=== PATIENT | female | born 1940 | race Caucasian/White ===

== ENCOUNTER 2016-03-08 12:27 | Inpatient (IN) | payer OTHER, MEDICARE ==
[~2016-03-08] VITALS: Ht 162.6 cm; Wt 66.2 kg
[~2016-03-08 12:27] MED LIST: ASPIRIN CHILDRE81 MG PO; ATORVASTATIN CA40 MG PO; BUPROPION HCL150 M2; CIPRO 250MG250 MG PO; CIPRO 500MG TA500 MG PO; CIPROFLOXACIN500 MG PO; CLOPIDOGREL75 M1 PO; CRANBERRY450 MG PO; ESCITALOPRAM OX20 MG PO; GLUCOTROL10 MG PO; LANTUS SOL100 UNIT/1 SC; LANTUS SOLOS100 U/ML SC; LANTUS100 U/ML SC; LEVEMIR 10100 UNITS/ SC; LOPRESSOR 25MG25 MG PO; METOPROLOL SUCC50 M1 PO; MIRALAX17 GM PO; NOVOLOG100 U/ML SC; OXYBUTYNIN CHLO10 M1 PO; PLAVIX 75MG TAB75 MG PO; PROTONIX40 M3 PO; SULFAMETHOXAZO1 EAC1 PO; Senokot S PO; VITAMIN D1000 IU PO
--- NOTE | 2016-03-08 12:53 | NUR ---
RECEIVED 75 YO FEMALE BIBA S/P FALL AT HOME. PT DOES NOT REMEMBER WHY SHE FELL. PT C/O LEFT HIP PAIN AND PAIN TO BACK OF HEAD. PT HAS A LARGE AREA OF SWELLING TO BACK OF HEAD WITH BLEEDING NOTED, NOT ACTIVE. PT REPORTS HER NEIGHBOR HEARD HER FALL AND SENT HIS AIDE TO INVESTIGATE WHO THEN CALLED 911. PT REPORTS HER B/P DROPS WHEN SHE STANDS.
--- NOTE | 2016-03-08 12:57 | NUR ---
PT EVALUATED BY OAPL FALCON
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
--- NOTE | 2016-03-08 13:19 | NUR ---
BLOOD DRAWN DIRECTED. PT SENT TO CT SCAN
[2016-03-08 13:21] LABS: ABSOLUTE BASOPHIL COUNT 0 /CUMM (0.0-0.2); ABSOLUTE EOSINOPHIL COUNT 0.3 /CUMM (0.0-0.7); ABSOLUTE GRANULOCYTE CT 6.1 /CUMM (1.4-6.5); ABSOLUTE LYMPH COUNT 1.3 /CUMM (1.2-3.4); ABSOLUTE MONOCYTE COUNT 0.8 /CUMM (0.10-0.60); BASOPHIL % 0.1 % (0.0-2.0); GRANULOCYTE % 71.5 % (42.2-75.2); HEMATOCRIT 31.1 % (37-47); MEAN CORPUSCULAR HGB 29.7 PG (27.0-31.0); MEAN CORPUSCULAR HGB CONC 32.7 G/DL (33.0-37.0); MEAN CORPUSCULAR VOLUME 90.8 FL (81.0-99.0); PLATELET COUNT 192 /CUMM (130-400); RBC DISTRIBUTION WIDTH 13.6 % (11.5-14.5); RED BLOOD CELL CT 3.43 /CUMM (4.20-5.40); WHITE BLOOD CELL COUNT 8.5 /CUMM (4.8-10.8)
--- NOTE | 2016-03-08 13:58 | NUR ---
PT BACK TO ROOM S/P CT SCAN AND XRAYS. PT COMES IN TO ED WITH INDWELLING PUGA CATHETER. BEDSIDE CATHETER BAG REPLACED WITH NEW ONE. EKG IN PROGRESS. PT DENIES CP OR SOB
--- NOTE | 2016-03-08 14:15 | CT SCAN REPORT ---
EXAMINATION: CT HEAD WITHOUT CONTRAST CT FACIAL BONES WITHOUT CONTRAST CT CERVICAL SPINE WITHOUT CONTRAST CLINICAL INFORMATION: 75-year-old woman with fall and injury. COMPARISON: 01/20/[address] head [address] CT TECHNIQUE: Imaging was performed from the skull base to vertex without intravenous administration of contrast. In addition, helical noncontrast CT imaging was acquired through the cervical spine and facial bones and source images were reviewed along with axial reconstructions and sagittal and coronal MPRs. DLP: 1691 mGy-cm FINDINGS: HEAD: No intracranial mass, hemorrhage, or midline shift is visualized. Moderate chronic microvascular ischemic changes are seen throughout the supratentorial white matter. There is moderate ventriculomegaly and diffuse sulcal widening due to chronic volume loss. No extra-axial collections are identified. Prominent soft tissue swelling is noted in the left parietal region without evidence of a acute calvarial fracture. FACIAL BONES: There is no evidence of an acute facial bone fracture. The paranasal sinuses are well aerated. No significant dental disease is visualized. The orbits are unremarkable in appearance. CERVICAL SPINE: There is no evidence of acute cervical spine fracture. Vertebral bodies remain normal in height. There is straightening of the normal cervical lordosis. Degenerative subchondral sclerosis and endplate remodeling is noted at C4-C5 and C6-C7 along with mild loss of normal disc height. No pre- or paravertebral soft tissue abnormality is identified. Limited assessment of the lung apices is unremarkable. IMPRESSION: 1. No acute intracranial process or discrete facial bone fracture. 2. No acute cervical spine fracture or traumatic subluxation.
--- NOTE | 2016-03-08 14:26 | RADIOLOGY REPORT ---
EXAMINATION: XR HIP AND FEMUR, LEFT CLINICAL INFORMATION: Injury COMPARISON: Pelvis film from 11/08/2014 and 01/17/2016 TECHNIQUE: AP pelvis with hips in neutral position, frontal and frog lateral films of the left hip. Frontal and lateral films of the left femur FINDINGS: There is no acute fracture, dislocation, or other acute bony or joint space abnormality seen in the left hip and femur. There is mild hypertrophic spurring in the acetabulum and at the greater trochanter. There is mild degenerative change in the left knee. No focal bone lesion is identified. There is extensive vascular calcification with vascular stents in the left femoral artery. There is a right hip hemiarthroplasty which is grossly intact. The distal stem of the right prosthesis is not included on the film. A tubular electrode is present over the right sacrum unchanged. IMPRESSION: No acute fracture or dislocation is seen in the left hip and femur. Mild degenerative changes similar to prior
--- NOTE | 2016-03-08 14:38 | NUR ---
ORTHOSTATIC VITAL SIGNS DONE. LAY: B/P 214/86, HR 62 SIT: B/P 157/72, HR 63 STAND: B/P 107/65, HR 64 PA OPAL MICHEL AWARE OF SAME.
--- NOTE | 2016-03-08 14:45 | NUR ---
URINE TRIO SENT TO LAB
--- NOTE | 2016-03-08 15:13 | NUR ---
IV ESTABLISHED RIGHT A/C #22. 1 LITER NS RUNNING
--- NOTE | 2016-03-08 15:30 | NUR ---
PT MEDICATED WITH KAYEXALATE 60ML PO
--- NOTE | 2016-03-08 15:58 | NUR ---
FOOD TRAY CALLED FOR PT
--- NOTE | 2016-03-08 16:29 | NUR ---
2ND LITER NS INFUSION COMPLETE. FOOD TRAY PROVIDED TO PT. ORTHOSTATIC BP TO BE RECHECKED AFTER PT FINISHED EATING
--- NOTE | 2016-03-08 17:25 | NUR ---
ORTHOSTATICS DONE. PT NEEDED TO SIT DOWN BEFORE A STANDING PRESSURE WAS OBTAINED, DUE TO LIGHTHEADEDNESS.
--- NOTE | 2016-03-08 17:36 | NUR ---
TERRIE MICHEL NOTIFIED OF OTHROSTATIC BP ASSESMENT. TERRIE SPARGUE AT BEDSIDE TO DISCUSS POC. 2ND LITER NS STARTED AT 150ML/HR
--- NOTE | 2016-03-08 18:57 | NUR ---
PT'S SON, AMMON, CALLED AND WOULD LIKE TO BE NOTIFIED OF PT'S DISPOSITION
--- NOTE | 2016-03-08 20:28 | ED GENERAL ADULT ---
History of Present Illness General Chief Complaint: Fall Stated Complaint: BIBA, FALL Vital Signs & Intake/Output Vital Signs & Intake/Output Vital Signs Date Time Temp Pulse Resp B/P Pulse O2 O2 Flow FiO2 Ox Delivery Rate 03/08 2315 98.8 91 20 153/72 97 Room Air 03/08 2042 99.6 91 20 142/65 96 Room Air 03/08 1726 72 155/72 03/08 1644 98.6 86 20 174/79 98 Room Air 03/08 1441 64 107/65 03/08 1441 63 157/72 03/08 1441 97.3 62 20 214/86 100 Room Air 03/08 1403 99 Room Air 03/08 1241 97.0 64 20 178/72 99 Room Air ED Intake and Output 03/09 0000 03/08 1200 Intake Total 0 Output Total 1100 Balance -1100 Intake, IV 0 Output, Urine 1100 Patient 146 lb Weight Allergies Coded Allergies: adhesive tape (PLASTIC TAPE 01/17/16) oxybutynin (Severe, DELERIUM 01/24/16) codeine (NAUSEA 01/17/16) nitrofurantoin (LOOPY 01/17/16) Reconcile Medications Aspirin (Children's Aspirin) 81 MG CTB 1 TAB PO DAILY HEART HEALTH Atorvastatin Calcium (Lipitor) 40 MG TAB 1 TAB PO DAILY CHOLESTEROL Clopidogrel Bisulfate (Clopidogrel) 75 MG TABLET 1 TAB PO DAILY BLOOD THINNER (Reported) Escitalopram Oxalate 20 MG TABLET 1 TAB PO DAILY DEPRESSION (Reported) Insulin Glargine, Recombinan (Lantus Solostar) 100 U/ML JAZ 8 UNITS SC QPM DIABETES (Reported) Insulin Glargine,Hum.rec.anlog (Lantus Solostar) 100 UNIT/ML (3 ML) INSULN.PEN 20 U SC DAILY DIABETES (Reported) Metoprolol Succinate (Metoprolol Succinate XL) [address] 1 TAB PO DAILY BP ( Reported) Pantoprazole Sodium (Protonix) 40 MG TABLET.DR 1 TAB PO DAILY GERD (Reported) Triage Note: RECEIVED 75 YO FEMALE HERO S/P FALL AT HOME. PT DOES NOT REMEMBER WHY SHE FELL. PT C/O LEFT HIP PAIN AND PAIN TO BACK OF HEAD. PT HAS A LARGE AREA OF SWELLING TO BACK OF HEAD WITH BLEEDING NOTED, NOT ACTIVE. PT REPORTS HER NEIGHBOR HEARD HER FALL AND SENT HIS AIDE TO INVESTIGATE WHO THEN CALLED 911. PT REPORTS HER B/P DROPS WHEN SHE STANDS. HPI: THIS CHART IS AN ADDENDUM TO THE PREVIOUS CHART EMR WILL NOT GIVE ACCESS AT THIS TIME. DISCUSSED THIS PATIENT WITH DR. QUESADA FOR ADMISSION TO THE HOSPITAL. (ANAND LAW,OPAL) Past History Travel History Traveled to [place] past 21 day No Medical History Neurological: NONE EENT: NONE Cardiovascular: hypertension, hyperlipidemia Respiratory: NONE Gastrointestinal: NONE Hepatic: NONE Renal: urinary incontinence, SUPRAPUBIC CATHETER Musculoskeletal: NONE Psychiatric: NONE Endocrine: diabetes Blood Disorders: sickle cell disease, NONE Cancer(s): NONE STATION REPAIRER/Reproductive: NONE History of MRSA: No History of VRE: No History of CDIFF: No Pneumonia Vaccine: 11/08/13 Influenza Vaccine: 11/09/15 Surgical History Surgical History: CABG, hip replacement, L LEG ANGIOPLASTY Psychosocial History Who do you live with Patient/Self Services at Home None What is your primary language Nicaraguan Tobacco Use: Never used (ANAND LAW,OPAL) Progress Plan of Care: Orders Procedure Date/time Status Nothing by Mouth 03/09 B Active Lab Add-on Test 03/09 13 Active FingerStick- Glucose 03/09 0010 Active Heart Healthy Diet 03/08 D Complete Patient Data 03/08 2123 Active Saline Lock 03/08 2024 Active Misc Message 03/08 2024 Active ED Holding Orders 03/08 2024 Active Admit to inpatient 03/08 2024 Active Vital Signs 03/08 2024 Active Code Status 03/08 2024 Active Intake & Output 03/08 1400 Active MISTAKE 03/08 1336 Active CULTURE,URINE 03/08 1248 Active URINALYSIS 03/08 1248 Complete TROPONIN LEVEL 03/08 1248 Complete COMPREHENSIVE METABOLIC PANEL 03/08 1248 Complete CBC WITHOUT DIFFERENTIAL 03/08 1248 Complete EKG 03/08 1248 Active Laboratory Tests 03/08/16 1440: Urine Color STRAW, Urine Clarity HAZY H, Urine pH 6.5, Ur Specific [place] 1.010, Urine Protein NEG, Urine Ketones NEG, Urine Nitrite NEG, Urine Bilirubin NEG, Urine Urobilinogen 0.2, Ur Leukocyte Esterase SMALL H, Ur Microscopic SEDIMENT EXAMINED, Urine RBC 3-5, Urine WBC 3-5 H, Ur Epithelial Cells RARE, Urine Mucus RARE, Urine Hemoglobin TRACE-LYSED, Urine Glucose 500 H 03/08/16 1312: Anion Gap 12, Estimated GFR 29 L, BUN/Creatinine Ratio 24.7, Glucose 310 H, Calcium 9.5, Total Bilirubin 0.5, AST 29, ALT 43, Alkaline Phosphatase 100, Troponin I < 0.01, Total Protein 7.5, Albumin 4.1, Globulin 3.4, Albumin/ Globulin Ratio 1.2, CBC w Diff NO MAN DIFF REQ, RBC 3.43 L, MCV 90.8, MCH 29.7, RDW 13.6, MPV 9.0, Gran % 71.5, Lymphocytes % 15.9 L, Monocytes % 9.5 H, Eosinophils % 3.0, Basophils % 0.1, Absolute Granulocytes 6.1, Absolute Lymphocytes 1.3, Absolute Monocytes 0.8 H, Absolute Eosinophils 0.3, Absolute Basophils 0, PUBS MCHC 32.7 L Microbiology 03/08 1440 URINE ROUT: Urine Culture - RECD Comments: 03/08/2016 9:30:53 PM: This patient was officially signed out to Dr. Lamar for telemetry admission. (OPAL MICHEL PA-C) Departure Departure Disposition: STILL A PATIENT Condition: Stable Referrals: ADINA GILMORE,CHARY Crespo (PCP/Family) Departure Forms: Customer Survey General Discharge Information Admission Note Spoke With: ALVINO QUESADA MD (OAPL MICHEL PA-C)
--- NOTE | 2016-03-08 21:01 | NUR ---
PT RESTING ON STRETCHER WATCHING TELEVISION. NO APPARENT DISTRESS NOTED
--- NOTE | 2016-03-08 22:43 | NUR ---
BED ASSIGNED 172-2
--- NOTE | 2016-03-08 23:04 | NUR ---
REPORT CALLED TO RAMSES CHENEY
--- NOTE | 2016-03-08 23:24 | NUR ---
PT CONTINUES TO REFUSE TO CHANGE INTO HOSPITAL [facility]
--- NOTE | 2016-03-08 23:50 | NUR ---
PT ASSIGNED TO ROOM 171
--- NOTE | 2016-03-09 00:21 | History & Physical ---
JAVIER GILMORE,JEANE 03/09/16 0002: General Information and HPI MD Statement: I have seen and personally examined FELICIANO PATHAK I and documented this H&P. The patient is a 75 year old F who presented with a patient stated chief complaint of [fall]. Source of Information: patient, old records Exam Limitations: no limitations History of Present Illness: There is a 75-year-old female the past medical history significant for suprapubic catheter secondary to urinary incontinence, recurrent UTI, history of CABG, CKD, type 2 diabetes mellitus hypertension, hyperlipidemia that presented to the emergency room today after she fell secondary to mechanical fall on her kitchen floor. She was refilling her cup of coffee and she lost her footing and fell backwards onto her left hip and banged the back of her head. No syncope like prodrome chest pain, shortness of breath, lightheadedness, blacking out or passing out. States it was a mechanical fall, denies any loss of consciousness does admit to head strike. States this is never happened before she is normally careful ambulating well using a walker. She did receive IV fluids in the emergency room and had orthostatic hypotension in addition to an elevated potassium of 5.9. During my evaluation, patient denied any chest pain, shortness of breath, nausea, vomiting, diarrhea, recent illnesses sick contacts, fevers or chills. She only complained of minor left hip pain. X-ray and CAT scans in the emergency room have showed completely benign findings. No acute fractures. Allergies/Medications Allergies: Coded Allergies: adhesive tape (PLASTIC TAPE 01/17/16) oxybutynin (Severe, DELERIUM 01/24/16) codeine (NAUSEA 01/17/16) nitrofurantoin (LOOPY 01/17/16) Home Med list Aspirin (Children's Aspirin) 81 MG CTB 1 TAB PO DAILY HEART HEALTH Atorvastatin Calcium (Lipitor) 40 MG TAB 1 TAB PO DAILY CHOLESTEROL Clopidogrel Bisulfate (Clopidogrel) 75 MG TABLET 1 TAB PO DAILY BLOOD THINNER (Reported) Escitalopram Oxalate 20 MG TABLET 1 TAB PO DAILY DEPRESSION (Reported) Insulin Glargine, Recombinan (Lantus Solostar) 100 U/ML JAZ 8 UNITS SC QPM DIABETES (Reported) Insulin Glargine,Hum.rec.anlog (Lantus Solostar) 100 UNIT/ML (3 ML) INSULN.PEN 20 U SC DAILY DIABETES (Reported) Metoprolol Succinate (Metoprolol Succinate XL) [address] 1 TAB PO DAILY BP ( Reported) Pantoprazole Sodium (Protonix) 40 MG TABLET.DR 1 TAB PO DAILY GERD (Reported) Past History Travel History Traveled to [place] past 21 day No Medical History Neurological: NONE EENT: NONE Cardiovascular: CHF, hypertension, hyperlipidemia Respiratory: NONE Gastrointestinal: NONE Hepatic: NONE Renal: urinary incontinence, SUPRAPUBIC CATHETER Musculoskeletal: NONE Psychiatric: NONE Endocrine: diabetes Blood Disorders: sickle cell disease Cancer(s): NONE History of MRSA: No History of VRE: No History of CDIFF: No Pneumonia Vaccine: 11/08/13 Influenza Vaccine: 11/09/15 Surgical History Surgical History: CABG, hip replacement, L LEG ANGIOPLASTY Past Family/Social History Psychosocial History Where do you live? Home Who Do You Live With? By herself - Neighbor/Friend helps her out Services at Home: None Primary Language: Slovak Smoking Status: Never Smoked ETOH Use: occasional use Illicit Drug Use: denies illicit drug use Living Will? yes Functional Ability ADLs Independent: dressing, eating, toileting, bathing. IADLs Needs Assist: shopping, housework. Review of Systems Review of Systems Constitutional: Reports: see HPI. Exam & Diagnostic Data Last 24 Hrs of Vital Signs/I&O Vital Signs Date Time Temp Pulse Resp B/P Pulse O2 O2 Flow FiO2 Ox Delivery Rate 03/08 2315 98.8 91 20 153/72 97 Room Air 03/08 2042 99.6 91 20 142/65 96 Room Air 03/08 1726 72 155/72 03/08 1644 98.6 86 20 174/79 98 Room Air 03/08 1441 64 107/65 03/08 1441 63 157/72 03/08 1441 97.3 62 20 214/86 100 Room Air 03/08 1403 99 Room Air 03/08 1241 97.0 64 20 178/72 99 Room Air Intake & Output 03/09 0800 03/09 0000 03/08 1600 Intake Total 0 Output Total 1100 Balance -1100 0 Intake, IV 0 Output, Urine 1100 Patient 146 lb Weight Physical Exam General Appearance Alert, Oriented X3, Cooperative HEENT Atraumatic, PERRLA, EOMI, ABRASION TO OCCIPUT, TENDER Neck Supple, No JVD Cardiovascular Regular Rate, Normal S1, Normal S2 Lungs Clear to Auscultation, Normal Air Movement Abdomen Normal Bowel Sounds, Soft, No Tenderness, No Hepatospenomegaly, No Masses, Supra-pubic catheter w/o any surrounding errythema Neurological Normal Speech, Strength at 5/5 X4 Ext, Normal Tone, Sensation Intact, Cranial Nerves 3-12 NL Extremities Full ROM IN HIPS, KNEE AND ANKLES BILATERALLY, TENDERNESS TO PALPATION OVER LEFT HIP Last 24 Hrs of Labs/Heraclio: Laboratory Tests 03/08/16 1440: Urine Color STRAW, Urine Clarity HAZY H, Urine pH 6.5, Ur Specific [place] 1.010, Urine Protein NEG, Urine Ketones NEG, Urine Nitrite NEG, Urine Bilirubin NEG, Urine Urobilinogen 0.2, Ur Leukocyte Esterase SMALL H, Ur Microscopic SEDIMENT EXAMINED, Urine RBC 3-5, Urine WBC 3-5 H, Ur Epithelial Cells RARE, Urine Mucus RARE, Urine Hemoglobin TRACE-LYSED, Urine Glucose 500 H 03/08/16 1312: Anion Gap 12, Estimated GFR 29 L, BUN/Creatinine Ratio 24.7, Glucose 310 H, Calcium 9.5, Total Bilirubin 0.5, AST 29, ALT 43, Alkaline Phosphatase 100, Troponin I < 0.01, Total Protein 7.5, Albumin 4.1, Globulin 3.4, Albumin/ Globulin Ratio 1.2, CBC w Diff NO MAN DIFF REQ, RBC 3.43 L, MCV 90.8, MCH 29.7, RDW 13.6, MPV 9.0, Gran % 71.5, Lymphocytes % 15.9 L, Monocytes % 9.5 H, Eosinophils % 3.0, Basophils % 0.1, Absolute Granulocytes 6.1, Absolute Lymphocytes 1.3, Absolute Monocytes 0.8 H, Absolute Eosinophils 0.3, Absolute Basophils 0, PUBS MCHC 32.7 L Microbiology 03/08 144 URINE ROUT: Urine Culture - RECD Diagnostic Data EKG Results Rate 61, AK 144, QRS 78, QTC 456 Sinus rhythm Other Results CAT scan of the cervical spine, head, maxillofacial IMPRESSION: 1. No acute intracranial process or discrete facial bone fracture. 2. No acute cervical spine fracture or traumatic subluxation. X-ray of the hip and femur IMPRESSION: No acute fracture or dislocation is seen in the left hip and femur. Mild degenerative changes similar to prior Assessment/Plan Assessment: In summary this is a 75-year-old female with a history of depression, CABG, hyperlipidemia, hypertension, diabetes mellitus that presented to the emergency room after experiencing a mechanical fall with head strike without loss of consciousness. She was found to have labile blood pressures in the emergency room and was given 2 L of normal saline with modest resolved and her blood pressures. She states that she has never checked her blood pressure at home and is unsure if it's normally labile or not. She was consequently found to have a serum potassium of 5.9 without any EKG changes and hence merits in observation to the cardiac telemetry floor. Off note, patient used to be and Midodrine previously but it was eventually discontinued by her freelance translator. Assessment- 1. Fall, likely secondary to orthostatic hypotension, but could also be secondary to her neuropathy from chronic diabetes, her previous A1c was greater than 9 2. Hyperkalemia, potassium 5.9 3. Hypertension 4. Hyperlipidemia 5. Depression 6. Diabetes mellitus 7. Chronic incontinence, supra-pubic catheter Plan- Admit to telemetry Vitals per protocol IV fluid resuscitation She was given 60 her Kayexalate in the ER, will recheck potassium Echocardiogram Check of troponin and EKG Continue all home meds Accu-Checks Insulin sliding scale DVT prophylaxis with subcutaneous heparin Diabetic diet DNR/I As Ranked By This Provider Problem List: 1. Orthostatic hypotension 2. [id number] kidney injury 3. Renal failure Core Measures/Miscellaneous Acute Coronary Syndrome ACS Diagnosis: No Cerebrovascular Accident CVA/TIA Diagnosis: No Congestive Heart Failure CHF Diagnosis: No Venous Thromboembolism VTE Risk Factors: Age > 40 VTE Prophylaxis Ordered Inpt: Pharm- Heparin No [facility] VTE prophylaxis d/t: No contraindications No VTE Pharm Prophylaxis d/t: No contraindications VTE Diagnosis: No VTE Type: NONE VTE Confirmed by (Test): NONE Severe Sepsis Severe Sepsis Present: No Septic Shock Septic Shock Present: No Miscellaneous Documentation Attending Case Discussed With: ALVINO QUESADA MD Primary Care Physician: CHARY HOLDEN MD Patient sees these Specialists NONE Level of Patient Care: Telemetry Resident Review Statement Resident Statement: examined this patient, discussed with college intern EDD QUESADA MD 03/09/16 0354: Attending Review Statement Attending Statement Attending Statement: examined this patient, discuss w/resident/PA/OFFICE MOVER, agreed w/resident/PA/OFFICE MOVER Attending Assessment/Plan: 75 yo lady with h/o suprapubic catheter for UI and recurrent UTIs, T2DM, HTN, CAD s/p CABG, orthostatic hypotension, CKD stage 4, is brought in from home s/p fall. She was in the kitchen this morning making her coffee, when she felt lightheaded and fell hitting her head and left hip. She heard a loud noise and her neighbour's aide came in to check on her, and called 911. Similar fall about 1 month back. She has a h/o orthostatic hypotension and was on midodrine, but this was discontinued per patient. She states, none of her doctors were able to manage this problem for her. She used to follow Dr. Soria (Cardio) but he is . After which, she saw a freelance translator in [place], but she does not wish to follow up there anymore. She currently denies chest pain, palpitations, nausea, dyspnea or lightheadedness. C/o left hip pain. VSS. Orthostats positive. Exam: Swelling noted to posterior aspect of head, neuro intact. Heart S1S2 regular, systolic murmur LSB+, Chest clear. Labs: K 5.9 , BUN 42, creat 1.7 (baseline 1.5), trop neg, UA neg. Imaging reveals no fractures. EKG: SR. 1. Near syncope, fall due to orthostatic hypotension which is likely 2/2 diabetic neuropathy. Fall precautions, IV fluids, recheck orthostats Qshift, rule out ACS, obtain Echo, Cardio consult in AM. Monitor accucheks for hypoglycemia. Give bilateral compression stockings. Will consider midodrine if BP allows. PT eval. 2. T2DM. Last A1c 9.9 (Jan 2016). Accucheks, continue levemir, and add novolog SS. 3. Hyperkalemia. Received kayexalate in ER. Recheck K. 4. Chronic suprapubic catheter, no acute urinary infection. 5. Continue home meds including aspirin, plavix, metoprolol, statin, lexapro and omeprazole. DVT ppx Hep SC. DNR/I.
--- NOTE | 2016-03-09 00:27 | Admission Certification ---
Admission Certification Certification Statement - As attending physician, I certify that at the time of - admission, based on clinical presentation, severity of - symptoms, need for further diagnostic testing and - therapeutic interventions, and risk of adverse outcomes - without in-hospital treatment, in my clinical assessment, - this patient requires an acute hospital stay for a minimum - of two nights or longer. I have also considered psychsocial - factors such as support system, advanced age, financial - issues, cognitive issues, and failed out-patient treatments, - past re-admission history, safety of patient, and lack of - compliance as applicable. Specific rationale supporting this admission is: Near syncope, Orthostatic hypotension.
[2016-03-09 00:44] VITALS: BP 150/76
[2016-03-09 02:41] VITALS: BP 159/68
[2016-03-09 07:59] LABS: ABSOLUTE EOSINOPHIL COUNT 0.3 /CUMM (0.0-0.7); ABSOLUTE GRANULOCYTE CT 3.3 /CUMM (1.4-6.5); ABSOLUTE MONOCYTE COUNT 0.8 /CUMM (0.10-0.60); MEAN CORPUSCULAR HGB 30.1 PG (27.0-31.0); WHITE BLOOD CELL COUNT 6.7 /CUMM (4.8-10.8)
[2016-03-09 08:19] LABS: PT 12.8 SEC (9.4-12.5)
[2016-03-09 08:22] LABS: ABSOLUTE BASOPHIL COUNT 0 /CUMM (0.0-0.2); ABSOLUTE LYMPH COUNT 2.3 /CUMM (1.2-3.4); BASOPHIL % 0.7 % (0.0-2.0); EOSINOPHIL % 4.7 % (0-5); GRANULOCYTE % 49.2 % (42.2-75.2); MEAN CORPUSCULAR HGB CONC 33.5 G/DL (33.0-37.0); MEAN CORPUSCULAR VOLUME 89.7 FL (81.0-99.0); PLATELET COUNT 152 /CUMM (130-400); RBC DISTRIBUTION WIDTH 13.2 % (11.5-14.5); RED BLOOD CELL CT 2.79 /CUMM (4.20-5.40)
[2016-03-09 09:00] VITALS: BP 130/60
--- NOTE | 2016-03-09 10:54 | Cons- Cardiology ---
General Information and HPI Consulting Request Date of Consult: 03/09/16 Requested By: BARBARA BARDALES MD Reason for Consult: Coronary artery disease, orthostatic hypotension Source of Information: patient, old records Exam Limitations: no limitations History of Present Illness: The patient is a 75-year-old woman with a past medical history of coronary artery disease (status post bypass surgery, status post recent stenting 2), chronic kidney disease, diabetes mellitus, hypertension, hyperlipidemia and orthostatic hypotension. She presented to our hospital following a fall, sustaining injury to her left hip. The patient states having a history of orthostatic hypotension and had previously been placed on medications such as ProAmatine and Florinef. Regimen was recently discontinued for an unclear reason. The patient's current episode occurred after she had risen to get a cup of coffee. There was no clear prodrome, chest pain nor palpitations. There have been prior falls as well without clear prodrome. The patient however believes the current episode may have been due to a mechanical etiology rather than syncope. Following admission, the patient is noted to have significant orthostatic hypotension with supine blood pressures of 150s and standing of 90s. She is symptomatic for blood pressure differences. The patient states she is otherwise active, and describes performing a proximally 4 METs of physical activity. She ambulates with a walker for stability. Allergies/Medications Allergies: Coded Allergies: adhesive tape (PLASTIC TAPE 01/17/16) oxybutynin (Severe, DELERIUM 01/24/16) codeine (NAUSEA 01/17/16) nitrofurantoin (LOOPY 01/17/16) Home Med List: Aspirin (Children's Aspirin) 81 MG CTB 1 TAB PO DAILY HEART HEALTH Atorvastatin Calcium (Lipitor) 40 MG TAB 1 TAB PO DAILY CHOLESTEROL Clopidogrel Bisulfate (Clopidogrel) 75 MG TABLET 1 TAB PO DAILY BLOOD THINNER (Reported) Escitalopram Oxalate 20 MG TABLET 1 TAB PO DAILY DEPRESSION (Reported) Insulin Glargine, Recombinan (Lantus Solostar) 100 U/ML JAZ 8 UNITS SC QPM DIABETES (Reported) Insulin Glargine,Hum.rec.anlog (Lantus Solostar) 100 UNIT/ML (3 ML) INSULN.PEN 20 U SC DAILY DIABETES (Reported) Metoprolol Succinate (Metoprolol Succinate XL) [address] 1 TAB PO DAILY BP ( Reported) Pantoprazole Sodium (Protonix) 40 MG TABLET. 1 TAB PO DAILY GERD (Reported) Current Medications: Current Medications Sig/Dasha Start time Last Medication Dose Route Stop Time Status Admin Acetaminophen 650 MG Q6P PRN 03/09 0030 AC PO Aspirin 81 MG DAILY 03/09 1000 AC 03/09 PO 0908 Atorvastatin Calcium 40 MG DAILY 03/09 1000 AC 03/09 PO 0908 Clopidogrel Bisulfate 75 MG DAILY 03/09 1000 AC 03/09 PO 0908 Escitalopram Oxalate 20 MG DAILY 03/09 1000 AC 03/09 PO 0908 Heparin Sodium 5,000 UNIT Q8 03/09 0031 AC 03/09 (Porcine) SC 0739 Insulin Aspart 0 TIDAC 03/09 0800 AC 03/09 SC 0858 Insulin Detemir 8 UNITS AT BEDTIME 03/09 2200 AC SC Insulin Detemir 20 UNITS DAILY 03/09 1000 AC 03/09 SC 0908 Metoprolol Succinate 50 MG DAILY 03/09 1000 AC PO Omeprazole 40 MG DAILY AC 03/09 0700 AC 03/09 PO 0739 Pyridostigmine 30 MG .[8A, 12A, 4PM] 03/09 1015 [facility] [place] PO Sodium Chloride 1,000 ML ONCE ONE 03/09 0045 AC 03/09 IV 03/09 1404 0345 Sodium Chloride 1,000 ML BOLUS ONE 03/08 1745 DC 03/08 IV 03/08 1944 1736 Sodium Chloride 1,000 ML BOLUS ONE 03/08 1445 DC 03/08 IV 03/08 1544 1512 Sodium Polystyrene 0 .STK-MED ONE 03/08 1517 DC Sulfonate .ROUTE Sodium Polystyrene 60 ML ONCE ONE 03/08 1445 DC 03/08 Sulfonate PO 03/08 1446 1530 Review of Systems Review of Systems: The review of systems is negative for chest pains, palpitations. The remainder of the 14 point review of systems is noncontributory with the exception of above. 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 Home Who Do You Live With? By herself - Neighbor/Friend helps her out Services at Home: None Primary Language: Zimbabwean Smoking Status: Never Smoked ETOH Use: occasional use Illicit Drug Use: denies illicit drug use Living Will? yes Functional Ability ADLs Independent: dressing, eating, toileting, bathing. IADLs Needs Assist: shopping, housework. Exam & Diagnostic Data Vital Signs and I&O Vital Signs Date Time Temp Pulse Resp B/P Pulse O2 O2 Flow FiO2 Ox Delivery Rate 03/09 0935 Room Air 03/09 0900 98.6 74 20 130/60 94 Room Air 03/09 0241 98.2 82 18 159/68 97 03/09 0044 98.6 85 20 150/76 96 03/08 2315 98.8 91 20 153/72 97 Room Air 03/08 2042 99.6 91 20 142/65 96 Room Air 03/08 1726 72 155/72 03/08 1644 98.6 86 20 174/79 98 Room Air 03/08 1441 64 107/65 03/08 1441 63 157/72 03/08 1441 97.3 62 20 214/86 100 Room Air 03/08 1403 99 Room Air 03/08 1241 97.0 64 20 178/72 99 Room Air Intake & Output 03/09 1600 03/09 0800 03/09 0000 03/08 1600 03/08 0800 03/08 0000 Intake Total 565 0 Output Total 675 1100 Balance -110 -1100 0 Intake, IV 325 0 Intake, Oral 240 Output, Urine 675 1100 Patient 146 lb 146 lb Weight Physical Exam: General: Nontoxic, no apparent distress. HEENT: Sclera and conjunctiva within normal limits, without xanthelasmas. Neck: Carotids 2+ without bruits. Respiratory: Clear to auscultation, air movement is good, without accessory respiratory muscle use. Heart: Regular rate and rhythm, 2/6 systolic ejection murmur at left sternal border, without JVD. Abdomen: Soft, nontender, no masses, normoactive bowel sounds. Extremities: Without clubbing, cyanosis, without edema. Neuro: Nonfocal exam, strength, 5 out of 5 Skin: Within normal limits without lesions. Psych: Mood and affect: Normal Labs/Heraclio Results: Laboratory Tests 03/09 03/09 0615 0230 Chemistry Sodium (137 - 145 mmol/L) 142 140 Potassium (3.5 - 5.1 mmol/L) 4.3 4.6 Chloride (98 - 107 mmol/L) 110 H 109 H Carbon Dioxide (22 - 30 mmol/L) 23 23 Anion Gap (5 - 16) 9 7 BUN (7 - 17 mg/dL) 33 H 35 H Creatinine (0.5 - 1.0 mg/dL) 1.5 H 1.6 H Estimated GFR (>60 ml/min) 34 L 31 L BUN/Creatinine Ratio (7 - 25 %) 22.0 21.9 Troponin I (< 0.11 ng/ml) < 0.01 Coagulation PT (9.4 - 12.5 SEC) 12.8 H INR (0.90 - 1.19) 1.22 H Hematology CBC w Diff NO MAN DIFF REQ WBC (4.8 - 10.8 /CUMM) 6.7 RBC (4.20 - 5.40 /CUMM) 2.79 L Hgb (12.0 - 16.0 G/DL) 8.4 L Hct (37 - 47 %) 25.0 L MCV (81.0 - 99.0 FL) 89.7 MCH (27.0 - 31.0 PG) 30.1 RDW (11.5 - 14.5 %) 13.2 Plt Count (130 - 400 /CUMM) 152 MPV (7.4 - 10.4 FL) 9.0 Gran % (42.2 - 75.2 %) 49.2 Lymphocytes % (20.5 - 51.1 %) 33.7 Monocytes % (1.7 - 9.3 %) 11.7 H Eosinophils % (0 - 5 %) 4.7 Basophils % (0.0 - 2.0 %) 0.7 Absolute Granulocytes (1.4 - 6.5 /CUMM) 3.3 Absolute Lymphocytes (1.2 - 3.4 /CUMM) 2.3 Absolute Monocytes (0.10 - 0.60 /CUMM) 0.8 H Absolute Eosinophils (0.0 - 0.7 /CUMM) 0.3 Absolute Basophils (0.0 - 0.2 /CUMM) 0 PUBS MCHC (33.0 - 37.0 G/DL) 33.5 03/08 03/08 1440 1312 Chemistry Sodium (137 - 145 mmol/L) 139 Potassium (3.5 - 5.1 mmol/L) 5.9 H Chloride (98 - 107 mmol/L) 104 Carbon Dioxide (22 - 30 mmol/L) 22 Anion Gap (5 - 16) 12 BUN (7 - 17 mg/dL) 42 H Creatinine (0.5 - 1.0 mg/dL) 1.7 H Estimated GFR (>60 ml/min) 29 L BUN/Creatinine Ratio (7 - 25 %) 24.7 Glucose (65 - 99 mg/dL) 310 H Calcium (8.4 - 10.2 mg/dL) 9.5 Total Bilirubin (0.2 - 1.3 mg/dL) 0.5 AST (14 - 36 U/L) 29 ALT (9 - 52 U/L) 43 Alkaline Phosphatase (<127 U/L) 100 Creatine Kinase (30 - 135 U/L) 44 Troponin I (< 0.11 ng/ml) < 0.01 Total Protein (6.3 - 8.2 g/dL) 7.5 Albumin (3.5 - 5.0 g/dL) 4.1 Globulin (1.9 - 4.2 gm/dL) 3.4 Albumin/Globulin Ratio (1.1 - 2.2 %) 1.2 Hematology CBC w Diff NO MAN DIFF REQ WBC (4.8 - 10.8 /CUMM) 8.5 RBC (4.20 - 5.40 /CUMM) 3.43 L Hgb (12.0 - 16.0 G/DL) 10.2 L Hct (37 - 47 %) 31.1 L MCV (81.0 - 99.0 FL) 90.8 MCH (27.0 - 31.0 PG) 29.7 RDW (11.5 - 14.5 %) 13.6 Plt Count (130 - 400 /CUMM) 192 MPV (7.4 - 10.4 FL) 9.0 Gran % (42.2 - 75.2 %) 71.5 Lymphocytes % (20.5 - 51.1 %) 15.9 L Monocytes % (1.7 - 9.3 %) 9.5 H Eosinophils % (0 - 5 %) 3.0 Basophils % (0.0 - 2.0 %) 0.1 Absolute Granulocytes (1.4 - 6.5 /CUMM) 6.1 Absolute Lymphocytes (1.2 - 3.4 /CUMM) 1.3 Absolute Monocytes (0.10 - 0.60 /CUMM) 0.8 H Absolute Eosinophils (0.0 - 0.7 /CUMM) 0.3 Absolute Basophils (0.0 - 0.2 /CUMM) 0 PUBS MCHC (33.0 - 37.0 G/DL) 32.7 L Urines Urine Color (YEL,AMB,STR) STRAW Urine Clarity (CLEAR) HAZY H Urine pH (5.0 - 8.0) 6.5 Ur Specific [place] (1.001 - 1.035) 1.010 Urine Protein (NEG,<30 MG/DL) NEG Urine Ketones (NEG) NEG Urine Nitrite (NEG) NEG Urine Bilirubin (NEG) NEG Urine Urobilinogen (0.1 - 1.0 EU/dl) 0.2 Ur Leukocyte Esterase (NEG) SMALL H Ur Microscopic SEDIMENT EXAMINED Urine RBC (0 - 5 /HPF) 3-5 Urine WBC (0 - 2 /HPF) 3-5 H Ur Epithelial Cells (NONE,FEW) RARE Urine Mucus (FEW,NONE) RARE Urine Hemoglobin (NEG) TRACE-LYSED Urine Glucose (N MG/DL) 500 H Assessment/Plan Assessment/Plan 75-year-old woman with a past medical history of coronary artery disease (status post bypass surgery, status post recent stenting 2), chronic kidney disease, diabetes mellitus, hypertension, hyperlipidemia and orthostatic hypotension. She presented to our hospital following a fall, sustaining injury to her left hip. Orthostatic hypotension: The patient demonstrates significant supine hypertension (occasionally above 200s); however, significant drops when standing. She had been previously placed on the Virgil as well as Florinef; however, due to supine hypertension has been discontinued. I have discussed with her the trial of Mestinon which may prove to mitigate standing blood pressure drops and not accentuated 9 hypertension. There may need to be a balance of permissive supine hypertension to allow less symptomatic ambulation. Coronary artery disease: Currently stable, the patient is asymptomatic. We will obtain records from her recent hospitalization at [facility] wherein she underwent stent placement 2. Supine hypertension: A degree of permissive supine hypertension will need to be present given her significant orthostatic symptoms. Further control of her blood pressures will likely need to be titrated as an outpatient. Thank you for allowing us to participate in the care of your patient. Please do not hesitate to contact us further with any questions. Sincerely, Julian Howell MD [facility] Consult Acknowledgment - Thank you for your consult request.
--- NOTE | 2016-03-09 13:19 | ECHOCARDIOGRAM REPORT ---
FELICIANO PATHAK Age: 75 : 1940 Gender: F Exam Date: 03/09/2016 10:47 Exam Location: 1 [place] Ht (in): 64 Wt (lb): 146 BSA: 1.74 BP: 159 / 68 Ordering Physician: NICK PEMBERTON MD Referring Physician: NICK PEMBERTON MD Technologist: Marcus Herron RUST Room Number: [id number] Indications: HYPOTENSION Rhythm: Technical Quality: FINDINGS Left Ventricle Normal LV chamber size, wall thickness and systolic function. The estimated LVEF is 55-60% there are no focal wall motion of modalities. Right Ventricle Normal appearing right ventricular structure and function. Right Atrium Normal appearing right atrium Left Atrium Normal appearing left atrium Mitral Valve Mildly calcified mitral valvular leaflets and annulus. There is normal leaflet opening. There is trace mitral regurgitation. Aortic Valve Thickened and calcified trileaflet aortic valve. There is reduced leaflet opening. There is moderate to severe aortic stenosis, with a calculated aortic valve area of 1.1 cm. There is mild aortic insufficiency. Tricuspid Valve Grossly normal appearing tricuspid valvular leaflet structure and function. There is mild tricuspid regurgitation. The estimated PA systolic pressure is 37 mmHg Pulmonic Valve Grossly normal appearing pulmonic valvular structure and function Pericardium Normal-appearing pericardium with no significant pericardial effusion Great Vessels Grossly normal appearing great vessels CONCLUSIONS Normal LV chamber size, wall thickness and systolic function. The estimated LVEF is 55-60% there are no focal wall motion of modalities. There is trace mitral regurgitation. Thickened and calcified trileaflet aortic valve. There is reduced leaflet opening. There is moderate to severe aortic stenosis, with a calculated aortic valve area of 1.1 cm. There is mild aortic insufficiency. There is mild tricuspid regurgitation. The estimated PA systolic pressure is 37 mmHg. Julian Howell M.D. (Electronically Signed) Final Date: 09 March 2016 13:18 MEASUREMENTS (Male / Female) Normal Values 2D ECHO LV Diastolic Diameter PLAX 4.7 cm 4.2 - 5.9 / 3.9 - 5.3 cm LV Systolic Diameter PLAX 3.0 cm 2.1 - 4.0 cm LV Fractional Shortening PLAX 36.2 % 25 - 46 % LV Ejection Fraction 2D Teich 65.8 % IVS Diastolic Thickness 0.7 cm LVPW Diastolic Thickness 0.9 cm LV Relative Wall Thickness 0.3 RV Internal Dim ED PLAX 4.0 cm 1.9 - 3.8 cm LVOT Diameter 2.0 cm Aortic Root Diameter 2.8 cm LA Systolic Diameter LX 3.5 cm 3.0 - 4.0 / 2.7 - 3.8 cm LA Volume 53.0 cm 18 - 58 / 22 - 52 cm Ascending Aorta Diameter 3.1 cm DOPPLER AV Peak Velocity 244.0 cm/s AV Peak Gradient 23.8 mmHg AV Mean Velocity 185.0 cm/s AV Mean Gradient 15.0 mmHg AV Velocity Time Integral 72.2 cm AI Deceleration [place] 266.0 cm/s AI Peak Velocity 362.0 cm/s AI Pressure Half Time 398.0 ms AI Peak Gradient 52.4 mmHg LVOT Peak Velocity 89.8 cm/s LVOT Peak Gradient 3.2 mmHg LVOT Mean Velocity 58.6 cm/s LVOT Mean Gradient 2.0 mmHg LVOT Velocity Time Integral 24.1 cm LVOT Stroke Volume 75.7 cm AV Area Cont Eq vti 1.0 cm AV Area Cont Eq pk 1.2 cm MV Peak Velocity 88.2 cm/s MV Peak Gradient 3.1 mmHg MV Mean Velocity 50.5 cm/s MV Mean Gradient 1.2 mmHg Mitral E Point Velocity 102.0 cm/s Mitral A Point Velocity 85.4 cm/s Mitral E to A Ratio 1.2 MV PHT Velocity 80.1 cm/s MV Deceleration [place] 270.8 cm/s MV Pressure Half Time 88.7 ms MV Area PHT 2.5 cm MV Deceleration Time 229.0 ms TR Peak Velocity 282.0 cm/s TR Peak Gradient 31.8 mmHg Right Atrial Pressure 5.0 mmHg Pulmonary Artery Systolic Pressu 36.8 mmHg Right Ventricular Systolic Press 36.8 mmHg PV Peak Velocity 84.1 cm/s PV Peak Gradient 2.8 mmHg PV Mean Velocity 67.2 cm/s PV Mean Gradient 2.0 mmHg PV Velocity Time Integral 23.6 cm LV E' Lateral Velocity 11.3 cm/s Mitral E to LV E' Lateral Ratio 9.0 LV E' Septal Velocity 6.9 cm/s Mitral E to LV E' Septal Ratio 14.7
--- NOTE | 2016-03-09 14:30 | PN- Att Addend ---
Attending Addendum Attending Brief Note 55-year-old female with past medical history of DM, CAD, indwelling Gallo, chronic orthostatic hypotension and CKD. She is here status post a fall where she hit the back of her head. She has a small hematoma there, her x-rays negative for any hip fracture. She was significantly orthostatic in the ER. Was hydrated and we have now started her on midodrine per cardiology. Will need cardiology records from her previous cooker casing and follow-up closely.
[2016-03-09 15:57] VITALS: BP 140/64
--- NOTE | 2016-03-09 16:02 | Transfer of Care Summary ---
Hospital Course Course Hospital Course: There is a 75-year-old female the past medical history significant for suprapubic catheter secondary to urinary incontinence, recurrent UTI, history of CABG, CKD, type 2 diabetes mellitus hypertension, hyperlipidemia that presented to the emergency room today after she fell secondary to mechanical fall on her kitchen floor. States it was a mechanical fall, denies any loss of consciousness does admit to head strike. States this is never happened before she is normally careful ambulating well using a walker. She did receive IV fluids in the emergency room and had orthostatic hypotension in addition to an elevated potassium of 5.9. VSS. Orthostats positive. Exam: Swelling noted to posterior aspect of head, neuro intact. Heart S1S2 regular, systolic murmur LSB+, Chest clear. Labs: K 5.9 , BUN 42, creat 1.7 (baseline 1.5), trop neg, UA neg. Imaging reveals no fractures. EKG: SR. She was admitted to the telemetry floor for further management. Problem List: 1) Fall secondary to known Orthostatic Hyopotension: She was seen by cardiology. According to them, she was previously on Midodrine, which was discontinued, presumably secondary to supine hypertension. She was therefore, started on Pyridostigmine 30 mg Q4 x3. ECHO showed the presence of aortic sclerosis and mild insufficiency with EF of 55-60%. 2) Hyperkalemia: Initial K in the ED was 5.9. She was given one dose of Kayexalate post which her K came down to 4.6. She was monitored on telemetry with no further events. 3) Type 2 DM: She was continued on Levemir and Novolog SS 4) Hypertension: Continued on home Metoprolol 5) Hyperlipidemia: Continued on home Atorvastatin 6) Depression: Continued on home Lexapro. 7) Chronic Incontinence, with suprapubic catheter: Continued while the patient was in the hospital. 8) CAD s/p Recent Stenting x 2: Patient was continued on home Aspirin and Plavix. 9) DVT PPx: Heparin SubQ 10) Code Status: DNR/DNI 11) Asymptomatic Bacteruria: Urine cultures grew Gram Negative Rods, but the patient was asymptomatic, so she was not started on any antibiotics. Complications: As above. Significant Procedures: ECHOCARDIOGRAM SERVICE DATE: 03/09/16: CONCLUSIONS Normal LV chamber size, wall thickness and systolic function. The estimated LVEF is 55-60% there are no focal wall motion of modalities. There is trace mitral regurgitation. Thickened and calcified trileaflet aortic valve. There is reduced leaflet opening. There is moderate to severe aortic stenosis, with a calculated aortic valve area of 1.1 cm. There is mild aortic insufficiency. There is mild tricuspid regurgitation. The estimated PA systolic pressure is [address] CERV SPINE WO IV CONTRAST; CT HEAD WO IV CONTRAST; CT MAXILLOFACIAL W/O CONTRAST: IMPRESSION: 1. No acute intracranial process or discrete facial bone fracture. 2. No acute cervical spine fracture or traumatic subluxation. RAD - XRY-FEMUR, LEFT 2 VIEWS; XRY-HIP 2-3 VIEWS, LEFT: IMPRESSION: No acute fracture or dislocation is seen in the left hip and femur. Mild degenerative changes similar to prior Pertinent Lab Results: Vital Signs Date Time Temp Pulse Resp B/P Pulse O2 O2 Flow FiO2 Ox Delivery Rate 03/09 1557 98.0 71 20 140/64 96 Room Air 03/09 1038 150/66 03/09 0935 Room Air 03/09 0900 98.6 74 20 130/60 94 Room Air 03/09 0241 98.2 82 18 159/68 97 03/09 0044 98.6 85 20 150/76 96 03/08 2315 98.8 91 20 153/72 97 Room Air 03/08 2042 99.6 91 20 142/65 96 Room Air 03/08 1726 72 155/72 03/08 1644 98.6 86 20 174/79 98 Room Air 03/08 1441 64 107/65 03/08 1441 63 157/72 03/08 1441 97.3 62 20 214/86 100 Room Air 03/08 1403 99 Room Air 03/08 1241 97.0 64 20 178/72 99 Room Air Last 24 Hours I&Os 03/09 1600 03/09 0800 03/09 0000 Intake Total 1000 565 Output Total 650 513 6259 Balance 250 -110 -1100 Intake, IV 600 325 Intake, Oral 400 240 Output, Urine 100 505 3185 Patient 146 lb Weight Laboratory Tests 03/09/16 0615: Anion Gap 9, Estimated GFR 34 L, BUN/Creatinine Ratio 22.0, PT 12.8 H, INR 1.22 H, CBC w Diff NO MAN DIFF REQ, RBC 2.79 L, MCV 89.7, MCH 30.1, RDW 13.2, MPV 9.0, Gran % 49.2, Lymphocytes % 33.7, Monocytes % 11.7 H, Eosinophils % 4.7 , Basophils % 0.7, Absolute Granulocytes 3.3, Absolute Lymphocytes 2.3, Absolute Monocytes 0.8 H, Absolute Eosinophils 0.3, Absolute Basophils 0, PUBS MCHC 33.5 03/09/16 0230: Anion Gap 7, Estimated GFR 31 L, BUN/Creatinine Ratio 21.9, Troponin I < 0.01 Microbiology Date/Time Procedure - Status Source Growth 03/08 1440 Urine Culture - RES URINE ROUT GRAM NEGATIVE RODS Orders Procedure Date/time Status Consistent Carbohydrate 3 03/09 B Active RT: Evaluation 03/09 0934 Active Change service to 03/09 0731 Active PROTHROMBIN TIME 03/09 0600 Complete CBC WITHOUT DIFFERENTIAL 03/09 0600 Complete BASIC ELECTROLYTES PLUS BUN&CR 03/09 0600 Complete Drains/Tubes 03/09 0416 Active Vital Signs 03/09 0239 Complete Teach/Educate 03/09 0239 Active Nutritional Intake, Monitor 03/09 0239 Active Isolation 03/09 0239 Active Intake & Output 03/09 0239 Complete Patient Care Conference 03/09 0239 Active Activity/Ambulation 03/09 0239 Active TRC EVALUATION (GEN) 03/09 0034 Active Pathway - chart 03/09 0034 Active House Staff 03/09 0034 Active Patient Data 03/09 0034 Active TROPONIN LEVEL 03/09 0034 Complete BASIC ELECTROLYTES PLUS BUN&CR 03/09 0034 Complete EKG 03/09 0034 Active Code Status 03/09 0034 Active Lab Add-on Test 03/09 0014 Active FingerStick- Glucose 03/09 0010 Active PT Evaluate & Treat 03/09 UNK Active PT EVAL LOW COMPLEX 20 MIN 03/09 UNK Complete PT Eval 03/09 UNK Complete Gait Training 03/09 UNK Complete House Staff 03/09 UNK Active VTE Mechanical Prophylaxis 03/09 UNK Active Vital Signs 03/09 UNK Complete MISTAKE 03/09 UNK Active Telemetry/Cable Cutter And Swager 03/09 UNK Active Intake & Output 03/09 UNK Complete FingerStick- Glucose 03/09 UNK Complete MISSING MEDICATION FORM 03/09 UNK Active Heart Healthy Diet 03/08 D Complete Patient Data 01/29 2124 Active Saline Lock 03/08 2024 Active Misc Message 03/08 2024 Active ED Holding Orders 03/08 2024 Active Admit to inpatient 03/08 2024 Active Vital Signs 03/08 2024 Active Code Status 03/08 2024 Complete Intake & Output 03/08 1400 Active MISTAKE 03/08 1336 Active CREATINE PHOSPHOKINASE 03/08 1312 Complete CULTURE,URINE 03/08 1248 Active URINALYSIS 03/08 1248 Complete TROPONIN LEVEL 03/08 1248 Complete COMPREHENSIVE METABOLIC PANEL 03/08 1248 Complete CBC WITHOUT DIFFERENTIAL 03/08 1248 Complete EKG 03/08 1248 Active Assessment/Plan: As above.
[2016-03-09] MEDS ORDERED: PYRIDOSTIGMINE60 M1 PO (16:03)
--- NOTE | 2016-03-09 16:06 | Patient Discharge Instructions ---
Discharge Instructions General Discharge Information You were seen/treated for: Fall secondary to Orthostatic Hypotension Special Instructions: Please make an appoitment to see: 1) Your PCP within one week from discharge. 2) Your music therapist [employer] [facility] within one week from discharge. please continue taking your medications as prescribed. Diet Recommended Diet: Heart Healthy Activity Activity Self Limited: Yes Acute Coronary Syndrome Inclusion Criteria At DC or during hospital stay patient has or had the following: ACS DIAGNOSIS No Discharge Core Measures Meds if any: Prescribed or Continued at Discharge Meds if any: NOT Prescribed or Continued at Discharge Congestive Heart Failure Inclusion Criteria At DC or during hospital stay patient has or had the following: CHF DIAGNOSIS No Discharge Core Measures Meds if any: Prescribed or Continued at Discharge Meds if any: NOT Prescribed or Continued at Discharge Cerebrovascular accident Inclusion Criteria At DC or during hospital stay patient has or had the following: CVA/TIA Diagnosis No Discharge Core Measures Meds if any: Prescribed or Continued at Discharge Meds if any: NOT Prescribed or Continued at Discharge Venous thromboembolism Inclusion Criteria VTE Diagnosis No VTE Type NONE VTE Confirmed by (Test) NONE Discharge Core Measures - Per Current guidelines, there needs to be overlap - treatment for the first 5 days of Warfarin therapy. - If discharged on Warfarin prior to 5 days of - overlap therapy, the patient will need to be - assessed for post discharge needs including - *Post discharge parental anticoagulation - *Warfarin and/or parental anticoagulation education - *Follow up date to check INR post discharge At least 5 days overlap therapy as Inpatient No Meds if any: Prescribed or Continued at Discharge Note: Overlap Therapy is Warfarin and Anticoagulant Meds if any: NOT Prescribed or Continued at Discharge
[2016-03-10] VITALS: BP 138/68
[2016-03-10 08:00] VITALS: BP 146/70
--- NOTE | 2016-03-10 09:24 | PN- Cardiology ---
See Addendum Subjective Subjective: Patient states that she feels well. She is anxious to go home. She still has episodes of dizziness. Review of Systems: Eyes no blurred or double vision Ears no deafness or ringing Nose and throat no recurrent sinusitis Lungs per history of present illness Heart per history of present illness Abdomen no nausea vomiting Musculoskeletal occasional muscle and joint pains Psych no anxiety or depression Neuro without recurrent headache or seizures dizziness Endocrine no heat or cold intolerance Objective Vital Signs and I&Os Vital Signs Date Time Temp Pulse Resp B/P Pulse O2 O2 Flow FiO2 Ox Delivery Rate 03/10 0800 97.9 69 18 146/70 95 Room Air 03/10 0000 99.0 69 18 138/68 96 Room Air 03/09 1557 98.0 71 20 140/64 96 Room Air 03/09 0935 Room Air Intake & Output 03/10 1600 03/10 0800 03/10 0000 03/09 1600 03/09 0800 03/09 0000 Intake Total 054 333 7935 565 Output Total 650 1300 854 504 0310 Balance -400 -1050 250 -110 -1100 Intake, IV 0 0 600 325 Intake, Oral 250 250 400 240 Number 0 Bowel Movements Output, Urine 650 [phone] [id number] Patient 146 lb Weight Physical Exam: Patient is a well-developed well-nourished female appearing in no acute distress HEENT is unremarkable Neck is supple there is no JVD Lungs are clear Heart regular rhythm S1 and S2 are normal no gallops or rubs 2/6 systolic ejection murmur at the right upper sternal border Abdomen bowel sounds positive Extremities without edema Current Medications: Current Medications Sig/Dasha Start time Last Medication Dose Route Stop Time Status Admin Acetaminophen 650 MG Q6P PRN 03/09 0030 AC PO Aspirin 81 MG DAILY 03/09 1000 AC 03/10 PO 0900 Atorvastatin Calcium 40 MG DAILY 03/09 1000 AC 03/10 PO 0900 Clopidogrel Bisulfate 75 MG DAILY 03/09 1000 AC 03/10 PO 0900 Escitalopram Oxalate 20 MG DAILY 03/09 1000 AC 03/10 PO 0900 Heparin Sodium 5,000 UNIT Q8 03/09 0031 AC 03/10 (Porcine) CA 0627 Insulin Aspart 0 TIDAC 03/09 0800 AC 03/10 CA 0859 Insulin Detemir 8 UNITS AT BEDTIME 03/09 2200 AC 03/09 CA 2130 Insulin Detemir 20 UNITS DAILY 03/09 1000 AC 03/10 SC 0900 Metoprolol Succinate 50 MG DAILY 03/09 1000 AC PO Omeprazole 40 MG DAILY AC 03/09 0700 AC 03/10 PO 0628 Pyridostigmine 30 MG 0800,1200,1600 03/09 1200 AC 03/10 Immaculata PO 0900 Sodium Chloride 1,000 ML ONCE ONE 03/09 0045 DC 03/09 IV 03/09 1404 0345 Results Last 48 Hrs of Labs/Mics: Laboratory Tests 03/10/16 0720: Sodium Pending, Potassium Pending, Chloride Pending, Carbon Dioxide Pending, Anion Gap Pending, BUN Pending, Creatinine Pending, BUN/Creatinine Ratio Pending 03/09/16 0615: Anion Gap 9, Estimated GFR 34 L, BUN/Creatinine Ratio 22.0, PT 12.8 H, INR 1.22 H, CBC w Diff NO MAN DIFF REQ, RBC 2.79 L, MCV 89.7, MCH 30.1, RDW 13.2, MPV 9.0, Gran % 49.2, Lymphocytes % 33.7, Monocytes % 11.7 H, Eosinophils % 4.7 , Basophils % 0.7, Absolute Granulocytes 3.3, Absolute Lymphocytes 2.3, Absolute Monocytes 0.8 H, Absolute Eosinophils 0.3, Absolute Basophils 0, PUBS MCHC 33.5 03/09/16 0230: Anion Gap 7, Estimated GFR 31 L, BUN/Creatinine Ratio 21.9, Troponin I < 0.01 03/08/16 1440: Urine Color STRAW, Urine Clarity HAZY H, Urine pH 6.5, Ur Specific [place] 1.010, Urine Protein NEG, Urine Ketones NEG, Urine Nitrite NEG, Urine Bilirubin NEG, Urine Urobilinogen 0.2, Ur Leukocyte Esterase SMALL H, Ur Microscopic SEDIMENT EXAMINED, Urine RBC 3-5, Urine WBC 3-5 H, Ur Epithelial Cells RARE, Urine Mucus RARE, Urine Hemoglobin TRACE-LYSED, Urine Glucose 500 H 03/08/16 1312: Anion Gap 12, Estimated GFR 29 L, BUN/Creatinine Ratio 24.7, Glucose 310 H, Calcium 9.5, Total Bilirubin 0.5, AST 29, ALT 43, Alkaline Phosphatase 100, Creatine Kinase 44, Troponin I < 0.01, Total Protein 7.5, Albumin 4.1, Globulin 3.4, Albumin/Globulin Ratio 1.2, CBC w Diff NO MAN DIFF REQ, RBC 3.43 L, MCV 90.8, MCH 29.7, RDW 13.6, MPV 9.0, Gran % 71.5, Lymphocytes % 15.9 L, Monocytes % 9.5 H, Eosinophils % 3.0, Basophils % 0.1, Absolute Granulocytes 6.1, Absolute Lymphocytes 1.3, Absolute Monocytes 0.8 H, Absolute Eosinophils 0.3, Absolute Basophils 0, PUBS MCHC 32.7 L Telemetry personally reviewed sinus rhythm Recent Imaging Studies: Echocardiogram CONCLUSIONS Normal LV chamber size, wall thickness and systolic function. The estimated LVEF is 55-60% there are no focal wall motion of modalities. There is trace mitral regurgitation. Thickened and calcified trileaflet aortic valve. There is reduced leaflet opening. There is moderate to severe aortic stenosis, with a calculated aortic valve area of 1.1 cm. There is mild aortic insufficiency. There is mild tricuspid regurgitation. The estimated PA systolic pressure is 37 mmHg. Julian Howell M.D. Assessment/Plan Assessment/Plan 1. Coronary disease status post coronary bypass surgery and recent stenting 2 2. Chronic renal insufficiency 3. Hypertension 4. Recurrent orthostatic hypotension 5. Moderate severe aortic stenosis on recent echocardiogram Recommendations 1. I would continue her current medications including Mestinon 2. Given her moderate to severe aortic stenosis I would allow her to be at least mildly hypertensive. 3. Obtain orthostatic blood pressures and hold metoprolol accordingly 4. 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 Yes
--- NOTE | 2016-03-10 10:06 | PN- Att Addend ---
Attending Addendum Attending Brief Note Pt seen and examined. Agree with the logistics intern's note. She is a 75-year-old female with diabetes, hypertension, CKD and severe orthostatic hypotension. She also has moderate to severe aortic stenosis and a suprapubic catheter. She is here with orthostatic hypotension and a fall. Based on cardiology's recommendations we're trying Mestinon for the hypotension. We will recheck her blood pressure. I'm worried that she is very adamant about going home. She says she's had orthostatic hypotension for a very long time and even though she admits to feeling dizzy just on sitting up she will not go to rehabilitation. Will follow-up with PT and follow-up on her blood pressure.
--- NOTE | 2016-03-10 10:57 | PN- Housestaff ---
Subjective Follow-up For: Orthostatic hypotension leading to fall and scalp hematoma Complaints: pain at the site of hematoma on the scalp Dizziness while she is change a position Tele-Events Since Last Visit: No any overnight events, normal sinus rhythm, heart rate 72-74 Subjective: Patient seen and examined at the bedside. She is consistently requesting to go home. We discussed about her clinical status, including orthostatic hypotension, risk and benefit and management. We also discussed that she needs help when she' ll go from here. Probably she needs short-term rehabilitation. Patient continuously denies for it.We also make her aware that she may have fall and injure herself in future because of fall. Despite of all discussion, she wanted to go home. Review of Systems Constitutional: Denies: no symptoms. Cardiovascular: Reports: no symptoms (lightheadedness). Respiratory: Denies: no symptoms. Gastrointestinal: Denies: no symptoms. Genitourinary: Denies: no symptoms. Musculoskeletal: Denies: no symptoms. Objective Last 24 Hrs of Vital Signs/I&O Vital Signs Date Time Temp Pulse Resp B/P Pulse O2 O2 Flow FiO2 Ox Delivery Rate 03/10 1543 98.5 73 18 136/66 96 Room Air 03/10 0800 97.9 69 18 146/70 95 Room Air 03/10 0000 99.0 69 18 138/68 96 Room Air Intake & Output 03/10 1600 03/10 0800 03/10 0000 Intake Total 400 250 250 Output Total 792 518 1845 Balance -250 -400 -1050 Intake, IV 0 0 Intake, Oral 400 250 250 Number 1 0 Bowel Movements Output, Urine 459 495 9458 Physical Exam General Appearance: Alert, Oriented X3, Cooperative, No Acute Distress Skin: No Rashes HEENT: Atraumatic, PERRLA, EOMI Neck: Supple, No JVD Cardiovascular: Normal S1, Normal S2 Lungs: Clear to Auscultation Abdomen: Normal Bowel Sounds, Soft, No Tenderness Neurological: Normal Speech Extremities: No Clubbing, No Cyanosis, No Edema Vascular: Normal Pulses, Pulses Symmetrical Assessment/Plan Assessment: Patient is a 75-year-old female the past medical history significant for suprapubic catheter secondary to urinary incontinence, recurrent UTI, history of CABG, CKD, type 2 diabetes mellitus hypertension, hyperlipidemia presented to the ED after a mechanical fall on her kitchen floor. Problem list - Fall, likely secondary to orthostatic hypotension, and diabetic neuropathy Hyperkalemia, potassium 5.9 -recovered Diabetes mellitus with diabetic peripheral neuropathy leading to orthostatic hypotension Diabetic Nephropathy Anemia CAD s/p CABG and recent stenting 2 Moderate to severe , LVEF - 55 -60% Hypertension Hyperlipidemia Depression Chronic incontinence, supra-pubic catheter Plan - Her Orthostatic vitals are -Standing- 100/60; sitting-110/64;lying -154/68 She is still complaining of lightheadedness after change in position. If orthostatic vitals remain stable than we will send her to STR We will continue -Mestinon, we will watch for anticholinergic side effects Her Aftnoon sugar are high, 353, 353, we will adjust the dose of insulin and watch for it. We will continue rest of treatment as before Diet - Diabetic diet Code status - DNR/DNI Problem List: 1. Orthostatic hypotension 2. Diabetes Pain Ratin Pain Location: none Pain Goal: Remain pain free Pain Plan: mild Tomorrow's Labs & Rationales: none DVT/Prophylaxis: mechanical, pharmacological
[2016-03-10 15:43] VITALS: BP 136/66
[2016-03-10 23:20] VITALS: BP 148/80
--- NOTE | 2016-03-11 07:14 | PN- Housestaff ---
NANCY GILMORE,ANNETTA 03/11/16 0714: Subjective Follow-up For: Orthostatic hypotension leading to fall and scalp hematoma Complaints: no complaints Tele-Events Since Last Visit: there is no overnight cardiac event Subjective: Patient is seen and examined at the bedside. She was continuously requesting to go home. We discussed again about her medical condition including orthostatic hypertension due to diabetic nephropathy and her pronicity fall and injure herself. Despite knowing the risk of going home, she still wanted to go home. She is also complaining of pain in the left occipital area Denies fever, nausea, vomiting, headache, dizziness. Review of Systems Constitutional: Denies: no symptoms. EENTM: Denies: no symptoms. Cardiovascular: Denies: no symptoms. Respiratory: Denies: no symptoms. Gastrointestinal: Denies: no symptoms. Genitourinary: Denies: no symptoms. Musculoskeletal: Denies: no symptoms. Skin: Denies: no symptoms. Neurological/Psychological: Denies: no symptoms. Objective Last 24 Hrs of Vital Signs/I&O Vital Signs Date Time Temp Pulse Resp B/P Pulse O2 O2 Flow FiO2 Ox Delivery Rate 03/11 08 98.9 79 20 150/70 96 Room Air 03/10 2320 99.1 75 20 148/80 96 Room Air 03/10 1543 98.5 73 18 136/66 96 Room Air Intake & Output 03/11 1600 03/11 0800 03/11 0000 Intake Total 250 350 Output Total 650 550 Balance -400 -200 Intake, IV 0 0 Intake, Oral 250 350 Number 0 0 Bowel Movements Output, Urine 650 550 Physical Exam General Appearance: Alert, Oriented X3, Cooperative, No Acute Distress Skin: No Rashes, No Breakdown, No Significant Lesion HEENT: Atraumatic, PERRLA, EOMI Neck: Supple, No JVD Cardiovascular: Regular Rate, Normal S1, Normal S2 Lungs: Clear to Auscultation Abdomen: Normal Bowel Sounds, Soft, No Tenderness Neurological: Normal Speech Extremities: No Clubbing, No Cyanosis, No Edema, Normal Pulses Vascular: Normal Pulses, Pulses Symmetrical Assessment/Plan Assessment: Patient is a 75-year-old female the past medical history significant for suprapubic catheter secondary to urinary incontinence, recurrent UTI, history of CABG, CKD, type 2 diabetes mellitus hypertension, hyperlipidemia presented to the ED after a mechanical fall on her kitchen floor. Problem list - Fall, likely secondary to orthostatic hypotension, and diabetic neuropathy Hyperkalemia, potassium 5.9 -recovered Diabetes mellitus with diabetic peripheral neuropathy leading to orthostatic hypotension Diabetic Nephropathy Anemia CAD s/p CABG and recent stenting 2 Moderate to severe , LVEF - 55 -60% Hypertension Hyperlipidemia Depression Chronic incontinence, supra-pubic catheter Plan - * Her Orthostatic vitals are -Standing-88/52; sitting-128/64;lying -156/74 * Discussed with Dr. Meneses,advised to start her on midodrine 5 milligrams 3 times a day along with Mestinon 50 milligrams 3 times a day. * As her blood sugars are high in the range of 258. We will increase the dose of Levemir 10U at bedtime and 20U in the morning. * her hemoglobin is low, 8.4. We sent iron indices, which showed serum iron 34, TIBC 242, serum ferritin 168. * If orthostatic vitals remain stable than we will send her to STR * We will continue rest of treatment as before * despite all the discussion, patient still wanted to go home, we told her that she can go against medical advice if she wants, we will still consider her to go to STR. * Diet - Diabetic diet * Code status - DNR/DNI Problem List: 1. Orthostatic hypotension 2. [id number] kidney injury 3. Diabetes Pain Ratin Pain Location: Left posterior occipital Pain Goal: Remain pain free Pain Plan: Mild - Acetaminophen Tomorrow's Labs & Rationales: none DVT/Prophylaxis: mechanical, pharmacological BARBARA BARDALES MD 03/11/16 1238: Attending MD Review Statement Attending Statement Attending MD Statement: examined this patient, discuss w/resident/PA/FREELANCE DATA ENTRY, agreed w/resident/PA/FREELANCE DATA ENTRY, reviewed EMR data (avail), discussed with nursing, discussed with case mgmt, reviewed images Attending Assessment/Plan: Patient still remains orthostatic. Her pressure fell from 158 lying to 88 on standing. I spoke to Dr. Howell and we are going to add midodrine 5 mg, 3 times a day to the Mestinon that we are giving her. The nurse case manager Soha and I went in to talk to her at length. I explained all my concerns about the orthostasis, the fall risk and explained that I did not feel comfortable discharging her home. I explained at length that PT is recommending STR . Patient adamantly refuses STR. In my opinion she has total capacity for decision-making. She understands all the risks and consequences of falling. We spoke about the possibility of a hip fracture, intracranial bleed and possibly with a fall. She still remains adamant despite understanding all the risks and consequences. She is very clear that she doesn't want her sons involved in her decision-making and that she has the ability to make her own decisions right now. I explained to her that she would have to sign out AGAINST MEDICAL ADVICE as I am not comfortable discharging her.
--- NOTE | 2016-03-11 07:43 | Discharge Summary ---
Visit Information Visit Dates Admission Date: 03/08/16 Discharge Date: 03/12/16 Hospital Course Course Attending Physician: JEFFY GILMORE,BARBARA Ulloa Primary Care Physician: ADINA GILMORE,CHARY Crespo Hospital Course: This is a 75-year-old female with past medical history significant for suprapubic catheter secondary to urinary incontinence, recurrent urinary tract infection, history of CABG, chronic kidney disease, type 2 diabetes mellitus, hypertension, hyperlipidemia that presented to the emergency department on 03/09 experiencing an episode of near syncope, mechanical fall on her kitchen floor it was thought to be due to orthostatic hypotension, without loss of consciousness. Vitals on presentation : she was orthostatic positive. Physical exam : Ling was noted to the posterior aspect of the head, neurological system was intact, heart S1-S2 regular, systolic murmur LSB+, chest was clear. Relevant labs on admission potassium of 5.9, BUN of 42, creatinine of 1.7 ( baseline 1.5), troponin was negative, urinalysis was negative, imaging did not reveal any fractures. EKG showed normal sinus rhythm. She was admitted to telemetry floor for further management. #1 Mechanical fall secondary to known orthostatic hypotension. * Her mechanical fall was thought to be secondary to orthostatic hypotension. She was seen by cardiology. According to them, she was previously on Midodrin, which was discontinued, presumably secondary to supine hypertension. She was therefore started on Pyridostigmine 30 mg Q4 X 3,which was continued during the hospital course. Midodrine was restarted 5 mg at 8:00, 12:00 and 16:00 hours by mouth daily. Her echocardiogram showed no wall motion abnormalities or systolic dysfunction, estimated left ventricle ejection fraction was 50-60%, she was found to have moderate to severe aortic stenosis with calculated aortic valve area of 1.1 cm with mild aortic insufficiency, mild TR, estimated pulmonary artery systolic pressure of 37 mmHg. #2 Hyperkalemia * Her potassium at the emergency department was 5.9. She was given 1 dose of Kayexalate after which her potassium came down to 4.6. She was continued to be monitored on telemetry, did not have any significant events. Potassium was continuously monitored and kept within normal range, repleted if required. #3 Type 2 diabetes mellitus * She was continued on Levemir at home dosage and NovoLog sliding scale. #4 History of Hypertension. * Intially she was continued on home medication of metoprolol, however this d/c due to orthostatic hypotension. #5 Hyperlipidemia. * She was continued on home medication of atorvastatin. #6 Depression. * Patient was continued on her home medication of Lexapro. #7 Chronic incontinence with suprapubic catheter. * This was continued while the patient was in hospital. #8 Coronary artery disease status post recent stenting 2. * Patient was continued on home aspirin and Plavix. #9 DVT prophylaxis * Heparin SC #10 Asymptomatic Bacteruria: * Urine cultures grew Gram Negative Rods, but the patient was asymptomatic, so she was not started on any antibiotics. #11 Moderate to Severe * Echo showed moderate to severe aortic stenosis.Given her moderate to severe aortic stenosis she was allowed to be mildly hypertensive and metoprolol was discontinued.Her current valve diameter was 1.1cm2.This needs to followed as OP upon discharge on regular intervals as per cardiology recommendations. #12 Patient decided to leave AMA * We had a conversation with her at length, explained all concerns of orthostasis, fall risk, she is unstable and requires STR, however she continued to refuse it even on repeated discussions. We spoke to her about possibilties and danger of going home instead of STR, including possibiltiy of hip fracture, intracranial bleed including worse scenario of , however she remained adamant and she does have total capacity of decision making.She also did not want her sons involved in her decision making.Inspite of all above explanations, she decided to make her own decision to go home and this was AGAINST MEDICAL ADVICE and we explained her that if he decides to go home this will be AGAINST MEDICAL ADVICE. Code status : DNR/DNI Allergies: Coded Allergies: adhesive tape (PLASTIC TAPE 01/17/16) oxybutynin (Severe, DELERIUM 01/24/16) codeine (NAUSEA 01/17/16) nitrofurantoin (LOOPY 01/17/16) Significant Procedures: SERVICE DATE: 03/08/16 EXAM TYPE: CAT - CT CERV SPINE WO IV CONTRAST; CT HEAD WO IV CONTRAST; CT MAXILLOFACIAL W/O CON EXAMINATION: CT HEAD WITHOUT CONTRAST CT FACIAL BONES WITHOUT CONTRAST CT CERVICAL SPINE WITHOUT CONTRAST FINDINGS: HEAD: No intracranial mass, hemorrhage, or midline shift is visualized. Moderate chronic microvascular ischemic changes are seen throughout the supratentorial white matter. There is moderate ventriculomegaly and diffuse sulcal widening due to chronic volume loss. No extra-axial collections are identified. Prominent soft tissue swelling is noted in the left parietal region without evidence of a acute calvarial fracture. FACIAL BONES: There is no evidence of an acute facial bone fracture. The paranasal sinuses are well aerated. No significant dental disease is visualized. The orbits are unremarkable in appearance. CERVICAL SPINE: There is no evidence of acute cervical spine fracture. Vertebral bodies remain normal in height. There is straightening of the normal cervical lordosis. Degenerative subchondral sclerosis and endplate remodeling is noted at C4-C5 and C6-C7 along with mild loss of normal disc height. No pre- or paravertebral soft tissue abnormality is identified. Limited assessment of the lung apices is unremarkable. IMPRESSION: 1. No acute intracranial process or discrete facial bone fracture. 2. No acute cervical spine fracture or traumatic subluxation. SERVICE DATE: 03/08/16-1248 EXAM TYPE: RAD - XRY-FEMUR, LEFT 2 VIEWS; XRY-HIP 2-3 VIEWS, LEFT IMPRESSION: No acute fracture or dislocation is seen in the left hip and femur. Mild degenerative changes similar to prior SERVICE DATE: 03/09/16- EXAM TYPE: CARD - ECHOCARDIOGRAM FINDINGS Left Ventricle Normal LV chamber size, wall thickness and systolic function. The estimated LVEF is 55-60% there are no focal wall motion of modalities. Right Ventricle Normal appearing right ventricular structure and function. Right Atrium Normal appearing right atrium Left Atrium Normal appearing left atrium Mitral Valve Mildly calcified mitral valvular leaflets and annulus. There is normal leaflet opening. There is trace mitral regurgitation. Aortic Valve Thickened and calcified trileaflet aortic valve. There is reduced leaflet opening. There is moderate to severe aortic stenosis, with a calculated aortic valve area of 1.1 cm. There is mild aortic insufficiency. Tricuspid Valve Grossly normal appearing tricuspid valvular leaflet structure and function. There is mild tricuspid regurgitation. The estimated PA systolic pressure is 37 mmHg Pulmonic Valve Grossly normal appearing pulmonic valvular structure and function Pericardium Normal-appearing pericardium with no significant pericardial effusion Great Vessels Grossly normal appearing great vessels CONCLUSIONS Normal LV chamber size, wall thickness and systolic function. The estimated LVEF is 55-60% there are no focal wall motion of modalities. There is trace mitral regurgitation. Thickened and calcified trileaflet aortic valve. There is reduced leaflet opening. There is moderate to severe aortic stenosis, with a calculated aortic valve area of 1.1 cm. There is mild aortic insufficiency. There is mild tricuspid regurgitation. The estimated PA systolic pressure is 37 mmHg. Julian Howell M.D. (Electronically Signed) Final Date: 09 March 2016 13:18 MEASUREMENTS (Male / Female) Normal Values 2D ECHO LV Diastolic Diameter PLAX 4.7 cm 4.2 - 5.9 / 3.9 - 5.3 cm LV Systolic Diameter PLAX 3.0 cm 2.1 - 4.0 cm LV Fractional Shortening PLAX 36.2 % 25 - 46 % LV Ejection Fraction 2D Teich 65.8 % IVS Diastolic Thickness 0.7 cm LVPW Diastolic Thickness 0.9 cm LV Relative Wall Thickness 0.3 RV Internal Dim ED PLAX 4.0 cm 1.9 - 3.8 cm LVOT Diameter 2.0 cm Aortic Root Diameter 2.8 cm LA Systolic Diameter LX 3.5 cm 3.0 - 4.0 / 2.7 - 3.8 cm LA Volume 53.0 cm 18 - 58 / 22 - 52 cm Ascending Aorta Diameter 3.1 cm DOPPLER AV Peak Velocity 244.0 cm/s AV Peak Gradient 23.8 mmHg AV Mean Velocity 185.0 cm/s AV Mean Gradient 15.0 mmHg AV Velocity Time Integral 72.2 cm AI Deceleration Refugio 266.0 cm/s AI Peak Velocity 362.0 cm/s AI Pressure Half Time 398.0 ms AI Peak Gradient 52.4 mmHg LVOT Peak Velocity 89.8 cm/s LVOT Peak Gradient 3.2 mmHg LVOT Mean Velocity 58.6 cm/s LVOT Mean Gradient 2.0 mmHg LVOT Velocity Time Integral 24.1 cm LVOT Stroke Volume 75.7 cm AV Area Cont Eq vti 1.0 cm AV Area Cont Eq pk 1.2 cm MV Peak Velocity 88.2 cm/s MV Peak Gradient 3.1 mmHg MV Mean Velocity 50.5 cm/s MV Mean Gradient 1.2 mmHg Mitral E Point Velocity 102.0 cm/s Mitral A Point Velocity 85.4 cm/s Mitral E to A Ratio 1.2 MV PHT Velocity 80.1 cm/s MV Deceleration [place]ugio 270.8 cm/s MV Pressure Half Time 88.7 ms MV Area PHT 2.5 cm MV Deceleration Time 229.0 ms TR Peak Velocity 282.0 cm/s TR Peak Gradient 31.8 mmHg Right Atrial Pressure 5.0 mmHg Pulmonary Artery Systolic Pressu 36.8 mmHg Right Ventricular Systolic Press 36.8 mmHg PV Peak Velocity 84.1 cm/s PV Peak Gradient 2.8 mmHg PV Mean Velocity 67.2 cm/s PV Mean Gradient 2.0 mmHg PV Velocity Time Integral 23.6 cm LV E' Lateral Velocity 11.3 cm/s Mitral E to LV E' Lateral Ratio 9.0 LV E' Septal Velocity 6.9 cm/s Mitral E to LV E' Septal Ratio 14.7 DICTATED BY: JULIAN HOWELL MD DATE/TIME DICTATED:03/09/161317 ENVIRONMENTAL SERVICES WORKER:DUDLEY DATE/TIME TRANSCRIBED:03/09/161317 Pertinent Lab Results: Orders Procedure Date/time Status TOTAL IRON BINDING CAPACITY 03/11 0615 Active FERRITIN 03/11 0615 Active SERUM IRON 03/11 0615 Active BASIC ELECTROLYTES PLUS BUN&CR 03/11 0600 Active Lab Add-on Test 03/11 UNK Active MISTAKE 03/11 UNK Active BASIC ELECTROLYTES PLUS BUN&CR 03/10 0500 Complete Therapeutic Activities 03/10 UNK Complete Therapeutic Exercise 03/10 UNK Complete MISTAKE 03/10 UNK Active Consistent Carbohydrate 3 03/09 B Active RT: Evaluation 03/09 0934 Active Change service to 03/09 0731 Active PROTHROMBIN TIME 03/09 0600 Complete CBC WITHOUT DIFFERENTIAL 03/09 0600 Complete BASIC ELECTROLYTES PLUS BUN&CR 03/09 0600 Complete Drains/Tubes 03/09 0416 Active Vital Signs 03/09 0239 Complete Teach/Educate 03/09 0239 Active Nutritional Intake, Monitor 03/09 0239 Active Isolation 03/09 0239 Active Intake & Output 03/09 0239 Complete Patient Care Conference 03/09 0239 Active Activity/Ambulation 03/09 0239 Active TRC EVALUATION (GEN) 03/09 0034 Complete Pathway - chart 03/09 0034 Active House Staff 03/09 0034 Active Patient Data 03/09 0034 Active TROPONIN LEVEL 03/09 0034 Complete BASIC ELECTROLYTES PLUS BUN&CR 03/09 0034 Complete EKG 03/09 0034 Active Code Status 03/09 0034 Active Lab Add-on Test 03/09 0014 Active FingerStick- Glucose 03/09 0010 Active PT Evaluate & Treat 03/09 UNK Active PT EVAL LOW COMPLEX 20 MIN 03/09 UNK Complete Gait Training 03/09 UNK Complete House Staff 03/09 UNK Active VTE Mechanical Prophylaxis 03/09 UNK Active Vital Signs 03/09 UNK Complete MISTAKE 03/09 UNK Active Telemetry/Hazard Waste Handler 03/09 UNK Active Intake & Output 03/09 UNK Complete FingerStick- Glucose 03/09 UNK Complete MISSING MEDICATION FORM 03/09 UNK Active Heart Healthy Diet 03/08 D Complete Patient Data 03/08 212 Active Saline Lock 03/08 2024 Active Misc Message 03/08 2024 Active ED Holding Orders 03/08 2024 Active Admit to inpatient 03/08 2024 Active Vital Signs 03/08 2024 Active Code Status 03/08 2024 Complete Intake & Output 03/08 1400 Active MISTAKE 03/08 1336 Active CREATINE PHOSPHOKINASE 03/08 1312 Complete CULTURE,URINE 03/08 1248 Active URINALYSIS 03/08 1248 Complete TROPONIN LEVEL 03/08 1248 Complete COMPREHENSIVE METABOLIC PANEL 03/08 1248 Complete CBC WITHOUT DIFFERENTIAL 03/08 1248 Complete EKG 03/08 1248 Active Disposition Summary Disposition Principal Diagnosis: 1. Mechanical Fall 2/2 to Orthostatic hypotension 2/2 to Diabetic Peripheral Nueropathy 2.hyperkalemia 3. Moderate to Severe . Additional Diagnosis: 4) Type 2 DM 5) Hypertension: 6) Hyperlipidemia: 7) Depression: 8) Chronic Incontinence, with suprapubic catheter 9) CAD s/p Recent Stenting x 2 10) Asymptomatic Bacteruria: Discharge Disposition: left against medical adv Discharge Instructions General Discharge Information Code Status: Do Not Resucitate/Intubat Patient's Diet: Consistent carbohydrate - 3 Patient's Activity: As tolerated Follow-Up Instructions/Appts: Please make an appoitment to see: 1) Your PCP within one week from discharge. 2) Your casting supervisor within one week from discharge. Please note that new medication Midodrin has been added to your home medications , and metoprolol has been discontinued for now secondary to low blood pressure. Please continue to take this medications and follow up with cardiology for further recommendations. Medications at Discharge Discharge Medications: Stop taking the following medications: Metoprolol Succinate (Metoprolol Succinate XL) [address] ORAL DAILY Qty = 90 Continue taking these medications: Pantoprazole Sodium (Protonix) 40 MG TABLET. 1 Tablet ORAL DAILY Comments: PRILOSEC GIVEN 10/28/15 AT 0600 Atorvastatin Calcium (Lipitor) 40 MG TAB 1 Tablet ORAL DAILY Qty = 90 Comments: GIVEN 12/04/14 AT 1600 Aspirin (Children's Aspirin) 81 MG CTB 1 Tablet ORAL DAILY Qty = 90 Comments: GIVEN 12/05/14 AT 0800 Insulin Glargine, Recombinan (Lantus Solostar) 100 U/ML JAZ 8 Units Inject into fatty tissue Every night Qty = 30 Comments: LEVEMIR GIVEN 12/04/14 AT 2200 Insulin Glargine,Hum.rec.anlog (Lantus Solostar) 100 UNIT/ML (3 ML) INSULN.PEN 20 Units Inject into fatty tissue DAILY Clopidogrel Bisulfate (Clopidogrel) 75 MG TABLET 1 Tablet ORAL DAILY Qty = 90 Comments: Last Taken: 03/12/16 Time: 10AM Escitalopram Oxalate (Escitalopram Oxalate) 20 MG TABLET 1 Tablet ORAL DAILY Qty = 90 Comments: Last Taken: 03/12/16 Time: 10AM Start taking the following new medications: Midodrine HCl (Midodrine HCl) 2.5 MG TABLET 2 Tablet ORAL 0800,1200,1600 Days = 60 No Refills Comments: Last Taken: 03/12/16 Time: 8AM Pyridostigmine [place] (Pyridostigmine [place]) 60 MG TABLET 30 Milligram ORAL 0800,1200,1600 Days = 30 No Refills Comments: Last Taken: 03/12/16 Time: 8AM Copies To: KATIE GILMORE,MANUEL Jules; ADINA GILMORE,CHARY Crespo Attending MD Review Statement Documenting Attending: JEFFY GILMORE,BARBARA Ulloa
[2016-03-11 08:00] VITALS: BP 128/64; BP 150/70
[2016-03-11] MEDS ORDERED: MIDODRINE HCL2.5 M1 PO (10:19)
--- NOTE | 2016-03-11 11:40 | PN- Cardiology ---
Subjective Subjective: The patient is awake, alert The patient remains with significant orthostatic hypotension, and asymptomatic for the same. The events of the last 24 hours as well as telemetry were reviewed. Review of Systems: The review of systems is negative for chest pains, palpitations nor lightheadedness. The remainder of the 14 point review of systems is noncontributory with the exception of above. Objective Vital Signs and I&Os Vital Signs Date Time Temp Pulse Resp B/P Pulse O2 O2 Flow FiO2 Ox Delivery Rate 03/11 799 82 128/64 03/11 799 98.9 79 20 150/70 96 Room Air 03/10 2320 99.1 75 20 148/80 96 Room Air 03/10 1543 98.5 73 18 136/66 96 Room Air Intake & Output 03/11 1600 03/11 0803/11 0000 03/10 1600 03/10 0800 03/10 0000 Intake Total 250 350 400 250 250 Output Total 650 550 025 458 7042 Balance -400 -200 -250 -400 -1050 Intake, IV 0 0 0 0 Intake, Oral 250 350 400 250 250 Number 0 0 1 0 Bowel Movements Output, Urine [phone] Physical Exam: General: Nontoxic, no apparent distress. HEENT: Sclera and conjunctiva within normal limits, without xanthelasmas. Neck: Carotids 2+ without bruits. Respiratory: Clear to auscultation, air movement is good, without accessory respiratory muscle use. Heart: Regular rate and rhythm, without murmurs, without JVD. Abdomen: Soft, nontender, no masses, normoactive bowel sounds. Extremities: Without clubbing, cyanosis, without edema. Neuro: Nonfocal exam, strength, 5 out of 5 Skin: Within normal limits without lesions. Psych: Mood and affect: Normal Current Medications: Current Medications Sig/Dasha Start time Last Medication Dose Route Stop Time Status Admin Acetaminophen 650 MG Q6P PRN 03/09 0030 AC PO Aspirin 81 MG DAILY 03/09 1000 AC 03/11 PO 1004 Atorvastatin Calcium 40 MG DAILY 03/09 1000 AC 03/11 PO 1003 Clopidogrel Bisulfate 75 MG DAILY 03/09 1000 AC 03/11 PO 1003 Escitalopram Oxalate 20 MG DAILY 03/09 1000 AC 03/11 PO 1003 Heparin Sodium 5,000 UNIT Q8 03/09 0031 AC 03/11 (Porcine) SC 0626 Insulin Aspart 0 TIDAC 03/09 0800 AC 03/11 SC 1122 Insulin Detemir 8 UNITS AT BEDTIME 03/09 2200 AC 03/10 SC 2124 Insulin Detemir 20 UNITS DAILY 03/09 1000 AC 03/11 SC 1022 Metoprolol Succinate 50 MG DAILY 03/09 1000 DC PO Midodrine 5 MG 0800,1200,1600 03/11 1200 AC 03/11 PO 1123 Omeprazole 40 MG DAILY AC 03/09 0700 AC 03/11 PO 0626 Pyridostigmine 30 MG 0800,1200,1600 03/09 1200 AC 03/11 [place] PO 1123 Results Last 48 Hrs of Labs/Mics: Laboratory Tests 03/11/16 0615: Anion Gap 8, Estimated GFR 27 L, BUN/Creatinine Ratio 19.4, Iron 34 L, TIBC 242 L, Ferritin 168.0 03/10/16 0720: Anion Gap 7, Estimated GFR 26 L, BUN/Creatinine Ratio 17.4 Assessment/Plan Assessment/Plan 75-year-old woman with a past medical history of coronary artery disease (status post bypass surgery, status post recent stenting 2), chronic kidney disease, diabetes mellitus, hypertension, hyperlipidemia and orthostatic hypotension. She presented to our hospital following a fall, sustaining injury to her left hip. Orthostatic hypotension: The patient demonstrates significant supine hypertension (occasionally above 200s); however, significant drops when standing, and is asymptomatic for this. We will need to allow for some degree of permissive hypertension to mitigate the excessive blood pressure drop. We will restart proamatine in combination with Mestinon. Further titration of her regimen may be performed as an outpatient. Coronary artery disease: Currently stable, the patient is asymptomatic. We will obtain records from her recent hospitalization at [facility] wherein she underwent stent placement 2. Supine hypertension: A degree of permissive supine hypertension will need to be present given her significant orthostatic symptoms. Further control of her blood pressures will likely need to be titrated as an outpatient. Continue telemetry? No
--- NOTE | 2016-03-11 14:03 | NUR ---
THIS NURSE SPOKE TO RN POST PARTUM MIMA ABOUT SETTING UP [facility] FOR PATIENT. RESPRESENTATIVE FROM [facility] CAME TO SPEAK TO THE PATIENT. PT WILL TRY [facility].
[2016-03-11 15:30] VITALS: BP 144/78
[2016-03-12 00:28] VITALS: BP 142/62
[2016-03-12 08:41] VITALS: BP 120/80
--- NOTE | 2016-03-12 09:02 | PN- Cardiology ---
Subjective Subjective: Telemetry reviewed. Sinus rhythm throughout. Objective Vital Signs and I&Os Vital Signs Date Time Temp Pulse Resp B/P Pulse O2 O2 Flow FiO2 Ox Delivery Rate 03/12 0841 99.0 72 18 120/80 96 Room Air 03/12 0800 Room Air 03/12 0028 99.1 74 18 142/62 96 Room Air 03/11 1530 98.3 80 20 144/78 97 Room Air Intake & Output 03/12 1600 03/12 0800 03/12 0000 03/11 1600 03/11 0800 03/11 0000 Intake Total 60 600 250 350 Output Total 1100 1150 450 650 550 Balance -1040 -550 -450 -400 -200 Intake, IV 10 0 0 Intake, Oral 50 600 250 350 Number 0 0 Bowel Movements Output, Urine 1100 1150 450 650 550 Physical Exam: Gen. exam patient comfortable. Denies chest pain or unusual shortness of breath. Head normocephalic atraumatic Eyes sclera anicteric conjunctiva showed no pallor extraocular muscles were normal Neck no jugular venous distention no thyroid masses no palpable nodes no carotid bruits Chest lungs were clear bilaterally, scar previous bypass surgery noted Heart regular rhythm, 2/6 systolic murmur Abdomen soft no organomegaly bowel sounds normal Extremities no clubbing cyanosis or pedal edema Neurological no gross motor or sensory deficits Vital signs reviewed still noted at 20/30 mm orthostatic hypotension Current Medications: Current Medications Sig/Dasha Start time Last Medication Dose Route Stop Time Status Admin Acetaminophen 650 MG Q6P PRN 03/09 0030 AC 03/12 PO 0743 Aspirin 81 MG DAILY 03/09 1000 AC 03/11 PO 1004 Atorvastatin Calcium 40 MG DAILY 03/09 1000 AC 03/11 PO 1003 Clopidogrel Bisulfate 75 MG DAILY 03/09 1000 AC 03/11 PO 1003 Escitalopram Oxalate 20 MG DAILY 03/09 1000 AC 03/11 PO 1003 Heparin Sodium 5,000 UNIT Q8 03/09 0031 AC 03/12 (Porcine) NC 0649 Insulin Aspart 0 TIDAC 03/09 0800 AC 03/11 NC 1705 Insulin Detemir 10 UNITS AT BEDTIME 03/11 2200 AC 03/11 NC 2134 Insulin Detemir 8 UNITS AT BEDTIME 03/09 2200 DC 03/10 NC 2124 Insulin Detemir 20 UNITS DAILY 03/09 1000 AC 03/11 NC 1022 Midodrine 5 MG 0800,1200,1600 03/11 1200 AC 03/12 PO 0742 Omeprazole 40 MG DAILY AC 03/09 0700 AC 03/12 PO 0649 Pyridostigmine 30 MG 0800,1200,1600 03/09 1200 AC 03/12 [place] PO 0742 Results Last 48 Hrs of Labs/Mics: Laboratory Tests 03/11/16 0615: Anion Gap 8, Estimated GFR 27 L, BUN/Creatinine Ratio 19.4, Iron 34 L, TIBC 242 L, Ferritin 168.0 Recent Imaging Studies: Echocardiogram suggests Normal LV chamber size, wall thickness and systolic function. The estimated LVEF is 55-60% there are no focal wall motion of modalities. There is trace mitral regurgitation. Thickened and calcified trileaflet aortic valve. There is reduced leaflet opening. There is moderate to severe aortic stenosis, with a calculated aortic valve area of 1.1 cm. There is mild aortic insufficiency. There is mild tricuspid regurgitation. The estimated PA systolic pressure is 37 mmHg. Assessment/Plan Assessment/Plan In summary this 75-year-old female has the following problems 75-year-old woman with a past medical history of coronary artery disease (status post bypass surgery, status post recent stenting 2), chronic kidney disease, diabetes mellitus, hypertension, hyperlipidemia and orthostatic hypotension. She presented to our hospital following a fall, sustaining injury to her left hip. Echocardiograms had shown moderate aortic stenosis with normal left ventricular systolic function She has orthostatic hypotension probably related to diabetic neuropathy. I would strongly suggest compression stockings to be applied daily and removed at night. She is already on medications however if she continues to breakthrough and available option is Northera. No acute cardiac problem suspected. Please call us if our services are needed thank you for allowing us the opportunity of participating in her care. Continue telemetry? No
[2016-03-12] MEDS ORDERED: MESTINON60 M1 PO (09:59)
[2016-03-12] MEDS ORDERED: PYRIDOSTIGMINE60 M1 PO (10:16)
--- NOTE | 2016-03-12 10:27 | PN- Att Addend ---
Attending Addendum Attending Brief Note Patient seen and examined. Agree with the machine learning intern's note. She still remains orthostatic. She still remains very adamant about leaving today. Again all the risks and consequences were explained at length including the risk of fall, hip fracture, intracranial hemorrhage and possibly . She has total capacity to understand the risks and consequences but she feels that she's been to rehabilitation multiple times and it has served her no benefit. She has agreed to a wheelchair at home, she has visiting nurse service and has agreed to [facility] that has been set up by case management. She doesn't want her sons involved in her care she says she makes her own decisions and his sister will pick her up later today. She is signing out AMA.
--- NOTE | 2016-03-12 11:21 | PN- Housestaff ---
Subjective Follow-up For: Orthostatic hypotension leading to fall and scalp hematoma Complaints: pain at the site of scalp hematoma Tele-Events Since Last Visit: there is no overnight cardiac event Subjective: Patient is seen and examined at the bedside. She was continuously requesting to go home. We discussed again about her medical condition including orthostatic hypotension due to diabetic nephropathy and her pronicity fall and injure herself. Despite knowing the risk of going home, she still wanted to go home. Review of Systems Constitutional: Denies: no symptoms, see HPI, chills, diaphoresis, fever, malaise, weakness, unexplained weight loss. Objective Last 24 Hrs of Vital Signs/I&O Last 24 Hrs of Vital Signs/I&O Vital Signs Date Time Temp Pulse Resp B/P Pulse O2 O2 Flow FiO2 Ox Delivery Rate 03/11 0800 98.9 79 20 150/70 96 Room Air 03/10 2320 99.1 75 20 148/80 96 Room Air 03/10 1543 98.5 73 18 136/66 96 Room Air Physical Exam General Appearance: Alert, Oriented X3, Cooperative, No Acute Distress Skin: No Rashes, No Breakdown Neck: Supple, No JVD, No thryomegaly Cardiovascular: Regular Rate, Normal S1, Normal S2 Lungs: Clear to Auscultation Abdomen: Normal Bowel Sounds, Soft, No Tenderness Neurological: Normal Gait, Normal Speech Extremities: No Clubbing, No Cyanosis, No Edema Vascular: Normal Pulses, Pulses Symmetrical Assessment/Plan Assessment: Patient is a 75-year-old female the past medical history significant for suprapubic catheter secondary to urinary incontinence, recurrent UTI, history of CABG, CKD, type 2 diabetes mellitus hypertension, hyperlipidemia presented to the ED after a mechanical fall on her kitchen floor. Problem list - Fall, likely secondary to orthostatic hypotension, and diabetic neuropathy Hyperkalemia, potassium 5.9 -recovered Diabetes mellitus with diabetic peripheral neuropathy leading to orthostatic hypotension Diabetic Nephropathy Anemia CAD s/p CABG and recent stenting 2 Moderate to severe , LVEF - 55 -60% Hypertension Hyperlipidemia Depression Chronic incontinence, supra-pubic catheter Plan - * Despite of the cord discussion patient is still want to go home. We told her that risk and the consequences due to hypotension and fall including the fracture of the bone, dependency, . Despite of all the discussion, she want to go home. So we took her sign on the AMA form. * Her Orthostatic vitals are -Standing-88/52; sitting-128/64;lying -156/74 * Discussed with Dr. Meneses,advised to start her on midodrine 5 milligrams 3 times a day along with Mestinon 50 milligrams 3 times a day. * As her blood sugars are high in the range of 258. We will increase the dose of Levemir 10U at bedtime and 20U in the morning. * her hemoglobin is low, 8.4. We sent iron indices, which showed serum iron 34, TIBC 242, serum ferritin 168. * If orthostatic vitals remain stable than we will send her to [facility] * We will continue rest of treatment as before * despite all the discussion, patient still wanted to go home, we told her that she can go against medical advice if she wants, we will still consider her to go to [facility]. * Diet - Diabetic diet * Code status - DNR/DNI Problem List: 1. CKD (chronic kidney disease) 2. Suprapubic catheter 3. Orthostatic hypotension 4. Diabetes Pain Ratin Pain Location: Scalp hematoma Pain Goal: Remain pain free Pain Plan: mild Tomorrow's Labs & Rationales: none DVT/Prophylaxis: mechanical, pharmacological
== END 2016-03-12 12:15 | disposition left against medical advice (07) | DRG 312 ==
LOC: ENRESERVDT → ENRESERVTM → CANRESERV → ERH 12:27 → ERHI 20:25 → 1NO 20:25 → ENPENDDIS 20:25 → 1NO 03-09 00:41 → 2NA 03-10 07:53 → 1NO 03-10 08:00
PROVIDERS: Internal Medicine; Physician Assistant; ADMIT Student in an Organized Health Care Education/Training Program
DX: I95.1 Orthostatic hypotension (principal); N18.4 Chronic kidney disease, stage 4 (severe); E11.40 Type 2 diabetes mellitus with diabetic neuropathy, unspecified; I13.0 Hypertensive heart and chronic kidney disease with heart failure and stage 1 through stage 4 chronic kidney disease, or unspecified chronic kidney disease; I50.9 Heart failure, unspecified; E87.5 Hyperkalemia; E78.5 Hyperlipidemia, unspecified; Z95.5 Presence of coronary angioplasty implant and graft; I35.0 Nonrheumatic aortic (valve) stenosis; S00.03XA Contusion of scalp, initial encounter; W18.30XA Fall on same level, unspecified, initial encounter; Y93.9 Activity, unspecified; Y92.009 Unspecified place in unspecified non-institutional (private) residence as the place of occurrence of the external cause
CPT/HCPCS: 1NP; ERO; 36415; 73502-LT; 73552; 81001; 82436; 87086; 93005; 93010; 93306; 96360; 96361; 97001-GP; 97110-GO; 97116-GO; 97161-GP; 97530-GO; J1644; J3490

== ENCOUNTER 2016-03-13 17:59 | Inpatient (IN) | payer OTHER, MEDICARE ==
[~2016-03-13] VITALS: Ht 162.6 cm; Wt 63.5 kg
[~2016-03-13 17:59] MED LIST changes: +MESTINON60 M1 PO; +MIDODRINE HCL2.5 M1 PO; +PYRIDOSTIGMINE60 M1 PO
--- NOTE | 2016-03-13 18:14 | NUR ---
75 YO FEMALE BIBA FROM HOME. PT WAS SEEN AND D/C FROM [facility] 1 WEEK AGO FOR A FALL. PTS DAUGHTER CALLED 911 TODAY BECAUSE PT LETHARGIC AND HAS ?UTI. PT ALERT AND ORIENTED. PT DENEIS PAIN ANYWHERE AT THIS TIME. PT STATES SHE HAS BEEN GETTING LIGHTHEADED WHEN SHE STANDS UP, STATRES SHE FELL AGAIN YESTERDAY HITTING HER HEAD. PT NOTED BRUSING TO BACK OF NECK. PA STUDENT AT BEDSIDE FOR JAYLON
--- NOTE | 2016-03-13 18:31 | NUR ---
PTS SON HERE, PER SON HE DOESNT THINK THERE IS ANY WAY HIS MOTHER FELL AGAIN SINCE LAST TIME SHE WAS SEEN HERE. STATES "I KNOW SHE HAS ANOTHER UTI, THIS IS HOW SHE GETS"
--- NOTE | 2016-03-13 18:55 | NUR ---
LABS DRAWN AND SENT SST, LAV, BLUE AND MCNAIR SENT TO LAB
--- NOTE | 2016-03-13 19:11 | NUR ---
RECIEVED REPORT FROM NONI VASQUEZ. PT RESTING COMFORTABLY ON STRETCHER AT THIS TIME. SON IN ROOM. PT AND FAMILY AWARE OF WAITING ON LAB RESULTS AT THIS TIME.
--- NOTE | 2016-03-13 19:36 | ED GENERAL ADULT ---
History of Present Illness General Chief Complaint: General Adult Stated Complaint: ?UTI PER FAMILY, LEGTHARGIC TODAY Source: patient, family Exam Limitations: patient's age Vital Signs & Intake/Output Vital Signs & Intake/Output Vital Signs Date Time Temp Pulse Resp B/P Pulse O2 O2 Flow FiO2 Ox Delivery Rate 03/15 1555 98.1 69 18 124/64 94 02/ 0822 98.6 70 20 150/64 95 Room Air ED Intake and Output 03/15 0000 02 1200 Intake Total 1635 630 Output Total 1251 400 Balance 384 230 Intake, IV 875 150 Intake, Oral 760 480 Number 1 0 Bowel Movements Output, Stool 1 Output, Urine 1250 400 Patient 140 lb Weight Allergies Coded Allergies: adhesive tape (PLASTIC TAPE 01/17/16) oxybutynin (Severe, DELERIUM 01/24/16) codeine (NAUSEA 01/17/16) nitrofurantoin (LOOPY 01/17/16) Reconcile Medications Aspirin (Children's Aspirin) 81 MG CTB 1 TAB PO DAILY HEART HEALTH Atorvastatin Calcium (Lipitor) 40 MG TAB 1 TAB PO DAILY CHOLESTEROL Clopidogrel Bisulfate (Clopidogrel) 75 MG TABLET 1 TAB PO DAILY BLOOD THINNER (Reported) Escitalopram Oxalate 20 MG TABLET 1 TAB PO DAILY DEPRESSION (Reported) Insulin Glargine, Recombinan (Lantus Solostar) 100 U/ML JAZ 8 UNITS SC QPM DIABETES (Reported) Insulin Glargine,Hum.rec.anlog (Lantus Solostar) 100 UNIT/ML (3 ML) INSULN.PEN 20 U SC DAILY DIABETES (Reported) Midodrine HCl 2.5 MG TABLET 2 TAB PO 0800,1200,1600 low BP Pantoprazole Sodium (Protonix) 40 MG TABLET.DR 1 TAB PO DAILY GERD (Reported) Pyridostigmine [place] 60 MG TABLET 30 MG PO 0800,1200,1600 orthostasis Triage Note: 75 YO FEMALE HERO FROM HOME. PT WAS SEEN AND D/C FROM [facility] 1 WEEK AGO FOR A FALL. PTS DAUGHTER CALLED 911 TODAY BECAUSE PT LETHARGIC AND HAS ?UTI. PT ALERT AND ORIENTED. PT DENEIS PAIN ANYWHERE AT THIS TIME. PT STATES SHE HAS BEEN GETTING LIGHTHEADED WHEN SHE STANDS UP, STATRES SHE FELL AGAIN YESTERDAY HITTING HER HEAD. PT NOTED BRUSING TO BACK OF NECK. PA STUDENT AT BEDSIDE FOR EVAL Triage Nurses Notes Reviewed? yes Onset: Abrupt Duration: day(s):, constant Timing: recent history Injury Environment: home No Modifying Factors: none HPI: 75-year-old female discharge from the hospital 2 days ago after she had gotten dizzy and fell and was found to be orthostatic. Family reports that she's been increasingly confused since she was discharged. Patient has not had any recurrent falls. Patient reports that she is is very lethargic and fatigued and was not even able to get out of bed today. Denies any chest pain shortness of breath. Denies any abdominal pain. Denies any nausea vomiting. Patient is a poor historian. Offers very little information. She is alert and oriented 3 and up-to-date on current events. (PEPE BAZAN) Past History Travel History Traveled to [place] past 21 day No Medical History Any Pertinent Medical History? see below for history Neurological: NONE EENT: NONE Cardiovascular: NONE (recent coronary stents), CHF, hypertension, hyperlipidemia Respiratory: NONE Gastrointestinal: NONE Hepatic: NONE Renal: urinary incontinence, SUPRAPUBIC CATHETER Musculoskeletal: NONE Psychiatric: NONE Endocrine: diabetes Blood Disorders: sickle cell disease Cancer(s): NONE History of MRSA: No History of VRE: No History of CDIFF: No Influenza Vaccine: 11/09/15 Surgical History Surgical History: CABG, hip replacement, L LEG ANGIOPLASTY Psychosocial History Who do you live with Patient/Self Services at Home None What is your primary language Ethiopian Tobacco Use: Never used Family History Hx Contributory? No (PEPE BAZAN) Review of Systems Review of Systems Constitutional: Reports: see HPI. EENTM: Reports: no symptoms. Respiratory: Reports: see HPI. Cardiovascular: Reports: no symptoms. GI: Reports: no symptoms. Genitourinary: Reports: see HPI. Musculoskeletal: Reports: no symptoms. Skin: Reports: no symptoms. Neurological/Psychological: Reports: no symptoms. Hematologic/Endocrine: Reports: no symptoms. Immunologic/Allergic: Reports: no symptoms. All Other Systems: Reviewed and Negative (PEPE BAZAN) Physical Exam Physical Exam General Appearance: well developed/nourished, alert, awake Head: atraumatic, normal appearance Eyes: Bilateral: normal appearance, EOMI. Ears, Nose, Throat: normal pharynx, normal ENT inspection Neck: normal inspection Respiratory: normal breath sounds, no respiratory distress Cardiovascular: regular rate/rhythm Gastrointestinal: normal bowel sounds, soft Back: normal inspection Extremities: normal inspection, normal range of motion Neurologic/Psych: awake, alert, oriented x 3, normal gait Skin: intact, normal color Core Measures ACS in differential dx? No CVA/TIA Diagnosis: No Severe Sepsis Present: No Septic Shock Present: No (PEPE BAZAN) Progress Differential Diagnoses I considered the following diagnoses in my evaluation of the patient: Pneumonia , urinary infection, sepsis, influenza, cellulitis, Plan of Care: Orders Procedure Date/time Status Periph. Inserted Central Cath 03/16 799 Active CBC WITHOUT DIFFERENTIAL 03/16 599 Active BASIC ELECTROLYTES PLUS BUN&CR 03/16 599 Active CBC WITHOUT DIFFERENTIAL 03/15 1200 Complete TYPE & SCREEN (NOT X-MATCH) 03/15 1037 Complete HEPATIC FUNCTION PANEL 03/15 08 Complete PT Evaluate & Treat 03/15 UNK Active Lab Add-on Test 03/15 UNK Active MISTAKE 03/15 UNK Active Hemoccult 03/15 UNK Active PHYSICIAN CONSULT 03/15 UNK Active Laboratory Tests 03/15/16 1215: CBC w Diff NO MAN DIFF REQ, RBC 2.84 L, MCV 89.2, MCH 29.6, RDW 12.9, MPV 8.7, Gran % 60.9, Lymphocytes % 22.2, Monocytes % 12.3 H, Eosinophils % 4.0, Basophils % 0.6, Absolute Granulocytes 4.5, Absolute Lymphocytes 1.7, Absolute Monocytes 0.9 H, Absolute Eosinophils 0.3, Absolute Basophils 0, PUBS MCHC 33.2 03/15/16 0825: Anion Gap 6, Estimated GFR 31 L, BUN/Creatinine Ratio 21.3, Total Bilirubin 0.7 , Direct Bilirubin 0.5 H, AST 40 H, ALT 67 H, Alkaline Phosphatase 102, Total Protein 6.1 L, Albumin 3.0 L, CBC w Diff NO MAN DIFF REQ, RBC 2.78 L, MCV 90.2, MCH 30.4, RDW 13.3, MPV 8.4, Gran % 63.3, Lymphocytes % 20.0 L, Monocytes % 12.3 H, Eosinophils % 4.0, Basophils % 0.4, Absolute Granulocytes 5.6, Absolute Lymphocytes 1.8, Absolute Monocytes 1.1 H, Absolute Eosinophils 0.3, Absolute Basophils 0, PUBS MCHC 33.6 Diagnostic Imaging: Viewed by Me: Radiology Read. Discussed w/RAD: Radiology Read. Initial ED EKG: normal intervals, normal p-waves, normal QRS complex, normal sinus rhythm, rate (88) Hand-Off Endorsed To: OPAL MICHEL PA-C Endorsed Time: 1953 Pending: labs, other (case management), Xray (PEPE BAZAN) CXR Impression: PATIENT: FELICIANO PATHAK I PRESENT AGE: 75 PATIENT ACCOUNT NO: [id number] : 38 LOCATION: [facility] ORDERING PHYSICIAN: PEPE FALCON SERVICE DATE: 03/13/16 EXAM TYPE: RAD - XRY-PORTABLE CHEST XRAY EXAMINATION: XR PORTABLE CHEST CLINICAL INFORMATION: Fever. COMPARISON: 01/20/2016 TECHNIQUE: Portable AP view of the chest was obtained. FINDINGS: Median sternotomy wires appear intact. Cardiac leads overlie the chest. Surgical clips overlie the mediastinum. The lungs are well expanded. No consolidation, edema, or effusion. No pneumothorax. The cardiomediastinal silhouette is unchanged, with a calcified aorta. No acute osseous abnormality. IMPRESSION: No acute pulmonary findings. DICTATED BY: YU PAGE MD DATE /TIME DICTATED:03/13/161952 PRODUCTION LEADER:DUDLEY DATE/TIME TRANSCRIBED: 03/13/161952 CONFIDENTIAL, DO NOT COPY WITHOUT APPROPRIATE AUTHORIZATION. < Electronically signed in Other Vendor System> SIGNED BY: YU PAGE MD 03/13/162000 (OPAL MICHEL PA-C) Departure Departure Disposition: STILL A PATIENT Condition: Stable Referrals: ADINA GILMORE,CHARY Crespo (PCP/Family) Departure Forms: Customer Survey General Discharge Information (PEPE BAZAN) Departure Clinical Impression Primary Impression: Fever Qualifiers: Fever type: unspecified Qualified Code: R50.9 - Fever, unspecified Secondary Impressions: Confusion Leukocytosis Qualifiers: Leukocytosis type: unspecified Qualified Code: D72.829 - Elevated white blood cell count, unspecified UTI (urinary tract infection) Qualifiers: Urinary tract infection type: site unspecified Hematuria presence: with hematuria Qualified Codes: N39.0 - Urinary tract infection, site not specified; R31.9 - Hematuria, unspecified Admission Note Spoke With: JING BLAKE MD Documentation of Exam: Documentation of any treatments & extenuating circumstances including Concerns Regarding Discharge (functional status, medication knowledge or non-compliance, living conditions, etc.) that warrant an admission rather than observation: [ THIS PATIENT IS A 75 YEAR OLD FEMALE WHO PRESENTED FOR INCREASED CONFUSION SINCE LEAVING THE HOSPITAL AMA 2 DAYS AGO. GREATER THAN 75 WBC ON URINALYSIS. WBC 13.0. FEBRILE. THIS PATIENT WILL NEED TO BE ADMITTED TO GENERAL MEDICINE FOR IV FLUIDS, TREND LABS, ANTI-PYRETICS, IV ANTIBIOTICS, FOLLOW-UP RUQ ULTRASOUND, AND CLOSE MONITORING. PREMATURE DISCHARGE COULD PROVE MEDICALLY HARMFUL. ] (OPAL MICHEL PA-C) PA/SUPERVISOR REFINING Co-Sign Statement Statement: ED Attending supervision documentation- [] I saw and evaluated the patient. I have also reviewed all the pertinent lab results and diagnostic results. I agree with the findings and the plan of care as documented in the PA's/SUPERVISOR REFINING's documentation. [x] I have reviewed the ED Record and agree with the PA's/SUPERVISOR REFINING's documentation. [] Additions or exceptions (if any) to the PAs/SUPERVISOR REFINING's note and plan are summarized below: [] (NICA GILMORE,JESSIKA Bean) Critical Care Note Critical Care Note Critical Care Time: 30-74 min (OPAL MICHEL PA-C) Laboratory Tests 03/14/16 0715: Anion Gap 14, Estimated GFR 29 L, BUN/Creatinine Ratio 24.1, CBC w Diff NO MAN DIFF REQ, RBC 3.11 L, MCV 89.9, MCH 30.4, RDW 13.2, MPV 8.8, Gran % 80.6 H, Lymphocytes % 7.4 L, Monocytes % 11.1 H, Eosinophils % 0.6, Basophils % 0.3, Absolute Granulocytes 11.3 H, Absolute Lymphocytes 1.0 L, Absolute Monocytes 1.6 H, Absolute Eosinophils 0.1, Absolute Basophils 0, PUBS MCHC 33.8 03/14/16 0048: Lactic Acid 1.4 03/13/16 2201: Ammonia < 9 L 03/13/16 1857: Anion Gap 12, Estimated GFR 26 L, BUN/Creatinine Ratio 21.6, Glucose 335 H, Calcium 9.8, Total Bilirubin 0.7, AST 38 H, ALT 79 H, Alkaline Phosphatase 129 H, Troponin I < 0.01, Total Protein 7.5, Albumin 3.9, Globulin 3.6, Albumin/ Globulin Ratio 1.1, PT 11.7, INR 1.12, APTT 31, CBC w Diff NO MAN DIFF REQ, RBC 3.46 L, MCV 89.9, MCH 29.9, RDW 13.6, MPV 8.9, Gran % 83.5 H, Lymphocytes % 7.1 L, Monocytes % 8.2, Eosinophils % 0.8, Basophils % 0.4, Absolute Granulocytes 10.9 H, Absolute Lymphocytes 0.9 L, Absolute Monocytes 1.1 H, Absolute Eosinophils 0.1, Absolute Basophils 0, PUBS MCHC 33.2 03/13/161836: Urine Color YEL, Urine Clarity CLDY H, Urine pH 6.0, Ur Specific [place] 1.020, Urine Protein 30 H, Urine Ketones NEG, Urine Nitrite NEG, Urine Bilirubin NEG, Urine Urobilinogen 0.2, Ur Leukocyte Esterase MOD H, Ur Microscopic SEDIMENT EXAMINED, Urine RBC 15-25 H, Urine WBC > 75 H, Ur Epithelial Cells RARE, Urine Hemoglobin MOD H, Urine Glucose 500 H Microbiology 03/13 2149 BLOOD: Blood Culture - RECD 03/13 2149 BLOOD: Blood Culture - RECD 03/13 1836 URINE ROUT: Urine Culture - RECD CXR Impression: PATIENT: FELICIANO PATHAK I PRESENT AGE: 75 PATIENT ACCOUNT NO: [id number] : 38 LOCATION: [facility] ORDERING PHYSICIAN: PEPE FALCON SERVICE DATE: 03/13/16 EXAM TYPE: RAD - XRY-PORTABLE CHEST XRAY EXAMINATION: XR PORTABLE CHEST CLINICAL INFORMATION: Fever. COMPARISON: 01/20/2016 TECHNIQUE: Portable AP view of the chest was obtained. FINDINGS: Median sternotomy wires appear intact. Cardiac leads overlie the chest. Surgical clips overlie the mediastinum. The lungs are well expanded. No consolidation, edema, or effusion. No pneumothorax. The cardiomediastinal silhouette is unchanged, with a calcified aorta. No acute osseous abnormality. IMPRESSION: No acute pulmonary findings. DICTATED BY: CAMILO GILMORE,YU DATE /TIME DICTATED:03/13/161952 PRODUCTION LEADER:DUDLEY DATE/TIME TRANSCRIBED: 03/13/161952 CONFIDENTIAL, DO NOT COPY WITHOUT APPROPRIATE AUTHORIZATION. < Electronically signed in Other Vendor System> SIGNED BY: YU PAGE MD 03/13/162000 (OPAL MICHEL PA-C) Departure Departure Disposition: STILL A PATIENT Condition: Stable Referrals: ADINA GILMORE,CHARY Crespo (PCP/Family) Departure Forms: Customer Survey General Discharge Information (PEPE BAZAN) Departure Clinical Impression Primary Impression: Fever Qualifiers: Fever type: unspecified Qualified Code: R50.9 - Fever, unspecified Secondary Impressions: Confusion Leukocytosis Qualifiers: Leukocytosis type: unspecified Qualified Code: D72.829 - Elevated white blood cell count, unspecified UTI (urinary tract infection) Qualifiers: Urinary tract infection type: site unspecified Hematuria presence: with hematuria Qualified Codes: N39.0 - Urinary tract infection, site not specified; R31.9 - Hematuria, unspecified Admission Note Spoke With: JING BLAKE MD Documentation of Exam: Documentation of any treatments & extenuating circumstances including Concerns Regarding Discharge (functional status, medication knowledge or non-compliance, living conditions, etc.) that warrant an admission rather than observation: [ THIS PATIENT IS A 75 YEAR OLD FEMALE WHO PRESENTED FOR INCREASED CONFUSION SINCE LEAVING THE HOSPITAL AMA 2 DAYS AGO. GREATER THAN 75 WBC ON URINALYSIS. WBC 13.0. FEBRILE. THIS PATIENT WILL NEED TO BE ADMITTED TO GENERAL MEDICINE FOR IV FLUIDS, TREND LABS, ANTI-PYRETICS, IV ANTIBIOTICS, FOLLOW-UP RUQ ULTRASOUND, AND CLOSE MONITORING. PREMATURE DISCHARGE COULD PROVE MEDICALLY HARMFUL. ] (OPAL MICHEL PA-C) Critical Care Note Critical Care Note Critical Care Time: 30-74 min (OPAL MICHEL PA-C)
--- NOTE | 2016-03-13 19:44 | NUR ---
CHEST XRAY BEING DONE AT BEDSIDE
[2016-03-13 19:57] LABS: ABSOLUTE BASOPHIL COUNT 0 /CUMM (0.0-0.2); ABSOLUTE EOSINOPHIL COUNT 0.1 /CUMM (0.0-0.7); ABSOLUTE GRANULOCYTE CT 10.9 /CUMM (1.4-6.5); ABSOLUTE LYMPH COUNT 0.9 /CUMM (1.2-3.4); ABSOLUTE MONOCYTE COUNT 1.1 /CUMM (0.10-0.60); BASOPHIL % 0.4 % (0.0-2.0); EOSINOPHIL % 0.8 % (0-5); MEAN CORPUSCULAR HGB 29.9 PG (27.0-31.0); MEAN CORPUSCULAR HGB CONC 33.2 G/DL (33.0-37.0); MEAN CORPUSCULAR VOLUME 89.9 FL (81.0-99.0); MEAN PLATELET VOLUME 8.9 FL (7.4-10.4); RBC DISTRIBUTION WIDTH 13.6 % (11.5-14.5); RED BLOOD CELL CT 3.46 /CUMM (4.20-5.40)
--- NOTE | 2016-03-13 20:00 | NUR ---
FLU SWAB DONE. VSS. PT DENIES ANY COMPLAINTS AT THIS TIME. REMINDED WHERE CALL RUIZ IS IN REACH. PT AWARE OF WAITING ON RESULTS. WILL CTM.
--- NOTE | 2016-03-13 20:01 | RADIOLOGY REPORT ---
EXAMINATION: XR PORTABLE CHEST CLINICAL INFORMATION: Fever. COMPARISON: 01/20/2016 TECHNIQUE: Portable AP view of the chest was obtained. FINDINGS: Median sternotomy wires appear intact. Cardiac leads overlie the chest. Surgical clips overlie the mediastinum. The lungs are well expanded. No consolidation, edema, or effusion. No pneumothorax. The cardiomediastinal silhouette is unchanged, with a calcified aorta. No acute osseous abnormality. IMPRESSION: No acute pulmonary findings.
[2016-03-13 20:02] LABS: HEMATOCRIT 31.1 % (37-47)
[2016-03-13 20:03] LABS: GRANULOCYTE % 83.5 % (42.2-75.2); PLATELET COUNT 244 /CUMM (130-400)
[2016-03-13 20:08] LABS: PT 11.7 SEC (9.4-12.5); PTT 31 SEC (25-37)
--- NOTE | 2016-03-13 21:05 | NUR ---
PT TO ULTRASOUND AT THIS TIME
--- NOTE | 2016-03-13 21:25 | ULTRASOUND REPORT ---
EXAMINATION: US ABDOMEN LIMITED CLINICAL INFORMATION: Transaminitis.. COMPARISON: Renal ultrasound 01/22/2016 TECHNIQUE: Real-time imaging of the right upper quadrant abdominal viscera. FINDINGS: PANCREAS: Normal. LIVER: Normal. The liver demonstrates normal size, contour and echogenicity. No focal lesion or intrahepatic biliary duct dilatation. GALLBLADDER: Gallstones are noted. The gallbladder is physiologically distended without evidence of sludge, polyps, wall thickening or pericholecystic fluid. COMMON BILE DUCT: Normal in caliber measuring 0.4 cm in diameter. RIGHT KIDNEY: Normal. No hydronephrosis. No renal calculi or focal parenchymal lesions. The kidney measures 7.4 cm in maximum dimension. FREE FLUID: None. IMPRESSION: Cholelithiasis without additional evidence for acute cholecystitis.
--- NOTE | 2016-03-13 21:31 | NUR ---
HOUSE STAFF AT BEDSIDE
--- NOTE | 2016-03-13 21:56 | NUR ---
Emergency Dept [facility] Admit Note: To be admitted to [facility] by DR BLAKE with UTI/ PYELONEPHRITIS as the diagnosis, to GEN MED/ ROOM 203-1 location. Nursing Educational Therapist and admitting notified 03/13/16 at 4038
--- NOTE | 2016-03-13 22:16 | History & Physical ---
GAUTAM GILMORE,TOLU 03/13/16 3506: General Information and HPI MD Statement: I have seen and personally examined FELICIANO PATHAK I and documented this H&P. The patient is a 75 year old F who presented with fall injury at home today. Source of Information: patient Exam Limitations: no limitations History of Present Illness: 75 yo F with past medical history of CAD s/p CABG five years ago, CHF with preserved EF (55-60% on Feb 2016), HLD, DM, diabetic neuropathy with bladder dysfunction s/p suprapubic catheter placement, and depression, with a recent hospitalization at [facility] and left against medical advice two days ago for a fall injury is here after sustaining a fall injury again at home. According to the patient, the patient left AGAINST MEDICAL ADVICE yesterday when she was being treated for orthostatic hypotension and was planned to be discharged to a short-term rehabilitation facility, which she did not wanted. She had initially come due to a near syncope, mechanical fall injury on her kitchen floor then. Patient had a fall injury yesterday once again without any specific triggers. She was apparently pouring coffee when she felt lightheaded, and fell down. She denied any chest pain, palpitation, nausea, vomiting, sweating, ringing of for years, spending sensation, or tripping over mechanically. She denies any loss of consciousness, abnormal body movements, frothing, tenderness, bowel or bladder incontinence during or right after the incident. Allergies/Medications Allergies: Coded Allergies: adhesive tape (PLASTIC TAPE 01/17/16) oxybutynin (Severe, DELERIUM 01/24/16) codeine (NAUSEA 01/17/16) nitrofurantoin (LOOPY 01/17/16) Home Med list Aspirin (Children's Aspirin) 81 MG CTB 1 TAB PO DAILY HEART HEALTH Atorvastatin Calcium (Lipitor) 40 MG TAB 1 TAB PO DAILY CHOLESTEROL Clopidogrel Bisulfate (Clopidogrel) 75 MG TABLET 1 TAB PO DAILY BLOOD THINNER (Reported) Escitalopram Oxalate 20 MG TABLET 1 TAB PO DAILY DEPRESSION (Reported) Insulin Glargine, Recombinan (Lantus Solostar) 100 U/ML JAZ 8 UNITS SC QPM DIABETES (Reported) Insulin Glargine,Hum.rec.anlog (Lantus Solostar) 100 UNIT/ML (3 ML) INSULN.PEN 20 U SC DAILY DIABETES (Reported) Midodrine HCl 2.5 MG TABLET 2 TAB PO 0800,1200,1600 low BP Pantoprazole Sodium (Protonix) 40 MG TABLET. 1 TAB PO DAILY GERD (Reported) Pyridostigmine [place] 60 MG TABLET 30 MG PO 0800,1200,1600 orthostasis Past History Travel History Traveled to [place] past 21 day No Medical History Neurological: NONE EENT: NONE Cardiovascular: NONE (recent coronary stents), CHF, hypertension, hyperlipidemia Respiratory: NONE Gastrointestinal: NONE Hepatic: NONE Renal: urinary incontinence, SUPRAPUBIC CATHETER Musculoskeletal: NONE Psychiatric: NONE Endocrine: diabetes Blood Disorders: sickle cell disease Cancer(s): NONE History of MRSA: No History of VRE: No History of CDIFF: No Isolation History: Contact Influenza Vaccine: 11/09/15 Surgical History Surgical History: CABG, hip replacement, L LEG ANGIOPLASTY Past Family/Social History Psychosocial History Where do you live? Home Who Do You Live With? By herself - Neighbor/Friend helps her out Services at Home: None Primary Language: Japanese Living Will? yes Functional Ability ADLs Independent: dressing, eating, toileting, bathing. IADLs Needs Assist: shopping, housework. Review of Systems Review of Systems Constitutional: Reports: see HPI, weakness. EENTM: Reports: no symptoms. Cardiovascular: Reports: no symptoms. Respiratory: Reports: no symptoms. GI: Reports: no symptoms. Genitourinary: Reports: no symptoms. Musculoskeletal: Reports: no symptoms. Skin: Reports: no symptoms. Neurological/Psychological: Reports: no symptoms. Hematologic/Endocrine: Reports: no symptoms. All Other Systems: Reviewed and Negative Post Menopausal: Yes Exam & Diagnostic Data Last 24 Hrs of Vital Signs/I&O Vital Signs Date Time Temp Pulse Resp B/P Pulse O2 O2 Flow FiO2 Ox Delivery Rate 03/14 0326 98.7 73 20 146/62 96 03/14 0208 99.5 / 0145 99.5 / 0046 101.0 / 0000 101.0 88 19 150/70 97 Room Air / 2355 101.0 88 19 150/70 97 Room Air 03/139 Room Air 03/13 2230 99.8 78 18 143/70 97 Room Air 03/13 1959 100.3 88 18 157/69 98 Room Air 03/13 1807 101.0 89 18 183/77 96 Room Air Intake & Output 03/14 0800 03/14 0000 03/13 1600 Intake Total 630 Output Total 400 200 Balance 230 -200 Intake, IV 150 Intake, Oral 480 Number 0 1 Bowel Movements Output, Urine 400 200 Patient 63.503 kg 61.235 kg Weight Physical Exam General Appearance Alert, Oriented X3, Cooperative, No Acute Distress Skin No Breakdown, Occipital region had bruise, nape of neck also had bruise. HEENT PERRLA, EOMI, Mucous Membr. moist/pink, Occiput had 5x5 cm swelling, bruised, firm not hard and not fluctuant Neck Supple, No JVD, Nape of neck has bruise all over Lymphatic Cervical nl Cardiovascular Regular Rate, Normal S1, Normal S2, Systolic murmur heard Lungs Clear to Auscultation, Normal Air Movement Abdomen Normal Bowel Sounds, Soft, No Tenderness, Suprapubic catheter in situ and no signs of inflammation around the catheter site, no leakage. Neurological grossly intact Extremities No Clubbing, No Cyanosis, No Edema, Normal Pulses, No Tenderness/ Swelling Vascular Normal Pulses, Pulses Symmetrical Last 24 Hrs of Labs/Heraclio: Laboratory Tests 03/14/16 0715: Sodium Pending, Potassium Pending, Chloride Pending, Carbon Dioxide Pending, Anion Gap Pending, BUN Pending, Creatinine Pending, BUN/Creatinine Ratio Pending , CBC w Diff Pending, WBC Pending, RBC Pending, Hgb Pending, Hct Pending, MCV Pending, MCH Pending, RDW Pending, Plt Count Pending, MPV Pending, PUBS MCHC Pending 03/14/16 0048: Lactic Acid 1.4 03/13/16 2201: Ammonia < 9 L 03/13/16 1857: Anion Gap 12, Estimated GFR 26 L, BUN/Creatinine Ratio 21.6, Glucose 335 H, Calcium 9.8, Total Bilirubin 0.7, AST 38 H, ALT 79 H, Alkaline Phosphatase 129 H, Troponin I < 0.01, Total Protein 7.5, Albumin 3.9, Globulin 3.6, Albumin/ Globulin Ratio 1.1, PT 11.7, INR 1.12, APTT 31, CBC w Diff NO MAN DIFF REQ, RBC 3.46 L, MCV 89.9, MCH 29.9, RDW 13.6, MPV 8.9, Gran % 83.5 H, Lymphocytes % 7.1 L, Monocytes % 8.2, Eosinophils % 0.8, Basophils % 0.4, Absolute Granulocytes 10.9 H, Absolute Lymphocytes 0.9 L, Absolute Monocytes 1.1 H, Absolute Eosinophils 0.1, Absolute Basophils 0, PUBS MCHC 33.2 03/13/161836: Urine Color YEL, Urine Clarity CLDY H, Urine pH 6.0, Ur Specific [place] 1.020, Urine Protein 30 H, Urine Ketones NEG, Urine Nitrite NEG, Urine Bilirubin NEG, Urine Urobilinogen 0.2, Ur Leukocyte Esterase MOD H, Ur Microscopic SEDIMENT EXAMINED, Urine RBC 15-25 H, Urine WBC > 75 H, Ur Epithelial Cells RARE, Urine Hemoglobin MOD H, Urine Glucose 500 H Microbiology 03/13 2149 BLOOD: Blood Culture - RECD 03/13 2149 BLOOD: Blood Culture - RECD 03/13 1836 URINE ROUT: Urine Culture - RECD Diagnostic Data EKG Results Normal sinus rhythm with heart rate 88, normal intervals, no ST-T changes CXR Results IMPRESSION: No acute pulmonary findings. DICTATED BY: YU PAGE MD DATE/TIME DICTATED:03/13/161952 IMPROVEMENT LEADER:DUDLEY DATE/TIME TRANSCRIBED:03/13/161952 Assessment/Plan Assessment: 75 yo F with past medical history of CAD s/p CABG five years ago, CHF with preserved EF (55-60% on Feb 2016), HLD, DM, diabetic neuropathy with bladder dysfunction s/p suprapubic catheter placement, and depression, with a recent hospitalization at [facility] and left against medical advice two days ago for a fall injury is here after sustaining a fall injury again at home. Currently she is being managed in the general medical floor for the following issues: #CAUTI (Catheter associated Urinary Tract infection) She had asymptomatic bacteuria when during her last visit which was not treated with antibiotics. However, the urine culture grew Kleibsella as well as Pseudomonas, both of which were sensitive to Meropenem, but singly they were either sensitive to Ciprofloxacin or Ceftazidime but not both. With a suspection that one of which was a coloization as the CFU count was less, the other was initially treated this time with Ciprofloxacin, and later Ceftazidime also given with a changed idea that the patient must be protected from going to septic shock. -Need to call ID to discuss the best course of treatment with abx (?Meropenem) #Fall Patient has a occipital soft tissue swelling and Ct scan showed no intracranial lesion. -Will continue to monitor her neurological status closely. -No aspirin, or Plavix at this point of time due to increased risk of bleeding #Orthostatic hypotension Will continue to maintain fluids at low levels. -patient explained about the ways to prevent orthostatic hyppotension, and the need to eat and drink well. #Diabetes mellitus -Diabetic diet -Regular accuchecks -Insulin Detimir in place, and short acting insulin can be added later per requirements. #Diet: Diabetic diet #DVT ppx: ALPS for now #Code status: DNR/DNI As Ranked By This Provider Problem List: 1. Orthostatic hypotension 2. Confusion 3. Suprapubic catheter 4. Diabetes 5. UTI (urinary tract infection) Qualifiers Urinary tract infection type: site unspecified Hematuria presence: with hematuria Qualified Codes: N39.0 - Urinary tract infection, site not specified; R31.9 - Hematuria, unspecified Core Measures/Miscellaneous Acute Coronary Syndrome ACS Diagnosis: No Cerebrovascular Accident CVA/TIA Diagnosis: No Congestive Heart Failure CHF Diagnosis: No Venous Thromboembolism VTE Risk Factors: Age > 40 VTE Prophylaxis Ordered Inpt: Mechanical (ALPS/TEDS) No Mech VTE prophylaxis d/t: No contraindications No VTE Pharm Prophylaxis d/t: No contraindications VTE Diagnosis: No VTE Type: NONE VTE Confirmed by (Test): NONE Severe Sepsis Severe Sepsis Present: No Septic Shock Septic Shock Present: No Miscellaneous Documentation Attending Case Discussed With: JING BLAKE MD Primary Care Physician: CHARY HOLDEN MD Patient sees these Specialists Infectious disease Level of Patient Care: General Medicine JING BLAKE 03/14/16 0356: Attending MD Review Statement Attending Statement Attending MD Statement: examined this patient, discuss w/resident/PA/DATA SUPPORT SPECIALIST, agreed w/resident/PA/DATA SUPPORT SPECIALIST, reviewed EMR data (avail), reviewed images, amended to note Attending Assessment/Plan: Cc: Fall, lethargy PMH: DM 2, orthostatic hypotension, CKD stage IV, CAD S/P CABG and stent, suprapubic catheter, moderate aortic stenosis Patient left against medical advice yesterday Mar 12, she was admitted March 09 for fall secondary to orthostatic hypotension, she was also found to have moderate aortic stenosis. Initial plan was to send her to short-term rehabilitation due to risk of recurrent falls. Patient refused to go to rehabilitation, left AMA. She was brought in by family today for being lethargic , ? UTI and fall. Patient is poor historian, family is not available bedside. According to family, from charts, patient was increasingly confused, fatigued and lethargic. Patient said that after going home she had another fall and she could not get up so she came back. Vitals: Tmax 101, HR, RR, BP, O2 saturation within acceptable range. On exam: A O 3, anxious, not cooperative, neck supple, no lymphadenopathy, mucosa dry, no JVD, approximately 4 cm contusion on head and the posterior side. No focal neurological deficit, poorly first and lower extremity strength 4/5. No dependent edema, peripheral pulses and perfusion normal. CVS: S1-S2, RRR, systolic murmur 3/6 in aortic area. RS: Clear air entry bilaterally. Abdomen: Soft, diffuse subjective tenderness, more over suprapubic area, dry crusted discharge near suprapubic catheter, Smallwood's sign negative, bowel sounds present. Labs: WBC 13.0, increased from 6.7 on March 09, neutrophils 83%, hemoglobin 10.3, creatinine 1.9 which is baseline, AST 38, AST 79, alkaline phosphatase 129 , troponin less than 0.01 otherwise CBC, BMP, LFT unremarkable. UA positive for leukocyte esterase, WBC, moderate hemoglobin. CXR: No acute cardiopulmonary process. Limited abdominal ultrasound right upper quadrant: Cholelithiasis without additional evidence for acute cholecystitis. A and P #1 CAUTI : Patient has long-standing suprapubic catheter, recently admitted in hospital for fall and orthostatic hypotension. At that time patient was having asymptomatic bacteriuria, ?colonization. But today patient presents with fever, leukocytosis, lethargy. No other source of infection identified at this point no obvious skin lesions cellulitis patient has mild right upper quadrant tenderness but Smallwood's sign negative, mild transaminitis with elevated alkaline phosphatase but ultrasound abdomen does not show any evidence of cholecystitis. Previous urine culture growing pseudomonas 20,000 colonies, Klebsiella ESBL 60, 000 colonies on March 08 and more than 100,000 colonies of Klebsiella on urine culture done on February 04. Klebsiella sensitive for Cipro but Pseudomonas is not. At this point I would suggest to continue IV Cipro and one dose of IV ceftaz is patient further spikes fever or hypotensive. Repeat urine culture, blood culture, IV fluids, trend lactate. Consult ID in a.m. ? Meropenem #2 fall: Known causes of orthostatic hypotension and moderate aortic stenosis, patient had head trauma, repeat CT head. No obvious focal neurological deficit, pupils equal reactive bilaterally. #3 DM: Continue home doses of long-acting and sliding scale short-acting insulin , with Accu-Cheks with meals. #4 chronic stable problems: CKD, CAD, orthostatic hypotension, neurogenic bladder, depression: Continue aspirin, Plavix, atorvastatin, escitalopram, Spiriva Stegman, midodrine #5 DVT prophylaxis: Alps, resume heparin after CT head #6 patient agrees to go to a [facility] now after repeat fall at home. KAYLAH GILMORENEHA 03/14/16 0419: Resident Review Statement Resident Statement: examined this patient, discussed with logistics intern, agreed with logistics intern Other Findings: 75 YO F pmh chf, htn, hld, chronic indwelling suprapubic catheter secondary to urinary incontinence presnts with increased lethargy and fall at home after leaving the hospital [facility] one day prior. During her last admission was being worked up for orthostatic hypotension, started on midodrin and pyridostigmine. She was found to have asympomatic bacteruria, urine cultures grew pseudomonas or klebsellia. While workup was being completed she decided to leave, tonight returns after falling at home. T 101.0, 100.3, 88, 18, 157/69, 98 RA Alert Oriented X 4 NC with hematoma over back of head, no neurological deficit noted CVS S1, S2 w/systolic murmur RES CTA b/l Abdo soft, tenderness over suprapubic region, catheter noted EXT no edema, pulses 2+ WBC 13.0, granulocytes 83.5, UA 75 WBC, moderate hemoglobin UC 03/08/16 pseudomonas areginosa; 20K colonies, klebsellia esbl; 100K cxr no acute pulmonary findings usg cholelithasis w/o evidence of cholecysitis head ct negative for acute intracranial injury, soft tissue hematoma overlying the left occipital lobe We will admit her to [facility] and treat for CAUTI. She continues to spike fevers, on admission to ER was confused, with elevated wbc. Will treat with ciprofloxacin and ceftaz as per sensitivities. Though was asymptomatic earlier when organisms were identified, was sample taken from bag?? colonization? will dose abx one time overnight and have ID evaluate further if abx should be continued. Continue gentle hydration. Head CT w/o acute findings will start aspirin, plavix, dvt ppx at this time. BP elevated on admission will hold midodrine and pyridostimine at this time.
--- NOTE | 2016-03-13 22:22 | NUR ---
PT INCONTINENT OF STOOL, CARE PROVIDER AND LINENS CHANGED.
--- NOTE | 2016-03-13 22:31 | NUR ---
ROOM CHANGED TO -
--- NOTE | 2016-03-13 22:33 | NUR ---
REPORT GIVEN TO NONI PEARCE
--- NOTE | 2016-03-13 22:43 | NUR ---
TRANSPORT HERE FOR PT
[2016-03-13 23:55] VITALS: BP 150/70
[2016-03-14] VITALS: BP 150/70
[2016-03-14 03:26] VITALS: BP 146/62
--- NOTE | 2016-03-14 03:58 | Admission Certification ---
Admission Certification Certification Statement - As attending physician, I certify that at the time of - admission, based on clinical presentation, severity of - symptoms, need for further diagnostic testing and - therapeutic interventions, and risk of adverse outcomes - without in-hospital treatment, in my clinical assessment, - this patient requires an acute hospital stay for a minimum - of two nights or longer. I have also considered psychsocial - factors such as support system, advanced age, financial - issues, cognitive issues, and failed out-patient treatments, - past re-admission history, safety of patient, and lack of - compliance as applicable. Specific rationale supporting this admission is: Fall, UTI
--- NOTE | 2016-03-14 04:05 | CT SCAN REPORT ---
EXAMINATION: CT HEAD WITHOUT CONTRAST CLINICAL INFORMATION: Trauma to head. Fall. Swelling. Bruising. COMPARISON: 03/08/2016. TECHNIQUE: Contiguous axial images of the brain were obtained without IV contrast. DLP: 601 mGy-cm. FINDINGS: There are no pathologic extra-axial fluid collections. The lateral, third, fourth ventricles are dilated, but stable, age-appropriate and concordant with the appearance of the sulci. There is no evidence for acute intraparenchymal hemorrhage or infarct. There is periventricular low-attenuation present consistent with small vessel disease. There is neither mass nor mass effect. There is no shift of midline structures. There is mild ethmoid sinus opacification. The paranasal sinuses and mastoid air cells are otherwise clear. There are no osseous lesions. There is a soft tissue hematoma overlying the left occipital bone. IMPRESSION: No evidence for acute intracranial injury. Age-appropriate appearance of the brain. Soft tissue hematoma overlying the left occipital bone.
[2016-03-14 08:07] VITALS: BP 140/71
[2016-03-14 08:32] LABS: ABSOLUTE BASOPHIL COUNT 0 /CUMM (0.0-0.2); ABSOLUTE EOSINOPHIL COUNT 0.1 /CUMM (0.0-0.7); ABSOLUTE GRANULOCYTE CT 11.3 /CUMM (1.4-6.5); ABSOLUTE MONOCYTE COUNT 1.6 /CUMM (0.10-0.60); BASOPHIL % 0.3 % (0.0-2.0); EOSINOPHIL % 0.6 % (0-5); GRANULOCYTE % 80.6 % (42.2-75.2); MEAN CORPUSCULAR HGB 30.4 PG (27.0-31.0); MEAN CORPUSCULAR HGB CONC 33.8 G/DL (33.0-37.0); MEAN CORPUSCULAR VOLUME 89.9 FL (81.0-99.0); MEAN PLATELET VOLUME 8.8 FL (7.4-10.4); PLATELET COUNT 212 /CUMM (130-400); RBC DISTRIBUTION WIDTH 13.2 % (11.5-14.5); RED BLOOD CELL CT 3.11 /CUMM (4.20-5.40); WHITE BLOOD CELL COUNT 14.1 /CUMM (4.8-10.8)
--- NOTE | 2016-03-14 10:05 | PN- Housestaff ---
[facility] 03/14[facility]16 0933: Subjective Follow-up For: Fall UTI Orthostatic hypotension Complaints: patient is demented at baseline. She is a poor historian. No complaints at this time. Subjective: Patient was admitted overnight for lethargy, confusion and fall. Vitals showed a MAXIMUM TEMPERATURE of 101. Patient has an indwelling suprapubic catheter and grew Pseudomonas and Klebsiella ESBL in urine cultures from last visit (left AMA a day prior to this admission). Patient is a poor historian, offers no complaints at this time. Suprapubic catheter noted to have turbid urine. Received 1 dose of IV ceftazidime and IV Cipro in the ED. Spiked a fever of 100.2 this a.m. Review of Systems Constitutional: Reports: malaise, weakness. EENTM: Reports: no symptoms. Cardiovascular: Reports: no symptoms. Respiratory: Reports: no symptoms. Gastrointestinal: Reports: no symptoms. Genitourinary: Reports: no symptoms. Musculoskeletal: Reports: muscle pain. Skin: Reports: no symptoms. Neurological/Psychological: Reports: dementia. Objective Last 24 Hrs of Vital Signs/I&O Vital Signs Date Time Temp Pulse Resp B/P Pulse O2 O2 Flow FiO2 Ox Delivery Rate 03/14 0807 100.2 85 20 140/71 94 Room Air / 0326 98.7 73 20 146/62 96 / 0208 99.5 02/ 0145 99.5 / 0046 101.0 02/ 0000 101.0 88 19 150/70 97 Room Air / 2355 101.0 88 19 150/70 97 Room Air / 2239 Room Air / 2231 99.8 78 18 143/70 97 Room Air / 1959 100.3 88 18 157/69 98 Room Air / 1807 101.0 89 18 183/77 96 Room Air Intake & Output / 1600 /04 0800 02/ 0000 Intake Total 630 Output Total 400 200 Balance 230 -200 Intake, IV 150 Intake, Oral 480 Number 0 1 Bowel Movements Output, Urine 400 200 Patient 63.503 kg 61.235 kg Weight Physical Exam General Appearance: Alert, No Acute Distress, alert, not oriented. Poor historian. Skin: No Rashes, 4 cm contusion the posterior side of the head HEENT: PERRLA, contusion on the posterior side of the head, dry mucous membranes Neck: Supple, No JVD Lymphatic: Cervical nl Cardiovascular: Regular Rate, Normal S1, Normal S2, 3/6 ejection systolic murmurin the aortic area. Lungs: Clear to Auscultation, Normal Air Movement Abdomen: Normal Bowel Sounds, No Tenderness, suprapubic catheter with some crusting around. Turbid urine., Smallwood's sign negative Neurological: Normal Tone, patient baseline demented, no neurological examination possible Extremities: No Clubbing, No Cyanosis, No Edema, Normal Pulses Vascular: Pulses Symmetrical Current Medications: Current Medications Sig/Dasha Start time Last Medication Dose Route Stop Time Status Admin Acetaminophen 500 MG ONCE ONE 03/14 0015 DC 03/14 PO 03/14 0016 0046 Aspirin 81 MG DAILY 03/14 1000 AC 03/14 PO 0922 Atorvastatin Calcium 40 MG 2200 03/14 2200 AC PO Ceftazidime 1,000 MG ONCE ONE 03/14 0330 DC 03/14 IV 03/14 0331 0505 Ciprofloxacin 400 MG Q12 03/13 2330 DC 03/14 Dextrose/Water 200 ML IV 03/14 0029 0018 Clopidogrel Bisulfate 75 MG DAILY 03/14 1000 AC 03/14 PO 0924 Escitalopram Oxalate 20 MG DAILY 03/14 1000 AC / PO 0923 Heparin Sodium 5,000 UNIT Q8 03/14 0600 AC 03/14 (Porcine) SC 0510 Insulin Aspart 0 TIDAC 03/14 1200 DC SC Insulin Aspart 0 TIDAC 03/14 0900 AC 03/14 SC 0922 Insulin Detemir 8 UNITS AT BEDTIME 03/14 0200 AC 03/14 MO 0227 Meropenem 1 GM Q12 03/14 1000 AC IV Sodium Chloride 1,000 ML Q13H 03/14 0400 AC 03/14 IV 0502 Last 24 Hrs of Lab/Heraclio Results Last 24 Hrs of Labs/Mics: Laboratory Tests 03/14/16 0715: Anion Gap 14, Estimated GFR 29 L, BUN/Creatinine Ratio 24.1, CBC w Diff NO MAN DIFF REQ, RBC 3.11 L, MCV 89.9, MCH 30.4, RDW 13.2, MPV 8.8, Gran % 80.6 H, Lymphocytes % 7.4 L, Monocytes % 11.1 H, Eosinophils % 0.6, Basophils % 0.3, Absolute Granulocytes 11.3 H, Absolute Lymphocytes 1.0 L, Absolute Monocytes 1.6 H, Absolute Eosinophils 0.1, Absolute Basophils 0, [facility] MCHC 33.8 03/14/16 0048: Lactic Acid 1.4 03/13/16 2201: Ammonia < 9 L 03/13/16 1857: Anion Gap 12, Estimated GFR 26 L, BUN/Creatinine Ratio 21.6, Glucose 335 H, Calcium 9.8, Total Bilirubin 0.7, AST 38 H, ALT 79 H, Alkaline Phosphatase 129 H, Troponin I < 0.01, Total Protein 7.5, Albumin 3.9, Globulin 3.6, Albumin/ Globulin Ratio 1.1, PT 11.7, INR 1.12, APTT 31, CBC w Diff NO MAN DIFF REQ, RBC 3.46 L, MCV 89.9, MCH 29.9, RDW 13.6, MPV 8.9, Gran % 83.5 H, Lymphocytes % 7.1 L, Monocytes % 8.2, Eosinophils % 0.8, Basophils % 0.4, Absolute Granulocytes 10.9 H, Absolute Lymphocytes 0.9 L, Absolute Monocytes 1.1 H, Absolute Eosinophils 0.1, Absolute Basophils 0, [facility].2 03/13/16 183: Urine Color YEL, Urine Clarity CLDY H, Urine pH 6.0, Ur Specific [place] 1.020, Urine Protein 30 H, Urine Ketones NEG, Urine Nitrite NEG, Urine Bilirubin NEG, Urine Urobilinogen 0.2, Ur Leukocyte Esterase MOD H, Ur Microscopic SEDIMENT EXAMINED, Urine RBC 15-25 H, Urine WBC > 75 H, Ur Epithelial Cells RARE, Urine Hemoglobin MOD H, Urine Glucose 500 H Microbiology 03/13 2149 BLOOD: Blood Culture - RECD 03/13 2149 BLOOD: Blood Culture - RECD 03/13 1836 URINE ROUT: Urine Culture - RECD Assessment/Plan Assessment: 75 yo F with past medical history of CAD s/p CABG five years ago, CHF with preserved EF (55-60% on Feb 2016, moderate aortic stenosis valve area 1.1 cm), HLD, DM, diabetic neuropathy with urinary incontinence s/p suprapubic catheter placement, depression, with a recent hospitalization at [place] for near syncope ( left AMA two days ago ) was brought into the hospital for a fall at home and lethargy. In the ED: Noted to have a MAXIMUM TEMPERATURE of 101, normal RR, BP, O2 saturation Significant Labs: WBC 13.0, increased from 6.7 on March 09, neutrophils 83%, hemoglobin 10.3, creatinine 1.9 (baseline), AST 38, AST 79, alkaline phosphatase 129, troponin less than 0.01 UA positive for leukocyte esterase, WBC, moderate hemoglobin. UC 03/08/16 pseudomonas areginosa; 20K colonies, klebsellia esbl; 100K CXR: No acute cardiopulmonary process. Limited abdominal ultrasound right upper quadrant: Cholelithiasis without additional evidence for acute cholecystitis. Plan: #1 Sepsis secondary to CAUTI : Fever, leukocytosis, likely source of urine to cultures from previous admission shows Escherichia coli and Pseudomonas. No cholecystitis on ultrasound/nondisplaced of infection identified. Lactic acid level is normal. -IV fluids normal saline at 75 mL per hour (cautious as patient is moderate ) -Pending blood/urine culture results -Received IV ceftazidime and IV ciprofloxacin in the ED. Previous sensitivities show both proximal to be sensitive to meropenem. Patient started on IV meropenem 1 g every 12 as per ID recommendations. Will require a PICC line for IV antibiotics for 2 weeks. -Continue Tylenol for fever -Repeat CT in a.m. -ID consult appreciated #2 fall: Likely secondary to orthostatic hypotension plus moderate aortic stenosis(valve area 1.1 cm), -No acute pathology on CT head. No neurological deficit. -Continue physical therapy -Stat CT head is worsening mental status. #3 DM: 3 times a day Accu-Cheks -NovoLog sliding scale -Diabetic diet #4 chronic stable problems: CKD, CAD, orthostatic hypotension, neurogenic bladder, depression: Continue aspirin, Plavix, atorvastatin, escitalopram, Spiriva Stegman, midodrine #5 DVT prophylaxis: Heparin subcutaneous #6 safe discharge planning to STR. Mild pain pathway DNR/DNI Problem List: 1. Leukocytosis 2. Confusion 3. Fever 4. Orthostatic hypotension 5. Weakness 6. UTI (urinary tract infection) 7. Suprapubic catheter 8. CKD (chronic kidney disease) Pain Ratin Pain Location: na Pain Goal: Remain pain free Pain Plan: tylenol Tomorrow's Labs & Rationales: cbc.. UTI BEP... CKD LFT TRANSAMINITIS LIBERTY GILMORE,JASON 03/14/16 1130: Attending MD Review Statement Attending Statement Attending MD Statement: examined this patient, discuss w/resident/PA/CHICKEN CUTTER, agreed w/resident/PA/CHICKEN CUTTER Attending Assessment/Plan: Patient seen and examined. Plan of care discussed with the medical team and the patient. Available lab work and radiology test reports were reviewed. Patient is lying in bed comfortably without any distress. She denies any chest pain belly pain nausea vomiting or diarrhea. Her MAXIMUM TEMPERATURE is 101. This morning temp was 100.2 Chest exam is clear. Abdomen soft nontender. Gallo is intact. She is awake alert and oriented. WBC count is 14.1. Creatinine is 1.7. Ultrasound of the abdomen shows cholelithiasis. Chest x-ray upon admission did not show any acute process. CT scan did not show any acute pathology except for soft tissue hematoma overlying left occipital bone from a recent fall. Assessment plan * Catheter associated UTI- continue meropenem, await ID consult * Chronic kidney disease- creatinine is currently at baseline * History of CAD/CABG * History of diabetes type 2- uncontrolled with glucose as high as 394. Patient was given Levemir 8 units 2 AM this morning. Please note that patient on Lantus 20 a.m. and 8 u at p.m. at home. Please add the morning dose of Levemir at 20 units a.m. Today this dose to be given at no time
[2016-03-14 15:40] VITALS: BP 120/50
[2016-03-14 23:51] VITALS: BP 134/60
[2016-03-15 08:22] VITALS: BP 150/64
--- NOTE | 2016-03-15 08:53 | PN- Housestaff ---
[facility] 03/15/16 0853: Subjective Follow-up For: Fall UTI Orthostatic hypotension Complaints: no complaints Subjective: Patient examined at bedside. No complaints at this time. Has been afebrile overnight. Denies any urinary symptoms. Does not appear to be in any kind of distress. Blood sugar this morning was 180. Has been started on home dose of Lantus 20 units at a.m. and 8 units every afternoon. Urine cultures growing gram-negative rods. Review of Systems Constitutional: Reports: no symptoms. EENTM: Reports: no symptoms. Cardiovascular: Reports: no symptoms. Respiratory: Reports: no symptoms. Gastrointestinal: Reports: no symptoms. Genitourinary: Reports: no symptoms. Musculoskeletal: Reports: no symptoms. Skin: Reports: no symptoms. Neurological/Psychological: Reports: no symptoms. Objective Last 24 Hrs of Vital Signs/I&O Vital Signs Date Time Temp Pulse Resp B/P Pulse O2 O2 Flow FiO2 Ox Delivery Rate 03/15 08 98.6 70 20 150/64 95 Room Air 03/14 2351 98.5 77 18 134/60 96 Room Air 03/14 1540 98.0 82 20 120/50 98 Intake & Output 03/15 1600 03/15 0800 02/ 0000 Intake Total 600 500 Output Total 1200 400 Balance -600 100 Intake, IV 600 300 Intake, Oral 200 Output, Urine 1200 400 Physical Exam General Appearance: Alert, Oriented X3, Cooperative, No Acute Distress Skin: conctusion on the head healing well. HEENT: Atraumatic, PERRLA, EOMI, Mucous Membr. moist/pink Neck: Supple, No JVD Lymphatic: Cervical nl Cardiovascular: Regular Rate, Normal S1, Normal S2, 3/ 6 ejection systolic murmurin the aortic area Lungs: Clear to Auscultation, Normal Air Movement Abdomen: Normal Bowel Sounds, Soft, No Tenderness, suprapubic catheter in place Neurological: Normal Speech, Normal Tone, Sensation Intact Extremities: No Clubbing, No Cyanosis, No Edema, Normal Pulses Vascular: Normal Pulses Current Medications: Current Medications Sig/Dasha Start time Last Medication Dose Route Stop Time Status Admin Aspirin 81 MG DAILY 03/14 1000 AC 03/14 PO 0922 Atorvastatin Calcium 40 MG 2200 03/14 2200 AC 03/14 PO 215 Clopidogrel Bisulfate 75 MG DAILY 03/14 1000 AC 03/14 PO 0924 Escitalopram Oxalate 20 MG DAILY 03/14 1000 AC 03/14 PO 0923 Heparin Sodium 5,000 UNIT Q8 03/14 0600 AC 03/15 (Porcine) SC 0617 Insulin Aspart 0 TIDAC 03/14 0900 AC 03/14 SC 1800 Insulin Detemir 20 UNITS DAILY 03/15 1000 AC SC Insulin Detemir 8 UNITS AT BEDTIME 03/14 0200 AC 03/14 SC 2152 Meropenem 1 GM Q12 03/14 1000 AC 03/14 IV 2153 Nystatin 1 MAGDALENA ONCE ONE 03/15 0200 DC 03/15 TOP 03/15 0201 0452 Sodium Chloride 1,000 ML Q13H 03/14 0400 AC 03/15 IV 0617 Last 24 Hrs of Lab/Hreaclio Results Last 24 Hrs of Labs/Mics: Laboratory Tests 03/15/16 0825: Sodium Pending, Potassium Pending, Chloride Pending, Carbon Dioxide Pending, Anion Gap Pending, BUN Pending, Creatinine Pending, BUN/Creatinine Ratio Pending , CBC w Diff Pending, WBC Pending, RBC Pending, Hgb Pending, Hct Pending, MCV Pending, MCH Pending, RDW Pending, Plt Count Pending, MPV Pending, PUBS MCHC Pending Assessment/Plan Assessment: 75 yo F with past medical history of CAD s/p CABG five years ago, CHF with preserved EF (55-60% on Feb 2016, moderate aortic stenosis valve area 1.1 cm), HLD, DM, diabetic neuropathy with urinary incontinence s/p suprapubic catheter placement, depression, with a recent hospitalization at [place] for near syncope ( left AMA two days ago ) was brought into the hospital for a fall at home and lethargy. Patient doing very well. Afebrile overnight. Continued on meropenem. Plan: #1 Catheter associated UTI -CBCs pending this am. -IV fluids discontinued (sepsis resolved). Patient is eating and drinking well. -Urine cultures growing gram-negative rods. Identification and sensitivity pending. - Day 2 ,on meropenem 1 g every 12. Will require a PICC line for IV antibiotics for 2 weeks. -Continue Tylenol for fever -ID consult appreciated #2 Fall: Likely secondary to orthostatic hypotension / moderate aortic stenosis( valve area 1.1 cm) -Repeat orthostats -OOB /ambulate -No acute pathology on CT head. No neurological deficit. -Continue physical therapy -Stat CT head is worsening mental status. #3 DM: Blood sugars were running high yesterday. FS this a.m. 180, 164. -Has been restarted on home dose of long-acting insulin 20 units in a.m. and 8 units in p.m. -Continue NovoLog sliding scale -3 times a day Accu-Cheks -Diabetic diet #4 Anemia: Noted to have a drop in hemoglobin this morning. No signs of bleeding. MCV normal. ? Dilutional Noted to have a drop in hemoglobin this morning. No signs of bleeding. MCV normal. -Guaiac all stools -Repeat CBCs checked at 12 PM. If crit continues to drop consider CT abdomen and pelvis to rule out retroperitoneal bleed. -Type and crossmatch. Transfuse to keep hemoglobin above 8 #5 chronic stable problems: CKD( at baseline), CAD, orthostatic hypotension, neurogenic bladder, depression: Continue aspirin, Plavix, atorvastatin, escitalopram, Spiriva Stegman, midodrine #6 DVT prophylaxis: Heparin subcutaneous #7 Safe discharge planning to STR. Mild pain pathway DNR/DNI Problem List: 1. Orthostatic hypotension 2. Diabetes 3. UTI (urinary tract infection) 4. CKD (chronic kidney disease) Pain Ratin Pain Location: na Pain Goal: Remain pain free Pain Plan: tylenol Tomorrow's Labs & Rationales: cbc.. UTI BEP... CKD LFT TRANSAMINITIS LIBERTY GILMORE,JASON 03/15/16 1330: Attending Review Statement Attending Statement Attending Assessment/Plan: Attending Statement: examined this patient, discuss w/resident/PA/[employer] SALES, agreed w/resident/PA/[employer] SALES Attending Assessment/Plan: Patient seen and examined. Plan of care discussed with the medical team and the patient. Available lab work and radiology test reports were reviewed. Patient is lying in bed comfortably without any distress. She denies any chest pain belly pain nausea vomiting or diarrhea. Her MAXIMUM TEMPERATURE is 98.6. This morning she feels much better. Chest exam is clear. Abdomen soft nontender. Gallo is intact. She is awake alert and oriented. Labs were reviewed. White cell count is 8.8 and the hematocrit is 25. Creatinine is 1.6. Assessment plan * Catheter associated UTI- continue meropenem, ID consult note reviewed. Agree with continuation of meropenem. Will obtain urology consult. * Chronic kidney disease- creatinine is currently at baseline * Chronic indwelling suprapubic catheter- discectomy need replacement on monthly basis. Am not clear whether this was replaced last month when patient was here. * History of CAD/CABG * History of diabetes type 2- uncontrolled with glucose as high as 207. Patient has been started on Levemir twice a day and sugars have somewhat improved compared to yesterday.
[2016-03-15 09:29] LABS: ABSOLUTE BASOPHIL COUNT 0 /CUMM (0.0-0.2); ABSOLUTE EOSINOPHIL COUNT 0.3 /CUMM (0.0-0.7); ABSOLUTE GRANULOCYTE CT 5.6 /CUMM (1.4-6.5); ABSOLUTE LYMPH COUNT 1.8 /CUMM (1.2-3.4); ABSOLUTE MONOCYTE COUNT 1.1 /CUMM (0.10-0.60); BASOPHIL % 0.4 % (0.0-2.0); GRANULOCYTE % 63.3 % (42.2-75.2); MEAN CORPUSCULAR HGB 30.4 PG (27.0-31.0); MEAN CORPUSCULAR HGB CONC 33.6 G/DL (33.0-37.0); MEAN CORPUSCULAR VOLUME 90.2 FL (81.0-99.0); MEAN PLATELET VOLUME 8.4 FL (7.4-10.4); PLATELET COUNT 210 /CUMM (130-400); RBC DISTRIBUTION WIDTH 13.3 % (11.5-14.5); RED BLOOD CELL CT 2.78 /CUMM (4.20-5.40); WHITE BLOOD CELL COUNT 8.8 /CUMM (4.8-10.8)
--- NOTE | 2016-03-15 13:06 | Cons- Infect Disease ---
General Information and HPI Consulting Request Date of Consult: 03/15/16 Requested By: JING BLAKE MD Reason for Consult: Sepsis of urologic origin Source of Information: patient, old records History of Present Illness: This is a 75-year-old woman with diabetes, chronic renal insufficiency, urinary incontinence, status post suprapubic cystostomy, with a history of recurrent urinary tract infections, treated with multiple courses of antibiotics, and orthostatic hypotension, status post frequent falls, most recently 5 days prior to admission, leading to admission, at which time she was found to be orthostatic, with a positive urine culture for Pseudomonas and ESBL producing Klebsiella, attributed to asymptomatic bacteriuria and not treated, readmitted on March 13 after she was brought to the emergency room following another fall at home with lethargy. On admission she was febrile to 101 and orthostatic. Laboratory data revealed a white blood cell count of 13,000, BUN/creatinine 41 and 1.9, alk phosphatase 129, AST/ALT 38 and 79, coags normal. Urinalysis 15-25 RBC/greater than 75 WBCs. Chest x-ray negative. Right upper quadrant ultrasound revealed cholelithiasis with no evidence of acute cholecystitis. CT of the head was negative for any acute process. She was given a dose of Ciprofloxacin and Ceftazidime. On March 14 she was changed to Meropenem after discussion with me. She has defervesced and white blood cell count has normalized. At present she offers no complaints and feels back to her baseline. Allergies/Medications Allergies: Coded Allergies: adhesive tape (PLASTIC TAPE 01/17/16) oxybutynin (Severe, DELERIUM 01/24/16) codeine (NAUSEA 01/17/16) nitrofurantoin (LOOPY 01/17/16) Home Med List: Aspirin (Children's Aspirin) 81 MG CTB 1 TAB PO DAILY HEART HEALTH Atorvastatin Calcium (Lipitor) 40 MG TAB 1 TAB PO DAILY CHOLESTEROL Clopidogrel Bisulfate (Clopidogrel) 75 MG TABLET 1 TAB PO DAILY BLOOD THINNER (Reported) Escitalopram Oxalate 20 MG TABLET 1 TAB PO DAILY DEPRESSION (Reported) Insulin Glargine, Recombinan (Lantus Solostar) 100 U/ML JAZ 8 UNITS SC QPM DIABETES (Reported) Insulin Glargine,Hum.rec.anlog (Lantus Solostar) 100 UNIT/ML (3 ML) INSULN.PEN 20 U SC DAILY DIABETES (Reported) Midodrine HCl 2.5 MG TABLET 2 TAB PO 0800,1200,1600 low BP Pantoprazole Sodium (Protonix) 40 MG TABLET. 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 Home Who Do You Live With? By herself - Neighbor/Friend helps her out Services at Home: None Primary Language: Ivorian Smoking Status: Former Smoker Living Will? yes Functional Ability ADLs Independent: dressing, eating, toileting, bathing. IADLs Needs Assist: shopping, housework. Review of Systems Review of Systems All Other Systems: Reviewed and Negative Exam & Diagnostic Data Last 24 Hrs of Vital Signs/I&O Vital Signs Date Time Temp Pulse Resp B/P Pulse O2 O2 Flow FiO2 Ox Delivery Rate 03/15 0722 98.6 70 20 150/64 95 Room Air 03/14 2351 98.5 77 18 134/60 96 Room Air 03/14 1540 98.0 82 20 120/50 98 Intake & Output 03/15 1600 03/15 0800 02 0000 Intake Total 600 500 Output Total 1200 400 Balance -600 100 Intake, IV 600 300 Intake, Oral 200 Output, Urine 1200 400 Physical Exam Other Physical Findings: She is awake and alert in no acute distress. She is afebrile. Skin reveals no rash. HEENT exam left occipital hematoma. Neck is supple with no adenopathy. Lungs are clear. Heart regular rhythm with no murmur. Abdomen is soft, nontender with positive bowel sounds; suprapubic cystostomy in place with no inflammation at the site. Back mild left CVA tenderness. Extremities no cyanosis, clubbing or edema. Neuro is without focality. Last 24 Hours of Lab Results: Laboratory Tests 03/15 03/15 1215 0825 Chemistry Sodium (137 - 145 mmol/L) 137 Potassium (3.5 - 5.1 mmol/L) 4.5 Chloride (98 - 107 mmol/L) 107 Carbon Dioxide (22 - 30 mmol/L) 23 Anion Gap (5 - 16) 6 BUN (7 - 17 mg/dL) 34 H Creatinine (0.5 - 1.0 mg/dL) 1.6 H Estimated GFR (>60 ml/min) 31 L BUN/Creatinine Ratio (7 - 25 %) 21.3 Total Bilirubin (0.2 - 1.3 mg/dL) 0.7 Direct Bilirubin (< 0.4 mg/dL) 0.5 H AST (14 - 36 U/L) 40 H ALT (9 - 52 U/L) 67 H Alkaline Phosphatase (<127 U/L) 102 Total Protein (6.3 - 8.2 g/dL) 6.1 L Albumin (3.5 - 5.0 g/dL) 3.0 L Hematology CBC w Diff Pending NO MAN DIFF REQ WBC (4.8 - 10.8 /CUMM) Pending 8.8 RBC (4.20 - 5.40 /CUMM) Pending 2.78 L Hgb (12.0 - 16.0 G/DL) Pending 8.4 L Hct (37 - 47 %) Pending 25.0 L MCV (81.0 - 99.0 FL) Pending 90.2 MCH (27.0 - 31.0 PG) Pending 30.4 RDW (11.5 - 14.5 %) Pending 13.3 Plt Count (130 - 400 /CUMM) Pending 210 MPV (7.4 - 10.4 FL) Pending 8.4 Gran % (42.2 - 75.2 %) 63.3 Lymphocytes % (20.5 - 51.1 %) 20.0 L Monocytes % (1.7 - 9.3 %) 12.3 H Eosinophils % (0 - 5 %) 4.0 Basophils % (0.0 - 2.0 %) 0.4 Absolute Granulocytes (1.4 - 6.5 /CUMM) 5.6 Absolute Lymphocytes (1.2 - 3.4 /CUMM) 1.8 Absolute Monocytes (0.10 - 0.60 /CUMM) 1.1 H Absolute Eosinophils (0.0 - 0.7 /CUMM) 0.3 Absolute Basophils (0.0 - 0.2 /CUMM) 0 PUBS MCHC (33.0 - 37.0 G/DL) Pending 33.6 Last 24 Hours of Heraclio Results: Blood cultures March 13 negative Urine culture March 13 multiple colony types consistent with contamination Rapid flu swab March 13 negative Urine culture March 08 approximately 20,000 colonies of Pseudomonas resistant to Ciprofloxacin and approximately 60,000 colonies of ESBL producing Klebsiella sensitive to Augmentin, Ciprofloxacin, Gentamicin and Meropenem Diagnostic Data Recent Imaging Findings: Chest x-ray March [address] of the head March 14 reveals a soft tissue hematoma overlying the left occipital bone Right upper quadrant ultrasound March 13 reveals cholelithiasis with no evidence for cholecystitis Assessment/Plan Assessment/Plan Impression: This is a 75-year-old woman with diabetes, chronic renal insufficiency, orthostatic hypotension, status post frequent falls, status post suprapubic cystostomy for urinary incontinence with a history of recurrent urinary tract infections, admitted on March 13 after a fall, found to be lethargic with a fever and leukocytosis and with a recent urine culture positive for 2 resistant gram-negative rods. Though her urine is likely colonized with bacteria secondary to the suprapubic cystostomy, in the absence of any other explanation for her fever and leukocytosis she will need to be continued on antibiotics for presumed sepsis of urologic origin. A biliary process is possible, with cholelithiasis noted and elevated alk phosphatase and liver enzymes, though she had no GI symptoms or findings on exam to support this diagnosis and her right upper quadrant ultrasound was negative for evidence of cholecystitis. Meropenem will cover both organisms found on the recent urine culture and will need to be continued for 2 weeks as there are no oral agents available that will cover both organisms. Urology input may be helpful, though recent imaging has been negative for any obstruction of the urinary tract. Suggestion: 1. Urology evaluation 2. Would pursue placement of a PICC 3. Continue Meropenem 1 g IV every 12 hours to plan on a 14 day course Consult Acknowledgment - Thank you for your consult request.
[2016-03-15 14:13] LABS: ABSOLUTE BASOPHIL COUNT 0 /CUMM (0.0-0.2); ABSOLUTE EOSINOPHIL COUNT 0.3 /CUMM (0.0-0.7); ABSOLUTE GRANULOCYTE CT 4.5 /CUMM (1.4-6.5); ABSOLUTE LYMPH COUNT 1.7 /CUMM (1.2-3.4); ABSOLUTE MONOCYTE COUNT 0.9 /CUMM (0.10-0.60); BASOPHIL % 0.6 % (0.0-2.0); GRANULOCYTE % 60.9 % (42.2-75.2); HEMATOCRIT 25.3 % (37-47); MEAN CORPUSCULAR HGB 29.6 PG (27.0-31.0); MEAN CORPUSCULAR HGB CONC 33.2 G/DL (33.0-37.0); MEAN CORPUSCULAR VOLUME 89.2 FL (81.0-99.0); MEAN PLATELET VOLUME 8.7 FL (7.4-10.4); PLATELET COUNT 209 /CUMM (130-400); RBC DISTRIBUTION WIDTH 12.9 % (11.5-14.5); RED BLOOD CELL CT 2.84 /CUMM (4.20-5.40); WHITE BLOOD CELL COUNT 7.4 /CUMM (4.8-10.8)
[2016-03-15 15:55] VITALS: BP 124/64
[2016-03-16 00:32] VITALS: BP 150/66
[2016-03-16 08:35] VITALS: BP 124/81
[2016-03-16 09:34] LABS: ABSOLUTE BASOPHIL COUNT 0 /CUMM (0.0-0.2); ABSOLUTE EOSINOPHIL COUNT 0.4 /CUMM (0.0-0.7); ABSOLUTE GRANULOCYTE CT 3.1 /CUMM (1.4-6.5); ABSOLUTE LYMPH COUNT 1.5 /CUMM (1.2-3.4); ABSOLUTE MONOCYTE COUNT 0.7 /CUMM (0.10-0.60); BASOPHIL % 0.8 % (0.0-2.0); EOSINOPHIL % 7.3 % (0-5); GRANULOCYTE % 53.6 % (42.2-75.2); MEAN CORPUSCULAR HGB 29.9 PG (27.0-31.0); MEAN CORPUSCULAR HGB CONC 33.7 G/DL (33.0-37.0); MEAN CORPUSCULAR VOLUME 88.9 FL (81.0-99.0); MEAN PLATELET VOLUME 8.6 FL (7.4-10.4); PLATELET COUNT 224 /CUMM (130-400); RBC DISTRIBUTION WIDTH 13.3 % (11.5-14.5); RED BLOOD CELL CT 3.04 /CUMM (4.20-5.40); WHITE BLOOD CELL COUNT 5.7 /CUMM (4.8-10.8)
--- NOTE | 2016-03-16 11:14 | PN- Housestaff ---
REA EAGLE 03/16/16 1114: Subjective Follow-up For: Obstructive uropathy again Subjective: Patient seen and examined. She reported of headache otherwise review of systems is negative. Patient has a chronic suprapubic catheter. The plan was to change the catheter today. Patient has been afebrile no leukocytosis. Review of Systems Constitutional: Reports: see HPI. Objective Last 24 Hrs of Vital Signs/I&O Vital Signs Date Time Temp Pulse Resp B/P Pulse O2 O2 Flow FiO2 Ox Delivery Rate 03/16 1628 98.3 69 20 122/62 97 03/16 0835 98.4 77 20 124/81 95 Room Air 03/16 0032 98.0 71 20 150/66 95 Intake & Output 03/16 1600 03/16 0800 03/16 0000 Intake Total 0 350 Output Total 301 1100 500 Balance -301 -1100 -150 Intake, IV 0 Intake, Oral 0 350 Number 0 Bowel Movements Output, Stool 1 Output, Urine 300 1100 500 Physical Exam General Appearance: Alert, Oriented X3, Cooperative Skin: No Rashes, No Breakdown Cardiovascular: Regular Rate, Normal S1, Normal S2 Lungs: Clear to Auscultation, Normal Air Movement Abdomen: suprapubic catheter in place Current Medications: Current Medications Sig/Dasha Start time Last Medication Dose Route Stop Time Status Admin Acetaminophen 650 MG Q4P PRN 03/15 2100 AC 03/16 PO 1542 Aspirin 81 MG DAILY 03/14 1000 AC 03/16 PO 1003 Atorvastatin Calcium 40 MG 2200 03/14 2200 AC 03/15 PO 2120 Clopidogrel Bisulfate 75 MG DAILY 03/14 1000 AC 03/16 PO 1003 Escitalopram Oxalate 20 MG DAILY 03/14 1000 AC 03/16 PO 1003 Heparin Sodium 5,000 UNIT Q8 03/14 0600 AC 03/16 (Porcine) SC 1531 Insulin Aspart 0 TIDAC 03/14 0900 AC 03/16 SC 1003 Insulin Detemir 20 UNITS DAILY 03/15 1000 AC 03/16 SC 1004 Insulin Detemir 8 UNITS AT BEDTIME 03/14 0200 AC 03/15 SC 2120 Meropenem 1 GM Q12 03/14 1000 AC 02 IV 1003 Last 24 Hrs of Lab/Heraclio Results Last 24 Hrs of Labs/Mics: Laboratory Tests 03/16/16 0622: Anion Gap 9, Estimated GFR 29 L, BUN/Creatinine Ratio 21.2, CBC w Diff NO MAN DIFF REQ, RBC 3.04 L, MCV 88.9, MCH 29.9, RDW 13.3, MPV 8.6, Gran % 53.6, Lymphocytes % 26.1, Monocytes % 12.2 H, Eosinophils % 7.3 H, Basophils % 0.8, Absolute Granulocytes 3.1, Absolute Lymphocytes 1.5, Absolute Monocytes 0.7 H, Absolute Eosinophils 0.4, Absolute Basophils 0, PUBS MCHC 33.7 Assessment/Plan Assessment: Patient is 75 yo F with past medical history of CAD s/p CABG five years ago, CHF with preserved EF (55-60% on Feb 2016, moderate aortic stenosis valve area 1.1 cm), HLD, DM, diabetic neuropathy with urinary incontinence s/p suprapubic catheter placement, depression, with a recent hospitalization at [place] for near syncope ( left AMA two days ago ) was brought into the hospital for a fall at home and lethargy. Patient doing very well. Afebrile overnight. Continued on meropenem. Plan: #1 Catheter associated UTI Patient does not have any leukocytosis. She has been afebrile She continues to be on meropenem plan is to continue for a total of 14 days Consult service on board Urine cultures are growing gram-negative rods To continue Tylenol for fever and pain when necessary #2 Fall: Likely secondary to orthostatic hypotension / moderate aortic stenosis(valve area 1.1 cm) Blood pressure is stable today 150/66 We will repeat orthostatics OOB /ambulate No acute pathology on CT head. No neurological deficit. Continue physical therapy #3 DM: Patient also is on insulin Levemir and NovoLog sliding scale Monitor blood sugars every day -Diabetic diet Blood sugar 267/to 16 this a.m. #4 Anemia: Hemoglobin 9.1 this morning from 8.4 We'll continue to monitor #5 chronic stable problems: CKD( at baseline), CAD, neurogenic bladder, depression: Continue aspirin, Plavix, atorvastatin, escitalopram, Spiriva Stegman, midodrine #6 DVT prophylaxis: Heparin subcutaneous #7 Safe discharge planning to STR. Mild pain pathway DNR/DNI Problem List: 1. UTI (urinary tract infection) Pain Ratin Pain Location: Unknown Pain Goal: Pain 4 or less Pain Plan: Tylenol when necessary for pain Tomorrow's Labs & Rationales: cbc bep TIERRA BETTS MD 03/16/16 1645: Attending MD Review Statement Attending Statement Attending MD Statement: examined this patient, discuss w/resident/PA/BIODIESEL TECHNOLOGY MANAGER, agreed w/resident/PA/BIODIESEL TECHNOLOGY MANAGER, reviewed EMR data (avail), discussed with nursing, reviewed images, amended to note Attending Assessment/Plan: The patient was seen and discussed with house staff. To have PICC placed. Dr. Hirsch to change SP catheter.
--- NOTE | 2016-03-16 11:33 | NUR ---
PHYSICAL THERAPY- CONSULT RECEIVED, CHART REVIEWED. PT CURRENTLY HAVING PICC LINE PLACED, UNABLE TO COMPLETE EVAL. WILL CONT TO FOLLOW APPROPRIATE AND PERFORM EVAL ABLE.
--- NOTE | 2016-03-16 12:09 | Cons- Urology ---
General Information and HPI Consulting Request Date of Consult: 03/16/16 Requested By: JING BLAKE MD Reason for Consult: UTI/SEPSIS: OLD SPT Source of Information: patient, old records Exam Limitations: no limitations History of Present Illness: 75 YEAR OLD WITH MULTIPLE MED. PROBLEMS INCLUDING GLOBAL INCONTINCE. BOTOX, ANTI-COAGULATION, URETHRAL SURGERY NOT SUCCESSFUL IN RECENT PAST-NOW WITH SPT USE. PT DRY ON SPT. HERE FOR IV ABX/PICC-WILL HAVE SPT CHANGED TODAY Allergies/Medications Allergies: Coded Allergies: adhesive tape (PLASTIC TAPE 01/17/16) oxybutynin (Severe, DELERIUM 01/24/16) codeine (NAUSEA 01/17/16) nitrofurantoin (LOOPY 01/17/16) Home Med List: Aspirin (Children's Aspirin) 81 MG CTB 1 TAB PO DAILY HEART HEALTH Atorvastatin Calcium (Lipitor) 40 MG TAB 1 TAB PO DAILY CHOLESTEROL Clopidogrel Bisulfate (Clopidogrel) 75 MG TABLET 1 TAB PO DAILY BLOOD THINNER (Reported) Escitalopram Oxalate 20 MG TABLET 1 TAB PO DAILY DEPRESSION (Reported) Insulin Glargine, Recombinan (Lantus Solostar) 100 U/ML JAZ 8 UNITS SC QPM DIABETES (Reported) Insulin Glargine,Hum.rec.anlog (Lantus Solostar) 100 UNIT/ML (3 ML) INSULN.PEN 20 U SC DAILY DIABETES (Reported) Midodrine HCl 2.5 MG TABLET 2 TAB PO 0800,1200,1600 low BP Pantoprazole Sodium (Protonix) 40 MG TABLET.DR 1 TAB PO DAILY GERD (Reported) Pyridostigmine [place] 60 MG TABLET 30 MG PO 0800,1200,1600 orthostasis Current Medications: Current Medications Sig/Dasha Start time Last Medication Dose Route Stop Time Status Admin Acetaminophen 650 MG Q4P PRN 03/15 2100 AC 02 PO 1018 Aspirin 81 MG DAILY 03/14 1000 AC 03/16 PO 1003 Atorvastatin Calcium 40 MG 2200 03/14 2200 AC 03/15 PO 2120 Clopidogrel Bisulfate 75 MG DAILY 03/14 1000 AC 03/16 PO 1003 Escitalopram Oxalate 20 MG DAILY 03/14 1000 AC 03/16 PO 1003 Heparin Sodium 5,000 UNIT Q8 03/14 0600 AC 03/16 (Porcine) SC 0644 Insulin Aspart 0 TIDAC 03/14 0900 AC 03/16 SC 1003 Insulin Detemir 20 UNITS DAILY 03/15 1000 AC 03/16 SC 1004 Insulin Detemir 8 UNITS AT BEDTIME 03/14 0200 AC 03/15 SC 2120 Meropenem 1 GM Q12 03/14 1000 AC 03/16 IV 1003 Past History Medical History Blood Transfusion Hx: Yes Neurological: RECENT C/ LIGHTHEADED EENT: CATARACTS REMOVED R/L EYE Cardiovascular: CHF, hypertension, hyperlipidemia, CABG Respiratory: NONE Gastrointestinal: NONE Hepatic: NONE Renal: urinary incontinence, SUPRAPUBIC CATHETER UROLOGIST-DR BISHOP Musculoskeletal: ARTHRITIS Psychiatric: NONE Endocrine: diabetes Blood Disorders: NONE Cancer(s): R ARM SKIN CANCER REMOVED NEWS LIBRARIAN/Reproductive: NONE Surgical History Pertinent Surgical History: CABG, hip replacement (right hip), L LEG ANGIOPLASTY status post suprapubic cystostomy Psychosocial History Where Do You Live? Home Who Do You Live With? By herself - Neighbor/Friend helps her out Services at Home: None Primary Language: Ukrainian Smoking Status: Former Smoker Living Will? yes Functional Ability ADLs Independent: dressing, eating, toileting, bathing. IADLs Needs Assist: shopping, housework. Employment History Retired? yes Review of Systems Review of Systems Constitutional: Reports: chills. EENTM: Denies: no symptoms. Cardiovascular: Denies: no symptoms. Respiratory: Denies: no symptoms. GI: Reports: bloating. Genitourinary: Reports: see HPI. Musculoskeletal: Reports: muscle stiffness. Skin: Denies: no symptoms. Neurological/Psychological: Denies: no symptoms. Exam & Diagnostic Data Vital Signs and I&O Vital Signs Date Time Temp Pulse Resp B/P Pulse O2 O2 Flow FiO2 Ox Delivery Rate 03/16 0835 98.4 77 20 124/81 95 Room Air 03/16 0032 98.0 71 20 150/66 95 03/15 1555 98.1 69 18 124/64 94 Intake & Output 03/16 1600 03/16 0800 03/16 0000 03/15 1600 03/15 0000 Intake Total 350 855 600 500 Output Total 301 1100 898 590 2385 400 Balance -301 -1100 -150 155 -600 100 Intake, IV 375 600 300 Intake, Oral 350 480 200 Output, Stool 1 Output, Urine 300 1100 233 897 0472 400 Physical Exam General Appearance: well developed/nourished Head: atraumatic Eyes: Bilateral: normal appearance. Respiratory: normal breath sounds Cardiovascular: regular rate/rhythm Gastrointestinal: normal bowel sounds, soft, non-tender Back: no vertebral tenderness Extremities: normal inspection Reproductive: Normal female genitalia Last 24 Hours of Labs: Laboratory Tests 03/16 02/ 0622 1215 Chemistry Sodium (137 - 145 mmol/L) 140 Potassium (3.5 - 5.1 mmol/L) 4.9 Chloride (98 - 107 mmol/L) 106 Carbon Dioxide (22 - 30 mmol/L) 25 Anion Gap (5 - 16) 9 BUN (7 - 17 mg/dL) 36 H Creatinine (0.5 - 1.0 mg/dL) 1.7 H Estimated GFR (>60 ml/min) 29 L BUN/Creatinine Ratio (7 - 25 %) 21.2 Hematology CBC w Diff NO MAN DIFF REQ NO MAN DIFF REQ WBC (4.8 - 10.8 /CUMM) 5.7 7.4 RBC (4.20 - 5.40 /CUMM) 3.04 L 2.84 L Hgb (12.0 - 16.0 G/DL) 9.1 L 8.4 L Hct (37 - 47 %) 27.0 L 25.3 L MCV (81.0 - 99.0 FL) 88.9 89.2 MCH (27.0 - 31.0 PG) 29.9 29.6 RDW (11.5 - 14.5 %) 13.3 12.9 Plt Count (130 - 400 /CUMM) 224 209 MPV (7.4 - 10.4 FL) 8.6 8.7 Gran % (42.2 - 75.2 %) 53.6 60.9 Lymphocytes % (20.5 - 51.1 %) 26.1 22.2 Monocytes % (1.7 - 9.3 %) 12.2 H 12.3 H Eosinophils % (0 - 5 %) 7.3 H 4.0 Basophils % (0.0 - 2.0 %) 0.8 0.6 Absolute Granulocytes (1.4 - 6.5 /CUMM) 3.1 4.5 Absolute Lymphocytes (1.2 - 3.4 /CUMM) 1.5 1.7 Absolute Monocytes (0.10 - 0.60 /CUMM) 0.7 H 0.9 H Absolute Eosinophils (0.0 - 0.7 /CUMM) 0.4 0.3 Absolute Basophils (0.0 - 0.2 /CUMM) 0 0 PUBS MCHC (33.0 - 37.0 G/DL) 33.7 33.2 Imaging Results: PATIENT: FELICIANO PATHAK I PRESENT AGE: 75 PATIENT ACCOUNT NO: [id number] : 38 LOCATION: [facility] ORDERING PHYSICIAN: OPAL MICHEL PA-C SERVICE DATE: 03/13/16 EXAM TYPE: US - US-LIMITED ABDOMEN EXAMINATION: US ABDOMEN LIMITED CLINICAL INFORMATION: Transaminitis.. COMPARISON: Renal ultrasound 01/22/2016 TECHNIQUE: Real-time imaging of the right upper quadrant abdominal viscera. FINDINGS: PANCREAS: Normal. LIVER: Normal. The liver demonstrates normal size, contour and echogenicity. No focal lesion or intrahepatic biliary duct dilatation. GALLBLADDER: Gallstones are noted. The gallbladder is physiologically distended without evidence of sludge, polyps, wall thickening or pericholecystic fluid. COMMON BILE DUCT: Normal in caliber measuring 0.4 cm in diameter. RIGHT KIDNEY: Normal. No hydronephrosis. No renal calculi or focal parenchymal lesions. The kidney measures 7.4 cm in maximum dimension. FREE FLUID: None. IMPRESSION: Cholelithiasis without additional evidence for acute cholecystitis. Assessment/Plan Assessment/Plan OLD SPT-UTI/WILL CHANGE SPT TODAY Copies To: SANGITA BISHOP MD Consult Acknowledgment - Thank you for your consult request. Attending MD Review Statement Attending Statement Attending MD Statement: examined this patient, discuss w/resident/PA/ALEX
--- NOTE | 2016-03-16 13:43 | RADIOLOGY REPORT ---
EXAMINATION: XR PORTABLE CHEST CLINICAL INFORMATION: PICC placement for long-term antibiotic treatment. COMPARISON: Chest x-rays of 03/13/2016, 01/20/2016, 11/08/2014. TECHNIQUE: Portable AP view of the chest was obtained. FINDINGS: The cardiomediastinal silhouette is stable and within normal limits for technique. The sternotomy wires are intact and unchanged in configuration. A right PICC is in place with the tip projecting over the central/lower SVC. No pneumothorax. The lungs are normally and symmetrically expanded. Lungs are clear. No pleural effusions, pulmonary edema or pneumothorax. The visualized upper abdomen is unremarkable. No acute osseous abnormality. IMPRESSION: 1. Right-sided PICC terminates in the expected location of the lower SVC. 2. No acute pulmonary process. 3. No pneumothorax.
--- NOTE | 2016-03-16 15:49 | PN- Infect Dx ---
Subjective Subjective: Afebrile without complaints Objective Last 24 Hrs of Vital Signs/I&O Vital Signs Date Time Temp Pulse Resp B/P Pulse O2 O2 Flow FiO2 Ox Delivery Rate 03/16 0835 98.4 77 20 124/81 95 Room Air 03/16 0032 98.0 71 20 150/66 95 02 1555 98.1 69 18 124/64 94 Intake & Output 03/16 1600 03/16 0800 03/16 0000 Intake Total 0 350 Output Total 301 1100 500 Balance -301 -1100 -150 Intake, IV 0 Intake, Oral 0 350 Number 0 Bowel Movements Output, Stool 1 Output, Urine 300 1100 500 Physical Exam Other Physical Findings: She appears comfortable in no acute distress Lungs are clear Abdomen is soft, nontender with positive bowel sounds; suprapubic tube site with no inflammation Back no CVA tenderness Extremities PICC is in place in the right upper extremity Results Last 24 Hours of Lab Results: Laboratory Tests 03/16 621 Chemistry Sodium (137 - 145 mmol/L) 140 Potassium (3.5 - 5.1 mmol/L) 4.9 Chloride (98 - 107 mmol/L) 106 Carbon Dioxide (22 - 30 mmol/L) 25 Anion Gap (5 - 16) 9 BUN (7 - 17 mg/dL) 36 H Creatinine (0.5 - 1.0 mg/dL) 1.7 H Estimated GFR (>60 ml/min) 29 L BUN/Creatinine Ratio (7 - 25 %) 21.2 Hematology CBC w Diff NO MAN DIFF REQ WBC (4.8 - 10.8 /CUMM) 5.7 RBC (4.20 - 5.40 /CUMM) 3.04 L Hgb (12.0 - 16.0 G/DL) 9.1 L Hct (37 - 47 %) 27.0 L MCV (81.0 - 99.0 FL) 88.9 MCH (27.0 - 31.0 PG) 29.9 RDW (11.5 - 14.5 %) 13.3 Plt Count (130 - 400 /CUMM) 224 MPV (7.4 - 10.4 FL) 8.6 Gran % (42.2 - 75.2 %) 53.6 Lymphocytes % (20.5 - 51.1 %) 26.1 Monocytes % (1.7 - 9.3 %) 12.2 H Eosinophils % (0 - 5 %) 7.3 H Basophils % (0.0 - 2.0 %) 0.8 Absolute Granulocytes (1.4 - 6.5 /CUMM) 3.1 Absolute Lymphocytes (1.2 - 3.4 /CUMM) 1.5 Absolute Monocytes (0.10 - 0.60 /CUMM) 0.7 H Absolute Eosinophils (0.0 - 0.7 /CUMM) 0.4 Absolute Basophils (0.0 - 0.2 /CUMM) 0 PUBS MCHC (33.0 - 37.0 G/DL) 33.7 Last 24 Hours of Heraclio Results: Blood cultures March 13 negative Recent Imaging Studies: Chest x-ray March 16 negative Assessment/Plan Impression: Stable on Meropenem now Day 2 of treatment for presumed sepsis of urologic origin secondary to ESBL producing Klebsiella and Pseudomonas status post suprapubic tube change earlier today by Urology. Suggestion: 1. Continue Meropenem for a total of 14 days
[2016-03-16 16:28] VITALS: BP 122/62
[2016-03-17] VITALS: BP 130/78
[2016-03-17] MEDS ORDERED: MEROPENEM1 G1 IV (07:57)
[2016-03-17 08:01] LABS: ABSOLUTE BASOPHIL COUNT 0.1 /CUMM (0.0-0.2); ABSOLUTE EOSINOPHIL COUNT 0.5 /CUMM (0.0-0.7); ABSOLUTE GRANULOCYTE CT 3.1 /CUMM (1.4-6.5); ABSOLUTE LYMPH COUNT 2.4 /CUMM (1.2-3.4); ABSOLUTE MONOCYTE COUNT 0.8 /CUMM (0.10-0.60); BASOPHIL % 0.9 % (0.0-2.0); EOSINOPHIL % 7.4 % (0-5); HEMATOCRIT 25.7 % (37-47); MEAN CORPUSCULAR HGB 30.1 PG (27.0-31.0); MEAN CORPUSCULAR HGB CONC 33.9 G/DL (33.0-37.0); MEAN PLATELET VOLUME 8.6 FL (7.4-10.4); PLATELET COUNT 253 /CUMM (130-400); RED BLOOD CELL CT 2.89 /CUMM (4.20-5.40); WHITE BLOOD CELL COUNT 6.9 /CUMM (4.8-10.8)
--- NOTE | 2016-03-17 08:01 | Patient Discharge Instructions ---
Discharge Instructions General Discharge Information Special Instructions: Please follow up with PCP within 7 days of discharge. Please follow up with urologist within 7 days of discharge. Patient is restarted back on her Orthostatic medications, please check her orthostatic vitals daily. Acute Coronary Syndrome Inclusion Criteria At DC or during hospital stay patient has or had the following: ACS DIAGNOSIS No Discharge Core Measures Meds if any: Prescribed or Continued at Discharge Meds if any: NOT Prescribed or Continued at Discharge Congestive Heart Failure Inclusion Criteria At DC or during hospital stay patient has or had the following: CHF DIAGNOSIS No Discharge Core Measures Meds if any: Prescribed or Continued at Discharge Meds if any: NOT Prescribed or Continued at Discharge Cerebrovascular accident Inclusion Criteria At DC or during hospital stay patient has or had the following: CVA/TIA Diagnosis No Discharge Core Measures Meds if any: Prescribed or Continued at Discharge Meds if any: NOT Prescribed or Continued at Discharge Venous thromboembolism Inclusion Criteria VTE Diagnosis No VTE Type NONE VTE Confirmed by (Test) NONE Discharge Core Measures - Per Current guidelines, there needs to be overlap - treatment for the first 5 days of Warfarin therapy. - If discharged on Warfarin prior to 5 days of - overlap therapy, the patient will need to be - assessed for post discharge needs including - *Post discharge parental anticoagulation - *Warfarin and/or parental anticoagulation education - *Follow up date to check INR post discharge At least 5 days overlap therapy as Inpatient No Meds if any: Prescribed or Continued at Discharge Note: Overlap Therapy is Warfarin and Anticoagulant Meds if any: NOT Prescribed or Continued at Discharge
--- NOTE | 2016-03-17 08:02 | Discharge Summary ---
Visit Information Visit Dates Admission Date: 03/13/16 Discharge Date: 03/17/16 Hospital Course Course Attending Physician: TIERRA BETTS MD Primary Care Physician: ADINA GILMORE,CHARY Crespo Hospital Course: Patient is 75 yo F with past medical history of CAD s/p CABG five years ago, CHF with preserved EF (55-60% on Feb 2016, moderate aortic stenosis valve area 1.1 cm), HLD, DM, diabetic neuropathy with urinary incontinence s/p suprapubic catheter placement, depression, with a recent hospitalization at [place] for near syncope ( left AMA two days ago ) was brought into the hospital for a fall at home and lethargy. Patient doing very well. Afebrile overnight. Continued on meropenem. Plan: Catheter associated UTI Patient did not have leukocytosis and she remained afebrile. She was continued on meropenem plan is to continue for a total of 14 days, she will complete 11 days at rehabilitation. She was closely followed by ID consult service and also evaluated by Urology who changed her supra pubic cath on 03/16/16. Urine cultures are growing gram-negative rods. Fall: Likely secondary to orthostatic hypotension/moderate aortic stenosis (valve area 1.1 cm). Blood pressure is stable today 150/66. Her orthostatics were repeated on 03/17/16 which were positive. She is resumed on her home medications including midodrine and pyridostigmine. Please continue to monitor her orthostatics Diabetes In the hospital patient was continued on insulin Levemir and NovoLog sliding scale. Blood sugars were controlled closely. She will be discharged on her home dose insulin. She was continued on Diabetic diet. Anemia: Hemoglobin 9.1 this morning from 8.4. She was colsely monitored for any signs of bleeding. Allergies: Coded Allergies: adhesive tape (PLASTIC TAPE 01/17/16) oxybutynin (Severe, DELERIUM 01/24/16) codeine (NAUSEA 01/17/16) nitrofurantoin (LOOPY 01/17/16) Disposition Summary Disposition Principal Diagnosis: UTI sepsis Additional Diagnosis: Diabetes/anemia Discharge Disposition: SNF Discharge Instructions General Discharge Information Code Status: Do Not Resucitate/Intubat Patient's Diet: Heart healthy Patient's Activity: As tolerated Follow-Up Instructions/Appts: Please follow with a primary care physician and urologist upon discharge Medications at Discharge Discharge Medications: Continue taking these medications: Pantoprazole Sodium (Protonix) 40 MG TABLET.DR 1 Tablet ORAL DAILY Comments: PRILOSEC GIVEN 12/05/14 AT 0600 Atorvastatin Calcium (Lipitor) 40 MG TAB 1 Tablet ORAL DAILY Qty = 90 Comments: GIVEN 12/04/14 AT 1600 Aspirin (Children's Aspirin) 81 MG CTB 1 Tablet ORAL DAILY Qty = 90 Comments: GIVEN 12/05/14 AT 0800 Insulin Glargine, Recombinan (Lantus Solostar) 100 U/ML JAZ 8 Units Inject into fatty tissue Every night Qty = 30 Comments: LEVEMIR GIVEN 12/04/14 AT 2200 Insulin Glargine,Hum.rec.anlog (Lantus Solostar) 100 UNIT/ML (3 ML) INSULN.PEN 20 Units Inject into fatty tissue DAILY Clopidogrel Bisulfate (Clopidogrel) 75 MG TABLET 1 Tablet ORAL DAILY Qty = 90 Comments: Last Taken: 03/12/16 Time: 10AM Escitalopram Oxalate (Escitalopram Oxalate) 20 MG TABLET 1 Tablet ORAL DAILY Qty = 90 Comments: Last Taken: 03/12/16 Time: 10AM Midodrine HCl (Midodrine HCl) 2.5 MG TABLET 2 Tablet ORAL 0800,1200,1600 Days = 60 Comments: Last Taken: 03/12/16 Time: 8AM Pyridostigmine [place] (Pyridostigmine [place]) 60 MG TABLET 30 Milligram ORAL 0800,1200,1600 Days = 30 Comments: Last Taken: 03/12/16 Time: 8AM Start taking the following new medications: Meropenem (Meropenem) 1 GRAM VIAL 1 Gram INTRAVEN EVERY 12 HOURS Days = 11 No Refills Comments: Last Taken: 03/17/16 Time: 1030AM Copies To: TIERRA BETTS MD; SANGITA BISHOP MD; ADINA GILMORE,CHARY Crespo Attending MD Review Statement Documenting Attending: TIERRA BETTS MD Other Findings: The patient was seen and agree with the plan of care upon discharge. Will complete course of IV antibiotics.
--- NOTE | 2016-03-17 08:28 | NUR ---
NURSING NOTE: ORTHOSTATICS DONE PER MD ORDER; SEE INTERNVENTION, ORTHOSTATIC +, PT C/O MILD LIGHTHEADEDNESS WHEN STANDING, REPORTED TO REA SQUIRES. PT BACK IN BED WITH BED ALARM ON AND CALL [facility] IN REACH,. CONT TO MONITOR.
[2016-03-17 08:50] VITALS: BP 142/60
--- NOTE | 2016-03-17 09:56 | PN- Housestaff ---
See Addendum Subjective Follow-up For: UTI sepsis diabetes mellitus Subjective: Patient seen and examined. She is doing well her superpubic cath was changed yesterday she continues to be afebrile and no leukocytosis to continue 14 days of meropenem. She has a PICC line in place Review of Systems Constitutional: Reports: see HPI. Objective Last 24 Hrs of Vital Signs/I&O Vital Signs Date Time Temp Pulse Resp B/P Pulse O2 O2 Flow FiO2 Ox Delivery Rate 03/17 0850 97.9 71 18 142/60 97 Room Air / 0000 98.3 75 18 130/78 96 Room Air 03/16 1628 98.3 69 20 122/62 97 Intake & Output 03/17 1600 03/17 0800 03/17 0000 Intake Total 240 240 Output Total 1100 475 Balance -860 -235 Intake, Oral 240 240 Number 1 0 0 Bowel Movements Output, Urine 1100 475 Physical Exam General Appearance: Alert, Oriented X3, Cooperative Skin: No Rashes, No Breakdown HEENT: Atraumatic Cardiovascular: Regular Rate, Normal S1, Normal S2 Lungs: Clear to Auscultation, Normal Air Movement Abdomen: Normal Bowel Sounds, Soft, No Tenderness Neurological: Normal Speech, Strength at 5/5 X4 Ext Current Medications: Current Medications Sig/Dasha Start time Last Medication Dose Route Stop Time Status Admin Acetaminophen 650 MG .STK-MED ONE 03/16 2106 DC PO 03/16 2107 Acetaminophen 650 MG .STK-MED ONE 03/16 1538 DC PO 03/16 1539 Acetaminophen 650 MG .STK-MED ONE 03/16 1011 DC PO 03/16 1012 Acetaminophen 650 MG Q4P PRN 03/15 2100 AC 03/16 PO 2114 Aspirin 81 MG DAILY 03/14 1000 AC 03/16 PO 1003 Atorvastatin Calcium 40 MG 2200 03/14 2200 AC 03/16 PO 2114 Bisacodyl 10 MG ONCE PRN 03/17 0815 DC [place] 03/17 0816 Clopidogrel Bisulfate 75 MG DAILY 03/14 1000 AC 03/16 PO 1003 Docusate Sodium 100 MG DAILY 03/17 1000 AC PO Escitalopram Oxalate 20 MG DAILY 03/14 1000 AC 03/16 PO 1003 Heparin Sodium 5,000 UNIT Q8 03/14 06 AC 03/17 (Porcine) SC 0540 Insulin Aspart 0 TIDAC 03/14 0900 AC 03/16 CO 1811 Insulin Detemir 20 UNITS DAILY 03/15 1000 AC 03/16 CO 1004 Insulin Detemir 8 UNITS AT BEDTIME 03/14 0200 AC 03/16 CO 2113 Meropenem 1 GM Q12 03/14 1000 AC 03/16 IV 2113 Midodrine 5 MG 0800,1200,1600 03/17 1200 UNVr PO Polyethylene Glycol 17 GM DAILY 03/17 1000 AC PO Pyridostigmine 30 MG 0800,1200,1600 03/17 1200 UNVr [place] PO Senna/Docusate Sodium 2 TAB DAILY 03/17 1000 AC PO Last 24 Hrs of Lab/Hercalio Results Last 24 Hrs of Labs/Mics: Laboratory Tests 03/17/16 0545: CBC w Diff NO MAN DIFF REQ, RBC 2.89 L, MCV 89.0, MCH 30.1, RDW 13.0, MPV 8.6, Gran % 45.0, Lymphocytes % 35.4, Monocytes % 11.3 H, Eosinophils % 7.4 H, Basophils % 0.9, Absolute Granulocytes 3.1, Absolute Lymphocytes 2.4, Absolute Monocytes 0.8 H, Absolute Eosinophils 0.5, Absolute Basophils 0.1, PUBS MCHC 33.9 Assessment/Plan Assessment: Patient is 75 yo F with past medical history of CAD s/p CABG five years ago, CHF with preserved EF (55-60% on Feb 2016, moderate aortic stenosis valve area 1.1 cm), HLD, DM, diabetic neuropathy with urinary incontinence s/p suprapubic catheter placement, depression, with a recent hospitalization at [facility] for near syncope ( left AMA two days ago ) was brought into the hospital for a fall at home and lethargy. Patient doing very well. Afebrile overnight. Continued on meropenem. Plan: #1 Catheter associated UTI Patient does not have any leukocytosis. She has been afebrile She continues to be on meropenem plan is to continue for a total of 14 days Infectious disease consult service on board Urine cultures are growing gram-negative rods To continue Tylenol for fever and pain when necessary #2 Fall: Likely secondary to orthostatic hypotension / moderate aortic stenosis(valve area 1.1 cm) She was found to be orthostatic positive in the morning, standing 106/68, sitting 114/58, lying 142/60 She is resumed on her midodrine and piridostigmine Her CAT scan head was negative and no focal neuro deficits on exam #3 DM: Patient also is on insulin Levemir and NovoLog sliding scale Monitor blood sugars every day -Diabetic diet #4 Anemia: Hemoglobin 9.1 this morning from 8.4 We'll continue to monitor #5 chronic stable problems: CKD( at baseline), CAD, neurogenic bladder, depression: Continue aspirin, Plavix, atorvastatin, escitalopram, Spiriva Stegman, midodrine #6 DVT prophylaxis: Heparin subcutaneous #7 Safe discharge planning to STR. Mild pain pathway DNR/DNI Problem List: 1. UTI (urinary tract infection) Pain Ratin Pain Location: None Pain Goal: Pain 4 or less Pain Plan: Tylenol when necessary for pain Tomorrow's Labs & Rationales: None
[2016-03-17 10:03] VITALS: BP 142/60
== END 2016-03-17 13:10 | DRG 698 ==
LOC: CANRESERV → ENRESERVDT → ENRESERVTM → ERH 17:59 → ERHI 21:15 → 2NB 21:15 → ENPENDDIS 21:15 → CANBEDREQ 21:45 → 2NB 22:47
PROVIDERS: Internal Medicine; Physician Assistant Medical; Student in an Organized Health Care Education/Training Program; ADMIT Internal Medicine
DX: T83.511A Infection and inflammatory reaction due to indwelling urethral catheter, initial encounter (principal); A41.9 Sepsis, unspecified organism; N18.4 Chronic kidney disease, stage 4 (severe); I50.32 Chronic diastolic (congestive) heart failure; I13.0 Hypertensive heart and chronic kidney disease with heart failure and stage 1 through stage 4 chronic kidney disease, or unspecified chronic kidney disease; N31.9 Neuromuscular dysfunction of bladder, unspecified; E11.22 Type 2 diabetes mellitus with diabetic chronic kidney disease; I25.10 Atherosclerotic heart disease of native coronary artery without angina pectoris; N39.0 Urinary tract infection, site not specified; E11.40 Type 2 diabetes mellitus with diabetic neuropathy, unspecified; Z79.4 Long term (current) use of insulin; E78.5 Hyperlipidemia, unspecified; I95.1 Orthostatic hypotension; I35.0 Nonrheumatic aortic (valve) stenosis; F32.9 Major depressive disorder, single episode, unspecified; R32 Unspecified urinary incontinence; Y84.6 Urinary catheterization as the cause of abnormal reaction of the patient, or of later complication, without mention of misadventure at the time of the procedure; E11.65 Type 2 diabetes mellitus with hyperglycemia; D64.9 Anemia, unspecified; Z87.891 Personal history of nicotine dependence; Z95.1 Presence of aortocoronary bypass graft
CPT/HCPCS: 2NBP; 36415; 81001; 82436; 87040; 87086; 87804; 87804-59; 93005; 93010; 97110-GO; 97116-GO; 97161-GP; 97530-GO; C1769; J0713; J0744; J1644; J2185; J3490; J7060

== ENCOUNTER 2016-06-30 16:28 | Inpatient (IN) | payer OTHER, MEDICARE ==
[~2016-06-30] VITALS: Ht 162.6 cm; Wt 62.6 kg
[~2016-06-30 16:28] MED LIST changes: +MEROPENEM1 G1 IV
[2016-06-30 18:13] LABS: ABSOLUTE BASOPHIL COUNT 0.1 /CUMM (0.0-0.2); ABSOLUTE EOSINOPHIL COUNT 0.5 /CUMM (0.0-0.7); ABSOLUTE GRANULOCYTE CT 5.1 /CUMM (1.4-6.5); ABSOLUTE LYMPH COUNT 1.6 /CUMM (1.2-3.4); ABSOLUTE MONOCYTE COUNT 0.7 /CUMM (0.10-0.60); BASOPHIL % 0.7 % (0.0-2.0); EOSINOPHIL % 6.6 % (0-5); GRANULOCYTE % 63.6 % (42.2-75.2); HEMATOCRIT 30.5 % (37-47); MEAN CORPUSCULAR HGB 29.7 PG (27.0-31.0); MEAN CORPUSCULAR HGB CONC 33.3 G/DL (33.0-37.0); MEAN CORPUSCULAR VOLUME 89.2 FL (81.0-99.0); PLATELET COUNT 212 /CUMM (130-400); RBC DISTRIBUTION WIDTH 13.1 % (11.5-14.5); RED BLOOD CELL CT 3.41 /CUMM (4.20-5.40)
[2016-06-30 18:21] LABS: PT 11.2 SEC (9.4-12.5); PTT 28 SEC (25-37)
[2016-06-30 18:26] LABS: MEAN PLATELET VOLUME 10.3 FL (7.4-10.4)
[2016-06-30] MEDS ORDERED: ATORVASTATIN CA40 M1 PO (18:27)
[2016-06-30] MEDS ORDERED: ASPIRIN EC81 M1 PO (18:27)
[2016-06-30] MEDS ORDERED: METOPROLOL SUCC50 M2 PO (18:32)
--- NOTE | 2016-06-30 19:14 | ED AMS/SEIZURE/WEAK/DIZZY ---
History of Present Illness General Chief Complaint: General Adult Stated Complaint: HIGH BS Source: patient, old records, medical dr Exam Limitations: no limitations Vital Signs & Intake/Output Vital Signs & Intake/Output Vital Signs Date Time Temp Pulse Resp B/P B/P Pulse O2 O2 Flow FiO2 Mean Ox Delivery Rate 07/01 1350 98.0 70 20 134/60 98 Room Air 07/01 1144 110/62 07/01 0659 98.3 75 20 120/60 75 Nasal Room Air Cannula 07/01 0020 97.6 73 20 138/70 98 Room Air 06/30 2141 97.9 72 16 152/68 100 Room Air 06/30 2013 96.3 72 16 160/69 100 Room Air 06/30 1907 Room Air 06/30 1903 96.8 63 18 155/69 99 Room Air 06/30 1634 98.8 63 18 137/76 96 Room Air ED Intake and Output 07/01 0000 06/30 1200 Intake Total 2000 Output Total 240 Balance 1760 Intake, IV 2000 Output, Urine 240 Patient 138 lb Weight Weight Reported by Patient Measurement Method Allergies Coded Allergies: adhesive tape (PLASTIC TAPE 01/17/16) oxybutynin (Severe, DELERIUM 01/24/16) codeine (NAUSEA 01/17/16) nitrofurantoin (LOOPY 01/17/16) Triage Note: 76 YO FEMALE TO TRIAGE FROM DR DAVIS OFFICE FOR WEAKNESS. PT STATE SHE FEELS TIRED ALL THE TIME. PER PT SHE WAS SENT IN FOR ADMISSION. STATES THE DR TOLD HER SHE WAS ANEMIC. STATES SHE HAS BEEN FALLING ALL TIME. C/O PAIN TO BOTTOM FROM LAST FALL ON WEDNESDAY. Triage Nurses Notes Reviewed? yes Onset: Abrupt Duration: unknown duration Timing: recent history Injury Environment: home Severity: moderate, severe No Modifying Factors: none HPI: 76-year-old female comes into emergency room for further evaluation of increased weakness and fatigue that has been going on for the past few months as well as dizziness. Patient reports that she has not been taking her medication especially her diabetes meds. She has intermittent falls. She lives by herself. Denies any pain. She went to see her primary care doctor today for a follow-up appointment and was sent here to the hospital for further evaluation. Denies any other associated symptoms. Nothing seems to make the symptoms better or worse. (PEPE BAZAN) Reconcile Medications Aspirin (Ecotrin*) 81 MG TABLET.DR 1 TAB PO DAILY HEART/BLOOD (Reported) Atorvastatin Calcium 40 MG TABLET 1 TAB PO DAILY CHOLESTEROL (Reported) Clopidogrel Bisulfate (Clopidogrel) 75 MG TABLET 1 TAB PO DAILY BLOOD THINNER (Reported) Escitalopram Oxalate 20 MG TABLET 1 TAB PO DAILY DEPRESSION (Reported) Insulin Glargine,Hum.rec.anlog (Lantus Solostar) 100 UNIT/ML (3 ML) INSULN.PEN 8 UNIT SC QPM DM (Reported) Insulin Glargine,Hum.rec.anlog (Lantus Solostar) 100 UNIT/ML (3 ML) INSULN.PEN 20 U SC DAILY DIABETES (Reported) Metoprolol Succinate (Unknown Strength) TAB.ER.24H (Unknown Dose) PO DAILY HEART/BP (Reported) Pantoprazole Sodium (Protonix) 40 MG TABLET.DR 1 TAB PO DAILY GI (Reported) Venlafaxine HCl 25 MG TABLET 1 TAB PO DAILY depression (Reported) (DAYNA GILMORE,ZAIN) Past History Travel History Traveled to [place] past 21 day No Medical History Any Pertinent Medical History? 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 No (PEPE BAZAN) Review of Systems Review of Systems Constitutional: Reports: see HPI. EENTM: Reports: no symptoms. Respiratory: Reports: no symptoms. Cardiovascular: Reports: see HPI. GI: Reports: no symptoms. Genitourinary: Reports: no symptoms. Musculoskeletal: Reports: no symptoms. Skin: Reports: no symptoms. Neurological/Psychological: Reports: no symptoms. Hematologic/Endocrine: Reports: no symptoms. Immunologic/Allergic: Reports: no symptoms. All Other Systems: Reviewed and Negative (PEPE BAZAN) Physical Exam Physical Exam General Appearance: alert, awake Head: atraumatic, normal appearance Eyes: Bilateral: normal appearance, EOMI. Ears, Nose, Throat: normal ENT inspection, hearing grossly normal, mucous membranes dry Neck: normal inspection Respiratory: normal breath sounds, no respiratory distress Cardiovascular: regular rate/rhythm Gastrointestinal: soft Back: normal inspection Extremities: normal range of motion Neurologic/Psych: awake, alert, oriented x 3 Skin: pallor Core Measures ACS in differential dx? No CVA/TIA Diagnosis: No Severe Sepsis Present: No Septic Shock Present: No (PEPE BAZAN) Progress Differential Diagnosis: arrythmia, alcohol intoxication, anemia, CVA/stroke, dehydration, encephalitis, electrolyte imbalance, GI bleed, hypoglycemia, hypoxia, meningitis, Meniere's disease, migraine MAC, multiple sclerosis, pneumonia, postural hypotension, post-traumatic vertigo, seizure disorder, UTI/ pyelo, vertebrobasilar insuff, dka, hyperosmolar Plan of Care: Orders Procedure Date/time Status Consistent Carbohydrate 2 07/01 B Active Drains/Tubes 07/01 0210 Active LACTIC ACID 07/01 0100 Complete BASIC ELECTROLYTES PLUS BUN&CR 07/01 0100 Complete House Staff 07/01 UNK Active MISTAKE 07/01 UNK Active Vital Signs 06/30 2357 Active Teach/Educate 06/30 2357 Active Pain Treatment and Response 06/30 2357 Active Nutritional Intake, Monitor 06/30 2357 Active Isolation 06/30 2357 Active Intake & Output 06/30 2357 Active Patient Care Conference 06/30 2357 Active Activity/Ambulation 06/30 2357 Active Lab Add-on Test 06/30 2221 Active Code Status 06/30 2216 Active Patient Data 06/30 221 Active Misc Message 07/01 2151 Active ED Holding Orders 07/01 2151 Active Admit to inpatient 07/01 2151 Active Code Status 07/01 2151 Complete Add-on Test (ER Only) 06/30 2148 Active Patient Data 06/30 2145 Active PT Evaluate & Treat 06/30 2046 Active Saline Lock 06/30 2046 Active Pathway - chart 06/30 2046 Active House Staff 06/30 2046 Active LACTIC ACID 06/30 2046 Complete Add-on Test (ER Only) 06/30 2044 Active COMPREHENSIVE METABOLIC PANEL 07/01 2043 Complete Add-on Test (ER Only) 06/30 2017 Active URINE DRUGS OF ABUSE 07/01 2003 Complete Patient Data 06/30 193 Active THYROID STIMULATING HORMONE 06/30 1800 Complete SERUM OSMOLALITY 06/30 1800 Complete FREE T4 06/30 1800 Complete FOLIC ACID 06/30 1800 Complete ETHANOL 06/30 1800 Complete CORTISOL AM 06/30 1800 Complete VITAMIN B12 06/30 1800 Complete Add-on Test (ER Only) 06/30 1750 Active URINALYSIS 06/30 174 Complete PARTIAL THROMBOPLASTIN TIME 06/30 174 Complete PROTHROMBIN TIME 06/30 1747 Complete LACTIC ACID 06/30 174 Complete COMPREHENSIVE METABOLIC PANEL 06/30 174 Complete CBC WITHOUT DIFFERENTIAL 06/30 174 Complete ACETONE 06/30 174 Complete EKG 06/30 174 Active TYPE & SCREEN (NOT X-MATCH) 06/30 174 Complete VTE Mechanical Prophylaxis 06/30 UNK Active Vital Signs 06/30 UNK Complete Vital Signs 06/30 UNK Active MISTAKE 06/30 UNK Active Precautions 06/30 UNK Active Intake & Output 06/30 UNK Active FingerStick- Glucose 06/30 UNK Complete FingerStick- Glucose 06/30 UNK Active Current Medications Sig/Dasha Start time Last Medication Dose Stop Time Status Admin Insulin Aspart 0 TIDAC/HS 07/01 1200 AC 07/01 (NovoLOG) 1143 Atorvastatin Calcium 40 MG DAILY 07/01 1000 AC 07/01 (Lipitor) 1143 Escitalopram Oxalate 20 MG DAILY 07/01 1000 AC 07/01 (Lexapro) 1144 Metoprolol Succinate 50 MG DAILY 07/01 1000 AC (Toprol Xl) Heparin Sodium 5,000 UNIT Q8 06/300 AC 07/01 (Porcine) 0628 Aspirin Buffered 81 MG DAILY 07/01 2131 AC 07/01 (Ecotrin) 1144 Clopidogrel Bisulfate 75 MG DAILY 07/01 2131 AC 07/01 (Plavix) 1202 Sodium Chloride 1,000 ML Q6H 06/30 2100 AC 07/01 (Normal Saline 0.9%) 1144 Acetaminophen 650 MG Q6P PRN 06/30 2044 AC (Tylenol) Acetaminophen 1,000 MG Q6P PRN 06/30 2044 AC (Ofirmev) Morphine Sulfate 0.5 MG Q4P PRN 06/30 2044 AC (Morphine) Laboratory Tests 07/01/16 0050: Anion Gap 10, Estimated GFR 24 L, BUN/Creatinine Ratio 25.0, Lactic Acid 1.3 06/30/162130: Lactic Acid 2.4 H 06/30/162120: Anion Gap 12, Estimated GFR 26 L, BUN/Creatinine Ratio 26.8 H, Glucose 201 H, Calcium 9.1, Total Bilirubin 0.7, AST 20, ALT 29, Alkaline Phosphatase 76, Total Protein 6.8, Albumin 3.7, Globulin 3.1, Albumin/Globulin Ratio 1.2 06/30/162003: Urine Opiates Screen < 100.00, Methadone Screen 50, Barbiturate Screen < 60, Ur Phencyclidine Scrn < 6.00, Amphetamines Screen < 100, U Benzodiazepines Scrn < 85, Urine Cocaine Screen < 50, Urine Cannabis Screen < 5.00, Urine Color STRAW, Urine Clarity CLEAR, Urine pH 6.0, Ur Specific Spencer 1.010, Urine Protein TRACE H, Urine Ketones NEG, Urine Nitrite NEG, Urine Bilirubin NEG, Urine Urobilinogen 0.2, Ur Leukocyte Esterase SMALL H, Ur Microscopic SEDIMENT EXAMINED, Urine RBC RARE, Urine WBC 25-50 H, Urine Bacteria FEW H, Urine Hemoglobin TRACE-INTACT, Urine Glucose >=1000 H 06/30/16 1800: Anion Gap 14, Estimated GFR 23 L, BUN/Creatinine Ratio 27.6 H, Glucose 600 *H, Serum Osmolality 333 H, Lactic Acid 2.6 H, Calcium 9.6, Total Bilirubin 0.8, AST 22, ALT 35, Alkaline Phosphatase 92, Total Protein 7.3, Albumin 4.0, Globulin 3.3, Albumin/Globulin Ratio 1.2, Vitamin B12 860, Folate 19.9, TSH 1.480, Free T4 1.54, Cortisol AM Sample 15.5, PT 11.2, INR 1.07, APTT 28, CBC w Diff NO MAN DIFF REQ, RBC 3.41 L, MCV 89.2, MCH 29.7, RDW 13.1, MPV 10.3, Gran % 63.6, Lymphocytes % 19.8 L, Monocytes % 9.3, Eosinophils % 6.6 H, Basophils % 0.7, Absolute Granulocytes 5.1, Absolute Lymphocytes 1.6, Absolute Monocytes 0.7 H, Absolute Eosinophils 0.5, Absolute Basophils 0.1, PUBS MCHC 33.3, Serum Alcohol < 10.0, Acetone Level NEGATIVE Initial ED EKG: normal intervals, normal p-waves, normal sinus rhythm, rate (71) , nonspecific ST T wave chg (PEPE BAZAN) Departure Departure Disposition: STILL A PATIENT Condition: Stable Clinical Impression Primary Impression: Hyperkalemia Secondary Impressions: Acute kidney injury, Dehydration, Hyperglycemia, Hyponatremia Referrals: HALEY MORALES MD (PCP/Family) Departure Forms: Customer Survey General Discharge Information Admission Note Spoke With: HALEY MORALES MD Documentation of Exam: Documentation of any treatments & extenuating circumstances including Concerns Regarding Discharge (functional status, medication knowledge or non-compliance, living conditions, etc.) that warrant an admission rather than observation: Patient will require IV fluids. Insulin. Endocrinology consultation. Repeat labs. Cardiac telemetry. High risk. Patient would do poorly as an outpatient. (PEPE BAZAN) PA/[employer] AND EMERGENCY CLERK Co-Sign Statement Statement: ED Attending supervision documentation- [X] I saw and evaluated the patient. I have also reviewed all the pertinent lab results and diagnostic results. I agree with the findings and the plan of care as documented in the PA's/[employer] AND EMERGENCY CLERK's documentation. [X] I have reviewed the ED Record and agree with the PA's/[employer] AND EMERGENCY CLERK's documentation. [] Additions or exceptions (if any) to the PAs/[employer] AND EMERGENCY CLERK's note and plan are summarized below: [] (DAYNA GILMORE,ZAIN)
--- NOTE | 2016-06-30 20:35 | History & Physical ---
GRETA GILMORE,RIGOBERTOFemi 06/30/162034: General Information and HPI MD Statement: I have seen and personally examined FELICIANO PATHAK I and documented this H&P. The patient is a 76 year old F who presented with a patient stated chief complaint of []. Source of Information: patient, old records Exam Limitations: no limitations History of Present Illness: This is a 76-year-old female with past medical history significant for diabetes, suprapubic catheter, CHF, hypertension, hyperlipidemia, CAD status post CABG, who comes in for chief complaint of increasing weakness, fatigue and dizziness. She states that her symptoms have been present for several months but have particularly worsened over the past few days. Patient saw her PCP today for follow-up appointment regarding her fatigue and he sent her here. Pt states that she is "very fatigued, tired and lazy" and as such is non- compliant with her medications. She does not remember the last time she took her insulin or any of her other medications including Plavix, statin etc. She does not drink, smoke or engage in IVDA. She lives at home by herself without any assistance. Ambulates with assistance of a walker. She states that she has sustained a fall almost every day for the past two weeks. Denies hitting her head, syncope, or LOC. She states that her legs "just give out" and that she falls. She usually has to crawl to her couch and prop herself up to get back up again. Denies any recent illness, SOB, CP, diarrhea, nausea, headache, syncope, or sore throat. She has a supra-pubic catheter in place and follows with Dr. Hirsch every 4-5 weeks. She denies having to empty the love bag any more frequently than usual. However, she states that she has not been eating or drinking well. No recent travel or sick contacts. Allergies/Medications Allergies: Coded Allergies: adhesive tape (PLASTIC TAPE 01/17/16) oxybutynin (Severe, DELERIUM 01/24/16) codeine (NAUSEA 01/17/16) nitrofurantoin (LOOPY 01/17/16) Compliance With Home Meds: POOR Past History Travel History Traveled to [place] past 21 day No Medical History Neurological: RECENT C/ LIGHTHEADED EENT: CATARACTS REMOVED R/L EYE Cardiovascular: CHF, hypertension, hyperlipidemia, CABG Respiratory: NONE Gastrointestinal: NONE Hepatic: NONE Renal: urinary incontinence, SUPRAPUBIC CATHETER UROLOGIST-DR HIRSCH Musculoskeletal: ARTHRITIS Psychiatric: NONE Endocrine: diabetes Blood Disorders: NONE Cancer(s): R ARM SKIN CANCER REMOVED DIRECTORY COMPILER/Reproductive: NONE History of MRSA: No History of VRE: No History of CDIFF: No Influenza Vaccine: 11/09/15 Surgical History Surgical History: CABG, hip replacement (right hip), L LEG ANGIOPLASTY status post suprapubic cystostomy Past Family/Social History Psychosocial History Who Do You Live With? By herself - Neighbor/Friend helps her out Services at Home: None Primary Language: R[place] Smoking Status: Former Smoker ETOH Use: denies use Illicit Drug Use: denies illicit drug use Living Will? yes Functional Ability ADLs Independent: dressing, eating, toileting, bathing. Ambulation: walker IADLs Needs Assist: shopping, housework. Review of Systems Review of Systems Constitutional: Reports: malaise, weakness. Denies: chills, diaphoresis, fever. EENTM: Denies: blurred vision, double vision, eye pain. Cardiovascular: Denies: chest pain, orthopena, palpitations, syncope. Respiratory: Denies: cough, hemoptysis, short of breath, sputum production, stridor, wheezing. GI: Denies: abdominal pain, bloating, constipation, diarrhea, melena, nausea, vomiting. Genitourinary: Denies: dysuria, frequency, hematuria, hesitation, nocturia, pain. Musculoskeletal: Denies: back pain, gout, joint pain, joint swelling, muscle pain, neck pain. Skin: Denies: erythema, jaundice, lesions, rash. Neurological/Psychological: Reports: cognitive dysfunction, confusion, depressed. Denies: anxiety, ataxia, tingling, tremors, tonic-clonic seizures. Exam & Diagnostic Data Last 24 Hrs of Vital Signs/I&O Vital Signs Date Time Temp Pulse Resp B/P B/P Pulse O2 O2 Flow FiO2 Mean Ox Delivery Rate 06/30 2140 97.9 72 16 152/68 100 Room Air 06/30 2013 96.3 72 16 160/69 100 Room Air 06/30 1907 Room Air 06/30 1903 96.8 63 18 155/69 99 Room Air 06/30 1634 98.8 63 18 137/76 96 Room Air Physical Exam General Appearance Alert, Oriented X3, Cooperative, No Acute Distress Skin No Rashes, No Significant Lesion Skin Temp/Moisture Exam: Warm/Dry HEENT Atraumatic, PERRLA, EOMI, dry mucous membranes Neck Supple, No LAD Cardiovascular Regular Rate, Normal S1, Normal S2, No Murmurs Lungs Clear to Auscultation, Normal Air Movement Abdomen Soft, No Tenderness, has suprapubic catheter inserted. Site has some discharge that is clear Neurological Normal Speech Extremities No Edema, Normal Pulses Last 24 Hrs of Labs/Heraclio: Laboratory Tests 06/30/162130: Lactic Acid Pending 06/30/162120: Anion Gap 12, Estimated GFR 26 L, BUN/Creatinine Ratio 26.8 H, Glucose 201 H, Calcium 9.1, Total Bilirubin 0.7, AST 20, ALT 29, Alkaline Phosphatase 76, Total Protein 6.8, Albumin 3.7, Globulin 3.1, Albumin/Globulin Ratio 1.2 06/30/162003: Urine Opiates Screen < 100.00, Methadone Screen 50, Barbiturate Screen < 60, Ur Phencyclidine Scrn < 6.00, Amphetamines Screen < 100, U Benzodiazepines Scrn < 85, Urine Cocaine Screen < 50, Urine Cannabis Screen < 5.00, Urine Color STRAW, Urine Clarity CLEAR, Urine pH 6.0, Ur Specific [place] 1.010, Urine Protein TRACE H, Urine Ketones NEG, Urine Nitrite NEG, Urine Bilirubin NEG, Urine Urobilinogen 0.2, Ur Leukocyte Esterase SMALL H, Ur Microscopic SEDIMENT EXAMINED, Urine RBC RARE, Urine WBC 25-50 H, Urine Bacteria FEW H, Urine Hemoglobin TRACE-INTACT, Urine Glucose >=1000 H 06/30/16 1800: Anion Gap 14, Estimated GFR 23 L, BUN/Creatinine Ratio 27.6 H, Glucose 600 *H, Serum Osmolality 333 H, Lactic Acid 2.6 H, Calcium 9.6, Total Bilirubin 0.8, AST 22, ALT 35, Alkaline Phosphatase 92, Total Protein 7.3, Albumin 4.0, Globulin 3.3, Albumin/Globulin Ratio 1.2, TSH Pending, Free T4 Pending, Cortisol AM Sample Pending, PT 11.2, INR 1.07, APTT 28, CBC w Diff NO MAN DIFF REQ, RBC 3.41 L, MCV 89.2, MCH 29.7, RDW 13.1, MPV 10.3, Gran % 63.6, Lymphocytes % 19.8 L, Monocytes % 9.3, Eosinophils % 6.6 H, Basophils % 0.7, Absolute Granulocytes 5.1, Absolute Lymphocytes 1.6, Absolute Monocytes 0.7 H, Absolute Eosinophils 0.5, Absolute Basophils 0.1, PUBS MCHC 33.3, Serum Alcohol < 10.0, Acetone Level NEGATIVE Assessment/Plan Assessment: This is a 18-year-old female past medical history significant for diabetes, CAD, superior catheter, who comes in for chief complaint of weakness, fatigue and dizziness. In ED further evaluation shows hyponatremia, hyperkalemia, and hyperglycemia. ED workup shows: Vitals: 96.3, 63, 18, systolic 137-160/diastolic 76-69. Satting 100%. Urine: Small leukocyte esterase, 25-50 white blood cell, few bacteria, greater than 1000 glucose. CBC shows: White count 8.0, hemoglobin 10.1, hematocrit 30.5. INR 1.07, lactic acid 2.6. BEP shows: Sodium 1:30, potassium 6.0, chloride 97, bicarbonate 19, BUN 58, creatinine 2.1. Glucose 600. Last A1c in January 2016 at 9.9. Serum osm 333 1. HHNS: Pt has hyperglycemia with hyperosmolar state. She came in with BS 600 and Sosm 333. Likely secondary to her diabetes medication non-compliance. Likely poor management of her underlying medical conditions is leading to her CC of weakness and dizziness. Note that pt has previously been seen for orthostasis at . She was sent out on mitodrine and pyridostigmine; unsure if she is taking those meds currently but we are holding them given HHNS. * GM admission * insulin drip * BEP at 1 am and 4 am * neuro check * Do not drop blood sugar more than 100/hr * Diabetic diet starting AM * Call pharmacy in AM to verify meds. 2. Lactic acidosis: Pt comes in with LA of 2.6. No gap noted on BEP * Con't monitor 2. Pseudo-Hyponatremia: Corrected for glucose of 600 gives NA 138. * Monitor BEP 3. Hyperkalemia: Pt has K 6.0 with no corresponding EKG changes. Likely secondary her Hyperosmolar state. * Sub-q insulin * monitor BEP 4. Acute on Chronic renal failure: Comes in with Cr 2.1 and Bun 58. Her baseline is 1.5-1.7. Given increased BUN and HHNS likely pre-renal. The suprapubic catheter is patent unlikely post-renal. * Aggresive hydration with NS and D5 1/2NS * Monitor with BEP * Strict I/O 5. Anemia: Has Hb 10.1; previous work up shows low iron levels suggesting iron deficiency anemia. 6. Depression: Cont' home regimen after verifying with pharmacy. 7. CAD: Pt has hx of CAD s/p CABG and two stents placed. Pt states that she is not takin clopidogrel regularly at home. * Metop Succinate starting am * Cont' atorvastatin * Con't ASA * Cont' Clopidogrel- dose given on 06/30 8. Dizziness and fatigue: This is her CC but possibly 2/2 her HHNS and medication non-compliance. However, requires further work up. * Follow up TSH/T4 * Follow up cortisol * Follow up B12 and Folate DNR/DNI Diabetic diet Chemical dvt ppx As Ranked By This Provider Problem List: 1. Uncontrolled diabetes mellitus 2. Depression 3. HTN (hypertension) 4. Acute kidney injury 5. Weakness 6. Bduuj-qd-srzmaeb kidney injury 7. Orthostatic hypotension 8. Hyperkalemia 9. Hyperglycemia 10. Hyponatremia Core Measures/Miscellaneous Acute Coronary Syndrome ACS Diagnosis: No Cerebrovascular Accident CVA/TIA Diagnosis: No Congestive Heart Failure CHF Diagnosis: No Venous Thromboembolism VTE Risk Factors: Acute medical illness, Age > 40 No [facility] VTE prophylaxis d/t: No contraindications No VTE Pharm Prophylaxis d/t: No contraindications VTE Diagnosis: No VTE Type: NONE VTE Confirmed by (Test): NONE Severe Sepsis Severe Sepsis Present: No Septic Shock Septic Shock Present: No Miscellaneous Documentation Attending Case Discussed With: Dr. Aguilera Primary Care Physician: ANDREW GILMORE,[facility] Patient sees these Specialists Unknown Level of Patient Care: General Medicine Consults Needed: Consulting Specialty: Endocrinology LILLIAN DE DIOS 06/30/16 2100: General Information and HPI Allergies/Medications Home Med list Aspirin (Ecotrin*) 81 MG TABLET.DR 1 TAB PO DAILY HEART/BLOOD (Reported) Atorvastatin Calcium 40 MG TABLET 1 TAB PO DAILY CHOLESTEROL (Reported) Clopidogrel Bisulfate (Clopidogrel) 75 MG TABLET 1 TAB PO DAILY BLOOD THINNER (Reported) Fludrocortisone Acetate 0.1 MG TABLET 100 MCG PO DAILY orthostatic hypotension Insulin Aspart (Novolog) 100 UNIT/ML VIAL 0 UNITS SC TIDAC/HS diabetes bloodsugar beforemeal bedtime 80-150 3units 151-200 4units 201-250 5units 251-300 6units 2units 301-350 7units 3units 351-400 8units 4units >400 9units 5units Insulin Detemir (Levemir) 100 UNIT/ML VIAL 12 UNITS SC DAILY diabetes Insulin Glargine,Hum.rec.anlog (Lantus Solostar) 100 UNIT/ML (3 ML) INSULN.PEN 8 UNIT SC QPM DM (Reported) Insulin Glargine,Hum.rec.anlog (Lantus Solostar) 100 UNIT/ML (3 ML) INSULN.PEN 20 U SC DAILY DIABETES (Reported) Metoprolol Succinate 50 MG TAB.ER.24H 1 TAB PO DAILY hypertension (Reported) Midodrine HCl 2.5 MG TABLET 2 TAB PO TID orthostatic hypotension Pantoprazole Sodium (Protonix) 40 MG TABLET.DR 1 TAB PO DAILY GI (Reported) Venlafaxine HCl 25 MG TABLET 1 TAB PO DAILY depression (Reported) Resident Review Statement Resident Statement: examined this patient, discussed with quality internship, agreed with quality internship Other Findings: This is a 76-year-old female with past medical history of diabetes, congestive heart failure, hypertension, hyperlipidemia, coronary artery disease status post CABG, suprapubic catheter in for last 2 years, came in with chief complain of increased weakness, fatigue and dizziness a few days prior to admissions. Apparently she has not been feeling very well for past few days and she says that she was very fatigued and tired and lazy to take her medications. She has been completely noncompliant with her medication and has not been taking her Plavix ,statin ,insulin as she was too tired to take her medications. She also says that she has been having more falls recently and she has almost 1 for every day when her legs give out. She has to drag herself to the couch to get up back again. She says that her weakness has been worsening since last 2 months.She denies injuring her head or having any major trauma secondary to fall. She denied any recent illness, shortness of breath, chest pain, diarrhea, nausea , vomiting, fever, sore throat. She follows up with Dr. Hirsch who had placed a suprapubic catheter. She also says that she has had no appetite for last few months. Vitals : temperature of 98.8, pulse of 63, respiration of 18, blood pressure of 137/76, she was 96% saturating on room air. Relevant labs white count of 9.0, H/H of 10.1/30.5, platelet of 212. Sodium of 130, potassium of 6.0, BUN/creatinine 58/2.1 (baseline around 1.7), glucose was noted to be 600. Serum osmolality noted to be 333, lactic acid noted to be 2.6. Initially plan was to admit the patient to telemetry due to hyperkalemia however no EKG changes secondary to hyperkalemia were noted. On repeat labs after getting 10 units of IV and 10 units of subcutaneous insulin and his repeat BEP the blood sugar came down to 200 from 600 and the potassium came down to 4.7 therefore the patient was downgraded to [facility]. Problem list along with assessment and plan #1 HHNS #2 lactic acidosis. #3 hyperkalemia #4 Anemia #5 depression #6 CAD #7 fatigue, lethargy Plan : Ct to monitor vitals every shift, continue monitor intakes and output. Patient has elevated blood sugar, however there is no anion gap, serum acetone is negative, most likely the hyperglycemia secondary to HHNS, and received 20 units of IV and subcutaneous insulin at the emergency department and the sugar came down to 200. Continue to monitor fingersticks every [address] todd. Continue NovoLog sliding scale every 4 hourly for now. Was switched to subcutaneous insulin in the a.m. Continue normal saline hydration. Will switch to consistent carbohydrate diet in the a.m. Review to trend lactic acidosis until less than 2. Continue to monitor potassium levels, no EKG changes secondary to hyperkalemia The hyponatremia most likely secondary to hyperglycemia, corrected sodium for glucose of 600 was 138, therefore the sodium actually will improve once the glucose is controlled. continue metoprolol 50 mg daily. Continue Lexapro 20 mg daily. Continue Lipitor [address] Plavix 75 mg daily. Continue aspirin 81 mg daily. Mild/moderate and severe pain pathway ordered. DVT prophylaxis with heparin mild/mod/severe PP CC-3 diet. ANDREW GILMORE,[facility] 07/01/16 0932: Attending MD Review Statement Attending Statement Attending MD Statement: examined this patient, discuss w/resident/PA/EXECUTIVE KITCHEN MANAGER, agreed w/resident/PA/EXECUTIVE KITCHEN MANAGER, discussed with family, reviewed EMR data (avail)
[2016-06-30] MEDS ORDERED: VENLAFAXINE HCL25 M1 PO (21:35)
[2016-07-01 00:20] VITALS: BP 138/70
[2016-07-01 06:59] VITALS: BP 120/60
--- NOTE | 2016-07-01 08:04 | PN- Housestaff ---
Subjective Follow-up For: Hyperosmolar hyperglycemia Acute on chronic renal failure Frequent falls Anemia Complaints: pain scale (0-10) Subjective: Patient was seen and examined this morning. She is alert awake and oriented to time place and person. She denies any overnight events. She denies any chest pain, breathing difficulty, shortness of breath, fever, chills. She reports generalized weakness, fatigue and tiredness. Offers no other complaints Vitals stable afebrile, heart rate 75, respiratory rate 20, blood pressure 120/ 60, saturating at 95 on room. Review of Systems Constitutional: Reports: weakness. Denies: chills, diaphoresis, fever. Objective Last 24 Hrs of Vital Signs/I&O Vital Signs Date Time Temp Pulse Resp B/P B/P Pulse O2 O2 Flow FiO2 Mean Ox Delivery Rate 07/01 1350 98.0 70 20 134/60 98 Room Air 07/01 1144 110/62 07/01 0659 98.3 75 20 120/60 75 Nasal Room Air Cannula 07/01 0020 97.6 73 20 138/70 98 Room Air 06/30 2141 97.9 72 16 152/68 100 Room Air 06/30 2013 96.3 72 16 160/69 100 Room Air 06/30 1907 Room Air 06/30 1903 96.8 63 18 155/69 99 Room Air Intake & Output 07/01 1600 07/01 0800 07/01 0000 Intake Total 420 1300 2000 Output Total 450 1000 240 Balance -30 300 1760 Intake, IV 1200 2000 Intake, Oral 420 100 Output, Urine 450 1000 240 Patient 62.596 kg 62.596 kg Weight Weight Reported by Patient Reported by Patient Measurement Method Physical Exam General Appearance: Alert, Oriented X3, Cooperative, No Acute Distress Skin: No Rashes, No Breakdown HEENT: Atraumatic, PERRLA, EOMI, Mucous Membr. moist/pink Neck: Supple, No JVD, No thryomegaly Lymphatic: Axillary nl, Cervical nl Cardiovascular: Normal S1, Normal S2 Lungs: Normal Air Movement Abdomen: Normal Bowel Sounds, Soft, No Tenderness Neurological: Strength at 5/5 X4 Ext, Normal Tone, Sensation Intact, Cranial Nerves 3-12 NL Extremities: No Clubbing, No Cyanosis, No Edema Current Medications: Current Medications Sig/Dasha Start time Last Medication Dose Route Stop Time Status Admin Acetaminophen 650 MG Q6P PRN 06/30 2044 AC PO Acetaminophen 1,000 MG Q6P PRN 06/30 2044 AC IV Aspirin Buffered 81 MG DAILY 07/01 2131 AC 07/01 PO 1144 Atorvastatin Calcium 40 MG DAILY 07/01 1000 AC 07/01 PO 1143 Clopidogrel Bisulfate 75 MG DAILY 07/01 2131 AC 07/01 PO 1202 Escitalopram Oxalate 20 MG DAILY 07/01 1000 AC 07/01 PO 1144 Heparin Sodium 5,000 UNIT Q8 06/30 2200 AC 07/01 (Porcine) SC 163 Heparin Sodium 0 .STK-MED ONE 06/30 2117 DC (Porcine) .ROUTE Insulin Aspart 0 TIDAC/HS 07/01 1200 AC 07/01 SC 1636 Insulin Aspart 0 Q4 07/01 0200 OR SC Insulin Human Regular 100 UNIT Q24H 06/30 2144 DC Sodium Chloride 100 ML IV Insulin Human Regular 10 UNITS ONCE ONE 06/30 1914 DC 06/30 IV 06/30 Insulin Human Regular 10 UNITS ONCE ONE 06/30 1914 DC 06/30 SC 06/30 Metoprolol Succinate 50 MG DAILY 07/01 1000 AC PO Morphine Sulfate 0.5 MG Q4P PRN 06/30 2044 AC IV Patient Medication 1 ED .STK-MED ONE 07/01 1318 DC Teaching ED 07/01 1319 Sodium Chloride 1,000 ML Q6H 06/30 2100 AC 07/01 IV 1636 Sodium Chloride 1,000 ML BOLUS ONE 06/30 190 DC 06/30 IV 06/30 1958 1857 Last 24 Hrs of Lab/Heraclio Results Last 24 Hrs of Labs/Mics: Laboratory Tests 07/01/16 0050: Anion Gap 10, Estimated GFR 24 L, BUN/Creatinine Ratio 25.0, Lactic Acid 1.3 06/30/162130: Lactic Acid 2.4 H 06/30/162120: Anion Gap 12, Estimated GFR 26 L, BUN/Creatinine Ratio 26.8 H, Glucose 201 H, Calcium 9.1, Total Bilirubin 0.7, AST 20, ALT 29, Alkaline Phosphatase 76, Total Protein 6.8, Albumin 3.7, Globulin 3.1, Albumin/Globulin Ratio 1.2 06/30/16 2004: Urine Opiates Screen < 100.00, Methadone Screen 50, Barbiturate Screen < 60, Ur Phencyclidine Scrn < 6.00, Amphetamines Screen < 100, U Benzodiazepines Scrn < 85, Urine Cocaine Screen < 50, Urine Cannabis Screen < 5.00, Urine Color STRAW, Urine Clarity CLEAR, Urine pH 6.0, Ur Specific [place] 1.010, Urine Protein TRACE H, Urine Ketones NEG, Urine Nitrite NEG, Urine Bilirubin NEG, Urine Urobilinogen 0.2, Ur Leukocyte Esterase SMALL H, Ur Microscopic SEDIMENT EXAMINED, Urine RBC RARE, Urine WBC 25-50 H, Urine Bacteria FEW H, Urine Hemoglobin TRACE-INTACT, Urine Glucose >=1000 H 06/30/16 1800: Anion Gap 14, Estimated GFR 23 L, BUN/Creatinine Ratio 27.6 H, Glucose 600 *H, Serum Osmolality 333 H, Lactic Acid 2.6 H, Calcium 9.6, Total Bilirubin 0.8, AST 22, ALT 35, Alkaline Phosphatase 92, Total Protein 7.3, Albumin 4.0, Globulin 3.3, Albumin/Globulin Ratio 1.2, Vitamin B12 860, Folate 19.9, TSH 1.480, Free T4 1.54, Cortisol AM Sample 15.5, PT 11.2, INR 1.07, APTT 28, CBC w Diff NO MAN DIFF REQ, RBC 3.41 L, MCV 89.2, MCH 29.7, RDW 13.1, MPV 10.3, Gran % 63.6, Lymphocytes % 19.8 L, Monocytes % 9.3, Eosinophils % 6.6 H, Basophils % 0.7, Absolute Granulocytes 5.1, Absolute Lymphocytes 1.6, Absolute Monocytes 0.7 H, Absolute Eosinophils 0.5, Absolute Basophils 0.1, PUBS MCHC 33.3, Serum Alcohol < 10.0, Acetone Level NEGATIVE Assessment/Plan Assessment: This is a 18-year-old female past medical history significant for diabetes, CAD status post CABG, CHF, hypertension, hyperlipidemia who comes in for chief complaint of weakness, fatigue and dizziness. In ED further evaluation shows hyponatremia, hyperkalemia, and hyperglycemia. ED workup shows: Vitals: 96.3, 63, 18, systolic 137-160/diastolic 76-69. Satting 100%. Urine: Small leukocyte esterase, 25-50 white blood cell, few bacteria, greater than 1000 glucose. CBC shows: White count 8.0, hemoglobin 10.1, hematocrit 30.5. INR 1.07, lactic acid 2.6. BEP shows: Sodium 1 30, potassium 6.0, chloride 97, bicarbonate 19, BUN 58, creatinine 2.1. Glucose 600. Last A1c in January 2016 at 9.9. Serum osm 333 1. Hyperosmolar hyperglycemia Patient's hemoglobin A1c in the office was above 14 that led to the decision of sending the patient to ER from pcp office and possible admission to titrate her diabetic medications. Pt has hyperglycemia with hyperosmolar state in the ER. She came in with BS 600 and Sosm 333. Likely secondary to her diabetes medication non-compliance. Likely poor management of her underlying medical conditions is leading to her CC of weakness and dizziness. * GM admission * received 20 units insulin in the ER after which blood sugar improved to 200 * On diabetic diet * Endocrinology was concentrated * On insulin NovoLog every 4 hours * Close monitoring of sugars * Monitor vitals closely * Follow-up endo recommendations Orthostatic hypotension Patient presented with increased weakness, fatigue, dizziness. Also reported non compliant with medications. * Positive for orthostats * Continue IV fluids * Fall precautions * Note that pt has previously been seen for orthostasis at . She was sent out on mitodrine and pyridostigmine; unsure if she is taking those meds currently but we are holding them given HHNS. 2. Lactic acidosis: Pt comes in with LA of 2.6. No gap noted on BEP * Con't monitor 2. Pseudo-Hyponatremia: Corrected for glucose of 600 gives NA 138. * Monitor BEP 3. Hyperkalemia: Pt has K 6.0 with no corresponding EKG changes. Likely secondary to her Hyperosmolar state. * k 4.3 now * monitor BEP 4. Acute on Chronic renal failure: Comes in with Cr 2.1 and Bun 58. Her baseline is 1.5-1.7. Given increased BUN and HHNS likely pre-renal. The suprapubic catheter is patent unlikely post- renal. * Aggresive hydration * Monitor with BEP * Strict I/O 5. Anemia: Has Hb 10.1; previous work up shows low iron levels suggesting iron deficiency anemia. * Nephrology was consulted, history of CKD * May need epogen 6. Depression: willCont' home regimen after verifying with pharmacy. 7. CAD: Pt has hx of CAD s/p CABG and two stents placed. Pt states that she is not taking clopidogrel regularly at home. * Metop Succinate * Cont' atorvastatin * Con't ASA * Cont' Clopidogrel 8. Dizziness and fatigue: This is her CC but possibly 2/2 her HHNS and medication non-compliance. However, requires further work up. * Follow up TSH/T4- normal * Follow up cortisol- normal * Follow up B12 and Folate -normal * PT evaluation DNR/DNI Diabetic diet Chemical dvt ppx Problem List: 1. CKD (chronic kidney disease) 2. Leukocytosis 3. Orthostatic hypotension 4. Juaef-xq-whnxcsl kidney injury 5. Weakness Pain Ratin Pain Location: none Pain Goal: Remain pain free Pain Plan: tylinol Tomorrow's Labs & Rationales: CBC in the setting of anemia Consulting Request: Consulting Specialty: Endocrinology
--- NOTE | 2016-07-01 09:24 | Admission Certification ---
Admission Certification Certification Statement - As attending physician, I certify that at the time of - admission, based on clinical presentation, severity of - symptoms, need for further diagnostic testing and - therapeutic interventions, and risk of adverse outcomes - without in-hospital treatment, in my clinical assessment, - this patient requires an acute hospital stay for a minimum - of two nights or longer. I have also considered psychsocial - factors such as support system, advanced age, financial - issues, cognitive issues, and failed out-patient treatments, - past re-admission history, safety of patient, and lack of - compliance as applicable. Specific rationale supporting this admission is: Hyperkalemia and hyperglycemia
--- NOTE | 2016-07-01 09:32 | PN- Att Addend ---
Attending Addendum Attending Brief Note Patient complains of feeling lightheaded this morning. General Appearance: Alert, No Acute Distress Skin: Grossly normal HEENT: PEERLA Neck: Supple, No JVD Cardiovascular: Regular Rate, Normal S1, Normal S2, No Murmurs Lungs: Clear to Auscultation, Normal Air Movement Abdomen: Normal Bowel Sounds, Soft, No Tenderness Neurological: Normal Speech, Strength at 5/5 X4 Ext, Cranial Nerves 3-12 NL, Reflexes 2+ Extremities: No Clubbing, No Cyanosis, No Edema Vascular: Normal Pulses Assessment 76-year-old with history of type 2 diabetes on insulin, supra pubic catheter, CHF, hypertension, coronary artery disease, dyslipidemia, initially presented to my office with her son with concerns of poor compliance to her medications including insulin. Patient reported having extreme fatigue and agreed on not taking her regular insulin on time. Apparently she lives in an in law apartment with a friend and does not have close supervision. Patient's hemoglobin A1c in the office was above 14 that led to the decision of sending the patient to ER and possible admission to titrate her diabetic medications. On admission she was found to be hyperglycemic and hyperkalemic without any signs of ketoacidosis. Her blood sugars today have improved and hyperkalemia resolved with insulin. We will involve endocrinology to adjust her diabetic medications and also discuss with nephrology to initiate patient on epogen for symptomatic anemia. Patient will benefit with placement to rehabilitation and aggressive physical therapy. In the meantime her living condition must be reassessed. Plan Endocrinology consult Nephrology evaluation Diabetic management per endocrinology Check orthostatics Discontinue fluids if orthostats negative Discuss with complex case manager regarding placement/STR DNI/DNR Current Medications Sig/Dasha Start time Last Medication Dose Route Stop Time Status Admin Acetaminophen 650 MG Q6P PRN 06/30 2044 AC PO Acetaminophen 1,000 MG Q6P PRN 06/30 2044 AC IV Aspirin Buffered 81 MG DAILY 07/01 2131 AC 06/30 PO 2207 Atorvastatin Calcium 40 MG DAILY 07/01 999 AC PO Clopidogrel Bisulfate 75 MG DAILY 07/01 2131 AC 06/30 PO 2201 Escitalopram Oxalate 20 MG DAILY 07/01 1000 AC PO Heparin Sodium 5,000 UNIT Q8 06/30 2199 AC 07/01 (Porcine) ND 0628 Heparin Sodium 0 .[email or web address]MED ONE 06/30 2117 RI (Porcine) .ROUTE Insulin Aspart 0 TIDAC/HS 07/01 1200 AC SC Insulin Aspart 0 Q4 07/01 0200 DC SC Insulin Human Regular 100 UNIT Q24H 06/305 DC Sodium Chloride 100 ML IV Insulin Human Regular 10 UNITS ONCE ONE 06/30 1914 DC 06/30 IV 06/30 Insulin Human Regular 10 UNITS ONCE ONE 06/30 1914 DC 06/30 SC 06/30 Metoprolol Succinate 50 MG DAILY 07/01 1000 AC PO Morphine Sulfate 0.5 MG Q4P PRN 06/30 2044 AC IV Sodium Chloride 1,000 ML Q6H 06/30 2100 AC 07/01 IV 0534 Sodium Chloride 1,000 ML BOLUS ONE 06/30 190 DC 06/30 IV 06/30 Laboratory Tests 07/010 2130 2120 Chemistry Sodium (137 - 145 mmol/L) 137 136 L Potassium (3.5 - 5.1 mmol/L) 4.3 4.7 Chloride (98 - 107 mmol/L) 106 104 Carbon Dioxide (22 - 30 mmol/L) 21 L 20 L Anion Gap (5 - 16) 10 12 BUN (7 - 17 mg/dL) 50 H 51 H Creatinine (0.5 - 1.0 mg/dL) 2.0 H 1.9 H Estimated GFR (>60 ml/min) 24 L 26 L BUN/Creatinine Ratio (7 - 25 %) 25.0 26.8 H Glucose (65 - 99 mg/dL) 201 H Lactic Acid (0.7 - 2.1 mmol/L) 1.3 2.4 H Calcium (8.4 - 10.2 mg/dL) 9.1 Total Bilirubin (0.2 - 1.3 mg/dL) 0.7 AST (14 - 36 U/L) 20 ALT (9 - 52 U/L) 29 Alkaline Phosphatase (<127 U/L) 76 Total Protein (6.3 - 8.2 g/dL) 6.8 Albumin (3.5 - 5.0 g/dL) 3.7 Globulin (1.9 - 4.2 gm/dL) 3.1 Albumin/Globulin Ratio (1.1 - 2.2 %) 1.2 06/30 06/30 2004 1800 Chemistry Sodium (137 - 145 mmol/L) 130 L Potassium (3.5 - 5.1 mmol/L) 6.0 *H Chloride (98 - 107 mmol/L) 97 L Carbon Dioxide (22 - 30 mmol/L) 19 L Anion Gap (5 - 16) 14 BUN (7 - 17 mg/dL) 58 H Creatinine (0.5 - 1.0 mg/dL) 2.1 H Estimated GFR (>60 ml/min) 23 L BUN/Creatinine Ratio (7 - 25 %) 27.6 H Glucose (65 - 99 mg/dL) 600 *H Serum Osmolality (285 - 295 MOSM/KG) 333 H Lactic Acid (0.7 - 2.1 mmol/L) 2.6 H Calcium (8.4 - 10.2 mg/dL) 9.6 Total Bilirubin (0.2 - 1.3 mg/dL) 0.8 AST (14 - 36 U/L) 22 ALT (9 - 52 U/L) 35 Alkaline Phosphatase (<127 U/L) 92 Total Protein (6.3 - 8.2 g/dL) 7.3 Albumin (3.5 - 5.0 g/dL) 4.0 Globulin (1.9 - 4.2 gm/dL) 3.3 Albumin/Globulin Ratio (1.1 - 2.2 %) 1.2 Vitamin B12 (239 - 931 pg/mL) 860 Folate (2.76 - 20.0 ng/mL) 19.9 TSH (0.270 - 4.200 uIU/mL) 1.480 Free T4 (0.78 - 2.44 ng/dL) 1.54 Cortisol AM Sample (4.46 - 22.7 ug/dL) 15.5 Coagulation PT (9.4 - 12.5 SEC) 11.2 INR (0.90 - 1.19) 1.07 APTT (25 - 37 SEC) 28 Hematology CBC w Diff NO MAN DIFF REQ WBC (4.8 - 10.8 /CUMM) 8.0 RBC (4.20 - 5.40 /CUMM) 3.41 L Hgb (12.0 - 16.0 G/DL) 10.1 L Hct (37 - 47 %) 30.5 L MCV (81.0 - 99.0 FL) 89.2 MCH (27.0 - 31.0 PG) 29.7 RDW (11.5 - 14.5 %) 13.1 Plt Count (130 - 400 /CUMM) 212 MPV (7.4 - 10.4 FL) 10.3 Gran % (42.2 - 75.2 %) 63.6 Lymphocytes % (20.5 - 51.1 %) 19.8 L Monocytes % (1.7 - 9.3 %) 9.3 Eosinophils % (0 - 5 %) 6.6 H Basophils % (0.0 - 2.0 %) 0.7 Absolute Granulocytes (1.4 - 6.5 /CUMM) 5.1 Absolute Lymphocytes (1.2 - 3.4 /CUMM) 1.6 Absolute Monocytes (0.10 - 0.60 /CUMM) 0.7 H Absolute Eosinophils (0.0 - 0.7 /CUMM) 0.5 Absolute Basophils (0.0 - 0.2 /CUMM) 0.1 PUBS MCHC (33.0 - 37.0 G/DL) 33.3 Toxicology Urine Opiates Screen (>2000 NG/ML) < 100.00 Methadone Screen (>300 NG/ML) 50 Barbiturate Screen (>200 NG/ML) < 60 Ur Phencyclidine Scrn (>25 NG/ML) < 6.00 Amphetamines Screen (>1000 NG/ML) < 100 U Benzodiazepines Scrn (>200 NG/ML) < 85 Urine Cocaine Screen (>300 NG/ML) < 50 Urine Cannabis Screen (>50 NG/ML) < 5.00 Serum Alcohol (<10 MG/DL) < 10.0 Acetone Level (NEGATIVE) NEGATIVE Urines Urine Color (YEL,AMB,STR) STRAW Urine Clarity (CLEAR) CLEAR Urine pH (5.0 - 8.0) 6.0 Ur Specific [place] (1.001 - 1.035) 1.010 Urine Protein (NEG,<30 MG/DL) TRACE H Urine Ketones (NEG) NEG Urine Nitrite (NEG) NEG Urine Bilirubin (NEG) NEG Urine Urobilinogen (0.1 - 1.0 EU/dl) 0.2 Ur Leukocyte Esterase (NEG) SMALL H Ur Microscopic SEDIMENT EXAMINED Urine RBC (0 - 5 /HPF) RARE Urine WBC (0 - 2 /HPF) 25-50 H Urine Bacteria (NEG/NONE) FEW H Urine Hemoglobin (NEG) TRACE-INTACT Urine Glucose (N MG/DL) >=1000 H Vital Signs Date Time Temp Pulse Resp B/P B/P Pulse O2 O2 Flow FiO2 Mean Ox Delivery Rate 07/01 0659 98.3 75 20 120/60 75 Nasal Room Air Cannula 07/01 0020 97.6 73 20 138/70 98 Room Air 06/30 2141 97.9 72 16 152/68 100 Room Air 06/30 2013 96.3 72 16 160/69 100 Room Air 06/30 1907 Room Air 06/30 1903 96.8 63 18 155/69 99 Room Air 06/30 1634 98.8 63 18 137/76 96 Room Air
[2016-07-01 13:50] VITALS: BP 134/60
--- NOTE | 2016-07-01 21:25 | Cons- Endocrinology ---
General Information and HPI Consulting Request Date of Consult: 07/01/16 Requested By: medical team Reason for Consult: management of DM type 2 Source of Information: patient, old records Exam Limitations: no limitations History of Present Illness: 76-year-old female with past medical history significant for diabetes, CHF, hypertension, hyperlipidemia, CAD status post CABG, and chronic renal insufficiency, who presented to ER with the chief complaint of increasing weakness, fatigue and dizziness. Her glucose level was found to be > 600. She received 10 units of regular insulin in ER and IVF. Overnight, her FSGs were 252 , 180, 138 and 161. In the morning, she was feeling better. At home, she was supposed to take Lantus 20 units in the morning and 8 units at bedtime. But she was taking Lantus probably several times a week. Allergies/Medications Allergies: Coded Allergies: adhesive tape (PLASTIC TAPE 01/17/16) oxybutynin (Severe, DELERIUM 01/24/16) codeine (NAUSEA 01/17/16) nitrofurantoin (LOOPY 01/17/16) Home Med List: Aspirin (Ecotrin*) 81 MG TABLET.DR 1 TAB PO DAILY HEART/BLOOD (Reported) Atorvastatin Calcium 40 MG TABLET 1 TAB PO DAILY CHOLESTEROL (Reported) Clopidogrel Bisulfate (Clopidogrel) 75 MG TABLET 1 TAB PO DAILY BLOOD THINNER (Reported) Escitalopram Oxalate 20 MG TABLET 1 TAB PO DAILY DEPRESSION (Reported) Insulin Glargine,Hum.rec.anlog (Lantus Solostar) 100 UNIT/ML (3 ML) INSULN.PEN 8 UNIT SC QPM DM (Reported) Insulin Glargine,Hum.rec.anlog (Lantus Solostar) 100 UNIT/ML (3 ML) INSULN.PEN 20 U SC DAILY DIABETES (Reported) Metoprolol Succinate (Unknown Strength) TAB.ER.24H (Unknown Dose) PO DAILY HEART/BP (Reported) Pantoprazole Sodium (Protonix) 40 MG TABLET.DR 1 TAB PO DAILY GI (Reported) Venlafaxine HCl 25 MG TABLET 1 TAB PO DAILY depression (Reported) Review of Systems Review of Systems Constitutional: Reports: see HPI, weakness. Cardiovascular: Denies: chest pain. Respiratory: Denies: short of breath. Musculoskeletal: Denies: back pain. Hematologic/Endocrine: Reports: see HPI. 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 Home Who Do You Live With? By herself - Neighbor/Friend helps her out Services at Home: None Primary Language: Lebanese Smoking Status: Former Smoker ETOH Use: denies use Illicit Drug Use: denies illicit drug use Living Will? yes Functional Ability ADLs Independent: dressing, eating, toileting, bathing. Ambulation: walker IADLs Needs Assist: shopping, housework. Exam & Diagnostic Data Last 24 Hrs of Vital Signs/I&O Vital Signs Date Time Temp Pulse Resp B/P B/P Pulse O2 O2 Flow FiO2 Mean Ox Delivery Rate 07/01 1350 98.0 70 20 134/60 98 Room Air 07/01 1144 110/62 07/01 0659 98.3 75 20 120/60 75 Nasal Room Air Cannula 07/01 0020 97.6 73 20 138/70 98 Room Air 06/30 2141 97.9 72 16 152/68 100 Room Air Intake & Output 07/01 1600 07/01 0800 07/01 0000 Intake Total 420 1300 2000 Output Total 450 1000 240 Balance -30 300 1760 Intake, IV 1200 2000 Intake, Oral 420 100 Output, Urine 450 1000 240 Patient 138 lb 138 lb Weight Weight Reported by Patient Reported by Patient Measurement Method Physical Exam General Appearance: no apparent distress Neck: normal inspection Respiratory: normal breath sounds Cardiovascular: regular rate/rhythm Gastrointestinal: soft, non-tender Extremities: no edema Labs/Heraclio Results: Laboratory Tests 07/01 06/30 06/30 0050 2131 2121 Chemistry Sodium (137 - 145 mmol/L) 137 136 L Potassium (3.5 - 5.1 mmol/L) 4.3 4.7 Chloride (98 - 107 mmol/L) 106 104 Carbon Dioxide (22 - 30 mmol/L) 21 L 20 L Anion Gap (5 - 16) 10 12 BUN (7 - 17 mg/dL) 50 H 51 H Creatinine (0.5 - 1.0 mg/dL) 2.0 H 1.9 H Estimated GFR (>60 ml/min) 24 L 26 L BUN/Creatinine Ratio (7 - 25 %) 25.0 26.8 H Glucose (65 - 99 mg/dL) 201 H Lactic Acid (0.7 - 2.1 mmol/L) 1.3 2.4 H Calcium (8.4 - 10.2 mg/dL) 9.1 Total Bilirubin (0.2 - 1.3 mg/dL) 0.7 AST (14 - 36 U/L) 20 ALT (9 - 52 U/L) 29 Alkaline Phosphatase (<127 U/L) 76 Total Protein (6.3 - 8.2 g/dL) 6.8 Albumin (3.5 - 5.0 g/dL) 3.7 Globulin (1.9 - 4.2 gm/dL) 3.1 Albumin/Globulin Ratio (1.1 - 2.2 %) 1.2 06/30 1800 Chemistry Sodium (137 - 145 mmol/L) 130 L Potassium (3.5 - 5.1 mmol/L) 6.0 *H Chloride (98 - 107 mmol/L) 97 L Carbon Dioxide (22 - 30 mmol/L) 19 L Anion Gap (5 - 16) 14 BUN (7 - 17 mg/dL) 58 H Creatinine (0.5 - 1.0 mg/dL) 2.1 H Estimated GFR (>60 ml/min) 23 L BUN/Creatinine Ratio (7 - 25 %) 27.6 H Glucose (65 - 99 mg/dL) 600 *H Serum Osmolality (285 - 295 MOSM/KG) 333 H Lactic Acid (0.7 - 2.1 mmol/L) 2.6 H Calcium (8.4 - 10.2 mg/dL) 9.6 Total Bilirubin (0.2 - 1.3 mg/dL) 0.8 AST (14 - 36 U/L) 22 ALT (9 - 52 U/L) 35 Alkaline Phosphatase (<127 U/L) 92 Total Protein (6.3 - 8.2 g/dL) 7.3 Albumin (3.5 - 5.0 g/dL) 4.0 Globulin (1.9 - 4.2 gm/dL) 3.3 Albumin/Globulin Ratio (1.1 - 2.2 %) 1.2 Vitamin B12 (239 - 931 pg/mL) 860 Folate (2.76 - 20.0 ng/mL) 19.9 TSH (0.270 - 4.200 uIU/mL) 1.480 Free T4 (0.78 - 2.44 ng/dL) 1.54 Cortisol AM Sample (4.46 - 22.7 ug/dL) 15.5 Coagulation PT (9.4 - 12.5 SEC) 11.2 INR (0.90 - 1.19) 1.07 APTT (25 - 37 SEC) 28 Hematology CBC w Diff NO MAN DIFF REQ WBC (4.8 - 10.8 /CUMM) 8.0 RBC (4.20 - 5.40 /CUMM) 3.41 L Hgb (12.0 - 16.0 G/DL) 10.1 L Hct (37 - 47 %) 30.5 L MCV (81.0 - 99.0 FL) 89.2 MCH (27.0 - 31.0 PG) 29.7 RDW (11.5 - 14.5 %) 13.1 Plt Count (130 - 400 /CUMM) 212 MPV (7.4 - 10.4 FL) 10.3 Gran % (42.2 - 75.2 %) 63.6 Lymphocytes % (20.5 - 51.1 %) 19.8 L Monocytes % (1.7 - 9.3 %) 9.3 Eosinophils % (0 - 5 %) 6.6 H Basophils % (0.0 - 2.0 %) 0.7 Absolute Granulocytes (1.4 - 6.5 /CUMM) 5.1 Absolute Lymphocytes (1.2 - 3.4 /CUMM) 1.6 Absolute Monocytes (0.10 - 0.60 /CUMM) 0.7 H Absolute Eosinophils (0.0 - 0.7 /CUMM) 0.5 Absolute Basophils (0.0 - 0.2 /CUMM) 0.1 PUBS MCHC (33.0 - 37.0 G/DL) 33.3 Toxicology Urine Opiates Screen (>2000 NG/ML) < 100.00 Methadone Screen (>300 NG/ML) 50 Barbiturate Screen (>200 NG/ML) < 60 Ur Phencyclidine Scrn (>25 NG/ML) < 6.00 Amphetamines Screen (>1000 NG/ML) < 100 U Benzodiazepines Scrn (>200 NG/ML) < 85 Urine Cocaine Screen (>300 NG/ML) < 50 Urine Cannabis Screen (>50 NG/ML) < 5.00 Serum Alcohol (<10 MG/DL) < 10.0 Acetone Level (NEGATIVE) NEGATIVE Urines Urine Color (YEL,AMB,STR) STRAW Urine Clarity (CLEAR) CLEAR Urine pH (5.0 - 8.0) 6.0 Ur Specific [place] (1.001 - 1.035) 1.010 Urine Protein (NEG,<30 MG/DL) TRACE H Urine Ketones (NEG) NEG Urine Nitrite (NEG) NEG Urine Bilirubin (NEG) NEG Urine Urobilinogen (0.1 - 1.0 EU/dl) 0.2 Ur Leukocyte Esterase (NEG) SMALL H Ur Microscopic SEDIMENT EXAMINED Urine RBC (0 - 5 /HPF) RARE Urine WBC (0 - 2 /HPF) 25-50 H Urine Bacteria (NEG/NONE) FEW H Urine Hemoglobin (NEG) TRACE-INTACT Urine Glucose (N MG/DL) >=1000 H Assessment/Plan Assessment/Plan 76-year-old female with past medical history significant for diabetes, CHF, hypertension, hyperlipidemia, CAD status post CABG, and chronic renal insufficiency, who presented to ER with the chief complaint of increasing weakness, fatigue and dizziness. Overnight, she was put on Novolog coverage every 4 hours and her FSGs have been improving. Plan: 1. check HbA1c 2. stop Novolog coverage every 4 hours; 3. start Novolog coverage before meals and Novolog coverage at bedtime;detail see the inpatient DM orders; 4. monitor FSGs. will follow. Inpatient Diabetes Orders Before Each Meal: Bolus Insulin: Novolog < 80 mg/dl: no coverage 80-100 mg/dl: 3 units 101-120 mg/dl: 3 units 121-150 mg/dl: 3 units 151-200 mg/dl: 4 units 201-250 mg/dl: 5 units 251-300 mg/dl: 6 units 301-350 mg/dl: 7 units 351-400 mg/dl: 8 units > 400 mg/dl: 9 units Bedtime: Bolus Insulin: Novolog < 80 mg/dl: no coverage 80-100 mg/dl: no coverage 101-120 mg/dl: no coverage 121-150 mg/dl: no coverage 151-200 mg/dl: no coverage 201-250 mg/dl: no coverage 251-300 mg/dl: 2 units 301-350 mg/dl: 3 units 351-400 mg/dl: 4 units > 400 mg/dl: 5 units Consult Acknowledgment - Thank you for your consult request.
[2016-07-01 22:15] VITALS: BP 138/62
[2016-07-02 06:57] VITALS: BP 132/60
--- NOTE | 2016-07-02 08:06 | PN- Housestaff ---
Subjective Follow-up For: Orthostatic hypotension Hyperosmolar hyperglycemia Acute on chronic renal failure Frequent falls Anemia Complaints: pain scale (0-10) Subjective: Patient was seen and examined this morning. She is alert awake and oriented to time place and person. She denies any overnight events. She denies any chest pain, breathing difficulty, shortness of breath, fever, chills. She reports generalized weakness, fatigue and tiredness. Also reports lightheadedness this morning Offers no other complaints Vitals stable afebrile, heart rate 82, respiratory rate 18, blood pressure 130/ 60, saturating at 95 on room. Review of Systems Constitutional: Denies: chills, diaphoresis, fever, malaise, weakness, unexplained weight loss. Objective Last 24 Hrs of Vital Signs/I&O Vital Signs Date Time Temp Pulse Resp B/P B/P Pulse O2 O2 Flow FiO2 Mean Ox Delivery Rate 07/02 1357 Room Air Room Air 07/02 0948 79 140/70 07/02 0657 98.1 82 18 132/60 97 Room Air 07/01 2215 97.4 79 18 138/62 97 Room Air Intake & Output 07/02 1600 07/02 0800 07/02 0000 Intake Total 1200 1410 Output Total 1300 1400 Balance -100 10 Intake, IV 1200 450 Intake, Oral 960 Output, Urine 1300 1400 Physical Exam General Appearance: Alert, Oriented X3, Cooperative, No Acute Distress Skin: No Rashes, No Breakdown HEENT: Atraumatic, PERRLA, EOMI, Mucous Membr. moist/pink Neck: Supple, No JVD, No thryomegaly Lymphatic: Cervical nl Cardiovascular: Normal S1, Normal S2 Lungs: Normal Air Movement Abdomen: Normal Bowel Sounds, Soft, No Tenderness Extremities: No Clubbing, No Cyanosis, No Edema Vascular: Pulses Symmetrical Current Medications: Current Medications Sig/Dasha Start time Last Medication Dose Route Stop Time Status Admin Acetaminophen 650 MG Q6P PRN 06/30 2044 AC PO Acetaminophen 1,000 MG Q6P PRN 06/30 2044 AC IV Aspirin Buffered 81 MG DAILY 07/01 2131 AC 07/02 PO 0948 Atorvastatin Calcium 40 MG DAILY 07/01 999 AC 07/02 PO 0948 Clopidogrel Bisulfate 75 MG DAILY 07/01 2131 AC 07/02 PO 0948 Escitalopram Oxalate 20 MG DAILY 07/01 999 AC 07/02 PO 0948 Heparin Sodium 5,000 UNIT Q8 06/30 2200 AC 07/02 (Porcine) SC 1327 Insulin Aspart 0 TIDAC/HS 07/01 1200 AC 07/02 SC 1327 Insulin Detemir 10 UNITS DAILY 07/02 1000 AC 07/02 SC 0950 Metoprolol Succinate 50 MG DAILY 07/01 1000 AC 07/02 PO 0948 Morphine Sulfate 0.5 MG Q4P PRN 06/305 AC IV Sodium Chloride 1,000 ML Q6H 06/30 2100 AC 07/02 IV 0950 Last 24 Hrs of Lab/Heraclio Results Last 24 Hrs of Labs/Mics: Laboratory Tests 07/02/16 0634: Anion Gap 8, Estimated GFR 26 L, BUN/Creatinine Ratio 21.6, CBC w Diff NO MAN DIFF REQ, RBC 2.86 L, MCV 88.7, MCH 29.8, RDW 13.2, MPV 9.4, Gran % 43.1, Lymphocytes % 34.6, Monocytes % 11.2 H, Eosinophils % 10.4 H, Basophils % 0.7, Absolute Granulocytes 2.5, Absolute Lymphocytes 2.0, Absolute Monocytes 0.7 H, Absolute Eosinophils 0.6, Absolute Basophils 0, PUBS MCHC 33.6 Assessment/Plan Assessment: This is a 18-year-old female past medical history significant for diabetes, CAD status post CABG, CHF, hypertension, hyperlipidemia who comes in for chief complaint of weakness, fatigue and dizziness. In ED further evaluation shows hyponatremia, hyperkalemia, and hyperglycemia. ED workup shows: Vitals: 96.3, 63, 18, systolic 137-160/diastolic 76-69. Satting 100%. Urine: Small leukocyte esterase, 25-50 white blood cell, few bacteria, greater than 1000 glucose. CBC shows: White count 8.0, hemoglobin 10.1, hematocrit 30.5. INR 1.07, lactic acid 2.6. BEP shows: Sodium 1 30, potassium 6.0, chloride 97, bicarbonate 19, BUN 58, creatinine 2.1. Glucose 600. Last A1c in January 2016 at 9.9. Serum osm 333 1. Hyperosmolar hyperglycemia Patient's hemoglobin A1c in the office was above 14 that led to the decision of sending the patient to ER from pcp office and possible admission to titrate her diabetic medications. Pt has hyperglycemia with hyperosmolar state in the ER. She came in with BS 600 and Sosm 333. Likely secondary to her diabetes medication non-compliance. Likely poor management of her underlying medical conditions is leading to her CC of weakness and dizziness. * GM admission * received 20 units insulin in the ER after which blood sugar improved to 200 * On diabetic diet * Endocrinology was consulted * On insulin NovoLog scale before meals and at bedtime * Started Levemir 10 units subcutaneous * Close monitoring of sugars * Monitor vitals closely * Follow-up endo recommendations Orthostatic hypotension Patient presented with increased weakness, fatigue, dizziness. Also reported non compliant with medications. She has positive orthostatics. Orthostatic hypotension most possibly from dehydration versus autonomic dysfunction. * Positive for orthostats * Continue IV fluids * Fall precautions * Note that pt has previously been seen for orthostasis at . She was sent out on mitodrine and pyridostigmine; unsure if she is taking those meds currently but we are holding them given HHNS. 2. Lactic acidosis: Pt comes in with LA of 2.6. No gap noted on BEP * Con't monitor 2. Pseudo-Hyponatremia: Corrected for glucose of 600 gives NA 138. * Monitor BEP 3. Hyperkalemia: Pt has K 6.0 with no corresponding EKG changes. Likely secondary to her Hyperosmolar state. * k 4.3 now * monitor BEP 4. Acute on Chronic renal failure: Comes in with Cr 2.1 and Bun 58. Her baseline is 1.5-1.7. Given increased BUN and HHNS likely pre-renal. The suprapubic catheter is patent unlikely post- renal. * Aggresive hydration * Monitor with BEP * Strict I/O 5. Anemia: Has Hb 10.1; previous work up shows low iron levels suggesting iron deficiency anemia. * Nephrology was consulted, history of CKD * May need epogen 6. Depression: will Cont' home regimen after verifying with pharmacy. 7. CAD: Pt has hx of CAD s/p CABG and two stents placed. Pt states that she is not taking clopidogrel regularly at home. * Metop Succinate * Cont' atorvastatin * Con't ASA * Cont' Clopidogrel 8. Dizziness and fatigue: This is her CC but possibly 2/2 her HHNS and medication non-compliance. However, requires further work up. * Follow up TSH/T4- normal * Follow up cortisol- normal * Follow up B12 and Folate -normal * PT evaluation * Orthostatic hypotension most possibly from autonomic dysfunction versus dehydration * Cardiology was consulted DNR/DNI Diabetic diet Chemical dvt ppx Problem List: 1. Orthostatic hypotension 2. [id number] kidney injury 3. Weakness Pain Ratin Pain Location: n/a Pain Goal: Remain pain free Pain Plan: tylinol Tomorrow's Labs & Rationales: CBCS in the setting of anemia BEP in the setting of acute kidney injury Consulting Request: Consulting Specialty: Endocrinology
--- NOTE | 2016-07-02 08:10 | Cons- Nephrology ---
General Information and HPI Consulting Request Date of Consult: 07/02/16 [facility]ed By[facility] Reason for Consult: CKD & hyperkalemia Source of Information: patient, old records Exam Limitations: no limitations History of Present Illness: 76 yr old WF w mult med problems including DM, HTN, CAD, & CKD admit 06/30/16 w generalized weakness, falls, & hyperglycemia. Labs also complicated by hyperkalemia 6.0 & begun on IV fluids & insulin w improvement. Known severe, stage 4, CKD w baseline Cr ~ 2 in setting of neurogenic bladder requiring chronic suprapubic catheter. No ACEI, ARB, or NSAIDs. Denies vomiting or diarrhea. No SOB. Allergies/Medications Allergies: Coded Allergies: adhesive tape (PLASTIC TAPE 01/17/16) oxybutynin (Severe, DELERIUM 01/24/16) codeine (NAUSEA 01/17/16) nitrofurantoin (LOOPY 01/17/16) Home Med List: Aspirin (Ecotrin*) 81 MG TABLET.DR 1 TAB PO DAILY HEART/BLOOD (Reported) Atorvastatin Calcium 40 MG TABLET 1 TAB PO DAILY CHOLESTEROL (Reported) Clopidogrel Bisulfate (Clopidogrel) 75 MG TABLET 1 TAB PO DAILY BLOOD THINNER (Reported) Escitalopram Oxalate 20 MG TABLET 1 TAB PO DAILY DEPRESSION (Reported) Insulin Glargine,Hum.rec.anlog (Lantus Solostar) 100 UNIT/ML (3 ML) INSULN.PEN 8 UNIT SC QPM DM (Reported) Insulin Glargine,Hum.rec.anlog (Lantus Solostar) 100 UNIT/ML (3 ML) INSULN.PEN 20 U SC DAILY DIABETES (Reported) Metoprolol Succinate (Unknown Strength) TAB.ER.24H (Unknown Dose) PO DAILY HEART/BP (Reported) Pantoprazole Sodium (Protonix) 40 MG TABLET.DR 1 TAB PO DAILY GI (Reported) Venlafaxine HCl 25 MG TABLET 1 TAB PO DAILY depression (Reported) Current Medications: Current Medications Sig/Dasha Start time Last Medication Dose Route Stop Time Status Admin Acetaminophen 650 MG Q6P PRN 06/30 2044 AC PO Acetaminophen 1,000 MG Q6P PRN 06/30 2044 AC IV Aspirin Buffered 81 MG DAILY 07/01 2131 AC 07/01 PO 114 Atorvastatin Calcium 40 MG DAILY 07/01 1000 AC 07/01 PO 1143 Clopidogrel Bisulfate 75 MG DAILY 06/30 2132 AC 07/01 PO 1202 Escitalopram Oxalate 20 MG DAILY 07/01 1000 AC 07/01 PO 1144 Heparin Sodium 5,000 UNIT Q8 06/30 2200 AC 07/02 (Porcine) SC 0535 Insulin Aspart 0 TIDAC/HS 07/01 1200 AC 07/01 SC 1636 Insulin Aspart 0 Q4 07/01 0200 DC SC Metoprolol Succinate 50 MG DAILY 07/01 1000 AC PO Morphine Sulfate 0.5 MG Q4P PRN 06/30 2045 AC IV Patient Medication 1 ED .STK-MED ONE 07/01 1318 DC Teaching ED 07/01 1319 Sodium Chloride 1,000 ML Q6H 06/30 2100 AC 07/02 IV 0535 Review of Systems Review of Systems Constitutional: Reports: no symptoms. Denies: weakness. EENTM: Reports: no symptoms. Cardiovascular: Reports: no symptoms. Respiratory: Reports: no symptoms. GI: Reports: no symptoms. Genitourinary: Reports: no symptoms. Musculoskeletal: Reports: no symptoms. Skin: Reports: no symptoms. Neurological/Psychological: Reports: no symptoms. Hematologic/Endocrine: Reports: no symptoms. Immunologic/Allergic: Reports: no symptoms. 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 Home Who Do You Live With? By herself - Neighbor/Friend helps her out Services at Home: None Primary Language: Mosotho Smoking Status: Former Smoker ETOH Use: denies use Illicit Drug Use: denies illicit drug use Living Will? yes Functional Ability ADLs Independent: dressing, eating, toileting, bathing. Ambulation: walker IADLs Needs Assist: shopping, housework. Exam & Diagnostic Data Vital Signs and I&O Vital Signs Date Time Temp Pulse Resp B/P B/P Pulse O2 O2 Flow FiO2 Mean Ox Delivery Rate 07/02 0657 98.1 82 18 132/60 97 Room Air 07/01 2215 97.4 79 18 138/62 97 Room Air 07/01 1350 98.0 70 20 134/60 98 Room Air 07/01 1144 110/62 Intake & Output 07/02 04007/01 04006/30 0400 Intake Total 3154 692 5917 2000 Output Total 6227 274 2056 240 Balance -100 997 37 8869 Intake, IV 0924 175 6101 2000 Intake, Oral 360 1120 Output, Urine 9236 516 2984 240 Patient 138 lb Weight Weight Reported by Patient Measurement Method Physical Exam General Appearance: well developed/nourished, no apparent distress, alert Head: atraumatic, normal appearance Eyes: Bilateral: normal appearance. 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 tested Skin: intact, normal color, warm/dry Lymphatic: no anterior cervical valentino, no axillary adenopathy Results Pertinent Lab Results: Laboratory Tests 07/02 07/01 06/30 06/30 0634 0050 1 2121 Chemistry Sodium (137 - 145 mmol/L) Pending 137 136 L Potassium (3.5 - 5.1 mmol/L) Pending 4.3 4.7 Chloride (98 - 107 mmol/L) Pending 106 104 Carbon Dioxide (22 - 30 mmol/L) Pending 21 L 20 L Anion Gap (5 - 16) Pending 10 12 BUN (7 - 17 mg/dL) Pending 50 H 51 H Creatinine (0.5 - 1.0 mg/dL) Pending 2.0 H 1.9 H Estimated GFR (>60 ml/min) 24 L 26 L BUN/Creatinine Ratio (7 - 25 %) Pending 25.0 26.8 H Glucose (65 - 99 mg/dL) 201 H Lactic Acid (0.7 - 2.1 mmol/L) 1.3 2.4 H Calcium (8.4 - 10.2 mg/dL) 9.1 Total Bilirubin (0.2 - 1.3 mg/dL) 0.7 AST (14 - 36 U/L) 20 ALT (9 - 52 U/L) 29 Alkaline Phosphatase (<127 U/L) 76 Total Protein (6.3 - 8.2 g/dL) 6.8 Albumin (3.5 - 5.0 g/dL) 3.7 Globulin (1.9 - 4.2 gm/dL) 3.1 Albumin/Globulin Ratio (1.1 - 2.2 %) 1.2 Hematology CBC w Diff Pending WBC Pending RBC Pending Hgb Pending Hct Pending MCV Pending MCH Pending RDW Pending Plt Count Pending MPV Pending PUBS MCHC Pending 06/30 06/30 2004 1800 Chemistry Sodium (137 - 145 mmol/L) 130 L Potassium (3.5 - 5.1 mmol/L) 6.0 *H Chloride (98 - 107 mmol/L) 97 L Carbon Dioxide (22 - 30 mmol/L) 19 L Anion Gap (5 - 16) 14 BUN (7 - 17 mg/dL) 58 H Creatinine (0.5 - 1.0 mg/dL) 2.1 H Estimated GFR (>60 ml/min) 23 L BUN/Creatinine Ratio (7 - 25 %) 27.6 H Glucose (65 - 99 mg/dL) 600 *H Hemoglobin A1c (4.2 - 5.8 %) Pending Serum Osmolality (285 - 295 MOSM/KG) 333 H Lactic Acid (0.7 - 2.1 mmol/L) 2.6 H Calcium (8.4 - 10.2 mg/dL) 9.6 Total Bilirubin (0.2 - 1.3 mg/dL) 0.8 AST (14 - 36 U/L) 22 ALT (9 - 52 U/L) 35 Alkaline Phosphatase (<127 U/L) 92 Total Protein (6.3 - 8.2 g/dL) 7.3 Albumin (3.5 - 5.0 g/dL) 4.0 Globulin (1.9 - 4.2 gm/dL) 3.3 Albumin/Globulin Ratio (1.1 - 2.2 %) 1.2 Vitamin B12 (239 - 931 pg/mL) 860 Folate (2.76 - 20.0 ng/mL) 19.9 TSH (0.270 - 4.200 uIU/mL) 1.480 Free T4 (0.78 - 2.44 ng/dL) 1.54 Cortisol AM Sample (4.46 - 22.7 ug/dL) 15.5 Coagulation PT (9.4 - 12.5 SEC) 11.2 INR (0.90 - 1.19) 1.07 APTT (25 - 37 SEC) 28 Hematology CBC w Diff NO MAN DIFF REQ WBC (4.8 - 10.8 /CUMM) 8.0 RBC (4.20 - 5.40 /CUMM) 3.41 L Hgb (12.0 - 16.0 G/DL) 10.1 L Hct (37 - 47 %) 30.5 L MCV (81.0 - 99.0 FL) 89.2 MCH (27.0 - 31.0 PG) 29.7 RDW (11.5 - 14.5 %) 13.1 Plt Count (130 - 400 /CUMM) 212 MPV (7.4 - 10.4 FL) 10.3 Gran % (42.2 - 75.2 %) 63.6 Lymphocytes % (20.5 - 51.1 %) 19.8 L Monocytes % (1.7 - 9.3 %) 9.3 Eosinophils % (0 - 5 %) 6.6 H Basophils % (0.0 - 2.0 %) 0.7 Absolute Granulocytes (1.4 - 6.5 /CUMM) 5.1 Absolute Lymphocytes (1.2 - 3.4 /CUMM) 1.6 Absolute Monocytes (0.10 - 0.60 /CUMM) 0.7 H Absolute Eosinophils (0.0 - 0.7 /CUMM) 0.5 Absolute Basophils (0.0 - 0.2 /CUMM) 0.1 PUBS MCHC (33.0 - 37.0 G/DL) 33.3 Toxicology Urine Opiates Screen (>2000 NG/ML) < 100.00 Methadone Screen (>300 NG/ML) 50 Barbiturate Screen (>200 NG/ML) < 60 Ur Phencyclidine Scrn (>25 NG/ML) < 6.00 Amphetamines Screen (>1000 NG/ML) < 100 U Benzodiazepines Scrn (>200 NG/ML) < 85 Urine Cocaine Screen (>300 NG/ML) < 50 Urine Cannabis Screen (>50 NG/ML) < 5.00 Serum Alcohol (<10 MG/DL) < 10.0 Acetone Level (NEGATIVE) NEGATIVE Urines Urine Color (YEL,AMB,STR) STRAW Urine Clarity (CLEAR) CLEAR Urine pH (5.0 - 8.0) 6.0 Ur Specific [place] (1.001 - 1.035) 1.010 Urine Protein (NEG,<30 MG/DL) TRACE H Urine Ketones (NEG) NEG Urine Nitrite (NEG) NEG Urine Bilirubin (NEG) NEG Urine Urobilinogen (0.1 - 1.0 EU/dl) 0.2 Ur Leukocyte Esterase (NEG) SMALL H Ur Microscopic SEDIMENT EXAMINED Urine RBC (0 - 5 /HPF) RARE Urine WBC (0 - 2 /HPF) 25-50 H Urine Bacteria (NEG/NONE) FEW H Urine Hemoglobin (NEG) TRACE-INTACT Urine Glucose (N MG/DL) >=1000 H Assessment/Plan Assessment/Recommendations Assessment: 1. CKD: severe, stage 4, due to mult factors including DM, HTN, previous obstruction/infection/SIMONE. At recent baseline GFR w/o renal replacememnt indication. 2. Hyperkalemia: improved & likely due to DM/hyperglycemia leading to K translocation out of cells. Can't r/o component hyporenin hypo dariel. Marcus's already excluded. Recommendations: 1. continue IV NS 2. serial chemistries
[2016-07-02 09:05] LABS: ABSOLUTE BASOPHIL COUNT 0 /CUMM (0.0-0.2); ABSOLUTE EOSINOPHIL COUNT 0.6 /CUMM (0.0-0.7); ABSOLUTE GRANULOCYTE CT 2.5 /CUMM (1.4-6.5); ABSOLUTE MONOCYTE COUNT 0.7 /CUMM (0.10-0.60); BASOPHIL % 0.7 % (0.0-2.0); EOSINOPHIL % 10.4 % (0-5); GRANULOCYTE % 43.1 % (42.2-75.2); MEAN CORPUSCULAR HGB 29.8 PG (27.0-31.0); MEAN CORPUSCULAR HGB CONC 33.6 G/DL (33.0-37.0); MEAN CORPUSCULAR VOLUME 88.7 FL (81.0-99.0); MEAN PLATELET VOLUME 9.4 FL (7.4-10.4); PLATELET COUNT 181 /CUMM (130-400); RBC DISTRIBUTION WIDTH 13.2 % (11.5-14.5); RED BLOOD CELL CT 2.86 /CUMM (4.20-5.40); WHITE BLOOD CELL COUNT 5.9 /CUMM (4.8-10.8)
[2016-07-02 09:06] LABS: HEMATOCRIT 25.4 % (37-47)
--- NOTE | 2016-07-02 09:07 | PN- Diabetes ---
Assessment/Plan Assessment: 76-year-old female with past medical history significant for diabetes, CHF, hypertension, hyperlipidemia, CAD status post CABG, and chronic renal insufficiency, who presented to ER with the chief complaint of increasing weakness, fatigue and dizziness. she was put on Novolog coverage before meals and Novolog coverage at bedtime. Her FSGs were 161, 339, 287, 179 and 249. Plan: 1. start Levemir 10 units daily; 2. continue the current Novolog coverage before meals and Novolog coverage at bedtime; 3. monitor FSGs. will follow. Subjective Subjective: She feels well this morning. Objective Last 24 Hrs of Vital Signs/I&O Vital Signs Date Time Temp Pulse Resp B/P B/P Pulse O2 O2 Flow FiO2 Mean Ox Delivery Rate 07/02 0657 98.1 82 18 132/60 97 Room Air 07/01 2215 97.4 79 18 138/62 97 Room Air 07/01 1350 98.0 70 20 134/60 98 Room Air 07/01 1144 110/62 Intake & Output 07/02 1600 07/02 0800 07/02 0000 Intake Total 1200 1410 Output Total 1300 1400 Balance -100 10 Intake, IV 1200 450 Intake, Oral 960 Output, Urine 1300 1400 Findings Pertinent Lab/Heraclio Results: Laboratory Tests 07/02 0634 Chemistry Sodium (137 - 145 mmol/L) 137 Potassium (3.5 - 5.1 mmol/L) 4.9 Chloride (98 - 107 mmol/L) 110 H Carbon Dioxide (22 - 30 mmol/L) 20 L Anion Gap (5 - 16) 8 BUN (7 - 17 mg/dL) 41 H Creatinine (0.5 - 1.0 mg/dL) 1.9 H Estimated GFR (>60 ml/min) 26 L BUN/Creatinine Ratio (7 - 25 %) 21.6 Hematology CBC w Diff Pending WBC Pending RBC Pending Hgb Pending Hct Pending MCV Pending MCH Pending RDW Pending Plt Count Pending MPV Pending PUBS MCHC Pending
--- NOTE | 2016-07-02 09:59 | PN- Att Addend ---
Attending Addendum Attending Brief Note Patient complains of feeling lightheaded this morning. General Appearance: Alert, No Acute Distress Skin: Grossly normal HEENT: PEERLA Neck: Supple, No JVD Cardiovascular: Regular Rate, Normal S1, Normal S2, No Murmurs Lungs: Clear to Auscultation, Normal Air Movement Abdomen: Normal Bowel Sounds, Soft, No Tenderness Neurological: Normal Speech, Strength at 5/5 X4 Ext, Cranial Nerves 3-12 NL, Reflexes 2+ Extremities: No Clubbing, No Cyanosis, No Edema Vascular: Normal Pulses Assessment She has positive orthostatics. Dizziness secondary to orthostats. Suspect autonomic dysfunction rather than dehydration. She has received IV fluids for last 2 days. We will repeat another set of orthostatics today. If no improvement might have to consider treatment for postural hypotension. We will involve cardiology to discuss about the need for dual antiplatelets and treatment for postural hypotension. Plan Repeat orthostatics Cardiology consult Guaiac stools Diabetic management per endocrinology Discontinue fluids if orthostats negative PT evaluation DNI/DNR Current Medications Sig/Dasha Start time Last Medication Dose Route Stop Time Status Admin Acetaminophen 650 MG Q6P PRN 06/30 2044 AC PO Acetaminophen 1,000 MG Q6P PRN 06/30 2044 AC IV Aspirin Buffered 81 MG DAILY 07/01 2131 AC 07/02 PO 0948 Atorvastatin Calcium 40 MG DAILY 07/01 1000 AC 07/02 PO 0948 Clopidogrel Bisulfate 75 MG DAILY 07/01 2131 AC 07/02 PO 0948 Escitalopram Oxalate 20 MG DAILY 07/01 1000 AC 07/02 PO 0948 Heparin Sodium 5,000 UNIT Q8 06/30 2200 AC 07/02 (Porcine) SC 0535 Insulin Aspart 0 TIDAC/HS 07/01 1200 AC 07/02 SC 0950 Insulin Detemir 10 UNITS DAILY 07/02 1000 AC 07/02 SC 0950 Metoprolol Succinate 50 MG DAILY 07/01 1000 AC 07/02 PO 0948 Morphine Sulfate 0.5 MG Q4P PRN 06/30 2044 AC IV Patient Medication 1 ED .STK-MED ONE 07/01 1318 HI Teaching ED 07/01 1319 Sodium Chloride 1,000 ML Q6H 06/30 2100 AC 07/02 IV 0950 Laboratory Tests 07/02 0634 Chemistry Sodium (137 - 145 mmol/L) 137 Potassium (3.5 - 5.1 mmol/L) 4.9 Chloride (98 - 107 mmol/L) 110 H Carbon Dioxide (22 - 30 mmol/L) 20 L Anion Gap (5 - 16) 8 BUN (7 - 17 mg/dL) 41 H Creatinine (0.5 - 1.0 mg/dL) 1.9 H Estimated GFR (>60 ml/min) 26 L BUN/Creatinine Ratio (7 - 25 %) 21.6 Hematology CBC w Diff NO MAN DIFF REQ WBC (4.8 - 10.8 /CUMM) 5.9 RBC (4.20 - 5.40 /CUMM) 2.86 L Hgb (12.0 - 16.0 G/DL) 8.5 L Hct (37 - 47 %) 25.4 L MCV (81.0 - 99.0 FL) 88.7 MCH (27.0 - 31.0 PG) 29.8 RDW (11.5 - 14.5 %) 13.2 Plt Count (130 - 400 /CUMM) 181 MPV (7.4 - 10.4 FL) 9.4 Gran % (42.2 - 75.2 %) 43.1 Lymphocytes % (20.5 - 51.1 %) 34.6 Monocytes % (1.7 - 9.3 %) 11.2 H Eosinophils % (0 - 5 %) 10.4 H Basophils % (0.0 - 2.0 %) 0.7 Absolute Granulocytes (1.4 - 6.5 /CUMM) 2.5 Absolute Lymphocytes (1.2 - 3.4 /CUMM) 2.0 Absolute Monocytes (0.10 - 0.60 /CUMM) 0.7 H Absolute Eosinophils (0.0 - 0.7 /CUMM) 0.6 Absolute Basophils (0.0 - 0.2 /CUMM) 0 PUBS MCHC (33.0 - 37.0 G/DL) 33.6 Vital Signs Date Time Temp Pulse Resp B/P B/P Pulse O2 O2 Flow FiO2 Mean Ox Delivery Rate 07/02 0948 79 140/70 07/02 0657 98.1 82 18 132/60 97 Room Air 07/01 2215 97.4 79 18 138/62 97 Room Air 07/01 1350 98.0 70 20 134/60 98 Room Air 07/01 1144 110/62
[2016-07-02 14:09] VITALS: BP 128/60
[2016-07-02] MEDS ORDERED: METOPROLOL SUCC50 M2 PO (15:23)
[2016-07-02 21:43] VITALS: BP 142/64
[2016-07-03 06:19] VITALS: BP 122/60
[2016-07-03 07:59] LABS: ABSOLUTE BASOPHIL COUNT 0 /CUMM (0.0-0.2); ABSOLUTE EOSINOPHIL COUNT 0.6 /CUMM (0.0-0.7); ABSOLUTE GRANULOCYTE CT 2.7 /CUMM (1.4-6.5); ABSOLUTE LYMPH COUNT 1.7 /CUMM (1.2-3.4); ABSOLUTE MONOCYTE COUNT 0.7 /CUMM (0.10-0.60); BASOPHIL % 0.6 % (0.0-2.0); EOSINOPHIL % 10.5 % (0-5); HEMATOCRIT 24.5 % (37-47); MEAN CORPUSCULAR HGB 29.9 PG (27.0-31.0); MEAN CORPUSCULAR HGB CONC 33.7 G/DL (33.0-37.0); MEAN CORPUSCULAR VOLUME 88.9 FL (81.0-99.0); MEAN PLATELET VOLUME 8.9 FL (7.4-10.4); PLATELET COUNT 183 /CUMM (130-400); RED BLOOD CELL CT 2.76 /CUMM (4.20-5.40); WHITE BLOOD CELL COUNT 5.6 /CUMM (4.8-10.8)
--- NOTE | 2016-07-03 08:08 | PN- Diabetes ---
Assessment/Plan Assessment: 76-year-old female with past medical history significant for diabetes, CHF, hypertension, hyperlipidemia, CAD status post CABG, and chronic renal insufficiency, who presented to ER with the chief complaint of increasing weakness, fatigue and dizziness. she was put on Novolog coverage before meals and Novolog coverage at bedtime. Levemir 10 units daily was added on. Her FSGs were 249, 384,228, 178 and 202. Patient is on NS and her renal function has been improving. Plan: 1. increase Levemir to 12 units daily; 2. continue the current Novolog coverage before meals and Novolog coverage at bedtime. 3. monitor FSGs. will follow. Subjective Subjective: Patient is still sleeping at this moment. Objective Last 24 Hrs of Vital Signs/I&O Vital Signs Date Time Temp Pulse Resp B/P B/P Pulse O2 O2 Flow FiO2 Mean Ox Delivery Rate 07/03 0619 98.5 74 20 122/60 96 Room Air 07/02 2143 99.1 70 19 142/64 97 Room Air 07/02 1409 98.1 80 18 128/60 100 Room Air 07/02 1357 Room Air Room Air 07/02 0948 79 140/70 Intake & Output 07/03 1600 07/03 0800 07/03 0000 Intake Total 1320 1200 Output Total 3050 1100 Balance -1730 100 Intake, IV 1200 1200 Intake, Oral 120 Output, Urine 3050 1100 Findings Pertinent Lab/Heraclio Results: Laboratory Tests 07/03 07/02 0615 0634 Chemistry Sodium (137 - 145 mmol/L) 140 137 Potassium (3.5 - 5.1 mmol/L) 4.1 4.9 Chloride (98 - 107 mmol/L) 113 H 110 H Carbon Dioxide (22 - 30 mmol/L) 19 L 20 L Anion Gap (5 - 16) 8 8 BUN (7 - 17 mg/dL) 31 H 41 H Creatinine (0.5 - 1.0 mg/dL) 1.5 H 1.9 H Estimated GFR (>60 ml/min) 34 L 26 L BUN/Creatinine Ratio (7 - 25 %) 20.7 21.6 Hematology CBC w Diff Pending NO MAN DIFF REQ WBC (4.8 - 10.8 /CUMM) Pending 5.9 RBC (4.20 - 5.40 /CUMM) Pending 2.86 L Hgb (12.0 - 16.0 G/DL) Pending 8.5 L Hct (37 - 47 %) Pending 25.4 L MCV (81.0 - 99.0 FL) Pending 88.7 MCH (27.0 - 31.0 PG) Pending 29.8 RDW (11.5 - 14.5 %) Pending 13.2 Plt Count (130 - 400 /CUMM) Pending 181 MPV (7.4 - 10.4 FL) Pending 9.4 Gran % (42.2 - 75.2 %) 43.1 Lymphocytes % (20.5 - 51.1 %) 34.6 Monocytes % (1.7 - 9.3 %) 11.2 H Eosinophils % (0 - 5 %) 10.4 H Basophils % (0.0 - 2.0 %) 0.7 Absolute Granulocytes (1.4 - 6.5 /CUMM) 2.5 Absolute Lymphocytes (1.2 - 3.4 /CUMM) 2.0 Absolute Monocytes (0.10 - 0.60 /CUMM) 0.7 H Absolute Eosinophils (0.0 - 0.7 /CUMM) 0.6 Absolute Basophils (0.0 - 0.2 /CUMM) 0 PUBS MCHC (33.0 - 37.0 G/DL) Pending 33.6
--- NOTE | 2016-07-03 08:10 | PN- Housestaff ---
Subjective Follow-up For: Orthostatic hypotension Hyperosmolar hyperglycemia Acute on chronic renal failure Frequent falls Anemia Subjective: Patient was seen and examined this morning. She is alert awake and oriented to time place and person. She denies any overnight events. She denies any chest pain, breathing difficulty, shortness of breath, fever, chills. She reports generalized weakness, fatigue and tiredness. Also reports lightheadedness this morning Offers no other complaints Vitals stable afebrile, heart rate 74, respiratory rate 20, blood pressure 120/ 60, saturating at 95 on room. Review of Systems Constitutional: Denies: chills, diaphoresis, fever, malaise. Objective Last 24 Hrs of Vital Signs/I&O Vital Signs Date Time Temp Pulse Resp B/P B/P Pulse O2 O2 Flow FiO2 Mean Ox Delivery Rate 07/03 0855 74 122/60 07/03 0619 98.5 74 20 122/60 96 Room Air 07/02 2143 99.1 70 19 142/64 97 Room Air 07/02 1409 98.1 80 18 128/60 100 Room Air 07/02 1357 Room Air Room Air 07/02 0948 79 140/70 Intake & Output 07/03 1600 07/03 0800 07/03 0000 Intake Total 1320 1200 Output Total 3050 1100 Balance -1730 100 Intake, IV 1200 1200 Intake, Oral 120 Output, Urine 3050 1100 Physical Exam General Appearance: Alert, Oriented X3, Cooperative, No Acute Distress Skin: No Rashes, No Breakdown HEENT: Atraumatic, PERRLA, EOMI, Mucous Membr. moist/pink Neck: Supple, No JVD Lymphatic: Cervical nl Cardiovascular: Normal S1, Normal S2 Lungs: Normal Air Movement Abdomen: Normal Bowel Sounds, Soft, No Tenderness Extremities: No Clubbing, No Cyanosis, No Edema Vascular: Pulses Symmetrical Current Medications: Current Medications Sig/Dasha Start time Last Medication Dose Route Stop Time Status Admin Acetaminophen 650 MG Q6P PRN 06/30 2044 AC PO Acetaminophen 1,000 MG Q6P PRN 06/30 2044 AC IV Aspirin Buffered 81 MG DAILY 07/01 2131 AC 07/03 PO 853 Atorvastatin Calcium 40 MG DAILY 07/01 1000 AC 07/03 PO 0854 Clopidogrel Bisulfate 75 MG DAILY 07/01 2131 AC 07/03 PO 08 Escitalopram Oxalate 20 MG DAILY 07/01 1000 DC 07/02 PO 0948 Heparin Sodium 5,000 UNIT Q8 06/30 2200 AC 07/03 (Porcine) SC 0556 Insulin Aspart 0 TIDAC/HS 07/01 1200 AC 07/03 SC 0848 Insulin Detemir 12 UNITS DAILY 07/03 1000 AC 07/03 SC 0849 Insulin Detemir 10 UNITS DAILY 07/02 1000 DC 07/02 SC 0950 Metoprolol Succinate 50 MG DAILY 07/01 1000 AC 07/03 PO 0855 Morphine Sulfate 0.5 MG Q4P PRN 06/30 2044 IV Sodium Chloride 1,000 ML Q6H 06/30 2100 DC 07/03 IV 0352 Venlafaxine HCl 25 MG DAILY 07/02 1530 AC 07/03 PO 0855 Last 24 Hrs of Lab/Heracilo Results Last 24 Hrs of Labs/Mics: Laboratory Tests 07/03/16 0615: Anion Gap 8, Estimated GFR 34 L, BUN/Creatinine Ratio 20.7, CBC w Diff NO MAN DIFF REQ, RBC 2.76 L, MCV 88.9, MCH 29.9, RDW 13.0, MPV 8.9, Gran % 47.0, Lymphocytes % 30.3, Monocytes % 11.6 H, Eosinophils % 10.5 H, Basophils % 0.6, Absolute Granulocytes 2.7, Absolute Lymphocytes 1.7, Absolute Monocytes 0.7 H, Absolute Eosinophils 0.6, Absolute Basophils 0, PUBS MCHC 33.7 Assessment/Plan Assessment: This is a 18-year-old female past medical history significant for diabetes, CAD status post CABG, CHF, hypertension, hyperlipidemia who comes in for chief complaint of weakness, fatigue and dizziness. In ED further evaluation shows hyponatremia, hyperkalemia, and hyperglycemia. ED workup shows: Vitals: 96.3, 63, 18, systolic 137-160/diastolic 76-69. Satting 100%. Urine: Small leukocyte esterase, 25-50 white blood cell, few bacteria, greater than 1000 glucose. CBC shows: White count 8.0, hemoglobin 10.1, hematocrit 30.5. INR 1.07, lactic acid 2.6. BEP shows: Sodium 1 30, potassium 6.0, chloride 97, bicarbonate 19, BUN 58, creatinine 2.1. Glucose 600. Last A1c in January 2016 at 9.9. Serum osm 333 1. Hyperosmolar hyperglycemia Patient's hemoglobin A1c in the office was above 14 that led to the decision of sending the patient to ER from pcp office and possible admission to titrate her diabetic medications. Pt has hyperglycemia with hyperosmolar state in the ER. She came in with BS 600 and Sosm 333. Likely secondary to her diabetes medication non-compliance. Likely poor management of her underlying medical conditions is leading to her CC of weakness and dizziness. * GM admission * received 20 units insulin in the ER after which blood sugar improved to 200 * On diabetic diet * Endocrinology was consulted * On insulin NovoLog scale before meals and at bedtime * Started Levemir 12 units subcutaneous * Close monitoring of sugars * Monitor vitals closely * Follow-up endo recommendations Orthostatic hypotension Patient presented with increased weakness, fatigue, dizziness. Also reported non compliant with medications. She has positive orthostatics. Orthostatic hypotension most possibly from dehydration versus autonomic dysfunction. Patient was diagnosed with orthostatic hypotension in February 2016, she was started on midodrine and Florinef however she was noncompLIANT with her medications. * Positive for orthostats * Continue IV fluids * Fall precautions * Note that pt has previously been seen for orthostasis at . She was sent out on mitodrine and pyridostigmine; unsure if she is taking those meds. * Cardiology consult 2. Lactic acidosis: Pt comes in with LA of 2.6. No gap noted on BEP * Con't monitor * Improved after hydration 2. Pseudo-Hyponatremia: Corrected for glucose of 600 gives NA 138. * Monitor BEP 3. Hyperkalemia: Pt has K 6.0 with no corresponding EKG changes. Likely secondary to her Hyperosmolar state. * k 4.3 now * monitor BEP 4. Acute on Chronic renal failure: Comes in with Cr 2.1 and Bun 58. Her baseline is 1.5-1.7. Given increased BUN and HHNS likely pre-renal. The suprapubic catheter is patent unlikely post- renal. * Received hydration * Monitor with BEP * Strict I/O 5. Anemia: Has Hb 10.1; previous work up shows low iron levels suggesting iron deficiency anemia. * Nephrology was consulted, history of CKD * May need epogen 6. Depression: will Cont' home regimen after verifying with pharmacy. 7. CAD: Pt has hx of CAD s/p CABG and two stents placed. Pt states that she is not taking clopidogrel regularly at home. * Metop Succinate * Cont' atorvastatin * Con't ASA * Cont' Clopidogrel 8. Dizziness and fatigue: This is her CC but possibly 2/2 her HHNS and medication non-compliance. However, requires further work up. * Follow up TSH/T4- normal * Follow up cortisol- normal * Follow up B12 and Folate -normal * PT evaluation-recommended short-term rehabilitation * Orthostatic hypotension most possibly from autonomic dysfunction versus dehydration * Cardiology was consulted DNR/DNI Diabetic diet Chemical dvt ppx Problem List: 1. Orthostatic hypotension 2. [id number] kidney injury 3. Weakness Pain Ratin Pain Location: N/A Pain Goal: Remain pain free Pain Plan: TYLINOL Tomorrow's Labs & Rationales: NONE Consulting Request: Consulting Specialty: Endocrinology
--- NOTE | 2016-07-03 09:01 | PN- Att Addend ---
Attending Addendum Attending Brief Note Patient complains of feeling lightheaded this morning. General Appearance: Alert, No Acute Distress Skin: Grossly normal HEENT: PEERLA Neck: Supple, No JVD Cardiovascular: Regular Rate, Normal S1, Normal S2, No Murmurs Lungs: Clear to Auscultation, Normal Air Movement Abdomen: Normal Bowel Sounds, Soft, No Tenderness Neurological: Normal Speech, Strength at 5/5 X4 Ext, Cranial Nerves 3-12 NL, Reflexes 2+ Extremities: No Clubbing, No Cyanosis, No Edema Vascular: Normal Pulses Assessment She has positive orthostatics. Dizziness secondary to orthostats. Suspect autonomic dysfunction rather than dehydration. Patient was recently on midodrine and Fiorinal. However she discontinued secondary to noncompliance to medications and follow. She may benefit with the newer orthostatic hypotensive treatment like Northera. Patient needs a better long-term plan. She will definitely need supervision for medication administration. For now she will benefit with placement to short-term rehabilitation. Plan Cardiology consult Guaiac stools Discontinue fluids Orthostatic hypotension treatment per cardiology Diabetic management per endocrinology PT evaluation for STR placement DNI/DNR Current Medications Sig/Dasha Start time Last Medication Dose Route Stop Time Status Admin Acetaminophen 650 MG Q6P PRN 06/30 2044 AC PO Acetaminophen 1,000 MG Q6P PRN 06/30 2044 AC IV Aspirin Buffered 81 MG DAILY 07/01 2131 AC 07/03 PO 0854 Atorvastatin Calcium 40 MG DAILY 07/01 1000 AC 07/03 PO 0854 Clopidogrel Bisulfate 75 MG DAILY 07/01 2131 AC 07/03 PO 0854 Escitalopram Oxalate 20 MG DAILY 07/01 1000 DC 07/02 PO 0948 Heparin Sodium 5,000 UNIT Q8 06/30 2200 AC 07/03 (Porcine) SC 0556 Insulin Aspart 0 TIDAC/HS 07/01 1200 AC 07/03 SC 0848 Insulin Detemir 12 UNITS DAILY 07/03 1000 AC 07/03 SC 0849 Insulin Detemir 10 UNITS DAILY 07/02 1000 DC 07/02 SC 0950 Metoprolol Succinate 50 MG DAILY 07/01 1000 AC 07/03 PO 0855 Morphine Sulfate 0.5 MG Q4P PRN 06/30 2044 AC IV Sodium Chloride 1,000 ML Q6H 06/30 2100 DC 07/03 IV 0352 Venlafaxine HCl 25 MG DAILY 07/02 1530 AC 07/03 PO 0855 Laboratory Tests 07/03 0615 Chemistry Sodium (137 - 145 mmol/L) 140 Potassium (3.5 - 5.1 mmol/L) 4.1 Chloride (98 - 107 mmol/L) 113 H Carbon Dioxide (22 - 30 mmol/L) 19 L Anion Gap (5 - 16) 8 BUN (7 - 17 mg/dL) 31 H Creatinine (0.5 - 1.0 mg/dL) 1.5 H Estimated GFR (>60 ml/min) 34 L BUN/Creatinine Ratio (7 - 25 %) 20.7 Hematology CBC w Diff NO MAN DIFF REQ WBC (4.8 - 10.8 /CUMM) 5.6 RBC (4.20 - 5.40 /CUMM) 2.76 L Hgb (12.0 - 16.0 G/DL) 8.3 L Hct (37 - 47 %) 24.5 L MCV (81.0 - 99.0 FL) 88.9 MCH (27.0 - 31.0 PG) 29.9 RDW (11.5 - 14.5 %) 13.0 Plt Count (130 - 400 /CUMM) 183 MPV (7.4 - 10.4 FL) 8.9 Gran % (42.2 - 75.2 %) 47.0 Lymphocytes % (20.5 - 51.1 %) 30.3 Monocytes % (1.7 - 9.3 %) 11.6 H Eosinophils % (0 - 5 %) 10.5 H Basophils % (0.0 - 2.0 %) 0.6 Absolute Granulocytes (1.4 - 6.5 /CUMM) 2.7 Absolute Lymphocytes (1.2 - 3.4 /CUMM) 1.7 Absolute Monocytes (0.10 - 0.60 /CUMM) 0.7 H Absolute Eosinophils (0.0 - 0.7 /CUMM) 0.6 Absolute Basophils (0.0 - 0.2 /CUMM) 0 PUBS MCHC (33.0 - 37.0 G/DL) 33.7 Vital Signs Date Time Temp Pulse Resp B/P B/P Pulse O2 O2 Flow FiO2 Mean Ox Delivery Rate 07/03 0855 74 122/60 07/03 0619 98.5 74 20 122/60 96 Room Air 07/023 99.1 70 19 142/64 97 Room Air 07/02 1409 98.1 80 18 128/60 100 Room Air 07/02 1357 Room Air Room Air 07/02 0948 79 140/70
--- NOTE | 2016-07-03 09:04 | PN- Nephrology ---
Assessment/Plan Assessment: 1. SIMONE: improved prerenal 2. Hyperkalemia: due to hyperglycemia --> resoloved 3. CKD: mod, stage 3B; due to DM, HTN, previous URI/obstruction; at baseline Suggestion: 1. d/c IV fluids 2. OK for discharge from renal perspective Subjective Subjective: Eating - no vomiting or diarrhea Nonoliguroc No SOB Objective Vital Signs and I&Os Vital Signs Date Time Temp Pulse Resp B/P B/P Pulse O2 O2 Flow FiO2 Mean Ox Delivery Rate 07/03 0855 74 122/60 07/03 0619 98.5 74 20 122/60 96 Room Air 07/02 2143 99.1 70 19 142/64 97 Room Air 07/02 1409 98.1 80 18 128/60 100 Room Air 07/02 1357 Room Air Room Air 07/02 0948 79 140/70 Intake & Output 07/03 1600 07/03 0400 07/02 1600 07/02 0400 07/01 1600 07/01 0400 Intake Total 1320 1200 2750 810 2320 2000 Output Total 1600 2550 2300 600 2250 240 Balance -280 -1350 450 676 81 0199 Intake, IV 1200 1200 2400 450 1200 2000 Intake, Oral 120 891 900 3809 Output, Urine 1600 2550 2300 600 2250 240 Patient 138 lb Weight Weight Reported by Patient Measurement Method Physical Exam General Appearance: no apparent distress, alert Head: atraumatic, normal appearance Ears, Nose, Throat: normal ENT inspection Neck: normal inspection Respiratory: normal breath sounds, quiet respiration, lungs clear Cardiovascular: regular rate/rhythm, systolic murmur Abdomen: soft, non-tender, suprapubic catheter Extremities: no edema Neurologic/Psychiatric: awake, alert Current Medications: Current Medications Sig/Dasha Start time Last Medication Dose Route Stop Time Status Admin Acetaminophen 650 MG Q6P PRN 06/30 2044 AC PO Acetaminophen 1,000 MG Q6P PRN 06/30 2044 AC IV Aspirin Buffered 81 MG DAILY 07/01 2131 AC 07/03 PO 0854 Atorvastatin Calcium 40 MG DAILY 07/01 1000 AC 07/03 PO 0854 Clopidogrel Bisulfate 75 MG DAILY 07/01 2131 AC 07/03 PO 0854 Escitalopram Oxalate 20 MG DAILY 07/01 1000 DC 07/02 PO 0948 Heparin Sodium 5,000 UNIT Q8 06/30 2199 AC 07/03 (Porcine) SC 0556 Insulin Aspart 0 TIDAC/HS 07/01 1200 AC 07/03 SC 0848 Insulin Detemir 12 UNITS DAILY 07/03 1000 AC 07/03 SC 0849 Insulin Detemir 10 UNITS DAILY 07/02 1000 DC 07/02 SC 0950 Metoprolol Succinate 50 MG DAILY 07/01 1000 AC 07/03 PO 0855 Morphine Sulfate 0.5 MG Q4P PRN 06/30 2045 AC IV Sodium Chloride 1,000 ML Q6H 06/30 2100 DC 07/03 IV 0352 Venlafaxine HCl 25 MG DAILY 07/02 1530 AC 07/03 PO 0855 Results Pertinent Lab Results: Laboratory Tests 07/03 07/02 0615 0634 Chemistry Sodium (137 - 145 mmol/L) 140 137 Potassium (3.5 - 5.1 mmol/L) 4.1 4.9 Chloride (98 - 107 mmol/L) 113 H 110 H Carbon Dioxide (22 - 30 mmol/L) 19 L 20 L Anion Gap (5 - 16) 8 8 BUN (7 - 17 mg/dL) 31 H 41 H Creatinine (0.5 - 1.0 mg/dL) 1.5 H 1.9 H Estimated GFR (>60 ml/min) 34 L 26 L BUN/Creatinine Ratio (7 - 25 %) 20.7 21.6 Hematology CBC w Diff NO MAN DIFF REQ NO MAN DIFF REQ WBC (4.8 - 10.8 /CUMM) 5.6 5.9 RBC (4.20 - 5.40 /CUMM) 2.76 L 2.86 L Hgb (12.0 - 16.0 G/DL) 8.3 L 8.5 L Hct (37 - 47 %) 24.5 L 25.4 L MCV (81.0 - 99.0 FL) 88.9 88.7 MCH (27.0 - 31.0 PG) 29.9 29.8 RDW (11.5 - 14.5 %) 13.0 13.2 Plt Count (130 - 400 /CUMM) 183 181 MPV (7.4 - 10.4 FL) 8.9 9.4 Gran % (42.2 - 75.2 %) 47.0 43.1 Lymphocytes % (20.5 - 51.1 %) 30.3 34.6 Monocytes % (1.7 - 9.3 %) 11.6 H 11.2 H Eosinophils % (0 - 5 %) 10.5 H 10.4 H Basophils % (0.0 - 2.0 %) 0.6 0.7 Absolute Granulocytes (1.4 - 6.5 /CUMM) 2.7 2.5 Absolute Lymphocytes (1.2 - 3.4 /CUMM) 1.7 2.0 Absolute Monocytes (0.10 - 0.60 /CUMM) 0.7 H 0.7 H Absolute Eosinophils (0.0 - 0.7 /CUMM) 0.6 0.6 Absolute Basophils (0.0 - 0.2 /CUMM) 0 0 PUBS MCHC (33.0 - 37.0 G/DL) 33.7 33.6 07/01 06/30 06/30 0050 2131 2121 Chemistry Sodium (137 - 145 mmol/L) 137 136 L Potassium (3.5 - 5.1 mmol/L) 4.3 4.7 Chloride (98 - 107 mmol/L) 106 104 Carbon Dioxide (22 - 30 mmol/L) 21 L 20 L Anion Gap (5 - 16) 10 12 BUN (7 - 17 mg/dL) 50 H 51 H Creatinine (0.5 - 1.0 mg/dL) 2.0 H 1.9 H Estimated GFR (>60 ml/min) 24 L 26 L BUN/Creatinine Ratio (7 - 25 %) 25.0 26.8 H Glucose (65 - 99 mg/dL) 201 H Lactic Acid (0.7 - 2.1 mmol/L) 1.3 2.4 H Calcium (8.4 - 10.2 mg/dL) 9.1 Total Bilirubin (0.2 - 1.3 mg/dL) 0.7 AST (14 - 36 U/L) 20 ALT (9 - 52 U/L) 29 Alkaline Phosphatase (<127 U/L) 76 Total Protein (6.3 - 8.2 g/dL) 6.8 Albumin (3.5 - 5.0 g/dL) 3.7 Globulin (1.9 - 4.2 gm/dL) 3.1 Albumin/Globulin Ratio (1.1 - 2.2 %) 1.2 06/30 06/30 2004 1800 Chemistry Sodium (137 - 145 mmol/L) 130 L Potassium (3.5 - 5.1 mmol/L) 6.0 *H Chloride (98 - 107 mmol/L) 97 L Carbon Dioxide (22 - 30 mmol/L) 19 L Anion Gap (5 - 16) 14 BUN (7 - 17 mg/dL) 58 H Creatinine (0.5 - 1.0 mg/dL) 2.1 H Estimated GFR (>60 ml/min) 23 L BUN/Creatinine Ratio (7 - 25 %) 27.6 H Glucose (65 - 99 mg/dL) 600 *H Hemoglobin A1c (4.2 - 5.8 %) 13.2 H Serum Osmolality (285 - 295 MOSM/KG) 333 H Lactic Acid (0.7 - 2.1 mmol/L) 2.6 H Calcium (8.4 - 10.2 mg/dL) 9.6 Total Bilirubin (0.2 - 1.3 mg/dL) 0.8 AST (14 - 36 U/L) 22 ALT (9 - 52 U/L) 35 Alkaline Phosphatase (<127 U/L) 92 Total Protein (6.3 - 8.2 g/dL) 7.3 Albumin (3.5 - 5.0 g/dL) 4.0 Globulin (1.9 - 4.2 gm/dL) 3.3 Albumin/Globulin Ratio (1.1 - 2.2 %) 1.2 Vitamin B12 (239 - 931 pg/mL) 860 Folate (2.76 - 20.0 ng/mL) 19.9 TSH (0.270 - 4.200 uIU/mL) 1.480 Free T4 (0.78 - 2.44 ng/dL) 1.54 Cortisol AM Sample (4.46 - 22.7 ug/dL) 15.5 Coagulation PT (9.4 - 12.5 SEC) 11.2 INR (0.90 - 1.19) 1.07 APTT (25 - 37 SEC) 28 Hematology CBC w Diff NO MAN DIFF REQ WBC (4.8 - 10.8 /CUMM) 8.0 RBC (4.20 - 5.40 /CUMM) 3.41 L Hgb (12.0 - 16.0 G/DL) 10.1 L Hct (37 - 47 %) 30.5 L MCV (81.0 - 99.0 FL) 89.2 MCH (27.0 - 31.0 PG) 29.7 RDW (11.5 - 14.5 %) 13.1 Plt Count (130 - 400 /CUMM) 212 MPV (7.4 - 10.4 FL) 10.3 Gran % (42.2 - 75.2 %) 63.6 Lymphocytes % (20.5 - 51.1 %) 19.8 L Monocytes % (1.7 - 9.3 %) 9.3 Eosinophils % (0 - 5 %) 6.6 H Basophils % (0.0 - 2.0 %) 0.7 Absolute Granulocytes (1.4 - 6.5 /CUMM) 5.1 Absolute Lymphocytes (1.2 - 3.4 /CUMM) 1.6 Absolute Monocytes (0.10 - 0.60 /CUMM) 0.7 H Absolute Eosinophils (0.0 - 0.7 /CUMM) 0.5 Absolute Basophils (0.0 - 0.2 /CUMM) 0.1 PUBS MCHC (33.0 - 37.0 G/DL) 33.3 Toxicology Urine Opiates Screen (>2000 NG/ML) < 100.00 Methadone Screen (>300 NG/ML) 50 Barbiturate Screen (>200 NG/ML) < 60 Ur Phencyclidine Scrn (>25 NG/ML) < 6.00 Amphetamines Screen (>1000 NG/ML) < 100 U Benzodiazepines Scrn (>200 NG/ML) < 85 Urine Cocaine Screen (>300 NG/ML) < 50 Urine Cannabis Screen (>50 NG/ML) < 5.00 Serum Alcohol (<10 MG/DL) < 10.0 Acetone Level (NEGATIVE) NEGATIVE Urines Urine Color (YEL,AMB,STR) STRAW Urine Clarity (CLEAR) CLEAR Urine pH (5.0 - 8.0) 6.0 Ur Specific [place] (1.001 - 1.035) 1.010 Urine Protein (NEG,<30 MG/DL) TRACE H Urine Ketones (NEG) NEG Urine Nitrite (NEG) NEG Urine Bilirubin (NEG) NEG Urine Urobilinogen (0.1 - 1.0 EU/dl) 0.2 Ur Leukocyte Esterase (NEG) SMALL H Ur Microscopic SEDIMENT EXAMINED Urine RBC (0 - 5 /HPF) RARE Urine WBC (0 - 2 /HPF) 25-50 H Urine Bacteria (NEG/NONE) FEW H Urine Hemoglobin (NEG) TRACE-INTACT Urine Glucose (N MG/DL) >=1000 H
--- NOTE | 2016-07-03 09:11 | Patient Discharge Instructions ---
Discharge Instructions General Discharge Information You were seen/treated for: Orthostatic hypotension hyperosmolar hyperglycemia Acute kidney injury on CKD ICA stenosis You had these procedures: NONE Special Instructions: Please follow-up with your primary care doctor in 1-2 weeks Please follow-up with bag sealer in 1-2 weeks Please follow-up with your liquor rectifier in 1-2 weeks Please follow-up with your consultative sales associate in 1-2 weeks Please follow-up with the neurologist in 1-2 weeks Please follow up with vascular surgeon in 1-2 weeks -Left ICA occlusion does not require any intervention. Right ICA moderate stenosis needs follow-up with the vascular surgeon as outpatient Diet Continue normal diet: Yes Activity Activity Self Limited: Yes Acute Coronary Syndrome Inclusion Criteria At DC or during hospital stay patient has or had the following: ACS DIAGNOSIS No Discharge Core Measures Meds if any: Prescribed or Continued at Discharge Meds if any: NOT Prescribed or Continued at Discharge Congestive Heart Failure Inclusion Criteria At DC or during hospital stay patient has or had the following: CHF DIAGNOSIS No Discharge Core Measures Meds if any: Prescribed or Continued at Discharge Meds if any: NOT Prescribed or Continued at Discharge Cerebrovascular accident Inclusion Criteria At DC or during hospital stay patient has or had the following: CVA/TIA Diagnosis No Discharge Core Measures Meds if any: Prescribed or Continued at Discharge Meds if any: NOT Prescribed or Continued at Discharge Venous thromboembolism Inclusion Criteria VTE Diagnosis No VTE Type NONE VTE Confirmed by (Test) NONE Discharge Core Measures - Per Current guidelines, there needs to be overlap - treatment for the first 5 days of Warfarin therapy. - If discharged on Warfarin prior to 5 days of - overlap therapy, the patient will need to be - assessed for post discharge needs including - *Post discharge parental anticoagulation - *Warfarin and/or parental anticoagulation education - *Follow up date to check INR post discharge At least 5 days overlap therapy as Inpatient No Meds if any: Prescribed or Continued at Discharge Note: Overlap Therapy is Warfarin and Anticoagulant Meds if any: NOT Prescribed or Continued at Discharge
--- NOTE | 2016-07-03 12:17 | Cons- Cardiology ---
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 She presents with severe fatigue, worsening over the past several weeks; however, persistent for several months. Of note, the patient has been noncompliant with her medication regimen. On arrival, the patient was found to be profoundly hyperglycemic with an elevated lactic acid level. She states having had multiple falls: However due to severe fatigue and inability to maintain posture and not with concurrent a nor palpitations. She denies other vertigo sensations. The patient had been on a regimen including Midrin and Florinef for orthostatic hypotension in the past; however, has been noncompliant with the same. An echocardiogram performed on this admission demonstrated moderate to severe aortic stenosis and preserved LV systolic function. The patient otherwise denies recent fevers nor other chest pain or palpitations at rest or with physical activity. Her physical activity however is limited to less than 4 METs of activity described on a regular basis. Allergies/Medications Allergies: Coded Allergies: adhesive tape (PLASTIC TAPE 01/17/16) oxybutynin (Severe, DELERIUM 01/24/16) codeine (NAUSEA 01/17/16) nitrofurantoin (LOOPY 01/17/16) Home Med List: Aspirin (Ecotrin*) 81 MG TABLET.DR 1 TAB PO DAILY HEART/BLOOD (Reported) Atorvastatin Calcium 40 MG TABLET 1 TAB PO DAILY CHOLESTEROL (Reported) Clopidogrel Bisulfate (Clopidogrel) 75 MG TABLET 1 TAB PO DAILY BLOOD THINNER (Reported) Insulin Glargine,Hum.rec.anlog (Lantus Solostar) 100 UNIT/ML (3 ML) INSULN.PEN 8 UNIT SC QPM DM (Reported) Insulin Glargine,Hum.rec.anlog (Lantus Solostar) 100 UNIT/ML (3 ML) INSULN.PEN 20 U SC DAILY DIABETES (Reported) Metoprolol Succinate 50 MG TAB.ER.24H 1 TAB PO DAILY hypertension (Reported) Pantoprazole Sodium (Protonix) 40 MG TABLET.DR 1 TAB PO DAILY GI (Reported) Venlafaxine HCl 25 MG TABLET 1 TAB PO DAILY depression (Reported) Current Medications: Current Medications Sig/Dasha Start time Last Medication Dose Route Stop Time Status Admin Acetaminophen 650 MG Q6P PRN 06/30 2044 AC PO Acetaminophen 1,000 MG Q6P PRN 06/30 2044 AC IV Aspirin Buffered 81 MG DAILY 07/01 2131 AC 07/03 PO 0854 Atorvastatin Calcium 40 MG DAILY 07/01 1000 AC 07/03 PO 0854 Clopidogrel Bisulfate 75 MG DAILY 07/01 2131 AC 07/03 PO 0854 Escitalopram Oxalate 20 MG DAILY 07/01 1000 DC 07/02 PO 0948 Heparin Sodium 5,000 UNIT Q8 06/30 2200 AC 07/03 (Porcine) SC 0556 Insulin Aspart 0 TIDAC/HS 07/01 1200 AC 07/03 SC 0848 Insulin Detemir 12 UNITS DAILY 07/03 1000 AC 07/03 SC 0849 Insulin Detemir 10 UNITS DAILY 07/02 1000 DC 07/02 SC 0950 Metoprolol Succinate 50 MG DAILY 07/01 1000 AC 07/03 PO 0855 Morphine Sulfate 0.5 MG Q4P PRN 06/30 2044 AC IV Sodium Chloride 1,000 ML Q6H 06/30 2100 DC 07/03 IV 0352 Venlafaxine HCl 25 MG DAILY 07/02 1530 AC 07/03 PO 0855 Review of Systems Review of Systems: The review of systems is negative for chest pains, palpitations nor lightheadedness. The remainder of the 14 point review of systems is noncontributory with the exception of above. 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 Home Who Do You Live With? By herself - Neighbor/Friend helps her out Services at Home: None Primary Language: Indonesian Smoking Status: Former Smoker ETOH Use: denies use Illicit Drug Use: denies illicit drug use Living Will? yes Functional Ability ADLs Independent: dressing, eating, toileting, bathing. Ambulation: walker IADLs Needs Assist: shopping, housework. Exam & Diagnostic Data Vital Signs and I&O Vital Signs Date Time Temp Pulse Resp B/P B/P Pulse O2 O2 Flow FiO2 Mean Ox Delivery Rate 07/03 0855 74 122/60 07/03 0619 98.5 74 20 122/60 96 Room Air 07/02 2143 99.1 70 19 142/64 97 Room Air 07/02 1409 98.1 80 18 128/60 100 Room Air 07/02 1357 Room Air Room Air Intake & Output 07/03 1600 07/03 0800 07/03 0000 07/02 1600 07/02 0800 07/02 0000 Intake Total 1320 1200 1550 1200 1410 Output Total 3050 1100 1000 1300 1400 Balance -1730 100 550 -100 10 Intake, IV 1200 1200 1200 1200 450 Intake, Oral 120 350 960 Output, Urine 3050 1100 1000 1300 1400 Physical Exam: General: Nontoxic, no apparent distress. HEENT: Sclera and conjunctiva within normal limits, without xanthelasmas. Neck: Carotids 2+ without bruits. Respiratory: Clear to auscultation, air movement is good, without accessory respiratory muscle use. Heart: Regular rate and rhythm, 2/6 systolic ejection murmur at left sternal border, without JVD. Abdomen: Soft, nontender, no masses, normoactive bowel sounds. Extremities: Without clubbing, cyanosis, without edema. Neuro: Nonfocal exam, strength, 5 out of 5 Skin: Within normal limits without lesions. Psych: Mood and affect: Normal Labs/Heraclio Results: Laboratory Tests 07/03 07/02 0615 0634 Chemistry Sodium (137 - 145 mmol/L) 140 137 Potassium (3.5 - 5.1 mmol/L) 4.1 4.9 Chloride (98 - 107 mmol/L) 113 H 110 H Carbon Dioxide (22 - 30 mmol/L) 19 L 20 L Anion Gap (5 - 16) 8 8 BUN (7 - 17 mg/dL) 31 H 41 H Creatinine (0.5 - 1.0 mg/dL) 1.5 H 1.9 H Estimated GFR (>60 ml/min) 34 L 26 L BUN/Creatinine Ratio (7 - 25 %) 20.7 21.6 Hematology CBC w Diff NO MAN DIFF REQ NO MAN DIFF REQ WBC (4.8 - 10.8 /CUMM) 5.6 5.9 RBC (4.20 - 5.40 /CUMM) 2.76 L 2.86 L Hgb (12.0 - 16.0 G/DL) 8.3 L 8.5 L Hct (37 - 47 %) 24.5 L 25.4 L MCV (81.0 - 99.0 FL) 88.9 88.7 MCH (27.0 - 31.0 PG) 29.9 29.8 RDW (11.5 - 14.5 %) 13.0 13.2 Plt Count (130 - 400 /CUMM) 183 181 MPV (7.4 - 10.4 FL) 8.9 9.4 Gran % (42.2 - 75.2 %) 47.0 43.1 Lymphocytes % (20.5 - 51.1 %) 30.3 34.6 Monocytes % (1.7 - 9.3 %) 11.6 H 11.2 H Eosinophils % (0 - 5 %) 10.5 H 10.4 H Basophils % (0.0 - 2.0 %) 0.6 0.7 Absolute Granulocytes (1.4 - 6.5 /CUMM) 2.7 2.5 Absolute Lymphocytes (1.2 - 3.4 /CUMM) 1.7 2.0 Absolute Monocytes (0.10 - 0.60 /CUMM) 0.7 H 0.7 H Absolute Eosinophils (0.0 - 0.7 /CUMM) 0.6 0.6 Absolute Basophils (0.0 - 0.2 /CUMM) 0 0 PUBS MCHC (33.0 - 37.0 G/DL) 33.7 33.6 Assessment/Plan Assessment/Plan 76-year-old woman with a past medical history of diabetes mellitus, area artery disease (status post bypass surgery), congestive heart failure (diastolic), orthostatic hypertension and hyperlipidemia. She presents with severe fatigue, worsening over the past several weeks; however, persistent for several months. Of note, the patient has been noncompliant with her medication regimen. Orthostatic hypotension: The patient's current presentation of severe fatigue as well as orthostatic hypotension is likely multifactorial including dehydration from her poor compliance with her diabetes regimen and resulting hyperosmolar state. Given her previous treatment for orthostatic hypotension with Midodrin and Florinef, it is likely she has well has underlying autonomic dysfunction. At this time, we should follow orthostatic blood pressures. Adequate fluid replacement from her hyperosmolar state should as well be completed prior to advancing a regimen of Florinef and Midodrin; however, a low dose of 0.1 of Florinef and 5 mg of ProAmatine may be initiated. Aortic stenosis: We will continue to follow and address this as an outpatient. Consideration for intervention will be given; however, medication compliance and follow-up needs to be established first. Diabetes mellitus: Continue treatment as per endocrinology. Coronary artery disease: Stable, we will continue to follow. Thank you for allowing us to participate in the care of your patient. Please do not hesitate to contact us further with any questions. Sincerely, Julian Howell MD [facility] Consult Acknowledgment - Thank you for your consult request.
--- NOTE | 2016-07-03 13:23 | Discharge Summary ---
Visit Information Visit Dates Admission Date: 06/30/16 Discharge Date: 07/10/16 Hospital Course Course Attending Physician: HALEY MORALES MD Primary Care Physician: HALEY MORALES MD Consulting Request: 1 Consulting Specialty: Endocrinology Consulting Request: 2 Consulting Specialty: Nephrology Consulting Request: 3 Consulting Specialty: Cardiology Hospital Course: This is a 76-year-old female past medical history significant for diabetes, CAD status post bypass surgery, hyperlipidemia, chronic renal insufficiency, moderate to severe aortic stenosis, suprapubic catheter, ? History of HFpEF, who presented to the hospital with weakness, fatigue and dizziness. Further evaluation in the ED revealed hyponatremia, hyperkalemia, and hyperglycemia. Vital Signs Date Time Temp Pulse Resp B/P B/P Pulse O2 O2 Flow FiO2 Mean Ox Delivery Rate 06/30 2140 97.9 72 16 152/68 100 Room Air 06/30 2013 96.3 72 16 160/69 100 Room Air 06/30 1907 Room Air 06/30 1903 96.8 63 18 155/69 99 Room Air 06/30 1634 98.8 63 18 137/76 96 Room Air General Appearance Alert, Oriented X3, Cooperative, No Acute Distress Skin No Rashes, No Significant Lesion Skin Temp/Moisture Exam: Warm/Dry HEENT Atraumatic , PERRLA, EOMI, dry mucous membranes Neck Supple, No LAD Cardiovascular Regular Rate, Normal S1, Normal S2, No Murmurs Lungs Clear to Auscultation, Normal Air Movement Abdomen Soft, No Tenderness, has suprapubic catheter inserted. Site has some discharge that is clear Neurological Normal Speech Extremities No Edema, Normal Pulses Laboratory Tests 06/30/162130: Lactic Acid Pending 06/30/162120: Anion Gap 12, Estimated GFR 26 L, BUN/Creatinine Ratio 26.8 H, Glucose 201 H, Calcium 9.1, Total Bilirubin 0.7, AST 20, ALT 29, Alkaline Phosphatase 76, Total Protein 6.8, Albumin 3.7, Globulin 3.1, Albumin/Globulin Ratio 1.2 06/30/162003: Urine Opiates Screen < 100.00, Methadone Screen 50, Barbiturate Screen < 60, Ur Phencyclidine Scrn < 6.00, Amphetamines Screen < 100, U Benzodiazepines Scrn < 85, Urine Cocaine Screen < 50, Urine Cannabis Screen < 5.00, Urine Color STRAW, Urine Clarity CLEAR, Urine pH 6.0, Ur Specific [place] 1.010, Urine Protein TRACE H, Urine Ketones NEG, Urine Nitrite NEG, Urine Bilirubin NEG, Urine Urobilinogen 0.2, Ur Leukocyte Esterase SMALL H, Ur Microscopic SEDIMENT EXAMINED, Urine RBC RARE, Urine WBC 25-50 H, Urine Bacteria FEW H, Urine Hemoglobin TRACE-INTACT, Urine Glucose >=1000 H 06/30/16 1800: Anion Gap 14, Estimated GFR 23 L, BUN/Creatinine Ratio 27.6 H, Glucose 600 *H, Serum Osmolality 333 H, Lactic Acid 2.6 H, Calcium 9.6, Total Bilirubin 0.8, AST 22, ALT 35, Alkaline Phosphatase 92, Total Protein 7.3, Albumin 4.0, Globulin 3.3, Albumin/Globulin Ratio 1.2, TSH Pending, Free T4 Pending, Cortisol AM Sample Pending, PT 11.2, INR 1.07, APTT 28, CBC w Diff NO MAN DIFF REQ, RBC 3.41 L, MCV 89.2, MCH 29.7, RDW 13.1, MPV 10.3, Gran % 63.6, Lymphocytes % 19.8 L, Monocytes % 9.3, Eosinophils % 6.6 H, Basophils % 0.7, Absolute Granulocytes 5.1, Absolute Lymphocytes 1.6, Absolute Monocytes 0.7 H, Absolute Eosinophils 0.5, Absolute Basophils 0.1, PUBS MCHC 33.3, Serum Alcohol < 10.0, Acetone Level NEGATIVE Last A1c in January 2016 at 9.9. Following problems were addressed during the course of her hospital stay: #Hyperosmolar hyperglycemia: Patient presented with hyperglycemia with hyperosmolar state, with BS 600 and Sosm 333. It was thought to be secondary to her diabetes medication non- compliance. She received 20 units insulin in the ED after which blood sugar improved to 200. Endocrinology consulted for medication adjustment. She is on Levemir to 20 units daily and Novolog coverage before meals and Novolog coverage at bedtime. #Persistent symptomatic Orthostatic hypotension: Patient presented with increased weakness, fatigue, dizziness. Patient was diagnosed with orthostatic hypotension in February 2016, she was started on midodrine and Florinef however she was noncompliant with her medications. She had positive orthostatics on admission. TSH/T4, AM cortisol, vitamin B12 and folate were checked and were wnl. She received IV fluid therapy. Cardiology was consulted who recommended midodrine 5 mg 3 times a day and fludrocortisone 100 MCG daily. The patient continued to have positive orthostatics, cardiology recommended compression stockings and also she was started on Northera, midodrine and fludrocortisone were discontinued. * Cardiology reviewed with her some lower extremity exercises prior to sitting/ standing. * They also recommended obtaining compression stockings that go above the waist. * Per cardiology, patient will need closer cardiology follow-up in the future. For titrating up Northera and also assessing aortic stenosis for possible TAVR. # Lactic acidosis: Pt comes in with LA of 2.6. No gap noted on BEP. Resolved after IV hydration. #Pseudo-Hyponatremia: On admission. Corrected for glucose of 600 >>> NA 139. #Hyperkalemia: Resolved. On admission, the patient had K 6.0 with no corresponding EKG changes. Likely secondary to her Hyperosmolar state. * k 4.1 on 07/06/2016 #Acute on Chronic renal failure: Resolved. he patient presented with Cr 2.1 and Bun 58. Her baseline creatinine is 1.5-1.7. Given increased BUN and HHNS likely pre-renal. The suprapubic catheter is patent unlikely post-renal. Received IV hydration. Nephrology was consulted. * Creatinine 1.7 on 07/06/2016. #Anemia: On admission patient had Hb of 10.1; previous work up shows low iron levels suggesting iron deficiency anemia. H&H remained stable during hospital stay. #Depression: Chronic/stable. Was maintained on BRUSH HAND venlafaxine. #CAD/carotid stenosis on dual APT: Was initially maintained on BRUSH HAND clopidogrel, metoprolol succinate, aspirin and atorvastatin. Cardiology recommended to stop aspirin given the patient was having heartburn. She reported a history of TIA in December 2015 after a cardiac catheterization procedure. She had transient right sided facial droop. She was hospitalized at [facility] at that time. she was found to have a complete left ICA occlusion and a right ICA stenosis in the 60-70% range. She was seen by the vascular surgery service who recommended dual antiplatelet therapy and nonoperative follow-up for the time, (since the right carotid artery stenosis was considered to be clinically asymptomatic ) with future consideration to be given towards elective right carotid endarterectomy. The patient did not followed up with a vascular surgeon. We repeated Carotid doppler study which showed:Occlusion of the left internal carotid artery appears complete to near complete. A minimal amount of pulsatile flow was detected by spectral analysis, however there was no flow on color Doppler evaluation.Moderate stenosis of the right internal carotid artery, bordering severe stenosis. 3. Mild stenosis of the right external carotid artery. Vascular surgery consult was appreciated; they recommended: Left ICA occlusion does not require any intervention. Right ICA moderate stenosis needs follow-up with the vascular surgeon as outpateint. They did not recommend carotid endarterectomy at this time for an asymptomatic moderate stenosis of the right ICA. They also agreed with cardiology's suggestion to stop aspirin as patient was having heart pain. Patient to be maintained on clopidogrel only. #DVT PPX: SC heparin #Code status: DNI/DNR #Patient seen and examined on day of her discharge on 07/10/2016; stable for discharge to rehabilitation facility. Complications: None Allergies: Coded Allergies: adhesive tape (PLASTIC TAPE 01/17/16) oxybutynin (Severe, DELERIUM 01/24/16) codeine (NAUSEA 01/17/16) nitrofurantoin (LOOPY 01/17/16) Significant Procedures: EXAM TYPE: US - [id number] DOPPLER 07/10/16 FINDINGS: 1. On the right: There is a hemodynamically significant stenosis correlating to 50-79% diameter reduction of the proximal internal carotid artery. A moderate amount of calcified hyperechoic and heterogeneous plaque is noted at the bifurcation extending into the proximal internal carotid artery. The peak systolic and diastolic velocities as measured within the proximal internal carotid artery equals 325 and 101 cm/s respectively. The vertebral artery is patent demonstrating antegrade flow. Atherosclerotic plaque extends into the external carotid artery which is mildly stenotic measuring peak systolic velocity of 150 cm/s. 2. On the left: There is occlusion of the internal carotid artery from hypoechoic plaque. Trace of flow was able to be noted, however this may represent pulsation artifact rather than actual flow within the artery. The vertebral artery is patent demonstrating antegrade flow. There is atherosclerotic plaque extending into the external carotid artery which does not demonstrate significant stenosis. IMPRESSION: 1. Occlusion of the left internal carotid artery appears complete to near complete. A minimal amount of pulsatile flow was detected by spectral analysis, however there was no flow on color Doppler evaluation. 2. Moderate stenosis of the right internal carotid artery, bordering severe stenosis. 3. Mild stenosis of the right external carotid artery. This critical result was discussed with Cyndie Pereira MD at 416pm on 07/09/2016 and it was ascertained that the content and urgency of the report was understood at the time of direct communication. Dr. Pereira informed me that she has previous imaging that demonstrated complete occlusion of the left internal carotid artery with 80% stenosis of the right internal carotid artery. Pertinent Lab Results: Laboratory Tests 07/10/16 0624: Anion Gap 8, Estimated GFR 24 L, BUN/Creatinine Ratio 19.5, CBC w Diff NO MAN DIFF REQ, RBC 2.94 L, MCV 91.1, MCH 29.6, RDW 14.1, MPV 8.6, Gran % 44.5, Lymphocytes % 29.9, Monocytes % 13.3 H, Eosinophils % 11.6 H, Basophils % 0.7, Absolute Granulocytes 3.2, Absolute Lymphocytes 2.2, Absolute Monocytes 1.0 H, Absolute Eosinophils 0.8, Absolute Basophils 0.1, PUBS MCHC 32.4 L Disposition Summary Disposition Principal Diagnosis: Hyperosmolar hyperglycemia Additional Diagnosis: Orthostatic hypotension Acute on Chronic renal failure ICA STENOSIS Discharge Disposition: SNF Discharge Instructions General Discharge Information Code Status: Do Not Resucitate/Intubat Patient's Diet: Diabetic/cardiac. Patient's Activity: As tolerated. Follow-Up Instructions/Appts: Please follow-up with your primary care doctor in 1-2 weeks Please follow-up with dental instrument maker in 1-2 weeks Please follow-up with your medical records tech in 1-2 weeks Please follow-up with your quality technician fiberglass in 1-2 weeks Please follow-up with the neurologist in 1-2 weeks Please follow up with vascular surgeon in 1-2 weeks -Left ICA occlusion does not require any intervention. Right ICA moderate stenosis needs follow-up with the vascular surgeon as outpatient Medications at Discharge Discharge Medications: Stop taking the following medications: Insulin Glargine,Hum.rec.anlog (Lantus Solostar) 100 UNIT/ML (3 ML) INSULN.PEN Inject into fatty tissue Every night Insulin Glargine,Hum.rec.anlog (Lantus Solostar) 100 UNIT/ML (3 ML) INSULN.PEN Inject into fatty tissue DAILY Aspirin (Ecotrin*) 81 MG TABLET.DR ORAL DAILY Continue taking these medications: Pantoprazole Sodium (Protonix) 40 MG TABLET. 1 Tablet ORAL DAILY Clopidogrel Bisulfate (Clopidogrel) 75 MG TABLET 1 Tablet ORAL DAILY Qty = 90 Comments: Last Taken: 03/12/16 Time: 10AM Atorvastatin Calcium (Atorvastatin Calcium) 40 MG TABLET 1 Tablet ORAL DAILY Venlafaxine HCl (Venlafaxine HCl) 25 MG TABLET 1 Tablet ORAL DAILY Qty = 30 Metoprolol Succinate (Metoprolol Succinate) 50 MG TAB.ER.24H 1 Tablet ORAL DAILY Start taking the following new medications: Insulin Aspart (Novolog) 100 UNIT/ML VIAL 0 Units Inject into fatty tissue BEFORE MEALS AND AT BEDTIME Days = 30 No Refills Instructions: bloodsugar beforemeal bedtime 80-150 5units 151-200 6units 201-250 7units 251-300 8units 2units 301-350 9units 3units 351-400 10units 4units >400 11units 5units Insulin Detemir (Levemir) 100 UNIT/ML VIAL 20 Units Inject into fatty tissue DAILY Days = 30 No Refills Droxidopa (Northera) 100 MG CAPSULE 2 Tablet ORAL THREE TIMES DAILY Qty = 30 No Refills Copies To: ANDREW GILMORE,[facility]
[2016-07-03 16:00] VITALS: BP 122/62
[2016-07-03] MEDS ORDERED: MIDODRINE HCL2.5 M1 PO (16:39)
[2016-07-03] MEDS ORDERED: FLUDROCORTISON0.1 M1 PO (16:39)
[2016-07-03] MEDS ORDERED: LEVEMIR100 UNIT/1 SC (16:51)
[2016-07-03] MEDS ORDERED: NOVOLOG100 UNIT/2 SC ×2 (16:51→16:53)
[2016-07-03 22:26] VITALS: BP 126/68
[2016-07-04 08:03] VITALS: BP 138/72
[2016-07-04 08:25] LABS: ABSOLUTE BASOPHIL COUNT 0 /CUMM (0.0-0.2); ABSOLUTE EOSINOPHIL COUNT 0.7 /CUMM (0.0-0.7); ABSOLUTE GRANULOCYTE CT 3.2 /CUMM (1.4-6.5); ABSOLUTE LYMPH COUNT 1.9 /CUMM (1.2-3.4); ABSOLUTE MONOCYTE COUNT 0.8 /CUMM (0.10-0.60); BASOPHIL % 0.5 % (0.0-2.0); GRANULOCYTE % 48.4 % (42.2-75.2); HEMATOCRIT 25.9 % (37-47); MEAN CORPUSCULAR HGB 29.3 PG (27.0-31.0); MEAN CORPUSCULAR HGB CONC 32.8 G/DL (33.0-37.0); MEAN CORPUSCULAR VOLUME 89.6 FL (81.0-99.0); PLATELET COUNT 195 /CUMM (130-400); RBC DISTRIBUTION WIDTH 13.5 % (11.5-14.5); RED BLOOD CELL CT 2.89 /CUMM (4.20-5.40); WHITE BLOOD CELL COUNT 6.5 /CUMM (4.8-10.8)
--- NOTE | 2016-07-04 08:44 | PN- Housestaff ---
Subjective Follow-up For: orthostatic hypotension Hyperosmolar hyperglycemia- resolved Acute on chronic renal failure Frequent falls Anemia Complaints: pain scale (0-10) Subjective: Patient was seen and examined this morning. She is alert awake and oriented to time place and person. She denies any overnight events. She denies any chest pain, breathing difficulty, shortness of breath, fever, chills. She reports generalized weakness, fatigue and tiredness. Also reports lightheadedness this morning Offers no other complaints Vitals stable afebrile, heart rate 78, respiratory rate 18, blood pressure 130/ 60, saturating at 95 on room air. Review of Systems Constitutional: Denies: chills, diaphoresis, fever, malaise, weakness. Objective Last 24 Hrs of Vital Signs/I&O Vital Signs Date Time Temp Pulse Resp B/P B/P Pulse O2 O2 Flow FiO2 Mean Ox Delivery Rate 07/04 09 78 134/70 07/04 0803 98.5 78 18 138/72 95 Room Air 07/03 2226 98.0 78 22 126/68 94 Room Air 07/03 1600 98.4 78 18 122/62 96 Room Air Room Air Intake & Output 07/04 1600 07/04 0800 07/04 0000 Intake Total 450 960 Output Total 1400 Balance -950 960 Intake, Oral 450 960 Output, Urine 1400 Physical Exam General Appearance: Alert, Oriented X3, Cooperative, No Acute Distress Skin: No Rashes, No Breakdown HEENT: Atraumatic, PERRLA Neck: Supple, No JVD Lymphatic: Cervical nl Cardiovascular: Normal S1, Normal S2 Lungs: Normal Air Movement Abdomen: Normal Bowel Sounds, Soft, No Tenderness Extremities: No Clubbing, No Cyanosis, No Edema Current Medications: Current Medications Sig/Dasha Start time Last Medication Dose Route Stop Time Status Admin Acetaminophen 650 MG .STK-MED ONE 07/04 0050 DC PO 07/04 005 Acetaminophen 650 MG Q6P PRN 06/30 2044 AC PO Acetaminophen 1,000 MG Q6P PRN 06/30 2044 AC IV Aspirin Buffered 81 MG DAILY 07/01 2131 AC 07/04 PO 09 Atorvastatin Calcium 40 MG DAILY 07/01 1000 AC 07/04 PO 09 Bisacodyl 5 MG DAILY PRN 07/04 1045 UNVr PO Clopidogrel Bisulfate 75 MG DAILY 07/01 2131 AC 07/04 PO 0913 Fludrocortisone 100 MCG DAILY 07/03 1400 AC 07/04 Acetate PO 0913 Heparin Sodium 5,000 UNIT Q8 06/30 2200 AC 07/04 (Porcine) SC 0637 Insulin Aspart 0 TIDAC/HS 07/01 1200 AC 07/04 SC 0759 Insulin Detemir 12 UNITS DAILY 07/03 1000 AC 07/04 SC 0914 Metoprolol Succinate 50 MG DAILY 07/01 1000 AC 07/04 PO 0913 Midodrine 5 MG 0800,1200,1600 07/03 1600 AC 07/04 PO 0759 Morphine Sulfate 0.5 MG Q4P PRN 06/305 AC IV Patient Medication 1 ED .STK-MED ONE 07/03 1325 DC Teaching ED 07/03 1326 Polyethylene Glycol 17 GM DAILY PRN 07/04 1045 UNVr PO Venlafaxine HCl 25 MG DAILY 07/02 1530 AC 07/04 PO 0913 Last 24 Hrs of Lab/Heraclio Results Last 24 Hrs of Labs/Mics: Laboratory Tests 07/04/16 0628: Anion Gap 9, Estimated GFR 34 L, BUN/Creatinine Ratio 19.3, CBC w Diff NO MAN DIFF REQ, RBC 2.89 L, MCV 89.6, MCH 29.3, RDW 13.5, MPV 9.0, Gran % 48.4, Lymphocytes % 28.5, Monocytes % 11.6 H, Eosinophils % 11.0 H, Basophils % 0.5, Absolute Granulocytes 3.2, Absolute Lymphocytes 1.9, Absolute Monocytes 0.8 H, Absolute Eosinophils 0.7, Absolute Basophils 0, PUBS MCHC 32.8 L Assessment/Plan Assessment: This is a 18-year-old female past medical history significant for diabetes, CAD status post CABG, CHF, hypertension, hyperlipidemia who comes in for chief complaint of weakness, fatigue and dizziness. In ED further evaluation shows hyponatremia, hyperkalemia, and hyperglycemia. ED workup shows: Vitals: 96.3, 63, 18, systolic 137-160/diastolic 76-69. Satting 100%. Urine: Small leukocyte esterase, 25-50 white blood cell, few bacteria, greater than 1000 glucose. CBC shows: White count 8.0, hemoglobin 10.1, hematocrit 30.5. INR 1.07, lactic acid 2.6. BEP shows: Sodium 1 30, potassium 6.0, chloride 97, bicarbonate 19, BUN 58, creatinine 2.1. Glucose 600. Last A1c in January 2016 at 9.9. Serum osm 333 1. Hyperosmolar hyperglycemia Patient's hemoglobin A1c in the office was above 14 that led to the decision of sending the patient to ER from pcp office and possible admission to titrate her diabetic medications. Pt has hyperglycemia with hyperosmolar state in the ER. She came in with BS 600 and Sosm 333. Likely secondary to her diabetes medication non-compliance. Likely poor management of her underlying medical conditions is leading to her CC of weakness and dizziness. * GM admission * received 20 units insulin in the ER after which blood sugar improved to 200 * On diabetic diet * Endocrinology was consulted * On insulin NovoLog scale before meals and at bedtime * Started Levemir 12 units subcutaneous * Close monitoring of sugars * Monitor vitals closely * Follow-up endo recommendations Orthostatic hypotension Patient presented with increased weakness, fatigue, dizziness. Also reported non compliant with medications. She has positive orthostatics. Orthostatic hypotension most possibly from dehydration versus autonomic dysfunction. Patient was diagnosed with orthostatic hypotension in February 2016, she was started on midodrine and Florinef however she was noncompLIANT with her medications. * Positive for orthostats * Fall precautions * Note that pt has previously been seen for orthostasis at . She was sent out on mitodrine and pyridostigmine; unsure if she took those meds. * Cardiology consulted * Recommended Florinef and midodrine. 2. Lactic acidosis: Pt comes in with LA of 2.6. No gap noted on BEP * Con't monitor * Improved after hydration 2. Pseudo-Hyponatremia: Corrected for glucose of 600 gives NA 138. * Monitor BEP 3. Hyperkalemia: Pt has K 6.0 with no corresponding EKG changes. Likely secondary to her Hyperosmolar state. * k 4.3 now * monitor BEP 4. Acute on Chronic renal failure: Comes in with Cr 2.1 and Bun 58. Her baseline is 1.5-1.7. Given increased BUN and HHNS likely pre-renal. The suprapubic catheter is patent unlikely post- renal. * Received hydration * Monitor with BEP * Strict I/O 5. Anemia: Has Hb 10.1; previous work up shows low iron levels suggesting iron deficiency anemia. * Nephrology was consulted, history of CKD * May need epogen 6. Depression: will Cont' home regimen after verifying with pharmacy. 7. CAD: Pt has hx of CAD s/p CABG and two stents placed. Pt states that she is not taking clopidogrel regularly at home. * Metop Succinate * Cont' atorvastatin * Con't ASA * Cont' Clopidogrel 8. Dizziness and fatigue: This is her CC but possibly 2/2 her HHNS and medication non-compliance. However, requires further work up. * Follow up TSH/T4- normal * Follow up cortisol- normal * Follow up B12 and Folate -normal * PT evaluation-recommended short-term rehabilitation * Orthostatic hypotension most possibly from autonomic dysfunction versus dehydration * Cardiology was consulted, started on Florinef and midodrine DNR/DNI Diabetic diet Chemical dvt ppx Problem List: 1. Orthostatic hypotension 2. Yodbh-bj-[id number] kidney injury Pain Ratin Pain Location: n/a Pain Goal: Remain pain free Pain Plan: tylinol Tomorrow's Labs & Rationales: cbc Consulting Request: Consulting Specialty: Cardiology
--- NOTE | 2016-07-04 12:22 | PN- Pulmonary ---
Subjective HPI/Critical Care Issues: Patient was seen and examined this morning. She is alert awake and oriented to time place and person. She denies any overnight events. She denies any chest pain, breathing difficulty, shortness of breath, fever, chills. She reports generalized weakness, fatigue and tiredness. Also reports lightheadedness this morning Offers no other complaints Vitals stable afebrile, heart rate 78, respiratory rate 18, blood pressure 130/ 60, saturating at 95 on room air. Review of Systems Constitutional: Denies: chills, diaphoresis, fever, malaise, weakness. Objective Current Medications: Current Medications Sig/Dasha Start time Last Medication Dose Route Stop Time Status Admin Acetaminophen 650 MG .STK-MED ONE 07/04 0050 DC PO 07/04 0051 Acetaminophen 650 MG Q6P PRN 06/30 2044 AC PO Acetaminophen 1,000 MG Q6P PRN 06/30 2044 AC IV Aspirin Buffered 81 MG DAILY 06/30 2132 AC 07/04 PO 0913 Atorvastatin Calcium 40 MG DAILY 07/01 1000 AC 07/04 PO 0913 Bisacodyl 5 MG DAILY PRN 07/04 1045 AC 07/04 PO 1208 Clopidogrel Bisulfate 75 MG DAILY 06/30 2132 AC 07/04 PO 0913 Fludrocortisone 100 MCG DAILY 07/03 1400 AC 07/04 Acetate PO 0913 Heparin Sodium 5,000 UNIT Q8 06/30 2200 AC 07/04 (Porcine) SC 0637 Insulin Aspart 0 TIDAC/HS 07/01 1200 AC 07/04 SC 1210 Insulin Detemir 12 UNITS DAILY 07/03 1000 AC 07/04 SC 0914 Metoprolol Succinate 50 MG DAILY 07/01 1000 AC 07/04 PO 0913 Midodrine 5 MG 0800,1200,1600 07/03 1600 AC 07/04 PO 1208 Morphine Sulfate 0.5 MG Q4P PRN 06/30 2044 AC IV Patient Medication 1 ED .STK-MED ONE 07/03 1325 DC Teaching ED 07/03 1326 Polyethylene Glycol 17 GM DAILY PRN 07/04 1045 AC 07/04 PO 1208 Venlafaxine HCl 25 MG DAILY 07/02 1530 AC 07/04 PO 0913 Vital Signs & I&O Last 24 Hrs of Vitals and I&O: Vital Signs Date Time Temp Pulse Resp B/P B/P Pulse O2 O2 Flow FiO2 Mean Ox Delivery Rate 07/04 0913 78 134/70 07/04 0803 98.5 78 18 138/72 95 Room Air 07/03 2226 98.0 78 22 126/68 94 Room Air 07/03 1600 98.4 78 18 122/62 96 Room Air Room Air Intake & Output 07/04 1600 07/04 0800 07/04 0000 Intake Total 450 960 Output Total 1400 Balance -950 960 Intake, Oral 450 960 Output, Urine 1400 Patient 138 lb Weight Laboratory Tests 07/04 07/03 0628 0615 Chemistry Sodium (137 - 145 mmol/L) 138 140 Potassium (3.5 - 5.1 mmol/L) 4.2 4.1 Chloride (98 - 107 mmol/L) 109 H 113 H Carbon Dioxide (22 - 30 mmol/L) 20 L 19 L Anion Gap (5 - 16) 9 8 BUN (7 - 17 mg/dL) 29 H 31 H Creatinine (0.5 - 1.0 mg/dL) 1.5 H 1.5 H Estimated GFR (>60 ml/min) 34 L 34 L BUN/Creatinine Ratio (7 - 25 %) 19.3 20.7 Hematology CBC w Diff NO MAN DIFF REQ NO MAN DIFF REQ WBC (4.8 - 10.8 /CUMM) 6.5 5.6 RBC (4.20 - 5.40 /CUMM) 2.89 L 2.76 L Hgb (12.0 - 16.0 G/DL) 8.5 L 8.3 L Hct (37 - 47 %) 25.9 L 24.5 L MCV (81.0 - 99.0 FL) 89.6 88.9 MCH (27.0 - 31.0 PG) 29.3 29.9 RDW (11.5 - 14.5 %) 13.5 13.0 Plt Count (130 - 400 /CUMM) 195 183 MPV (7.4 - 10.4 FL) 9.0 8.9 Gran % (42.2 - 75.2 %) 48.4 47.0 Lymphocytes % (20.5 - 51.1 %) 28.5 30.3 Monocytes % (1.7 - 9.3 %) 11.6 H 11.6 H Eosinophils % (0 - 5 %) 11.0 H 10.5 H Basophils % (0.0 - 2.0 %) 0.5 0.6 Absolute Granulocytes (1.4 - 6.5 /CUMM) 3.2 2.7 Absolute Lymphocytes (1.2 - 3.4 /CUMM) 1.9 1.7 Absolute Monocytes (0.10 - 0.60 /CUMM) 0.8 H 0.7 H Absolute Eosinophils (0.0 - 0.7 /CUMM) 0.7 0.6 Absolute Basophils (0.0 - 0.2 /CUMM) 0 0 PUBS MCHC (33.0 - 37.0 G/DL) 32.8 L 33.7 Impression/Plan Impression/Plan Impression/Plan: Physical Exam General Appearance: Alert, Oriented X3, Cooperative, No Acute Distress Skin: No Rashes, No Breakdown HEENT: Atraumatic, PERRLA Neck: Supple, No JVD Lymphatic: Cervical nl Cardiovascular: Normal S1, Normal S2 Lungs: Normal Air Movement Abdomen: Normal Bowel Sounds, Soft, No Tenderness Extremities: No Clubbing, No Cyanosis, No Edema 76-year-old woman with a past medical history of diabetes mellitus, area artery disease (status post bypass surgery), congestive heart failure (diastolic), orthostatic hypertension and hyperlipidemia. She presents with severe fatigue, worsening over the past several weeks; however, persistent for several months. ISSUES Orthostatic hypotension, due to sig autonomatic instablity AOrtic stenosis DM CAD stable CKD with ARF better REC COnt all meds Strict sugar control dc morphine cotnt other meds will dc once her bp improves
--- NOTE | 2016-07-04 12:46 | PN- Diabetes ---
Assessment/Plan Assessment: 76-year-old female with past medical history significant for diabetes, CHF, hypertension, hyperlipidemia, CAD status post CABG, and chronic renal insufficiency, who presented to ER with the chief complaint of increasing weakness, fatigue and dizziness. she was put on Novolog coverage before meals and Novolog coverage at bedtime. Levemir was increased to 12 units daily. Her FSGs were 165, 139, 315 and 230. She was having orthostatic hypotension and was put on florinel 100 mcg daily and midodrine 5 mg three times a day. cortisol level was 15 on admission. Plan: 1. DM -- continue the current insulin regimen for now; --adjust diet to consistent carbohydrates 1 which includes 3-4 servings of carbohydrates per meal --monitor FSGs 2. orthostatic hypotension: --repeat am cortisol --check prolactin and FSG, LH. will follow. Subjective Subjective: She feels well and eats well. Objective Last 24 Hrs of Vital Signs/I&O Vital Signs Date Time Temp Pulse Resp B/P B/P Pulse O2 O2 Flow FiO2 Mean Ox Delivery Rate 07/04 0913 78 134/70 07/04 0803 98.5 78 18 138/72 95 Room Air 07/03 2226 98.0 78 22 126/68 94 Room Air 07/03 1600 98.4 78 18 122/62 96 Room Air Room Air Intake & Output 07/04 1600 07/04 0800 07/04 0000 Intake Total 450 960 Output Total 1400 Balance -950 960 Intake, Oral 450 960 Output, Urine 1400 Patient 138 lb Weight Findings Pertinent Lab/Heraclio Results: Laboratory Tests 07/04 0628 Chemistry Sodium (137 - 145 mmol/L) 138 Potassium (3.5 - 5.1 mmol/L) 4.2 Chloride (98 - 107 mmol/L) 109 H Carbon Dioxide (22 - 30 mmol/L) 20 L Anion Gap (5 - 16) 9 BUN (7 - 17 mg/dL) 29 H Creatinine (0.5 - 1.0 mg/dL) 1.5 H Estimated GFR (>60 ml/min) 34 L BUN/Creatinine Ratio (7 - 25 %) 19.3 Hematology CBC w Diff NO MAN DIFF REQ WBC (4.8 - 10.8 /CUMM) 6.5 RBC (4.20 - 5.40 /CUMM) 2.89 L Hgb (12.0 - 16.0 G/DL) 8.5 L Hct (37 - 47 %) 25.9 L MCV (81.0 - 99.0 FL) 89.6 MCH (27.0 - 31.0 PG) 29.3 RDW (11.5 - 14.5 %) 13.5 Plt Count (130 - 400 /CUMM) 195 MPV (7.4 - 10.4 FL) 9.0 Gran % (42.2 - 75.2 %) 48.4 Lymphocytes % (20.5 - 51.1 %) 28.5 Monocytes % (1.7 - 9.3 %) 11.6 H Eosinophils % (0 - 5 %) 11.0 H Basophils % (0.0 - 2.0 %) 0.5 Absolute Granulocytes (1.4 - 6.5 /CUMM) 3.2 Absolute Lymphocytes (1.2 - 3.4 /CUMM) 1.9 Absolute Monocytes (0.10 - 0.60 /CUMM) 0.8 H Absolute Eosinophils (0.0 - 0.7 /CUMM) 0.7 Absolute Basophils (0.0 - 0.2 /CUMM) 0 PUBS MCHC (33.0 - 37.0 G/DL) 32.8 L
[2016-07-04 14:59] VITALS: BP 142/62
[2016-07-05 07:28] VITALS: BP 162/71
[2016-07-05 07:51] LABS: ABSOLUTE BASOPHIL COUNT 0.1 /CUMM (0.0-0.2); ABSOLUTE EOSINOPHIL COUNT 0.9 /CUMM (0.0-0.7); ABSOLUTE GRANULOCYTE CT 3.5 /CUMM (1.4-6.5); ABSOLUTE LYMPH COUNT 2.7 /CUMM (1.2-3.4); BASOPHIL % 0.7 % (0.0-2.0); GRANULOCYTE % 42.9 % (42.2-75.2); HEMATOCRIT 26.6 % (37-47); MEAN CORPUSCULAR HGB CONC 33.5 G/DL (33.0-37.0); MEAN CORPUSCULAR VOLUME 89.7 FL (81.0-99.0); MEAN PLATELET VOLUME 8.9 FL (7.4-10.4); PLATELET COUNT 207 /CUMM (130-400); RBC DISTRIBUTION WIDTH 13.4 % (11.5-14.5); RED BLOOD CELL CT 2.97 /CUMM (4.20-5.40); WHITE BLOOD CELL COUNT 8.1 /CUMM (4.8-10.8)
--- NOTE | 2016-07-05 08:04 | PN- Diabetes ---
Assessment/Plan Assessment: 76-year-old female with past medical history significant for diabetes, CHF, hypertension, hyperlipidemia, CAD status post CABG, and chronic renal insufficiency, who presented to ER with the chief complaint of increasing weakness, fatigue and dizziness. she was put on Novolog coverage before meals and Novolog coverage at bedtime. Levemir was increased to 12 units daily. Her FSGs were 230, 335, 249, 278 and 270. She was having orthostatic hypotension and was put on florinel 100 mcg daily and midodrine 5 mg three times a day. cortisol level was 15 on admission. Repeat am cortisol was 14.5 this morning which is normal. Plan: 1. increase Levemir to 15 units daily; 2. adjust Novolog coverage before meals-- detail see the inpatient DM orders; 3. continue the current Novolog coverage at bedtime; 4. monitor FSGs. will follow. Inpatient Diabetes Orders Before Each Meal: Bolus Insulin: Novolog < 80 mg/dl: no coverage 80-100 mg/dl: 4 units 101-120 mg/dl: 4 units 121-150 mg/dl: 4 units 151-200 mg/dl: 5 units 201-250 mg/dl: 6 units 251-300 mg/dl: 7 units 301-350 mg/dl: 8 units 351-400 mg/dl: 9 units > 400 mg/dl: 10 units Subjective Subjective: she feels okay this morning. Objective Last 24 Hrs of Vital Signs/I&O Vital Signs Date Time Temp Pulse Resp B/P B/P Pulse O2 O2 Flow FiO2 Mean Ox Delivery Rate 07/05 0728 98.3 64 20 162/71 95 Room Air 07/04 1459 98.4 65 18 142/62 96 Room Air 07/04 0913 78 134/70 07/04 0803 98.5 78 18 138/72 95 Room Air Intake & Output 07/05 1600 07/05 0800 07/05 0000 Intake Total 300 760 Output Total 1500 350 Balance -1200 410 Intake, Oral 300 760 Output, Urine 1500 350 Findings Pertinent Lab/Heraclio Results: Laboratory Tests 07/05 0615 Chemistry Sodium (137 - 145 mmol/L) 139 Potassium (3.5 - 5.1 mmol/L) 4.1 Chloride (98 - 107 mmol/L) 107 Carbon Dioxide (22 - 30 mmol/L) 21 L Anion Gap (5 - 16) 11 BUN (7 - 17 mg/dL) 27 H Creatinine (0.5 - 1.0 mg/dL) 1.5 H Estimated GFR (>60 ml/min) 34 L BUN/Creatinine Ratio (7 - 25 %) 18.0 Cortisol AM Sample (4.46 - 22.7 ug/dL) 14.5 Hematology CBC w Diff Pending WBC Pending RBC Pending Hgb Pending Hct Pending MCV Pending MCH Pending RDW Pending Plt Count Pending MPV Pending PUBS MCHC Pending
--- NOTE | 2016-07-05 08:22 | PN- Housestaff ---
Subjective Follow-up For: orthostatic hypotension Hyperosmolar hyperglycemia- resolved Acute on chronic renal failure Frequent falls Anemia Complaints: pain scale (0-10) Subjective: Patient was seen and examined this morning. She is alert awake and oriented to time place and person. She denies any overnight events. She denies any chest pain, breathing difficulty, shortness of breath, fever, chills. She reports generalized weakness, fatigue and tiredness. Also reports lightheadedness this morning Offers no other complaints Vitals stable afebrile, heart rate 78, respiratory rate 18, blood pressure 130/ 60, saturating at 95 on room air. Review of Systems Constitutional: Denies: chills, diaphoresis, fever, malaise. Objective Last 24 Hrs of Vital Signs/I&O Vital Signs Date Time Temp Pulse Resp B/P B/P Pulse O2 O2 Flow FiO2 Mean Ox Delivery Rate 07/05 0821 68 132/60 07/05 0728 98.3 64 20 162/71 95 Room Air 07/04 1459 98.4 65 18 142/62 96 Room Air Intake & Output 07/05 1600 07/05 0800 07/05 0000 Intake Total 300 760 Output Total 1500 350 Balance -1200 410 Intake, Oral 300 760 Output, Urine 1500 350 Physical Exam General Appearance: Alert, Oriented X3, Cooperative, No Acute Distress Skin: No Rashes, No Breakdown HEENT: Atraumatic, PERRLA, EOMI, Mucous Membr. moist/pink Neck: Supple, No JVD Lymphatic: Cervical nl Cardiovascular: Normal S1, Normal S2 Lungs: Normal Air Movement Abdomen: Normal Bowel Sounds, Soft, No Tenderness Extremities: No Clubbing, No Cyanosis, No Edema Vascular: Pulses Symmetrical Current Medications: Current Medications Sig/Dasha Start time Last Medication Dose Route Stop Time Status Admin Acetaminophen 650 MG Q6P PRN 06/30 2044 AC PO Acetaminophen 1,000 MG Q6P PRN 06/30 2044 AC IV Aspirin Buffered 81 MG DAILY 07/01 2131 AC 07/05 PO 08 Atorvastatin Calcium 40 MG DAILY 07/01 1000 AC 07/05 PO 0821 Bisacodyl 5 MG DAILY PRN 07/04 1045 AC 07/05 PO 0823 Clopidogrel Bisulfate 75 MG DAILY 07/01 2131 AC 07/05 PO 08 Fludrocortisone 100 MCG DAILY 07/03 1400 AC 07/05 Acetate PO 0822 Heparin Sodium 5,000 UNIT Q8 06/30 2200 AC 07/05 (Porcine) SC 0545 Insulin Aspart 0 TIDAC/HS 07/01 1200 AC 07/05 SC 1206 Insulin Detemir 15 UNITS DAILY 07/05 1000 AC 07/05 SC 1207 Insulin Detemir 12 UNITS DAILY 07/03 1000 DC 07/05 SC 0815 Metoprolol Succinate 50 MG DAILY 07/01 1000 AC 07/05 PO 0821 Midodrine 5 MG 0800,1200,1600 07/03 1600 AC 07/05 PO 1206 Polyethylene Glycol 17 GM DAILY PRN 07/04 1045 AC 07/05 PO 0824 Venlafaxine HCl 25 MG DAILY 07/02 1530 AC 07/05 PO 0823 Last 24 Hrs of Lab/Heraclio Results Last 24 Hrs of Labs/Mics: Laboratory Tests 07/05/16 0615: Anion Gap 11, Estimated GFR 34 L, BUN/Creatinine Ratio 18.0, Cortisol AM Sample 14.5, CBC w Diff NO MAN DIFF REQ, RBC 2.97 L, MCV 89.7, MCH 30.0, RDW 13.4, MPV 8.9, Gran % 42.9, Lymphocytes % 33.1, Monocytes % 12.3 H, Eosinophils % 11.0 H , Basophils % 0.7, Absolute Granulocytes 3.5, Absolute Lymphocytes 2.7, Absolute Monocytes 1.0 H, Absolute Eosinophils 0.9, Absolute Basophils 0.1, PUBS MCHC 33.5 Assessment/Plan Assessment: This is a 18-year-old female past medical history significant for diabetes, CAD status post CABG, CHF, hypertension, hyperlipidemia who comes in for chief complaint of weakness, fatigue and dizziness. In ED further evaluation shows hyponatremia, hyperkalemia, and hyperglycemia. ED workup shows: Vitals: 96.3, 63, 18, systolic 137-160/diastolic 76-69. Satting 100%. Urine: Small leukocyte esterase, 25-50 white blood cell, few bacteria, greater than 1000 glucose. CBC shows: White count 8.0, hemoglobin 10.1, hematocrit 30.5. INR 1.07, lactic acid 2.6. BEP shows: Sodium 1 30, potassium 6.0, chloride 97, bicarbonate 19, BUN 58, creatinine 2.1. Glucose 600. Last A1c in January 2016 at 9.9. Serum osm 333 1. Hyperosmolar hyperglycemia Patient's hemoglobin A1c in the office was above 14 that led to the decision of sending the patient to ER from pcp office and possible admission to titrate her diabetic medications. Pt has hyperglycemia with hyperosmolar state in the ER. She came in with BS 600 and Sosm 333. Likely secondary to her diabetes medication non-compliance. Likely poor management of her underlying medical conditions is leading to her CC of weakness and dizziness. * GM admission * received 20 units insulin in the ER after which blood sugar improved to 200 * On diabetic diet * Endocrinology was consulted * On insulin NovoLog scale before meals and at bedtime * Started Levemir 15 units subcutaneous * Close monitoring of sugars * Monitor vitals closely * Follow-up endo recommendations Orthostatic hypotension Patient presented with increased weakness, fatigue, dizziness. Also reported non compliant with medications. She has positive orthostatics. Orthostatic hypotension most possibly from dehydration versus autonomic dysfunction. Patient was diagnosed with orthostatic hypotension in February 2016, she was started on midodrine and Florinef however she was noncompLIANT with her medications. * Positive for orthostats * Fall precautions * Note that pt has previously been seen for orthostasis at . She was sent out on mitodrine and pyridostigmine; unsure if she took those meds. * Cardiology consulted * Recommended Florinef and midodrine. 2. Lactic acidosis: Pt comes in with LA of 2.6. No gap noted on BEP * Con't monitor * Improved after hydration 2. Pseudo-Hyponatremia: Corrected for glucose of 600 gives NA 138. * Monitor BEP 3. Hyperkalemia: Pt has K 6.0 with no corresponding EKG changes. Likely secondary to her Hyperosmolar state. * k 4.3 now * monitor BEP 4. Acute on Chronic renal failure: Comes in with Cr 2.1 and Bun 58. Her baseline is 1.5-1.7. Given increased BUN and HHNS likely pre-renal. The suprapubic catheter is patent unlikely post- renal. * Received hydration * Monitor with BEP * Strict I/O 5. Anemia: Has Hb 10.1; previous work up shows low iron levels suggesting iron deficiency anemia. * Nephrology was consulted, history of CKD * May need epogen 6. Depression: will Cont' home regimen after verifying with pharmacy. 7. CAD: Pt has hx of CAD s/p CABG and two stents placed. Pt states that she is not taking clopidogrel regularly at home. * Metop Succinate * Cont' atorvastatin * Con't ASA * Cont' Clopidogrel 8. Dizziness and fatigue: This is her CC but possibly 2/2 her HHNS and medication non-compliance. However, requires further work up. * Follow up TSH/T4- normal * Follow up cortisol- normal * Follow up B12 and Folate -normal * PT evaluation-recommended short-term rehabilitation * Orthostatic hypotension most possibly from autonomic dysfunction versus dehydration * Cardiology was consulted, started on Florinef and midodrine DNR/DNI Diabetic diet Chemical dvt ppx Problem List: 1. Orthostatic hypotension 2. [id number] kidney injury Pain Ratin Pain Location: NONE Pain Goal: Remain pain free Pain Plan: TYLINOL Tomorrow's Labs & Rationales: CBC Consulting Request: Consulting Specialty: Cardiology
--- NOTE | 2016-07-05 13:50 | PN- Pulmonary ---
Subjective HPI/Critical Care Issues: Patient was seen and examined this morning. She is alert awake and oriented to time place and person. She denies any overnight events. She denies any chest pain, breathing difficulty, shortness of breath, fever, chills. She reports generalized weakness, fatigue and tiredness. Also reports lightheadedness this morning Offers no other complaints Vitals stable afebrile, heart rate 78, respiratory rate 18, blood pressure 130/ 60, saturating at 95 on room air. Review of Systems Constitutional: Denies: chills, diaphoresis, fever, malaise. Objective Current Medications: Current Medications Sig/Dasha Start time Last Medication Dose Route Stop Time Status Admin Acetaminophen 650 MG Q6P PRN 06/30 2044 AC PO Acetaminophen 1,000 MG Q6P PRN 06/30 2044 AC IV Aspirin Buffered 81 MG DAILY 07/01 2131 AC 07/05 PO 0822 Atorvastatin Calcium 40 MG DAILY 07/01 1000 AC 07/05 PO 0821 Bisacodyl 5 MG DAILY PRN 07/04 1045 AC 07/05 PO 0823 Clopidogrel Bisulfate 75 MG DAILY 07/01 2131 AC 07/05 PO 0822 Fludrocortisone 100 MCG DAILY 07/03 1400 AC 07/05 Acetate PO 0822 Heparin Sodium 5,000 UNIT Q8 06/30 2200 AC 07/05 (Porcine) SC 0545 Insulin Aspart 0 TIDAC/HS 07/01 1200 AC 07/05 SC 1206 Insulin Detemir 15 UNITS DAILY 07/05 1000 AC 07/05 SC 1207 Insulin Detemir 12 UNITS DAILY 07/03 1000 DC 07/05 SC 0815 Metoprolol Succinate 50 MG DAILY 07/01 1000 AC 07/05 PO 0821 Midodrine 5 MG 0800,1200,1600 07/03 1600 AC 07/05 PO 1206 Polyethylene Glycol 17 GM DAILY PRN 07/04 1045 AC 07/05 PO 0824 Venlafaxine HCl 25 MG DAILY 07/02 1530 AC 07/05 PO 0823 Vital Signs & I&O Last 24 Hrs of Vitals and I&O: Vital Signs Date Time Temp Pulse Resp B/P B/P Pulse O2 O2 Flow FiO2 Mean Ox Delivery Rate 07/05 08 68 132/60 07/05 0728 98.3 64 20 162/71 95 Room Air 07/04 1459 98.4 65 18 142/62 96 Room Air Intake & Output 07/05 1600 07/05 0800 07/05 0000 Intake Total 300 760 Output Total 1500 350 Balance -1200 410 Intake, Oral 300 760 Output, Urine 1500 350 Impression/Plan Impression/Plan Impression/Plan: Physical Exam General Appearance: Alert, Oriented X3, Cooperative, No Acute Distress Skin: No Rashes, No Breakdown HEENT: Atraumatic, PERRLA Neck: Supple, No JVD Lymphatic: Cervical nl Cardiovascular: Normal S1, Normal S2 Lungs: Normal Air Movement Abdomen: Normal Bowel Sounds, Soft, No Tenderness Extremities: No Clubbing, No Cyanosis, No Edema 76-year-old woman with a past medical history of diabetes mellitus, area artery disease (status post bypass surgery), congestive heart failure (diastolic), orthostatic hypertension and hyperlipidemia. She presents with severe fatigue, worsening over the past several weeks; however, persistent for several months. ISSUES Orthostatic hypotension, due to sig autonomatic instablity AOrtic stenosis DM on insulin CAD stable CKD with ARF better REC COnt all meds Strict sugar control cotnt other meds will dc once her bp improves hopefully to str in am
[2016-07-05 14:16] VITALS: BP 132/60
[2016-07-05 22:00] VITALS: BP 128/78
[2016-07-06 07:46] VITALS: BP 147/66
--- NOTE | 2016-07-06 08:11 | PN- Housestaff ---
Subjective Follow-up For: Orthostatic hypotension Hyperosmolar hyperglycemia- resolved Acute on chronic renal failure Frequent falls Anemia Complaints: dizzi while change position Subjective: Patient seen, she was comfortable but c/o dizzy while change position. Review of Systems Constitutional: Reports: weakness. Denies: no symptoms. Comments: Dizzy while change position. Objective Last 24 Hrs of Vital Signs/I&O Vital Signs Date Time Temp Pulse Resp B/P B/P Pulse O2 O2 Flow FiO2 Mean Ox Delivery Rate 07/06 2199 74 160/70 07/06 2199 99.1 74 18 140/70 96 Room Air 07/06 1447 98.0 62 18 140/62 99 Room Air 07/06 0952 64 160/62 07/06 0746 98.0 68 20 147/66 94 Room Air Intake & Output 07/07 0800 07/07 0000 07/06 1600 Intake Total 200 800 Output Total 1000 400 Balance -800 400 Intake, Oral 200 800 Output, Urine 1000 400 Physical Exam General Appearance: Alert, Oriented X3, Cooperative, No Acute Distress Cardiovascular: Regular Rate, Normal S1, Normal S2 Lungs: Clear to Auscultation, Normal Air Movement Abdomen: Soft, No Tenderness Neurological: Normal Speech Extremities: No Clubbing, No Cyanosis, No Edema Vascular: Normal Pulses, Pulses Symmetrical Current Medications: Current Medications Sig/Dasha Start time Last Medication Dose Route Stop Time Status Admin Acetaminophen 650 MG Q6P PRN 06/30 2044 AC PO Acetaminophen 1,000 MG Q6P PRN 06/30 2044 AC IV Aspirin Buffered 81 MG DAILY 07/01 2131 AC 07/06 PO 0952 Atorvastatin Calcium 40 MG DAILY 07/01 1000 AC 07/06 PO 0952 Bisacodyl 5 MG DAILY PRN 07/04 1045 AC 07/05 PO 0823 Calcium Carbonate 500 MG ONCE ONE 07/065 DC 07/06 PO 07/07 2215 223 Clopidogrel Bisulfate 75 MG DAILY 07/01 2131 AC 07/06 PO 0952 Fludrocortisone 100 MCG DAILY 07/03 1400 AC 07/06 Acetate PO 0952 Heparin Sodium 5,000 UNIT Q8 06/30 2200 AC 07/06 (Porcine) SC 2130 Insulin Aspart 0 TIDAC/HS 07/01 1200 AC 07/06 SC 1722 Insulin Detemir 17 UNITS DAILY 07/07 1000 AC SC Insulin Detemir 15 UNITS DAILY 07/05 1000 DC 07/06 WA 0952 Metoprolol Succinate 50 MG DAILY 07/01 1000 AC 07/06 PO 0952 Midodrine 5 MG 0800,1200,1600 07/03 1600 AC 07/06 PO 1722 Polyethylene Glycol 17 GM DAILY PRN 07/04 1045 07/05 PO 0824 Venlafaxine HCl 25 MG DAILY 07/02 1530 AC 07/06 PO 0953 Last 24 Hrs of Lab/Heraclio Results Last 24 Hrs of Labs/Mics: Laboratory Tests 07/06/16 0707: Anion Gap 11, Estimated GFR 29 L, BUN/Creatinine Ratio 18.2, CBC w Diff NO MAN DIFF REQ, RBC 3.06 L, MCV 91.2, MCH 29.7, RDW 13.5, MPV 8.6, Gran % 44.8, Lymphocytes % 29.9, Monocytes % 11.6 H, Eosinophils % 12.6 H, Basophils % 1.1, Absolute Granulocytes 3.4, Absolute Lymphocytes 2.2, Absolute Monocytes 0.9 H, Absolute Eosinophils 0.9, Absolute Basophils 0.1, PUBS MCHC 32.6 L Assessment/Plan Assessment: This is a 18-year-old female past medical history significant for diabetes, CAD status post CABG, CHF, hypertension, hyperlipidemia who comes in for chief complaint of weakness, fatigue and dizziness. In ED further evaluation shows hyponatremia, hyperkalemia, and hyperglycemia. ED workup shows: Vitals: 96.3, 63, 18, systolic 137-160/diastolic 76-69. Satting 100%. Urine: Small leukocyte esterase, 25-50 white blood cell, few bacteria, greater than 1000 glucose. CBC shows: White count 8.0, hemoglobin 10.1, hematocrit 30.5. INR 1.07, lactic acid 2.6. BEP shows: Sodium 1 30, potassium 6.0, chloride 97, bicarbonate 19, BUN 58, creatinine 2.1. Glucose 600. Last A1c in January 2016 at 9.9. Serum osm 333 1. Hyperosmolar hyperglycemia Patient's hemoglobin A1c in the office was above 14 that led to the decision of sending the patient to ER from pcp office and possible admission to titrate her diabetic medications. Pt has hyperglycemia with hyperosmolar state in the ER. She came in with BS 600 and Sosm 333. Likely secondary to her diabetes medication non-compliance. Likely poor management of her underlying medical conditions is leading to her CC of weakness and dizziness. * GM admission * received 20 units insulin in the ER after which blood sugar improved to 200 * On diabetic diet * Endocrinology was consulted * On insulin NovoLog scale before meals and at bedtime * Increased Levemir 17 units subcutaneous * Close monitoring of sugars * Monitor vitals closely * Follow-up endo recommendations Orthostatic hypotension Patient presented with increased weakness, fatigue, dizziness. Also reported non compliant with medications. She has positive orthostatics. Orthostatic hypotension most possibly from dehydration versus autonomic dysfunction. Patient was diagnosed with orthostatic hypotension in February 2016, she was started on midodrine and Florinef however she was noncompLIANT with her medications. * Positive for orthostats * Fall precautions * Note that pt has previously been seen for orthostasis at . She was sent out on mitodrine and pyridostigmine; unsure if she took those meds. * Cardiology consulted * Recommended Florinef and midodrine. * According to Dr boyd Patient still orthostatic so advised to use stockings, if she still remain dizzy and orthostatic than will increase dose of midodrine 2. Lactic acidosis: Pt comes in with LA of 2.6. No gap noted on BEP * Con't monitor * Improved after hydration 2. Pseudo-Hyponatremia: Corrected for glucose of 600 gives NA 138. * Monitor BEP 3. Hyperkalemia: Pt has K 6.0 with no corresponding EKG changes. Likely secondary to her Hyperosmolar state. * k 4.3 now * monitor BEP 4. Acute on Chronic renal failure: Comes in with Cr 2.1 and Bun 58. Her baseline is 1.5-1.7. Given increased BUN and HHNS likely pre-renal. The suprapubic catheter is patent unlikely post- renal. * Received hydration * Monitor with BEP * Strict I/O 5. Anemia: Has Hb 10.1; previous work up shows low iron levels suggesting iron deficiency anemia. * Nephrology was consulted, history of CKD * May need epogen 6. Depression: * will Cont' home regimen after verifying with pharmacy. 7. CAD: Pt has hx of CAD s/p CABG and two stents placed. Pt states that she is not taking clopidogrel regularly at home. * Metop Succinate * Cont' atorvastatin * Con't ASA * Cont' Clopidogrel 8. Dizziness and fatigue: This is her CC but possibly 2/2 her HHNS and medication non-compliance. However, requires further work up. * Follow up TSH/T4- normal * Follow up cortisol- normal * Follow up B12 and Folate -normal * PT evaluation-recommended short-term rehabilitation * Orthostatic hypotension most possibly from autonomic dysfunction versus dehydration * Cardiology was consulted, started on Florinef and midodrine DNR/DNI Diabetic diet Chemical dvt ppx Problem List: 1. CKD (chronic kidney disease) 2. Orthostatic hypotension Pain Ratin Pain Location: not applicable Pain Goal: Remain pain free Pain Plan: mild Tomorrow's Labs & Rationales: cbc,bep DVT/Prophylaxis: mechanical, pharmacological Consulting Request: Consulting Specialty: Cardiology
[2016-07-06 08:57] LABS: ABSOLUTE BASOPHIL COUNT 0.1 /CUMM (0.0-0.2); ABSOLUTE EOSINOPHIL COUNT 0.9 /CUMM (0.0-0.7); ABSOLUTE GRANULOCYTE CT 3.4 /CUMM (1.4-6.5); ABSOLUTE LYMPH COUNT 2.2 /CUMM (1.2-3.4); ABSOLUTE MONOCYTE COUNT 0.9 /CUMM (0.10-0.60); BASOPHIL % 1.1 % (0.0-2.0); EOSINOPHIL % 12.6 % (0-5); GRANULOCYTE % 44.8 % (42.2-75.2); HEMATOCRIT 27.9 % (37-47); MEAN CORPUSCULAR HGB 29.7 PG (27.0-31.0); MEAN CORPUSCULAR HGB CONC 32.6 G/DL (33.0-37.0); MEAN CORPUSCULAR VOLUME 91.2 FL (81.0-99.0); MEAN PLATELET VOLUME 8.6 FL (7.4-10.4); PLATELET COUNT 227 /CUMM (130-400); RBC DISTRIBUTION WIDTH 13.5 % (11.5-14.5); RED BLOOD CELL CT 3.06 /CUMM (4.20-5.40); WHITE BLOOD CELL COUNT 7.5 /CUMM (4.8-10.8)
--- NOTE | 2016-07-06 12:03 | PN- Diabetes ---
Assessment/Plan Assessment: 76-year-old female with past medical history significant for diabetes, CHF, hypertension, hyperlipidemia, CAD status post CABG, and chronic renal insufficiency, who presented to ER with the chief complaint of increasing weakness, fatigue and dizziness. she was put on Novolog coverage before meals and Novolog coverage at bedtime. Levemir was increased to 15 units daily. Her FSGs were 207, 195 and 191. She was having orthostatic hypotension and was put on florinel 100 mcg daily and midodrine 5 mg three times a day. cortisol level was 15 on admission. Repeat am cortisol was 14.5 which is normal. Plan: 1. increase Levemir to 17 units daily; 2. continue the current Novolog coverage before meals and Novolog coverage at bedtime; 3. monitor FSGs. will follow. Subjective Subjective: She feels okay. Objective Last 24 Hrs of Vital Signs/I&O Vital Signs Date Time Temp Pulse Resp B/P B/P Pulse O2 O2 Flow FiO2 Mean Ox Delivery Rate 07/06 0952 64 160/62 07/06 0746 98.0 68 20 147/66 94 Room Air 07/05 2200 98.2 64 18 128/78 99 Room Air 07/05 1416 99.4 61 18 132/60 97 Room Air Intake & Output 07/06 1600 07/06 0800 07/06 0000 Intake Total 110 720 Output Total 800 800 Balance -690 -80 Intake, Oral 110 720 Output, Urine 800 800 Findings Pertinent Lab/Heraclio Results: Laboratory Tests 07/06 0707 Chemistry Sodium (137 - 145 mmol/L) 139 Potassium (3.5 - 5.1 mmol/L) 4.1 Chloride (98 - 107 mmol/L) 107 Carbon Dioxide (22 - 30 mmol/L) 21 L Anion Gap (5 - 16) 11 BUN (7 - 17 mg/dL) 31 H Creatinine (0.5 - 1.0 mg/dL) 1.7 H Estimated GFR (>60 ml/min) 29 L BUN/Creatinine Ratio (7 - 25 %) 18.2 Hematology CBC w Diff NO MAN DIFF REQ WBC (4.8 - 10.8 /CUMM) 7.5 RBC (4.20 - 5.40 /CUMM) 3.06 L Hgb (12.0 - 16.0 G/DL) 9.1 L Hct (37 - 47 %) 27.9 L MCV (81.0 - 99.0 FL) 91.2 MCH (27.0 - 31.0 PG) 29.7 RDW (11.5 - 14.5 %) 13.5 Plt Count (130 - 400 /CUMM) 227 MPV (7.4 - 10.4 FL) 8.6 Gran % (42.2 - 75.2 %) 44.8 Lymphocytes % (20.5 - 51.1 %) 29.9 Monocytes % (1.7 - 9.3 %) 11.6 H Eosinophils % (0 - 5 %) 12.6 H Basophils % (0.0 - 2.0 %) 1.1 Absolute Granulocytes (1.4 - 6.5 /CUMM) 3.4 Absolute Lymphocytes (1.2 - 3.4 /CUMM) 2.2 Absolute Monocytes (0.10 - 0.60 /CUMM) 0.9 H Absolute Eosinophils (0.0 - 0.7 /CUMM) 0.9 Absolute Basophils (0.0 - 0.2 /CUMM) 0.1 PUBS MCHC (33.0 - 37.0 G/DL) 32.6 L
--- NOTE | 2016-07-06 12:21 | PN- Pulmonary ---
Subjective HPI/Critical Care Issues: She feels okay. Still feels dizzy but mild Objective Current Medications: Current Medications Sig/Dasha Start time Last Medication Dose Route Stop Time Status Admin Acetaminophen 650 MG Q6P PRN 06/30 2044 AC PO Acetaminophen 1,000 MG Q6P PRN 06/30 2044 AC IV Aspirin Buffered 81 MG DAILY 07/01 2131 AC 07/06 PO 0952 Atorvastatin Calcium 40 MG DAILY 07/01 1000 AC 07/06 PO 0952 Bisacodyl 5 MG DAILY PRN 07/04 1045 AC 07/05 PO 0823 Clopidogrel Bisulfate 75 MG DAILY 07/01 2131 AC 07/06 PO 0952 Fludrocortisone 100 MCG DAILY 07/03 1400 AC 07/06 Acetate PO 0952 Heparin Sodium 5,000 UNIT Q8 06/30 2199 AC 07/06 (Porcine) SC 0620 Insulin Aspart 0 TIDAC/HS 07/01 1200 AC 07/06 SC 1155 Insulin Detemir 17 UNITS DAILY 07/07 1000 AC SC Insulin Detemir 15 UNITS DAILY 07/05 1000 DC 07/06 SC 0952 Metoprolol Succinate 50 MG DAILY 07/01 1000 AC 07/06 PO 0952 Midodrine 5 MG 0800,1200,1600 07/03 1600 AC 07/06 PO 1156 Polyethylene Glycol 17 GM DAILY PRN 07/04 1045 AC 07/05 PO 0824 Venlafaxine HCl 25 MG DAILY 07/02 1530 AC 07/06 PO 0953 Vital Signs & I&O Last 24 Hrs of Vitals and I&O: Vital Signs Date Time Temp Pulse Resp B/P B/P Pulse O2 O2 Flow FiO2 Mean Ox Delivery Rate 07/06 0952 64 160/62 07/06 0746 98.0 68 20 147/66 94 Room Air 07/05 2200 98.2 64 18 128/78 99 Room Air 07/05 1416 99.4 61 18 132/60 97 Room Air Intake & Output 07/06 1600 07/06 0800 07/06 0000 Intake Total 110 720 Output Total 800 800 Balance -690 -80 Intake, Oral 110 720 Output, Urine 800 800 Impression/Plan Impression/Plan Impression/Plan: Physical Exam General Appearance: Alert, Oriented X3, Cooperative, No Acute Distress Skin: No Rashes, No Breakdown HEENT: Atraumatic, PERRLA Neck: Supple, No JVD Lymphatic: Cervical nl Cardiovascular: Normal S1, Normal S2 Lungs: Normal Air Movement Abdomen: Normal Bowel Sounds, Soft, No Tenderness Extremities: No Clubbing, No Cyanosis, No Edema 76-year-old woman with a past medical history of diabetes mellitus, area artery disease (status post bypass surgery), congestive heart failure (diastolic), orthostatic hypertension and hyperlipidemia. She presents with severe fatigue, worsening over the past several weeks; however, persistent for several months. ISSUES Orthostatic hypotension, due to sig autonomatic instablity AOrtic stenosis DM on insulin CAD stable CKD with ARF better REC COnt all meds Strict sugar control cotnt other meds Ok to dc with current meds to str if able
--- NOTE | 2016-07-06 14:38 | PN- Cardiology ---
Subjective Subjective: The patient is doing okay today. She is currently on midodrine and Florinef. She notes that she continues to feel lightheaded with assuming the upright position. She also feels lightheaded and dizzy with rapid motion of her head. Her most recent orthostatic blood pressures show that her lying systolic pressure is 160. This decreases to 110-115 mmHg upon standing. Objective Vital Signs and I&Os Vital Signs Date Time Temp Pulse Resp B/P B/P Pulse O2 O2 Flow FiO2 Mean Ox Delivery Rate 07/06 09 64 160/62 07/06 0746 98.0 68 20 147/66 94 Room Air 07/05 220 98.2 64 18 128/78 99 Room Air Intake & Output 07/06 1600 07/06 0800 07/06 0000 07/05 1600 07/05 0807/05 0000 Intake Total 800 110 720 720 300 760 Output Total 400 800 020 080 2804 350 Balance 400 -690 -80 520 -1200 410 Intake, Oral 800 110 720 720 300 760 Number 2 Bowel Movements Output, Urine 400 800 441 439 2906 350 Physical Exam: General Appearance: Alert, Oriented X3, Cooperative, No Acute Distress Skin: Normal HEENT: Atraumatic, PERRLA, EOMI, Mucous Membr. moist/pink Neck: Supple, No JVD, No thryomegaly, carotid upstrokes normal bilaterally with no bruits Cardiovascular: Normal S1, Normal S2, 2/6 systolic murmur left sternal border Lungs: Normal Air Movement Abdomen: Normal Bowel Sounds, Soft, No Tenderness Extremities: No Clubbing, No Cyanosis, No Edema Vascular: Pulses Symmetrical Current Medications: Current Medications Sig/Dasha Start time Last Medication Dose Route Stop Time Status Admin Acetaminophen 650 MG Q6P PRN 06/30 2044 AC PO Acetaminophen 1,000 MG Q6P PRN 06/30 2044 AC IV Aspirin Buffered 81 MG DAILY 07/01 2131 AC 07/06 PO 0952 Atorvastatin Calcium 40 MG DAILY 07/01 1000 AC 07/06 PO 0952 Bisacodyl 5 MG DAILY PRN 07/04 1045 AC 07/05 PO 0823 Clopidogrel Bisulfate 75 MG DAILY 07/01 2131 AC 07/06 PO 0952 Fludrocortisone 100 MCG DAILY 07/03 1400 AC 07/06 Acetate PO 0952 Heparin Sodium 5,000 UNIT Q8 06/30 2199 AC 07/06 (Porcine) SC 1312 Insulin Aspart 0 TIDAC/HS 07/01 1200 AC 07/06 SC 1155 Insulin Detemir 17 UNITS DAILY 07/07 1000 AC SC Insulin Detemir 15 UNITS DAILY 07/05 1000 DC 07/06 SC 0952 Metoprolol Succinate 50 MG DAILY 07/01 1000 AC 07/06 PO 0952 Midodrine 5 MG 0800,1200,1600 07/03 1600 AC 07/06 PO 1156 Polyethylene Glycol 17 GM DAILY PRN 07/04 1045 AC 07/05 PO 0824 Venlafaxine HCl 25 MG DAILY 07/02 1530 AC 07/06 PO 0953 Results Last 48 Hrs of Labs/Mics: Laboratory Tests 07/06/16 0707: Anion Gap 11, Estimated GFR 29 L, BUN/Creatinine Ratio 18.2, CBC w Diff NO MAN DIFF REQ, RBC 3.06 L, MCV 91.2, MCH 29.7, RDW 13.5, MPV 8.6, Gran % 44.8, Lymphocytes % 29.9, Monocytes % 11.6 H, Eosinophils % 12.6 H, Basophils % 1.1, Absolute Granulocytes 3.4, Absolute Lymphocytes 2.2, Absolute Monocytes 0.9 H, Absolute Eosinophils 0.9, Absolute Basophils 0.1, PUBS MCHC 32.6 L 07/05/16 0615: Anion Gap 11, Estimated GFR 34 L, BUN/Creatinine Ratio 18.0, Cortisol AM Sample 14.5, CBC w Diff NO MAN DIFF REQ, RBC 2.97 L, MCV 89.7, MCH 30.0, RDW 13.4, MPV 8.9, Gran % 42.9, Lymphocytes % 33.1, Monocytes % 12.3 H, Eosinophils % 11.0 H , Basophils % 0.7, Absolute Granulocytes 3.5, Absolute Lymphocytes 2.7, Absolute Monocytes 1.0 H, Absolute Eosinophils 0.9, Absolute Basophils 0.1, PUBS MCHC 33.5 Assessment/Plan Assessment/Plan Assessment: 1. Significant orthostatic hypotension 2. Moderate to severe Aortic stenosis (estimated aortic valve area 1.1 cm) with mild aortic insufficiency 3. History of coronary artery disease status post bypass surgery 4. History of HFpEF 5. Hyperlipidemia 6. Worsening normocytic anemia 7. Chronic renal insufficiency Recommendations: -The patient is doing somewhat better since the addition of midodrine and Florinef to her regimen. Nevertheless, she remains significantly orthostatic. -At the moment, I am reluctant to increase the midodrine further due to her resting mild hypertension. -These have the patient fitted for support stockings to see if this helps with her orthostasis. -If, despite the support stockings the patient remains orthostatic, consider support waist high. The hose, possible abdominal binder, or increasing midodrine to 5 mg 3 times a day.
[2016-07-06 14:47] VITALS: BP 140/62
[2016-07-06 22:00] VITALS: BP 140/70; BP 160/70
[2016-07-07 06:02] VITALS: BP 140/72
--- NOTE | 2016-07-07 07:14 | PN- Housestaff ---
Subjective Follow-up For: orthostatic hypotension Hyperosmolar hyperglycemia- resolved Acute on chronic renal failure Frequent falls Anemia Complaints: pain scale (0-10) Subjective: Patient was seen and examined this morning. She is alert awake and oriented to time place and person. She denies any overnight events. She denies any chest pain, breathing difficulty, shortness of breath, fever, chills. She reports generalized weakness, fatigue and tiredness. Also reports lightheadedness this morning Offers no other complaints Vitals stable afebrile, heart rate 78, respiratory rate 18, blood pressure 140/ 60, saturating at 95 on room air. Positive for orthostatic hypotension 160/70 on lying and 108/68 on standing Review of Systems Constitutional: Reports: weakness. Denies: chills, diaphoresis, fever, malaise. Objective Last 24 Hrs of Vital Signs/I&O Vital Signs Date Time Temp Pulse Resp B/P B/P Pulse O2 O2 Flow FiO2 Mean Ox Delivery Rate 07/07 1523 98.4 60 18 134/70 98 Room Air 07/07 1419 Room Air Room Air 07/07 0900 78 140/72 07/07 0602 98.3 78 18 140/72 93 Room Air 07/06 2200 74 160/70 07/06 2200 99.1 74 18 140/70 96 Room Air Intake & Output 07/07 1600 07/07 0800 07/07 0000 Intake Total 800 200 200 Output Total 450 1300 1000 Balance 350 -1100 -800 Intake, Oral 800 200 200 Output, Urine 450 1300 1000 Physical Exam General Appearance: Alert, Oriented X3, Cooperative, No Acute Distress Skin: No Rashes, No Breakdown HEENT: Atraumatic, PERRLA, EOMI, Mucous Membr. moist/pink Neck: Supple, No JVD Lymphatic: Axillary nl, Cervical nl Cardiovascular: Normal S1, Normal S2, No Murmurs Lungs: Normal Air Movement Abdomen: Normal Bowel Sounds, Soft, No Tenderness Extremities: No Clubbing, No Cyanosis, No Edema Vascular: Normal Pulses, Pulses Symmetrical Current Medications: Current Medications Sig/Dasha Start time Last Medication Dose Route Stop Time Status Admin Acetaminophen 650 MG Q6P PRN 06/30 2044 AC PO Acetaminophen 1,000 MG Q6P PRN 06/30 2044 AC IV Aspirin Buffered 81 MG DAILY 07/01 2131 AC 07/07 PO 0900 Atorvastatin Calcium 40 MG DAILY 07/01 1000 AC 07/07 PO 0900 Bisacodyl 5 MG DAILY PRN 07/04 1045 AC 07/05 PO 0823 Calcium Carbonate 500 MG ONCE ONE 07/065 DC 07/06 PO 07/07 2215 223 Clopidogrel Bisulfate 75 MG DAILY 06/30 2132 AC 07/07 PO 0900 Droxidopa 100 MG TID 07/07 1127 AC 07/07 PO 1607 Fludrocortisone 100 MCG DAILY 07/03 1400 DC 07/07 Acetate PO 0901 Heparin Sodium 5,000 UNIT Q8 06/30 2200 AC 07/07 (Porcine) SC 1315 Insulin Aspart 0 TIDAC/HS 07/01 1200 AC 07/07 SC 1208 Insulin Detemir 17 UNITS DAILY 07/07 1000 AC 07/07 SC 0900 Metoprolol Succinate 50 MG DAILY 07/01 1000 AC 07/07 PO 0900 Midodrine 5 MG 0800,1200,1600 07/03 1600 DC 07/07 PO 0753 Patient Medication 1 ED .STK-MED ONE 07/07 1348 MA Teaching ED 07/07 1349 Polyethylene Glycol 17 GM DAILY PRN 07/04 1045 AC 07/05 PO 0824 Venlafaxine HCl 25 MG DAILY 07/02 1530 AC 07/07 PO 0901 Assessment/Plan Assessment: This is a 18-year-old female past medical history significant for diabetes, CAD status post CABG, CHF, hypertension, hyperlipidemia who comes in for chief complaint of weakness, fatigue and dizziness. In ED further evaluation shows hyponatremia, hyperkalemia, and hyperglycemia. ED workup shows: Vitals: 96.3, 63, 18, systolic 137-160/diastolic 76-69. Satting 100%. Urine: Small leukocyte esterase, 25-50 white blood cell, few bacteria, greater than 1000 glucose. CBC shows: White count 8.0, hemoglobin 10.1, hematocrit 30.5. INR 1.07, lactic acid 2.6. BEP shows: Sodium 1 30, potassium 6.0, chloride 97, bicarbonate 19, BUN 58, creatinine 2.1. Glucose 600. Last A1c in January 2016 at 9.9. Serum osm 333 1. Hyperosmolar hyperglycemia Patient's hemoglobin A1c in the office was above 14 that led to the decision of sending the patient to ER from pcp office and possible admission to titrate her diabetic medications. Pt has hyperglycemia with hyperosmolar state in the ER. She came in with BS 600 and Sosm 333. Likely secondary to her diabetes medication non-compliance. Likely poor management of her underlying medical conditions is leading to her CC of weakness and dizziness. * GM admission * received 20 units insulin in the ER after which blood sugar improved to 200 * On diabetic diet * Endocrinology was consulted * On insulin NovoLog scale before meals and at bedtime * Increased Levemir 17 units subcutaneous * Close monitoring of sugars * Monitor vitals closely * Follow-up endo recommendations Orthostatic hypotension Patient presented with increased weakness, fatigue, dizziness. Also reported non compliant with medications. She has positive orthostatics. Orthostatic hypotension most possibly from dehydration versus autonomic dysfunction. Patient was diagnosed with orthostatic hypotension in February 2016, she was started on midodrine and Florinef however she was noncompLIANT with her medications. * Positive for orthostats * Fall precautions * Note that pt has previously been seen for orthostasis at . She was sent out on mitodrine and pyridostigmine; unsure if she took those meds. * Cardiology consulted * started on Florinef and midodrine, however patient remained orthostatic being on Florinef and midodrine. * According to Dr duff, Patient still orthostatic -so advised to use stockings and start NORTHRA. Advised to stop Florinef and midodrine. 2. Lactic acidosis: Pt comes in with LA of 2.6. No gap noted on BEP * Con't monitor * Improved after hydration 2. Pseudo-Hyponatremia: Corrected for glucose of 600 gives NA 138. * Monitor BEP 3. Hyperkalemia: Pt has K 6.0 with no corresponding EKG changes. Likely secondary to her Hyperosmolar state. * k 4.3 now * monitor BEP 4. Acute on Chronic renal failure: Comes in with Cr 2.1 and Bun 58. Her baseline is 1.5-1.7. Given increased BUN and HHNS likely pre-renal. The suprapubic catheter is patent unlikely post- renal. * Received hydration * Monitor with BEP * Strict I/O 5. Anemia: Has Hb 10.1; previous work up shows low iron levels suggesting iron deficiency anemia. * Nephrology was consulted, history of CKD * May need epogen 6. Depression: * will Cont' home regimen. 7. CAD: Pt has hx of CAD s/p CABG and two stents placed. Pt states that she is not taking clopidogrel regularly at home. * Metop Succinate * Cont' atorvastatin * Con't ASA * Cont' Clopidogrel 8. Dizziness and fatigue: This is her CC but possibly 2/2 her HHNS and medication non-compliance. However, requires further work up. * Follow up TSH/T4- normal * Follow up cortisol- normal * Follow up B12 and Folate -normal * PT evaluation-recommended short-term rehabilitation * Orthostatic hypotension most possibly from autonomic dysfunction versus dehydration * Cardiology on board DNR/DNI Diabetic diet Chemical dvt ppx Problem List: 1. Orthostatic hypotension 2. Ejlrd-ns-owimnth kidney injury Pain Ratin Pain Location: n/a Pain Goal: Remain pain free Pain Plan: tylinol prn Tomorrow's Labs & Rationales: none Consulting Request: Consulting Specialty: Cardiology
--- NOTE | 2016-07-07 09:08 | PN- Att Addend ---
Attending Addendum Attending Brief Note Patient complains of recurrent dizziness mostly on standing. General Appearance: Alert, No Acute Distress Skin: Grossly normal HEENT: PEERLA Neck: Supple, No JVD Cardiovascular: Regular Rate, Normal S1, Normal S2, No Murmurs Lungs: Clear to Auscultation, Normal Air Movement Abdomen: Normal Bowel Sounds, Soft, No Tenderness Neurological: Normal Speech, Strength at 5/5 X4 Ext, Cranial Nerves 3-12 NL, Reflexes 2+ Extremities: No Clubbing, No Cyanosis, No Edema Vascular: Normal Pulses Assessment Persistent symptomatic orthostatics despite being on midodrine and Florinef. We 'll discuss with cardiology regarding considering the new agent for orthostatic hypotension like NORTHRA. Compression stockings in place. We will continue to check orthostatics and observe for improvement in her symptoms. Patient needs a better long-term plan. She will definitely need supervision for medication administration. For now she will benefit with placement to short-term rehabilitation. Plan Discuss with cardiology regarding titrating orthostatic meds/northera? Repeat orthostatics daily Diabetic management per endocrinology Need STR placement DNI/DNR Current Medications Sig/Dasha Start time Last Medication Dose Route Stop Time Status Admin Acetaminophen 650 MG Q6P PRN 06/30 2044 AC PO Acetaminophen 1,000 MG Q6P PRN 06/30 2044 AC IV Aspirin Buffered 81 MG DAILY 07/01 2131 AC 07/07 PO 0900 Atorvastatin Calcium 40 MG DAILY 07/01 1000 AC 07/07 PO 0900 Bisacodyl 5 MG DAILY PRN 07/04 1045 AC 07/05 PO 0823 Calcium Carbonate 500 MG ONCE ONE 07/06 2214 DC 07/06 PO 07/06 Clopidogrel Bisulfate 75 MG DAILY 07/01 2131 AC 07/07 PO 0900 Fludrocortisone 100 MCG DAILY 07/03 1400 AC 07/07 Acetate PO 0901 Heparin Sodium 5,000 UNIT Q8 06/30 2200 AC 07/07 (Porcine) SC 0521 Insulin Aspart 0 TIDAC/HS 07/01 1200 AC 07/07 SC 0754 Insulin Detemir 17 UNITS DAILY 07/07 1000 AC 07/07 SC 0900 Insulin Detemir 15 UNITS DAILY 07/05 1000 DC 07/06 SC 0952 Metoprolol Succinate 50 MG DAILY 07/01 1000 AC 07/07 PO 0900 Midodrine 5 MG 0800,1200,1600 07/03 1600 AC 07/07 PO 0753 Polyethylene Glycol 17 GM DAILY PRN 07/04 1045 AC 07/05 PO 0824 Venlafaxine HCl 25 MG DAILY 07/02 1530 AC 07/07 PO 0901 Vital Signs Date Time Temp Pulse Resp B/P B/P Pulse O2 O2 Flow FiO2 Mean Ox Delivery Rate 07/07 0900 78 140/72 07/07 0602 98.3 78 18 140/72 93 Room Air 07/06 2200 74 160/70 07/06 2200 99.1 74 18 140/70 96 Room Air 07/06 1447 98.0 62 18 140/62 99 Room Air 07/06 0952 64 160/62
--- NOTE | 2016-07-07 09:36 | PN- Diabetes ---
Assessment/Plan Assessment: 76-year-old female with past medical history significant for diabetes, CHF, hypertension, hyperlipidemia, CAD status post CABG, and chronic renal insufficiency, who presented to ER with the chief complaint of increasing weakness, fatigue and dizziness. She was having orthostatic hypotension and was put on florinel 100 mcg daily and midodrine 5 mg three times a day. cortisol level was 15 on admission. Repeat am cortisol was 14.5 which is normal. she was put on Novolog coverage before meals and Novolog coverage at bedtime. Levemir was increased to 17 units daily. Her FSGs were 191, 269, 174, 250 and 164. Plan: continue the current insulin regimen for now; monitor FSGs; will follow. Subjective Subjective: Her glucose levels have been improving. Objective Last 24 Hrs of Vital Signs/I&O Vital Signs Date Time Temp Pulse Resp B/P B/P Pulse O2 O2 Flow FiO2 Mean Ox Delivery Rate 07/07 0900 78 140/72 07/07 0602 98.3 78 18 140/72 93 Room Air 07/06 2200 74 160/70 07/06 2200 99.1 74 18 140/70 96 Room Air 07/06 1447 98.0 62 18 140/62 99 Room Air 07/06 0952 64 160/62 Intake & Output 07/07 1600 07/07 0800 07/07 0000 Intake Total 200 200 Output Total 1300 1000 Balance -1100 -800 Intake, Oral 200 200 Output, Urine 1300 1000
--- NOTE | 2016-07-07 10:16 | PN- Cardiology ---
Subjective Subjective: Patient denies chest pain or shortness of breath. She complains of dizziness. She remains orthostatic. She feels that given her persistent symptoms her life is over. Review of Systems: Eyes no blurred or double vision Ears no deafness or ringing Nose and throat no recurrent sinusitis Lungs per history of present illness Heart per history of present illness Abdomen no nausea vomiting Musculoskeletal occasional muscle and joint pains Psych no anxiety or depression Neuro without recurrent headache or seizures Endocrine no heat or cold intolerance Objective Vital Signs and I&Os Vital Signs Date Time Temp Pulse Resp B/P B/P Pulse O2 O2 Flow FiO2 Mean Ox Delivery Rate 07/07 0900 78 140/72 07/07 0602 98.3 78 18 140/72 93 Room Air 07/06 2200 74 160/70 07/06 2200 99.1 74 18 140/70 96 Room Air 07/06 1447 98.0 62 18 140/62 99 Room Air Intake & Output 07/07 1600 07/07 0800 07/07 0000 07/06 1600 07/06 0800 07/06 0000 Intake Total 200 200 800 110 720 Output Total 1300 1000 400 800 800 Balance -1100 -800 400 -690 -80 Intake, Oral 200 200 800 110 720 Output, Urine 1300 1000 400 800 800 Physical Exam: Patient is a well-developed well-nourished female appearing in no acute distress HEENT is unremarkable Neck is supple there is no JVD Lungs are clear Heart regular rhythm S1 and S2 are normal no murmurs gallops or rubs Abdomen bowel sounds positive Extremities without edema Current Medications: Current Medications Sig/Dasha Start time Last Medication Dose Route Stop Time Status Admin Acetaminophen 650 MG Q6P PRN 06/30 2044 AC PO Acetaminophen 1,000 MG Q6P PRN 06/30 2044 AC IV Aspirin Buffered 81 MG DAILY 07/01 2131 AC 07/07 PO 0900 Atorvastatin Calcium 40 MG DAILY 07/01 1000 AC 07/07 PO 0900 Bisacodyl 5 MG DAILY PRN 07/04 1045 AC 07/05 PO 0823 Calcium Carbonate 500 MG ONCE ONE 07/06 2214 DC 07/06 PO 07/06 Clopidogrel Bisulfate 75 MG DAILY 07/01 2131 AC 07/07 PO 0900 Fludrocortisone 100 MCG DAILY 07/03 1400 AC 07/07 Acetate PO 0901 Heparin Sodium 5,000 UNIT Q8 06/30 2199 AC 07/07 (Porcine) [place] 0521 Insulin Aspart 0 TIDAC/HS 07/01 1200 AC 07/07 SC 0754 Insulin Detemir 17 UNITS DAILY 07/07 1000 AC 07/07 SC 0900 Insulin Detemir 15 UNITS DAILY 07/05 1000 DC 07/06 SC 0952 Metoprolol Succinate 50 MG DAILY 07/01 1000 AC 07/07 PO 0900 Midodrine 5 MG 0800,1200,1600 07/03 1600 AC 07/07 PO 0753 Polyethylene Glycol 17 GM DAILY PRN 07/04 1045 AC 07/05 PO 0824 Venlafaxine HCl 25 MG DAILY 07/02 1530 AC 07/07 PO 0901 Results Last 48 Hrs of Labs/Mics: Laboratory Tests 07/06/16 0707: Anion Gap 11, Estimated GFR 29 L, BUN/Creatinine Ratio 18.2, CBC w Diff NO MAN DIFF REQ, RBC 3.06 L, MCV 91.2, MCH 29.7, RDW 13.5, MPV 8.6, Gran % 44.8, Lymphocytes % 29.9, Monocytes % 11.6 H, Eosinophils % 12.6 H, Basophils % 1.1, Absolute Granulocytes 3.4, Absolute Lymphocytes 2.2, Absolute Monocytes 0.9 H, Absolute Eosinophils 0.9, Absolute Basophils 0.1, PUBS MCHC 32.6 L Assessment/Plan Assessment/Plan 1. Orthostatic hypotension which persists despite midodrine and Florinef 2. Moderate to severe Aortic stenosis (estimated aortic valve area 1.1 cm) with mild aortic insufficiency 3. History of coronary artery disease status post bypass surgery 4. History of HFpEF 5. Hyperlipidemia 6. Worsening normocytic anemia 7. Chronic renal insufficiency Recommendations: -Would increase medication to 7.5 mg 3 times a day monitoring her blood pressure closely -These have the patient fitted for support stockings to see if this helps with her orthostasis. -If, despite the support stockings the patient remains orthostatic, consider support waist high. Continue telemetry? No
[2016-07-07 15:23] VITALS: BP 134/70
--- NOTE | 2016-07-07 15:40 | Event Note ---
Event Note Event Note: I spoke with Dr. Snider promotions associate regarding [id number] -orthostatic hypotension * Plan was to start northra 100 mg 3 times a day * Recheck orthostatics * Discontinue midodrine and Florinef at this point of time * Continue stockings
[2016-07-07 22:34] VITALS: BP 136/70
[2016-07-08 07:16] VITALS: BP 140/60
--- NOTE | 2016-07-08 07:32 | PN- Housestaff ---
Subjective Follow-up For: orthostatic hypotension Hyperosmolar hyperglycemia- resolved Acute on chronic renal failure- resolved Frequent falls Anemia Complaints: pain scale (0-10) Subjective: Patient was seen and examined this morning. She is alert awake and oriented to time place and person. She denies any overnight events. She denies any chest pain, breathing difficulty, shortness of breath, fever, chills. She reports generalized weakness, fatigue and tiredness. Also reports lightheadedness this morning Offers no other complaints Vitals stable afebrile, heart rate 74, respiratory rate 18, blood pressure 140/ 60, saturating at 95 on room air. Positive for orthostatic hypotension 126/62 on lying and 86/50 on standing Review of Systems Constitutional: Denies: chills, diaphoresis, fever, malaise, weakness. Objective Last 24 Hrs of Vital Signs/I&O Vital Signs Date Time Temp Pulse Resp B/P B/P Pulse O2 O2 Flow FiO2 Mean Ox Delivery Rate 07/08 0856 74 140/60 07/08 0716 98.1 74 20 140/60 98 07/07 2234 98.4 61 19 136/70 98 Room Air 07/07 1523 98.4 60 18 134/70 98 Room Air 07/07 1419 Room Air Room Air Intake & Output 07/08 1600 07/08 0800 07/08 0000 Intake Total 480 Output Total 300 Balance 180 Intake, Oral 480 Output, Urine 300 Physical Exam General Appearance: Alert, Oriented X3, Cooperative, No Acute Distress Skin: No Rashes, No Breakdown HEENT: Atraumatic, PERRLA Neck: Supple, No JVD Lymphatic: Cervical nl Cardiovascular: Normal S1, Normal S2 Lungs: Normal Air Movement Abdomen: Normal Bowel Sounds, Soft, No Tenderness Neurological: dizzy on standing Extremities: No Clubbing, No Cyanosis, No Edema Vascular: Normal Pulses Current Medications: Current Medications Sig/Dasha Start time Last Medication Dose Route Stop Time Status Admin Acetaminophen 650 MG Q6P PRN 06/30 2044 AC PO Acetaminophen 1,000 MG Q6P PRN 06/30 2044 AC IV Aspirin Buffered 81 MG DAILY 07/01 2131 AC 07/08 PO 0902 Atorvastatin Calcium 40 MG DAILY 07/01 1000 AC 07/08 PO 0856 Bisacodyl 5 MG DAILY PRN 07/04 1045 AC 07/08 PO 0856 Clopidogrel Bisulfate 75 MG DAILY 07/01 2131 AC 07/08 PO 0856 Droxidopa 100 MG TID 07/07 1127 AC 07/08 PO 0856 Fludrocortisone 100 MCG DAILY 07/03 1400 DC 07/07 Acetate PO 0901 Heparin Sodium 5,000 UNIT Q8 06/30 2200 AC 07/08 (Porcine) SC 0547 Insulin Aspart 0 TIDAC/HS 07/01 1200 AC 07/08 SC 0745 Insulin Detemir 17 UNITS DAILY 07/07 1000 AC 07/08 SC 0856 Metoprolol Succinate 50 MG DAILY 07/01 1000 AC 07/08 PO 0856 Midodrine 5 MG 0800,1200,1600 07/03 1600 DC 07/07 PO 0753 Patient Medication 1 ED .STK-MED ONE 07/07 1348 DC Teaching ED 07/07 1349 Polyethylene Glycol 17 GM DAILY PRN 07/04 1045 AC 07/08 PO 0855 Venlafaxine HCl 25 MG DAILY 07/02 1530 AC 07/08 PO 0856 Assessment/Plan Assessment: This is a 18-year-old female past medical history significant for diabetes, CAD status post CABG, CHF, hypertension, hyperlipidemia who comes in for chief complaint of weakness, fatigue and dizziness. In ED further evaluation shows hyponatremia, hyperkalemia, and hyperglycemia. ED workup shows: Vitals: 96.3, 63, 18, systolic 137-160/diastolic 76-69. Satting 100%. Urine: Small leukocyte esterase, 25-50 white blood cell, few bacteria, greater than 1000 glucose. CBC shows: White count 8.0, hemoglobin 10.1, hematocrit 30.5. INR 1.07, lactic acid 2.6. BEP shows: Sodium 1 30, potassium 6.0, chloride 97, bicarbonate 19, BUN 58, creatinine 2.1. Glucose 600. Last A1c in January 2016 at 9.9. Serum osm 333 1. Hyperosmolar hyperglycemia Patient's hemoglobin A1c in the office was above 14 that led to the decision of sending the patient to ER from pcp office and possible admission to titrate her diabetic medications. Pt has hyperglycemia with hyperosmolar state in the ER. She came in with BS 600 and Sosm 333. Likely secondary to her diabetes medication non-compliance. Likely poor management of her underlying medical conditions is leading to her CC of weakness and dizziness. * GM admission * received 20 units insulin in the ER after which blood sugar improved to 200 * On diabetic diet * Endocrinology was consulted * On insulin NovoLog scale before meals and at bedtime * Increased Levemir 17 units subcutaneous * Close monitoring of sugars * Monitor vitals closely * Follow-up endo recommendations Orthostatic hypotension Patient presented with increased weakness, fatigue, dizziness. Also reported non compliant with medications. She has positive orthostatics. Orthostatic hypotension most possibly from dehydration versus autonomic dysfunction. Patient was diagnosed with orthostatic hypotension in February 2016, she was started on midodrine and Florinef however she was noncompLIANT with her medications. * Positive for orthostats * Fall precautions * Note that pt has previously been seen for orthostasis at . She was sent out on mitodrine and florinef; unsure if she took those meds. * Cardiology consulted * started on Florinef and midodrine, however patient remained orthostatic being on Florinef and midodrine. * According to Dr duff, Patient still orthostatic -so advised to use stockings and start NORTHRA 100mg TID. * Advised to stop Florinef and midodrine. 2. Lactic acidosis: Pt comes in with LA of 2.6. No gap noted on BEP * Con't monitor * Improved after hydration 2. Pseudo-Hyponatremia: Corrected for glucose of 600 gives NA 138. * Monitor BEP 3. Hyperkalemia: Pt has K 6.0 with no corresponding EKG changes. Likely secondary to her Hyperosmolar state. * k 4.3 now * monitor BEP 4. Acute on Chronic renal failure: Comes in with Cr 2.1 and Bun 58. Her baseline is 1.5-1.7. Given increased BUN and HHNS likely pre-renal. The suprapubic catheter is patent unlikely post- renal. * Received hydration * Monitor with BEP * Strict I/O 5. Anemia: Has Hb 10.1; previous work up shows low iron levels suggesting iron deficiency anemia. * Nephrology was consulted, history of CKD * May need epogen 6. Depression: * will Cont' home regimen. 7. CAD: Pt has hx of CAD s/p CABG and two stents placed. Pt states that she is not taking clopidogrel regularly at home. * Metop Succinate * Cont' atorvastatin * Con't ASA * Cont' Clopidogrel 8. Dizziness and fatigue: This is her CC but possibly 2/2 her HHNS and medication non-compliance. However, requires further work up. * Follow up TSH/T4- normal * Follow up cortisol- normal * Follow up B12 and Folate -normal * PT evaluation-recommended short-term rehabilitation * Orthostatic hypotension most possibly from autonomic dysfunction versus dehydration * Cardiology on board DNR/DNI Diabetic diet Chemical dvt ppx Problem List: 1. Orthostatic hypotension 2. Weakness 3. Diabetes 4. Generalized weakness Pain Ratin Pain Location: n/a Pain Goal: Remain pain free Pain Plan: tylinol prn Tomorrow's Labs & Rationales: none Consulting Request: Consulting Specialty: Cardiology
--- NOTE | 2016-07-08 09:12 | PN- Att Addend ---
Attending Addendum Attending Brief Note Patient complains of persistent lightheadedness. General Appearance: Alert, No Acute Distress Skin: Grossly normal HEENT: PEERLA Neck: Supple, No JVD Cardiovascular: Regular Rate, Normal S1, Normal S2, No Murmurs Lungs: Clear to Auscultation, Normal Air Movement Abdomen: Normal Bowel Sounds, Soft, No Tenderness Neurological: Normal Speech, Strength at 5/5 X4 Ext, Cranial Nerves 3-12 NL, Reflexes 2+ Extremities: No Clubbing, No Cyanosis, No Edema Vascular: Normal Pulses Assessment Persistent symptomatic orthostatics despite being on midodrine and Florinef. Midodrine dose increased. We will repeat orthostatics today and if persistent orthostatic we'll increase dose to 10 mg 3 times a day. Plan Repeat orthostatics If persistence symptoms increase midodrine dose to 10 mg 3 times a day Diabetic management per endocrinology Need STR placement DNI/DNR Current Medications Sig/Dasha Start time Last Medication Dose Route Stop Time Status Admin Acetaminophen 650 MG Q6P PRN 06/30 2044 AC PO Acetaminophen 1,000 MG Q6P PRN 06/30 2044 AC IV Aspirin Buffered 81 MG DAILY 07/01 2131 AC 07/08 PO 0902 Atorvastatin Calcium 40 MG DAILY 07/01 1000 AC 07/08 PO 0856 Bisacodyl 5 MG DAILY PRN 07/04 1045 AC 07/08 PO 0856 Clopidogrel Bisulfate 75 MG DAILY 07/01 2131 AC 07/08 PO 0856 Droxidopa 100 MG TID 07/07 1127 AC 07/08 PO 0856 Fludrocortisone 100 MCG DAILY 07/03 1400 DC 07/07 Acetate PO 0901 Heparin Sodium 5,000 UNIT Q8 06/30 2200 AC 07/08 (Porcine) SC 0547 Insulin Aspart 0 TIDAC/HS 07/01 1200 AC 07/08 SC 0745 Insulin Detemir 17 UNITS DAILY 07/07 1000 AC 07/08 SC 0856 Metoprolol Succinate 50 MG DAILY 07/01 1000 AC 07/08 PO 0856 Midodrine 5 MG 0800,1200,1600 07/03 1600 DC 07/07 PO 0753 Patient Medication 1 ED .STK-MED ONE 07/07 1348 DC Teaching ED 07/07 1349 Polyethylene Glycol 17 GM DAILY PRN 07/04 1045 AC 07/08 PO 0855 Venlafaxine HCl 25 MG DAILY 07/02 1530 AC 07/08 PO 0856 Vital Signs Date Time Temp Pulse Resp B/P B/P Pulse O2 O2 Flow FiO2 Mean Ox Delivery Rate 07/08 0856 74 140/60 07/08 0716 98.1 74 20 140/60 98 07/07 2234 98.4 61 19 136/70 98 Room Air 07/07 1523 98.4 60 18 134/70 98 Room Air 07/07 1419 Room Air Room Air
--- NOTE | 2016-07-08 11:15 | PN- Cardiology ---
Subjective Subjective: Symptoms grossly unchanged. Denies dyspnea or chest pain. Objective Vital Signs and I&Os Vital Signs Date Time Temp Pulse Resp B/P B/P Pulse O2 O2 Flow FiO2 Mean Ox Delivery Rate 07/08 0856 74 140/60 07/08 0716 98.1 74 20 140/60 98 07/07 2234 98.4 61 19 136/70 98 Room Air 07/07 1523 98.4 60 18 134/70 98 Room Air 07/07 1419 Room Air Room Air Intake & Output 07/08 1600 07/08 0000 07/07 1600 07/07 0807/07 0000 Intake Total 480 800 200 200 Output Total 510 607 7119 1000 Balance 180 350 -1100 -800 Intake, Oral 480 800 200 200 Output, Urine 720 147 6176 1000 Physical Exam: General: no apparent distress. Alert. Eyes: No obvious scleral icterus. HEENT: No jugular venous distention or abnormal jugular venous pulsations. Cardiovascular: Normal intensity S1/S2. 3/6 systolic murmur Respiratory: Lungs clear to auscultation bilaterally. Abdomen: Soft, nontender with no guarding or rebound tenderness. Musculoskeletal: No clubbing or cyanosis noted, no edema Skin: Warm Neurologic: No gross focal deficits noted. Current Medications: Current Medications Sig/Dasha Start time Last Medication Dose Route Stop Time Status Admin Acetaminophen 650 MG Q6P PRN 06/30 2044 AC PO Acetaminophen 1,000 MG Q6P PRN 06/30 2044 AC IV Aspirin Buffered 81 MG DAILY 07/01 2131 AC 07/08 PO 0902 Atorvastatin Calcium 40 MG DAILY 07/01 1000 AC 07/08 PO 0856 Bisacodyl 5 MG DAILY PRN 07/04 1045 AC 07/08 PO 0856 Clopidogrel Bisulfate 75 MG DAILY 06/30 213 AC 07/08 PO 0856 Droxidopa 100 MG TID 07/07 1127 AC 07/08 PO 0856 Fludrocortisone 100 MCG DAILY 07/03 1400 DC 07/07 Acetate PO 0901 Heparin Sodium 5,000 UNIT Q8 06/30 2200 AC 07/08 (Porcine) SC 0547 Insulin Aspart 0 TIDAC/HS 07/01 1200 AC 07/08 SC 0745 Insulin Detemir 17 UNITS DAILY 07/07 1000 AC 07/08 SC 0856 Metoprolol Succinate 50 MG DAILY 07/01 1000 AC 07/08 PO 0856 Midodrine 5 MG 0800,1200,1600 07/03 1600 DC 07/07 PO 0753 Patient Medication 1 ED .STK-MED ONE 07/07 1348 DC Teaching ED 07/07 1349 Polyethylene Glycol 17 GM DAILY PRN 07/04 1045 07/08 PO 0855 Venlafaxine HCl 25 MG DAILY 07/02 1530 AC 07/08 PO 0856 Results Last 48 Hrs of Labs/Mics: Laboratory Tests 07/06/16 0707: Anion Gap 11, Estimated GFR 29 L, BUN/Creatinine Ratio 18.2, CBC w Diff NO MAN DIFF REQ, RBC 3.06 L, MCV 91.2, MCH 29.7, RDW 13.5, MPV 8.6, Gran % 44.8, Lymphocytes % 29.9, Monocytes % 11.6 H, Eosinophils % 12.6 H, Basophils % 1.1, Absolute Granulocytes 3.4, Absolute Lymphocytes 2.2, Absolute Monocytes 0.9 H, Absolute Eosinophils 0.9, Absolute Basophils 0.1, PUBS MCHC 32.6 L Recent Imaging Studies: The patient is not on telemetry Assessment/Plan Assessment/Plan 1. Orthostatic hypotension, persistent despite midodrine/Florinef therapy 2. Moderate to severe Aortic stenosis 3. History of coronary artery disease status post bypass surgery 4. History of HFpEF? 5. Hyperlipidemia 6. Normocytic anemia 7. Chronic renal insufficiency Remains orthostatic with symptoms. Due to persistent orthostatic hypotension the patient has been switched to Droxidopa as there may be a neurogenic component. Her aortic stenosis may also be contributing. I reviewed with her some lower extremity exercises prior to sitting/standing. Recommend obtaining compression stockings that go above the waist. Plan to titrate up the Northera in the future. Plan to reassess aortic stenosis severity by echocardiogram as an outpatient. She will need closer cardiology follow-up in the future. Depending on aortic stenosis severity and symptoms in the future she may be a candidate for TAVR. No evidence of decompensated congestive heart failure at this time. Josh Izaguirre MD [facility] Continue telemetry? Not applicable
[2016-07-08 14:27] VITALS: BP 130/60
--- NOTE | 2016-07-08 14:29 | PN- Diabetes ---
Assessment/Plan Assessment: 76-year-old female with past medical history significant for diabetes, CHF, hypertension, hyperlipidemia, CAD status post CABG, and chronic renal insufficiency, who presented to ER with the chief complaint of increasing weakness, fatigue and dizziness. She was having orthostatic hypotension and was put on florinel 100 mcg daily and midodrine 5 mg three times a day. cortisol level was 15 on admission. Repeat am cortisol was 14.5 which is normal. she was put on Novolog coverage before meals and Novolog coverage at bedtime. Levemir was increased to 17 units daily. Her FSGs were 223, 117 and 133. Plan: continue the current insulin regimen for now; monitor FSGs; will follow. Subjective Subjective: she still feels lightheaded when she gets up. Objective Last 24 Hrs of Vital Signs/I&O Vital Signs Date Time Temp Pulse Resp B/P B/P Pulse O2 O2 Flow FiO2 Mean Ox Delivery Rate 07/08 0856 74 140/60 07/08 0716 98.1 74 20 140/60 98 07/07 2234 98.4 61 19 136/70 98 Room Air 07/07 1523 98.4 60 18 134/70 98 Room Air Intake & Output 07/08 1600 07/08 0800 07/08 0000 Intake Total 700 480 Output Total 550 300 Balance 150 180 Intake, Oral 700 480 Number 0 Bowel Movements Output, Urine 550 300
[2016-07-08 23:29] VITALS: BP 138/62
[2016-07-09 06:57] VITALS: BP 124/70
--- NOTE | 2016-07-09 08:16 | PN- Diabetes ---
Assessment/Plan Assessment: 76-year-old female with past medical history significant for diabetes, CHF, hypertension, hyperlipidemia, CAD status post CABG, and chronic renal insufficiency, who presented to ER with the chief complaint of increasing weakness, fatigue and dizziness. She was having orthostatic hypotension and was put on florinel 100 mcg daily and midodrine 5 mg three times a day which were discontinued on 07/07/2016. cortisol level was 15 on admission. Repeat am cortisol was 14.5 which is normal. Currently she is on Northera. she was put on Novolog coverage before meals and Novolog coverage at bedtime. Levemir was increased to 17 units daily. Her FSGs were 133, 350, 252, 232 and 274. Plan: 1. further increase Levemir to 18 units daily; 2. adjust Novolog coverage before meals-- detail see the inpatient DM order; 3. continue the current Novolog coverage at bedtime; 4. monitor FSGs. will follow. Inpatient Diabetes Orders Before Each Meal: Bolus Insulin: Novolog < 80 mg/dl: no coverage 80-100 mg/dl: 5 units 101-120 mg/dl: 5 units 121-150 mg/dl: 5 units 151-200 mg/dl: 6 units 201-250 mg/dl: 7 units 251-300 mg/dl: 8 units 301-350 mg/dl: 9 units 351-400 mg/dl: 10 units > 400 mg/dl: 11 units Subjective Subjective: She still has orthostatic hypotension when she gets up. Objective Last 24 Hrs of Vital Signs/I&O Vital Signs Date Time Temp Pulse Resp B/P B/P Pulse O2 O2 Flow FiO2 Mean Ox Delivery Rate 07/09 0557 98.1 75 18 124/70 96 Room Air 07/08 2329 98.2 68 20 138/62 96 Room Air 07/08 1427 98.6 67 18 130/60 98 Room Air 07/08 0856 74 140/60 Intake & Output 07/09 1600 07/09 0800 07/09 0000 Intake Total 120 450 Output Total 1100 500 Balance -980 -50 Intake, Oral 120 450 Output, Urine 1100 500
--- NOTE | 2016-07-09 08:30 | PN- Housestaff ---
Subjective Follow-up For: orthostatic hypotension Hyperosmolar hyperglycemia- resolved Acute on chronic renal failure- resolved Frequent falls Anemia Carotid artery stenosis Complaints: pain scale (0-10) Subjective: Patient was seen and examined this morning. She is alert awake and oriented to time place and person. She denies any overnight events. She denies any chest pain, breathing difficulty, shortness of breath, fever, chills. She reports generalized weakness, fatigue and tiredness. Also reports lightheadedness this morning Offers no other complaints Vitals stable afebrile, heart rate 74, respiratory rate 18, blood pressure 140/ 60, saturating at 95 on room air. Positive for orthostatic hypotension 126/62 on lying and 86/50 on standing Review of Systems Constitutional: Denies: chills, diaphoresis, fever, malaise. Objective Last 24 Hrs of Vital Signs/I&O Vital Signs Date Time Temp Pulse Resp B/P B/P Pulse O2 O2 Flow FiO2 Mean Ox Delivery Rate 07/09 0955 Room Air Room Air 07/09 0900 75 124/70 07/09 0657 98.1 75 18 124/70 96 Room Air 07/08 2329 98.2 68 20 138/62 96 Room Air 07/08 1427 98.6 67 18 130/60 98 Room Air Intake & Output 07/09 1600 07/09 0800 07/09 0000 Intake Total 120 450 Output Total 1100 500 Balance -980 -50 Intake, Oral 120 450 Output, Urine 1100 500 Physical Exam General Appearance: Alert, Oriented X3, Cooperative, No Acute Distress Skin: No Rashes, No Breakdown HEENT: Atraumatic, PERRLA, EOMI, Mucous Membr. moist/pink Neck: Supple, No JVD, No thryomegaly Lymphatic: Cervical nl Cardiovascular: Normal S1, Normal S2 Lungs: Normal Air Movement Abdomen: Normal Bowel Sounds, Soft, No Tenderness Extremities: No Clubbing, No Cyanosis, No Edema Vascular: Pulses Symmetrical Current Medications: Current Medications Sig/Dasha Start time Last Medication Dose Route Stop Time Status Admin Acetaminophen 650 MG Q6P PRN 06/30 2044 AC PO Acetaminophen 1,000 MG Q6P PRN 06/30 2044 AC IV Aspirin Buffered 81 MG DAILY 07/01 2131 DC 07/08 PO 09 Atorvastatin Calcium 40 MG DAILY 07/01 1000 AC 07/09 PO 09 Bisacodyl 5 MG DAILY PRN 07/04 1045 AC 07/09 PO 0944 Calcium Carbonate 500 MG DAILY 07/09 1000 AC 07/09 PO 1109 Clopidogrel Bisulfate 75 MG DAILY 06/30 2132 AC 07/09 PO 0900 Droxidopa 200 MG 1600 07/09 1600 CAN PO Droxidopa 200 MG TID 07/09 1600 AC PO Droxidopa 100 MG ONCE ONE 07/09 1100 DC 07/09 PO 07/09 1101 1109 Droxidopa 200 MG TID 07/09 1000 DC PO Droxidopa 100 MG TID 07/07 1127 DC 07/09 PO 0900 Heparin Sodium 5,000 UNIT Q8 06/30 2200 AC 07/09 (Porcine) SC 0543 Insulin Aspart 0 TIDAC/HS 07/01 1200 AC 07/09 SC 1229 Insulin Detemir 18 UNITS DAILY 07/09 1000 AC 07/09 SC 0900 Insulin Detemir 17 UNITS DAILY 07/07 1000 DC 07/08 SC 0856 Metoprolol Succinate 50 MG DAILY 07/01 1000 AC 07/09 PO 0900 Omeprazole 40 MG DAILY AC 07/09 0845 AC 07/09 PO 0901 Polyethylene Glycol 17 GM DAILY PRN 07/04 1045 AC 07/09 PO 0944 Venlafaxine HCl 25 MG DAILY 07/02 1530 AC 07/09 PO 0901 Assessment/Plan Assessment: This is a 18-year-old female past medical history significant for diabetes, CAD status post CABG, CHF, hypertension, hyperlipidemia who comes in for chief complaint of weakness, fatigue and dizziness. In ED further evaluation shows hyponatremia, hyperkalemia, and hyperglycemia. ED workup shows: Vitals: 96.3, 63, 18, systolic 137-160/diastolic 76-69. Satting 100%. Urine: Small leukocyte esterase, 25-50 white blood cell, few bacteria, greater than 1000 glucose. CBC shows: White count 8.0, hemoglobin 10.1, hematocrit 30.5. INR 1.07, lactic acid 2.6. BEP shows: Sodium 1 30, potassium 6.0, chloride 97, bicarbonate 19, BUN 58, creatinine 2.1. Glucose 600. Last A1c in January 2016 at 9.9. Serum osm 333 1. Hyperosmolar hyperglycemia Patient's hemoglobin A1c in the office was above 14 that led to the decision of sending the patient to ER from pcp office and possible admission to titrate her diabetic medications. Pt has hyperglycemia with hyperosmolar state in the ER. She came in with BS 600 and Sosm 333. Likely secondary to her diabetes medication non-compliance. Likely poor management of her underlying medical conditions is leading to her CC of weakness and dizziness. * GM admission * received 20 units insulin in the ER after which blood sugar improved to 200 * On diabetic diet * Endocrinology was consulted * On insulin NovoLog scale before meals and at bedtime * Increased Levemir 18 units subcutaneous * Close monitoring of sugars * Monitor vitals closely * Follow-up endo recommendations Orthostatic hypotension Patient presented with increased weakness, fatigue, dizziness. Also reported non compliant with medications. She has positive orthostatics. Orthostatic hypotension most possibly from dehydration versus autonomic dysfunction. Patient was diagnosed with orthostatic hypotension in February 2016, she was started on midodrine and Florinef however she was noncompLIANT with her medications. * Positive for orthostats * Fall precautions * Note that pt has previously been seen for orthostasis at . She was sent out on mitodrine and florinef; unsure if she took those meds. * Cardiology consulted * started on Florinef and midodrine, however patient remained orthostatic being on Florinef and midodrine. * According to Dr duff, Patient still orthostatic -so advised to use stockings and start NORTHRA 100mg TID. * Advised to stop Florinef and midodrine. * NORTHRA dose increased 200 mg 3 times a day. * Compression stockings ICA STENOSIS?? She reports a history of TIA in December 2015 after a cardiac catheterization procedure. She states that she had transient right sided facial droop. She was hospitalized at [facility] at that time. she was found to have a complete left ICA occlusion and a right ICA stenosis in the 60-70% range. She was seen by the vascular surgery service who recommended dual antiplatelet therapy and nonoperative follow-up for the time, (since the right carotid artery stenosis was considered to be clinically asymptomatic ) with future consideration to be given towards elective right carotid endarterectomy. The patient states she has not followed up with a vascular surgeon. * We will continue dual antiplatelet therapy aspirin and Plavix * Will continue statin therapy * Vascular surgery consult * Carotid ultrasound * Neurology on board. Lactic acidosis: Pt comes in with LA of 2.6. No gap noted on BEP * Con't monitor * Improved after hydration Pseudo-Hyponatremia: Corrected for glucose of 600 gives NA 138. * Monitor BEP Hyperkalemia: Pt has K 6.0 with no corresponding EKG changes. Likely secondary to her Hyperosmolar state. * k 4.3 now * monitor BEP Acute on Chronic renal failure: Comes in with Cr 2.1 and Bun 58. Her baseline is 1.5-1.7. Given increased BUN and HHNS likely pre-renal. The suprapubic catheter is patent unlikely post- renal. * Received hydration * Monitor with BEP * Strict I/O Anemia: Has Hb 10.1; previous work up shows low iron levels suggesting iron deficiency anemia. * Nephrology was consulted, history of CKD * May need epogen Depression: * will Cont' home regimen. CAD: Pt has hx of CAD s/p CABG and two stents placed. Pt states that she is not taking clopidogrel regularly at home. * Metop Succinate * Cont' atorvastatin * Con't ASA * Cont' Clopidogrel Dizziness and fatigue: This is her CC but possibly 2/2 her HHNS and medication non-compliance. However, requires further work up. * Follow up TSH/T4- normal * Follow up cortisol- normal * Follow up B12 and Folate -normal * PT evaluation-recommended short-term rehabilitation * Orthostatic hypotension most possibly from autonomic dysfunction versus dehydration * Cardiology on board * Neurology on BOARD DNR/DNI Diabetic diet Chemical dvt ppx Problem List: 1. Orthostatic hypotension 2. [id number] kidney injury 3. Weakness Pain Ratin Pain Location: N/A Pain Goal: Remain pain free Pain Plan: TYLINOL Tomorrow's Labs & Rationales: CBC, BEP Consulting Request: Consulting Specialty: Cardiology
--- NOTE | 2016-07-09 08:38 | PN- Cardiology ---
Subjective Subjective: Patient complains of heartburn for the last 3 or 4 days occurring any time and lasting for hours. She is just unhappy being in the hospital and questions why and who was sent to the hospital. She admits to several falls a day but appears to be more accepting of the falls then her symptoms of heartburn. Northera was started yesterday. Objective Vital Signs and I&Os Vital Signs Date Time Temp Pulse Resp B/P B/P Pulse O2 O2 Flow FiO2 Mean Ox Delivery Rate 07/09 0657 98.1 75 18 124/70 96 Room Air 07/08 2329 98.2 68 20 138/62 96 Room Air 07/08 1427 98.6 67 18 130/60 98 Room Air 07/08 0856 74 140/60 Intake & Output 07/09 1600 07/09 0807/09 0000 07/08 1600 07/08 0807/08 0000 Intake Total 120 450 700 480 Output Total 1100 500 550 300 Balance -980 -50 150 180 Intake, Oral 120 450 700 480 Number 0 Bowel Movements Output, Urine 1100 500 550 300 Physical Exam: Gen. exam patient is very comfortable in bed and communicative Head normocephalic atraumatic Eyes sclera anicteric conjunctiva showed no pallor extraocular muscles were normal Neck no jugular venous distention faint left carotid bruit no thyroid masses no palpable nodes Chest lungs were clear bilaterally Heart regular rhythm with a grade 2/6 ejection systolic murmur Abdomen soft nontender no organomegaly bowel sounds normal Extremities no clubbing cyanosis or pedal edema Neurological no gross motor or sensory deficit Current Medications: Current Medications Sig/Dasha Start time Last Medication Dose Route Stop Time Status Admin Acetaminophen 650 MG Q6P PRN 06/30 2044 AC PO Acetaminophen 1,000 MG Q6P PRN 06/30 2044 AC IV Aspirin Buffered 81 MG DAILY 07/01 2131 AC 07/08 PO 0902 Atorvastatin Calcium 40 MG DAILY 07/01 1000 AC 07/08 PO 0856 Bisacodyl 5 MG DAILY PRN 07/04 1045 AC 07/08 PO 0856 Clopidogrel Bisulfate 75 MG DAILY 07/01 2131 AC 07/08 PO 0856 Droxidopa 100 MG TID 07/07 1127 AC 07/08 PO 2221 Heparin Sodium 5,000 UNIT Q8 06/30 2199 AC 07/09 (Porcine) SC 0543 Insulin Aspart 0 TIDAC/HS 07/01 1200 r 07/09 SC 0750 Insulin Detemir 18 UNITS DAILY 07/09 1000 UNVr SC Insulin Detemir 17 UNITS DAILY 07/07 1000 DC 07/08 SC 0856 Metoprolol Succinate 50 MG DAILY 07/01 1000 AC 07/08 PO 0856 Polyethylene Glycol 17 GM DAILY PRN 07/04 1045 AC 07/08 PO 0855 Venlafaxine HCl 25 MG DAILY 07/02 1530 AC 07/08 PO 0856 Assessment/Plan Assessment/Plan In summary this 76-year-old female has the following problems 1. Orthostatic hypotension, persistent despite midodrine/Florinef therapy 2. Moderate to severe Aortic stenosis 3. History of coronary artery disease status post bypass surgery 4. History of HFpEF? 5. Hyperlipidemia 6. Normocytic anemia 7. Chronic renal insufficiency 8. Long-standing diabetes mellitus and possibly diabetic neuropathy. The patient is having indigestion. I would get an EKG to make sure this is not an anginal equivalent. Treatment for indigestion with PPIs should be initiated. I would stop aspirin. She already is on clopidogrel. On discussion with the patient she is reluctant to be in the hospital or even reluctant to have been admitted. She prefers "falling" at home. I indicated to her she could have head trauma. She's just been started on Northera. It is hard to treat her being a relatively uncooperative patient. Further diagnostic and treatment options for her orthostatic hypotension should include a neurology consultation if not done already. Vertebral basilar insufficiency is a possibility. AIDS in dealing with falling from orthostatic hypotension could include wearing a helmet, using a scooter, besides compression stockings and medications. However one needs a cooperative patient and on discussing with her she would rather go home regardless of the falls. Falling then seemed to "bother" her. Her total comprehension is somewhat unclear. I doubt aortic stenosis would cause orthostatic hypotension to the degree of falling. Would continue medications and add PPIs and stop aspirin. Continue telemetry? Not applicable
--- NOTE | 2016-07-09 09:07 | Cons- Neurology ---
General Information and HPI Consulting Request Date of Consult: 07/09/16 Requested By: [facility] Reason for Consult: "lightheadedness" Source of Information: patient, MD, [facility] EMR History of Present Illness: 76-year-old woman with a history of orthostatic hypotension resulting in falls at home presented here with his serum glucose of 600, hyperkalemia, and hyponatremia. She admits to nonadherence to her insulin regimen prior to admission. She has been tried on Florinef and midodrine without significant benefit so has now been switched to droxidopa. She reports a history of TIA in December 2015 after a cardiac catheterization procedure. She states that she had transient right sided facial droop. She was hospitalized at [facility] at that time. Review of [facility] notes shows that she was found to have a complete left ICA occlusion and a right ICA stenosis in the 60-70% range. She was seen by the vascular surgery service who recommended dual antiplatelet therapy and nonoperative follow-up for the time, (since the right carotid artery stenosis was considered to be clinically asymptomatic ) with future consideration to be given towards elective right carotid endarterectomy. The patient states she has not followed up with a vascular surgeon. Allergies/Medications Allergies: Coded Allergies: adhesive tape (PLASTIC TAPE 01/17/16) oxybutynin (Severe, DELERIUM 01/24/16) codeine (NAUSEA 01/17/16) nitrofurantoin (LOOPY 01/17/16) Home Med List: Aspirin (Ecotrin*) 81 MG TABLET.DR 1 TAB PO DAILY HEART/BLOOD (Reported) Atorvastatin Calcium 40 MG TABLET 1 TAB PO DAILY CHOLESTEROL (Reported) Clopidogrel Bisulfate (Clopidogrel) 75 MG TABLET 1 TAB PO DAILY BLOOD THINNER (Reported) Insulin Aspart (Novolog) 100 UNIT/ML VIAL 0 UNITS SC TIDAC/HS diabetes bloodsugar beforemeal bedtime 80-150 3units 151-200 4units 201-250 5units 251-300 6units 2units 301-350 7units 3units 351-400 8units 4units >400 9units 5units Insulin Detemir (Levemir) 100 UNIT/ML VIAL 18 UNITS SC DAILY diabetes Insulin Glargine,Hum.rec.anlog (Lantus Solostar) 100 UNIT/ML (3 ML) INSULN.PEN 8 UNIT SC QPM DM (Reported) Insulin Glargine,Hum.rec.anlog (Lantus Solostar) 100 UNIT/ML (3 ML) INSULN.PEN 20 U SC DAILY DIABETES (Reported) Metoprolol Succinate 50 MG TAB.ER.24H 1 TAB PO DAILY hypertension (Reported) Pantoprazole Sodium (Protonix) 40 MG TABLET.DR 1 TAB PO DAILY GI (Reported) Venlafaxine HCl 25 MG TABLET 1 TAB PO DAILY depression (Reported) Current Medications: Current Medications Sig/Dasha Start time Last Medication Dose Route Stop Time Status Admin Acetaminophen 650 MG Q6P PRN 06/30 2044 AC PO Acetaminophen 1,000 MG Q6P PRN 06/30 2044 AC IV Aspirin Buffered 81 MG DAILY 06/30 213 DC 07/08 PO 0902 Atorvastatin Calcium 40 MG DAILY 07/01 1000 AC 07/08 PO 0856 Bisacodyl 5 MG DAILY PRN 07/04 1045 AC 07/08 PO 0856 Calcium Carbonate 500 MG DAILY 07/09 1000 AC PO Clopidogrel Bisulfate 75 MG DAILY 06/30 2132 AC 07/08 PO 0856 Droxidopa 100 MG TID 07/07 1127 AC 07/08 PO 2221 Heparin Sodium 5,000 UNIT Q8 06/30 2200 AC 07/09 (Porcine) SC 0543 Insulin Aspart 0 TIDAC/HS 07/01 1200 AC 07/09 SC 0750 Insulin Detemir 18 UNITS DAILY 07/09 1000 AC SC Insulin Detemir 17 UNITS DAILY 07/07 1000 DC 07/08 SC 0856 Metoprolol Succinate 50 MG DAILY 07/01 1000 AC 07/08 PO 0856 Omeprazole 40 MG DAILY AC 07/09 0845 AC PO Polyethylene Glycol 17 GM DAILY PRN 07/04 1045 AC 07/08 PO 0855 Venlafaxine HCl 25 MG DAILY 07/02 1530 AC 07/08 PO 0856 Review of Systems Review of Systems: REVIEW OF SYSTEMS: (-) = negative / normal blank = not discussed Neurologic: see HPI Eyes: (-) ENT: (-) Constitutional: (-) CV: See HPI Respiratory: (-) /Renal: (-) Musculoskeletal: (-) Skin: (-) Psychiatric: (-) Heme: (-) GI: (-) Allergy/Immune: (-) Endocrine: (-) Other: (-) Past History Travel History Traveled to [place] past 21 day No Medical History Blood Transfusion Hx: Yes Neurological: TIA, RECENT C/ LIGHTHEADED orthostasis EENT: CATARACTS REMOVED R/L EYE Cardiovascular: NONE, aortic stenosis, CHF, hypertension, hyperlipidemia, PVD, CABG, left carotid occlusion, right carotid stenosis 60-70% Respiratory: NONE Gastrointestinal: NONE Hepatic: NONE Renal: urinary incontinence, 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 Home Who Do You Live With? By herself - Neighbor/Friend helps her out Services at Home: None Primary Language: Faroese Smoking Status: Former Smoker ETOH Use: denies use Illicit Drug Use: denies illicit drug use Living Will? yes Functional Ability ADLs Independent: dressing, eating, toileting, bathing. Ambulation: walker IADLs Needs Assist: shopping, housework. Exam & Diagnostic Data Vital Signs and I&O Vital Signs Date Time Temp Pulse Resp B/P B/P Pulse O2 O2 Flow FiO2 Mean Ox Delivery Rate 07/09 0900 75 124/70 07/09 0657 98.1 75 18 124/70 96 Room Air 07/08 2329 98.2 68 20 138/62 96 Room Air 07/08 1427 98.6 67 18 130/60 98 Room Air Intake & Output 07/09 1600 07/09 0800 07/09 0000 Intake Total 120 450 Output Total 1100 500 Balance -980 -50 Intake, Oral 120 450 Output, Urine 1100 500 Physical Exam: PHYSICAL EXAMINATION: nl = normal NT or blank = not tested GENERAL Appearance: nl Head: nl Eyes: nl ENT: nl Neck: nl Carotids: Bilateral bruits Lungs: nl Heart: nl Extremities: nl Spine: nl NEUROLOGIC MENTAL STATUS Level of consciousness: nl Orientation: nl Attention / Concentration: nl Memory: nl Fund of Knowledge: nl Speech / Language: nl NEUROLOGIC CRANIAL NERVES I: Olfaction: NT II: Optic nerves: nl Visual ingram: nl III: Pupils: nl Levator palpebrae: nl III, IV, : Ocular alignment: nl Extraocular motility: nl Pursuits/ saccades: nl V: Facial sensation: nl Masseter/Pterygoids: nl VII: Facial Motor: nl VIII: Hearing (finger rub): nl IX, X: Uvula and palate: nl XI: SCM, Upper trap.: nl XII: Tongue: nl MOTOR / NEUROMUSCULAR Bulk: nl Tone: nl Strength: nl Rapid alternating movements: nl Fine motor movements: nl Abnormal / involuntary movements: none CEREBELLAR / COORDINATION: intact SENSATION: Reduced to vibration and pin both feet DTRs symmetrically trace to absent CRUZ'S: (-) PLANTARS: flexor GAIT: Not tested Imaging/Other Studies: Car US 12-16-15 IMPRESSION: 1.Again seen is a probable greater than 70% in the right internal carotid artery , similar to the prior carotid ultrasound. However, Doppler criteria and may overestimate stenosis in the presence of a contralateral stenosis or high-grade occlusion and the plaque was extremely eccentric. 2.Near complete occlusion of the left proximal ICA with a string sign at the mid and distal ICA's versus inadvertent sampling of a branch of the external carotid artery. 3.Given the discrepancy between the 2 ultrasounds and the MRA (which may also over call ICA occlusion), follow-up with CTA could be considered to differentiate between a low flow string sign and an occlusion if this is clinically significant in this patient and also to more specifically characterize the degree of stenosis on the right.. Analysis of internal carotid stenosis is based on duplex Doppler velocity parameters that correlate with the calculation of an internal carotid artery stenosis according to the NASCET criteria. The critical findings described above were communicated via the [employer] Critical Results Reporting System as a Yellow critical result Reported And Signed By: Juani Franklin MD MRA neck IMPRESSION: There is complete occlusion of the left internal carotid artery at its origin, confirming the findings seen on the prior carotid ultrasound study. superior to the common carotid bifurcation, which results in 61% narrowing using the NASCET criteria for determining stenosis. Reported By: Priyanka Spring MD MRA BRAIN WITHOUT INTRAVENOUS CONTRAST CLINICAL INDICATION: Critical carotid artery stenosis and left facial droop. TECHNIQUE: MR angiogram of [place] was performed with [id number] technique without intravenous gadolinium. 3D/MIP reformatted images of the MRA was performed. COMPARISON: Multiple prior CT had studies, the most recent from 12/12/2015. MRI brain from . MRA neck from the same date. Duplex carotid ultrasound study from 2015. FINDINGS: RIGHT INTERNAL CAROTID: There is normal appearance of the right petrous, cavernous, and supraclinoid internal carotid artery segments without hemodynamically significant stenosis or flow gap to suggest severe stenosis. The right internal carotid artery summit appears normal. M1 and M2 segments of the right middle cerebral artery including bifurcations appear normal. A1 segment of the right anterior cerebral artery appears normal as well as the anterior communicating artery complex. There is no saccular aneurysm. LEFT INTERNAL CAROTID: Nonopacification of the cervical, petrous, cavernous and supraclinoid portions of the left internal carotid artery, confirming the findings and known proximal left internal carotid artery occlusion seen on the prior carotid ultrasound study. The left posterior communicating artery supplies the left middle cerebral artery. The M1 and M2 segments of the left middle cerebral artery appears thin and irregular, which may relate to atherosclerotic disease. There is focal stenosis at the division of the M1 and M2 segments as well as within the proximal M1 segment. Focal stenosis at the origin of the A1 segment of the left anterior cerebral artery. The anterior communicating artery complex appears normal. There is no saccular aneurysm. VERTEBRAL-BASILAR CIRCULATION: Intracranial segments of both vertebral arteries are visualized and are normal in caliber. Posterior inferior and anterior inferior cerebellar arteries have normal origins and are patent. Basilar artery is normal in course and caliber. Superior cerebellar and posterior cerebral arteries arise normally from the basilar summit. There is focal stenosis at the P1/P2 junction of the left posterior communicating artery, with the more distal P2 segment appearing patent. Right posterior communicating artery appears normal. There is no saccular aneurysm. There is no evidence of a vascular malformation. MRA findings were confirmed on the 3D reformatted images. There is no gross evidence for a large parenchymal mass lesions or hemorrhage. IMPRESSION: 1. Nonopacification of the cervical, petrous, cavernous and supraclinoid portions of the left internal carotid artery, confirming the findings and known proximal left internal carotid artery occlusion seen on the prior carotid ultrasound study. 2. There is focal stenosis of the proximal M1 segment and at the division of the M1/M2 segments of the left middle cerebral artery. There is also focal stenosis noted at the P1-P2 junction of the left posterior communicating artery and at the origin of the A1 segment of the left anterior communicating artery. 3. Please refer to the MRA neck from the same date for those findings. Reported By: Priyanka Spring MD Reported And Signed By: Sourav Yu MD MRA neck MRI hd Findings: There is no acute intracranial hemorrhage or acute infarct. There is no mass effect or midline shift. The basal cisterns are patent. The ventricles, cisterns and other CSF-containing spaces are diffusely prominent but otherwise normal as to shape and position. The brain parenchyma is remarkable for confluent periventricular, patchy subcortical and streaky pontine white matter hyperintense signal on T2 and FLAIR sequences, compatible with gliosis due to ischemic small vessel disease. The remaining brain parenchyma is of normal signal and contour characteristics with preservation of fairchild-white differentiation. The paranasal sinuses and mastoid air cells are clear. Impression: No acute intracranial abnormality. Specifically, no evidence of acute infarct. Echo Dec 2015 * Normal left ventricular size, thickness, and systolic function. No regional wall motion abnormalities. Diastolic function is normal. * There was suboptimal visualization of the right ventricle, but it appears to have decreased function. * Atria are normal in size. No evidence of PFO. * Aortic sclerosis without stenosis. Mild to moderate aortic valve regurgitation. * There is mild tricuspid valve regurgitation. The right ventricular systolic pressure is 31 mmHg. * No evidence of pericardial effusion. * No report changes compared with prior study dated: 05/31/2015. 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
[2016-07-09] MEDS ORDERED: LEVEMIR100 UNIT/1 SC (09:40)
--- NOTE | 2016-07-09 10:00 | PN- Att Addend ---
Attending Addendum Attending Brief Note Patient complains of persistent lightheadedness. General Appearance: Alert, No Acute Distress Skin: Grossly normal HEENT: PEERLA Neck: Supple, No JVD Cardiovascular: Regular Rate, Normal S1, Normal S2, No Murmurs Lungs: Clear to Auscultation, Normal Air Movement Abdomen: Normal Bowel Sounds, Soft, No Tenderness Neurological: Normal Speech, Strength at 5/5 X4 Ext, Cranial Nerves 3-12 NL, Reflexes 2+ Extremities: No Clubbing, No Cyanosis, No Edema Vascular: Normal Pulses Assessment Persistent symptomatic orthostatics despite being on midodrine and Florinef. She is currently on Northera 100 mg TID, however orthostatic positive today. We 'll increase dose to 200 3 times a day and continue to titrate her until she has symptomatic relief. Plan Increase northera to 200 mg TID Repeat orthostatics daily Diabetic management per endocrinology Need STR placement DNI/DNR Current Medications Sig/Dasha Start time Last Medication Dose Route Stop Time Status Admin Acetaminophen 650 MG Q6P PRN 06/30 2044 AC PO Acetaminophen 1,000 MG Q6P PRN 06/30 2044 AC IV Aspirin Buffered 81 MG DAILY 07/01 2131 DC 07/08 PO 0902 Atorvastatin Calcium 40 MG DAILY 07/01 1000 AC 07/09 PO 0900 Bisacodyl 5 MG DAILY PRN 07/04 1045 AC 07/09 PO 0944 Calcium Carbonate 500 MG DAILY 07/09 1000 AC PO Clopidogrel Bisulfate 75 MG DAILY 06/30 2132 AC 07/09 PO 0900 Droxidopa 200 MG TID 07/09 1000 UNVr PO Droxidopa 100 MG TID 07/07 1127 DC 07/09 PO 0900 Heparin Sodium 5,000 UNIT Q8 06/30 2200 AC 07/09 (Porcine) SC 0543 Insulin Aspart 0 TIDAC/HS 07/01 1200 AC 07/09 SC 0750 Insulin Detemir 18 UNITS DAILY 07/09 1000 AC 07/09 SC 0900 Insulin Detemir 17 UNITS DAILY 07/07 1000 DC 07/08 SC 0856 Metoprolol Succinate 50 MG DAILY 07/01 1000 AC 07/09 PO 0900 Omeprazole 40 MG DAILY AC 07/09 0845 AC 07/09 PO 0901 Polyethylene Glycol 17 GM DAILY PRN 07/04 1045 AC 07/09 PO 0944 Venlafaxine HCl 25 MG DAILY 07/02 1530 AC 07/09 PO 0901 Vital Signs Date Time Temp Pulse Resp B/P B/P Pulse O2 O2 Flow FiO2 Mean Ox Delivery Rate 07/09 0955 Room Air Room Air 07/09 0900 75 124/70 07/09 0657 98.1 75 18 124/70 96 Room Air 07/08 2329 98.2 68 20 138/62 96 Room Air 07/08 1427 98.6 67 18 130/60 98 Room Air
[2016-07-09] MEDS ORDERED: NOVOLOG100 UNIT/2 SC (12:57)
[2016-07-09] MEDS ORDERED: NORTHERA100 M1 PO (12:57)
[2016-07-09 13:57] VITALS: BP 130/64
--- NOTE | 2016-07-09 16:20 | ULTRASOUND REPORT ---
EXAMINATION: DUPLEX BILATERAL CAROTID ULTRASOUND CLINICAL INFORMATION: Dizziness COMPARISON: None. TECHNIQUE: Duplex bilateral carotid US was performed using real-time ultrasound and Doppler techniques (integrating B-mode 2D vascular images, Doppler spectral analysis and color flow Doppler imaging). These techniques were utilized to interrogate the extracranial carotid and vertebral arteries bilaterally. The degree of stenosis is based off criteria similar to NASCET. FINDINGS: 1. On the right: There is a hemodynamically significant stenosis correlating to 50-79% diameter reduction of the proximal internal carotid artery. A moderate amount of calcified hyperechoic and heterogeneous plaque is noted at the bifurcation extending into the proximal internal carotid artery. The peak systolic and diastolic velocities as measured within the proximal internal carotid artery equals 325 and 101 cm/s respectively. The vertebral artery is patent demonstrating antegrade flow. Atherosclerotic plaque extends into the external carotid artery which is mildly stenotic measuring peak systolic velocity of 150 cm/s. 2. On the left: There is occlusion of the internal carotid artery from hypoechoic plaque. Trace of flow was able to be noted, however this may represent pulsation artifact rather than actual flow within the artery. The vertebral artery is patent demonstrating antegrade flow. There is atherosclerotic plaque extending into the external carotid artery which does not demonstrate significant stenosis. IMPRESSION: 1. Occlusion of the left internal carotid artery appears complete to near complete. A minimal amount of pulsatile flow was detected by spectral analysis, however there was no flow on color Doppler evaluation. 2. Moderate stenosis of the right internal carotid artery, bordering severe stenosis. 3. Mild stenosis of the right external carotid artery. This critical result was discussed with Cyndie Pereira MD at 416pm on 07/09/2016 and it was ascertained that the content and urgency of the report was understood at the time of direct communication. Dr. Pereira informed me that she has previous imaging that demonstrated complete occlusion of the left internal carotid artery with 80% stenosis of the right internal carotid artery.
--- NOTE | 2016-07-09 17:06 | Event Note ---
Event Note Event Note: 1. Occlusion of the left internal carotid artery appears complete to near complete. A minimal amount of pulsatile flow was detected by spectral analysis, however there was no flow on color Doppler evaluation. 2. Moderate stenosis of the right internal carotid artery, bordering severe stenosis. 3. Mild stenosis of the right external carotid artery. I placed consult with , vascular surgeon and informed him about the critical result. he will come and see the patient tomorrow. notified dr elliott
[2016-07-09 22:46] VITALS: BP 138/58
[2016-07-10 07:12] VITALS: BP 152/66
--- NOTE | 2016-07-10 08:15 | PN- Housestaff ---
Subjective Follow-up For: orthostatic hypotension Hyperosmolar hyperglycemia- resolved Acute on chronic renal failure- resolved Frequent falls Anemia Carotid artery stenosis Complaints: pain scale (0-10) Subjective: Patient was seen and examined this morning. She is alert awake and oriented to time place and person. She denies any overnight events. She denies any chest pain, breathing difficulty, shortness of breath, fever, chills. She reports generalized weakness, fatigue and tiredness. Also reports lightheadedness this morning Offers no other complaints Vitals stable afebrile, heart rate 74, respiratory rate 18, blood pressure 140/ 60, saturating at 95 on room air. Positive for orthostatic hypotension 126/62 on lying and 86/50 on standing Review of Systems Constitutional: Denies: chills, diaphoresis, fever. Objective Last 24 Hrs of Vital Signs/I&O Vital Signs Date Time Temp Pulse Resp B/P B/P Pulse O2 O2 Flow FiO2 Mean Ox Delivery Rate 07/10 1240 97.8 60 18 152/66 07/10 1056 60 152/66 07/10 1009 Room Air Room Air 07/10 0712 97.8 59 18 152/66 95 Room Air / 2246 98.5 63 20 138/58 95 Room Air Intake & Output 07/10 1600 /02 0800 07/10 0000 Intake Total 50 800 Output Total 475 1300 850 Balance -475 -1250 -50 Intake, Oral 50 800 Output, Urine 475 1300 850 Physical Exam General Appearance: Alert, Oriented X3, Cooperative Skin: No Rashes, No Breakdown HEENT: Atraumatic, PERRLA, EOMI, Mucous Membr. moist/pink Neck: Supple, No JVD, No thryomegaly Lymphatic: Cervical nl Cardiovascular: Normal S1, Normal S2 Lungs: Normal Air Movement Abdomen: Normal Bowel Sounds, Soft, No Tenderness Extremities: No Clubbing, No Cyanosis, No Edema Vascular: Pulses Symmetrical Current Medications: Current Medications Sig/Dasha Start time Last Medication Dose Route Stop Time Status Admin Acetaminophen 650 MG Q6P PRN 06/30 2044 DCD PO Acetaminophen 1,000 MG Q6P PRN 06/30 2044 DCD IV Aspirin Buffered 81 MG DAILY 07/09 1515 DCD 07/10 PO 1056 Atorvastatin Calcium 40 MG DAILY 07/01 1000 DCD 07/10 PO 1057 Bisacodyl 5 MG DAILY PRN 07/04 1045 DCD 07/09 PO 0944 Calcium Carbonate 500 MG DAILY 07/09 1000 DCD 07/10 PO 1057 Clopidogrel Bisulfate 75 MG DAILY 06/30 2132 DCD 07/10 PO 1057 Droxidopa 200 MG TID 07/09 1600 DCD 07/10 PO 1056 Heparin Sodium 5,000 UNIT Q8 06/30 2200 DCD 07/10 (Porcine) SC 0541 Insulin Aspart 0 TIDAC/HS 07/01 1200 DCD 07/10 SC 1225 Insulin Detemir 20 UNITS DAILY 07/10 1000 DCD 07/10 SC 1100 Insulin Detemir 18 UNITS DAILY 07/09 1000 DC 07/09 SC 0900 Metoprolol Succinate 50 MG DAILY 07/01 1000 DCD 07/10 PO 1056 Omeprazole 40 MG DAILY AC 07/09 0845 DCD 07/10 PO 0541 Patient Medication 1 ED .STK-MED ONE 07/10 1434 [facility] ED 07/10 1435 Polyethylene Glycol 17 GM DAILY PRN 07/04 1045 DCD 07/09 PO 0944 Venlafaxine HCl 25 MG DAILY 07/02 1530 DCD 07/10 PO 1100 Last 24 Hrs of Lab/Heraclio Results Last 24 Hrs of Labs/Mics: Laboratory Tests 07/10/16 0624: Anion Gap 8, Estimated GFR 24 L, BUN/Creatinine Ratio 19.5, CBC w Diff NO MAN DIFF REQ, RBC 2.94 L, MCV 91.1, MCH 29.6, RDW 14.1, MPV 8.6, Gran % 44.5, Lymphocytes % 29.9, Monocytes % 13.3 H, Eosinophils % 11.6 H, Basophils % 0.7, Absolute Granulocytes 3.2, Absolute Lymphocytes 2.2, Absolute Monocytes 1.0 H, Absolute Eosinophils 0.8, Absolute Basophils 0.1, PUBS MCHC 32.4 L Assessment/Plan Assessment: This is a 18-year-old female past medical history significant for diabetes, CAD status post CABG, CHF, hypertension, hyperlipidemia who comes in for chief complaint of weakness, fatigue and dizziness. In ED further evaluation shows hyponatremia, hyperkalemia, and hyperglycemia. ED workup shows: Vitals: 96.3, 63, 18, systolic 137-160/diastolic 76-69. Satting 100%. Urine: Small leukocyte esterase, 25-50 white blood cell, few bacteria, greater than 1000 glucose. CBC shows: White count 8.0, hemoglobin 10.1, hematocrit 30.5. INR 1.07, lactic acid 2.6. BEP shows: Sodium 1 30, potassium 6.0, chloride 97, bicarbonate 19, BUN 58, creatinine 2.1. Glucose 600. Last A1c in January 2016 at 9.9. Serum osm 333 1. Hyperosmolar hyperglycemia Patient's hemoglobin A1c in the office was above 14 that led to the decision of sending the patient to ER from pcp office and possible admission to titrate her diabetic medications. Pt has hyperglycemia with hyperosmolar state in the ER. She came in with BS 600 and Sosm 333. Likely secondary to her diabetes medication non-compliance. Likely poor management of her underlying medical conditions is leading to her CC of weakness and dizziness. * GM admission * received 20 units insulin in the ER after which blood sugar improved to 200 * On diabetic diet * Endocrinology was consulted * On insulin NovoLog scale before meals and at bedtime * Increased Levemir 20 units subcutaneous * Close monitoring of sugars * Monitor vitals closely * Follow-up endo recommendations Orthostatic hypotension Patient presented with increased weakness, fatigue, dizziness. Also reported non compliant with medications. She has positive orthostatics. Orthostatic hypotension most possibly from dehydration versus autonomic dysfunction. Patient was diagnosed with orthostatic hypotension in February 2016, she was started on midodrine and Florinef however she was noncompLIANT with her medications. * Positive for orthostats * Fall precautions * Note that pt has previously been seen for orthostasis at . She was sent out on mitodrine and florinef; unsure if she took those meds. * Cardiology consulted * started on Florinef and midodrine, however patient remained orthostatic being on Florinef and midodrine. * Patient still orthostatic -so advised to use stockings and started NORTHRA 100mg TID. * Advised to stop Florinef and midodrine. * NORTHRA dose increased 200 mg 3 times a day. * Compression stockings ICA STENOSIS?? She reports a history of TIA in December 2015 after a cardiac catheterization procedure. She states that she had transient right sided facial droop. She was hospitalized at [facility] at that time. she was found to have a complete left ICA occlusion and a right ICA stenosis in the 60-70% range. She was seen by the vascular surgery service who recommended dual antiplatelet therapy and nonoperative follow-up for the time, (since the right carotid artery stenosis was considered to be clinically asymptomatic ) with future consideration to be given towards elective right carotid endarterectomy. The patient states she has not followed up with a vascular surgeon. * We will continue Plavix * Will continue statin therapy * Hold aspirin * Vascular surgery consulted * Neurology on board. 1. Occlusion of the left internal carotid artery appears complete to near complete. A minimal amount of pulsatile flow was detected by spectral analysis, however there was no flow on color Doppler evaluation. 2. Moderate stenosis of the right internal carotid artery, bordering severe stenosis. 3. Mild stenosis of the right external carotid artery. * Left ICA occlusion does not require any intervention. Right ICA moderate stenosis needs follow-up with the vascular surgeon ,carotid endarterectomy is not necessary at this time for an asymptomatic moderate stenosis of the right ICA. will followup as an outpatient. Lactic acidosis: Pt comes in with LA of 2.6. No gap noted on BEP * Con't monitor * Improved after hydration Pseudo-Hyponatremia: Corrected for glucose of 600 gives NA 138. * Monitor BEP Hyperkalemia: Pt has K 6.0 with no corresponding EKG changes. Likely secondary to her Hyperosmolar state. * k 4.3 now * monitor BEP Acute on Chronic renal failure: Comes in with Cr 2.1 and Bun 58. Her baseline is 1.5-1.7. Given increased BUN and HHNS likely pre-renal. The suprapubic catheter is patent unlikely post- renal. * Received hydration * Monitor with BEP * Strict I/O Anemia: Has Hb 10.1; previous work up shows low iron levels suggesting iron deficiency anemia. * Nephrology was consulted, history of CKD * May need epogen Depression: * will Cont' home regimen. CAD: Pt has hx of CAD s/p CABG and two stents placed. Pt states that she is not taking clopidogrel regularly at home. * Metop Succinate * Cont' atorvastatin * Con't ASA * Cont' Clopidogrel Dizziness and fatigue: This is her CC but possibly 2/2 her HHNS and medication non-compliance. However, requires further work up. * Follow up TSH/T4- normal * Follow up cortisol- normal * Follow up B12 and Folate -normal * PT evaluation-recommended short-term rehabilitation * Orthostatic hypotension most possibly from autonomic dysfunction versus dehydration * Cardiology on board * Neurology on BOARD DNR/DNI Diabetic diet Chemical dvt ppx Problem List: 1. Orthostatic hypotension Pain Ratin Pain Location: n/a Pain Goal: Remain pain free Pain Plan: tylinol Tomorrow's Labs & Rationales: none Consulting Request: Consulting Specialty: Cardiology
[2016-07-10 08:32] LABS: ABSOLUTE BASOPHIL COUNT 0.1 /CUMM (0.0-0.2); ABSOLUTE EOSINOPHIL COUNT 0.8 /CUMM (0.0-0.7); ABSOLUTE GRANULOCYTE CT 3.2 /CUMM (1.4-6.5); ABSOLUTE LYMPH COUNT 2.2 /CUMM (1.2-3.4); BASOPHIL % 0.7 % (0.0-2.0); EOSINOPHIL % 11.6 % (0-5); GRANULOCYTE % 44.5 % (42.2-75.2); HEMATOCRIT 26.8 % (37-47); MEAN CORPUSCULAR HGB 29.6 PG (27.0-31.0); MEAN CORPUSCULAR HGB CONC 32.4 G/DL (33.0-37.0); MEAN CORPUSCULAR VOLUME 91.1 FL (81.0-99.0); MEAN PLATELET VOLUME 8.6 FL (7.4-10.4); PLATELET COUNT 231 /CUMM (130-400); RBC DISTRIBUTION WIDTH 14.1 % (11.5-14.5); RED BLOOD CELL CT 2.94 /CUMM (4.20-5.40); WHITE BLOOD CELL COUNT 7.2 /CUMM (4.8-10.8)
--- NOTE | 2016-07-10 09:09 | PN- Att Addend ---
Attending Addendum Attending Brief Note Patient complains of persistent lightheadedness. General Appearance: Alert, No Acute Distress Skin: Grossly normal HEENT: PEERLA Neck: Supple, No JVD Cardiovascular: Regular Rate, Normal S1, Normal S2, No Murmurs Lungs: Clear to Auscultation, Normal Air Movement Abdomen: Normal Bowel Sounds, Soft, No Tenderness Neurological: Normal Speech, Strength at 5/5 X4 Ext, Cranial Nerves 3-12 NL, Reflexes 2+ Extremities: No Clubbing, No Cyanosis, No Edema Vascular: Normal Pulses Assessment Patient has severe left and moderate to severe right carotid stenosis. She was planned for elective endarterectomy that was never followed up. Persistent symptomatic orthostatics. She is currently on Northera 200 mg TID. We will continue to titrate the doses until symptom relief however we have to exercise caution secondary to severe bilateral carotid stenosis and risk of CVA from supine hypertension. Patient is willing for inpatient endarterectomy if the vascular surgeon is agreeable. Mild worsening of a kidney function. Plan Continu vascular surgery evaluation Continue northera to 200 mg TID Increase by mouth fluids Repeat orthostatics daily Diabetic management per endocrinology Need STR placement DNI/DNR Current Medications Sig/Dasha Start time Last Medication Dose Route Stop Time Status Admin Acetaminophen 650 MG Q6P PRN 06/30 2044 AC PO Acetaminophen 1,000 MG Q6P PRN 06/30 2044 AC IV Aspirin Buffered 81 MG DAILY 07/09 1515 AC 07/09 PO 1631 Atorvastatin Calcium 40 MG DAILY 07/01 1000 AC 07/09 PO 0900 Bisacodyl 5 MG DAILY PRN 07/04 1045 AC 07/09 PO 0944 Calcium Carbonate 500 MG DAILY 07/09 1000 AC 07/09 PO 1109 Clopidogrel Bisulfate 75 MG DAILY 06/30 2132 AC 07/09 PO 0900 Droxidopa 200 MG 1600 07/09 1600 CAN PO Droxidopa 200 MG TID 07/09 1600 AC 07/09 PO 2142 Droxidopa 100 MG ONCE ONE 07/09 1100 DC 07/09 PO 07/09 1101 1109 Droxidopa 200 MG TID 07/09 1000 DC PO Droxidopa 100 MG TID 07/07 1127 DC 07/09 PO 0900 Heparin Sodium 5,000 UNIT Q8 06/30 2200 AC 07/10 (Porcine) SC 0541 Insulin Aspart 0 TIDAC/HS 07/01 1200 AC 07/10 SC 0810 Insulin Detemir 20 UNITS DAILY 07/10 1000 AC SC Insulin Detemir 18 UNITS DAILY 07/09 1000 DC 07/09 SC 0900 Metoprolol Succinate 50 MG DAILY 07/01 1000 AC 07/09 PO 0900 Omeprazole 40 MG DAILY AC 07/09 0845 AC 07/10 PO 0541 Polyethylene Glycol 17 GM DAILY PRN 07/04 1045 AC 07/09 PO 0944 Venlafaxine HCl 25 MG DAILY 07/02 1530 AC 07/09 PO 0901 Laboratory Tests 07/11 623 Chemistry Sodium (137 - 145 mmol/L) 138 Potassium (3.5 - 5.1 mmol/L) 4.9 Chloride (98 - 107 mmol/L) 106 Carbon Dioxide (22 - 30 mmol/L) 25 Anion Gap (5 - 16) 8 BUN (7 - 17 mg/dL) 39 H Creatinine (0.5 - 1.0 mg/dL) 2.0 H Estimated GFR (>60 ml/min) 24 L BUN/Creatinine Ratio (7 - 25 %) 19.5 Hematology CBC w Diff NO MAN DIFF REQ WBC (4.8 - 10.8 /CUMM) 7.2 RBC (4.20 - 5.40 /CUMM) 2.94 L Hgb (12.0 - 16.0 G/DL) 8.7 L Hct (37 - 47 %) 26.8 L MCV (81.0 - 99.0 FL) 91.1 MCH (27.0 - 31.0 PG) 29.6 RDW (11.5 - 14.5 %) 14.1 Plt Count (130 - 400 /CUMM) 231 MPV (7.4 - 10.4 FL) 8.6 Gran % (42.2 - 75.2 %) 44.5 Lymphocytes % (20.5 - 51.1 %) 29.9 Monocytes % (1.7 - 9.3 %) 13.3 H Eosinophils % (0 - 5 %) 11.6 H Basophils % (0.0 - 2.0 %) 0.7 Absolute Granulocytes (1.4 - 6.5 /CUMM) 3.2 Absolute Lymphocytes (1.2 - 3.4 /CUMM) 2.2 Absolute Monocytes (0.10 - 0.60 /CUMM) 1.0 H Absolute Eosinophils (0.0 - 0.7 /CUMM) 0.8 Absolute Basophils (0.0 - 0.2 /CUMM) 0.1 PUBS MCHC (33.0 - 37.0 G/DL) 32.4 L Vital Signs Date Time Temp Pulse Resp B/P B/P Pulse O2 O2 Flow FiO2 Mean Ox Delivery Rate 07/10 0712 97.8 59 18 152/66 95 Room Air 07/09 2246 98.5 63 20 138/58 95 Room Air 07/09 1357 98.1 65 18 130/64 95 Room Air 07/09 0955 Room Air Room Air
--- NOTE | 2016-07-10 09:13 | PN- Neurology ---
Subjective Subjective: Feels well Has not tried to get out of bed yet today Objective Vital Signs and I&Os Vital Signs Date Time Temp Pulse Resp B/P B/P Pulse O2 O2 Flow FiO2 Mean Ox Delivery Rate 07/10 0712 97.8 59 18 152/66 95 Room Air 07/09 2246 98.5 63 20 138/58 95 Room Air 07/09 1357 98.1 65 18 130/64 95 Room Air 07/09 0955 Room Air Room Air Intake & Output 07/10 1600 07/10 0800 07/10 0000 07/09 1600 07/09 0800 07/09 0000 Intake Total 50 800 800 120 450 Output Total 1300 629 422 0485 500 Balance -1250 -50 200 -980 -50 Intake, Oral 50 800 800 120 450 Number 0 Bowel Movements Output, Urine 1300 699 840 1152 500 Physical Exam: Awake alert oriented 3 Cranial nerves II through XII intact Motor 5 out of 5 Mild stocking distribution sensory loss Current Medications: Current Medications Sig/Dasha Start time Last Medication Dose Route Stop Time Status Admin Acetaminophen 650 MG Q6P PRN 06/30 2044 AC PO Acetaminophen 1,000 MG Q6P PRN 06/30 204 AC IV Aspirin Buffered 81 MG DAILY 07/09 1515 AC 07/09 PO 1631 Atorvastatin Calcium 40 MG DAILY 07/01 1000 AC 07/09 PO 0900 Bisacodyl 5 MG DAILY PRN 07/04 1045 AC 07/09 PO 0944 Calcium Carbonate 500 MG DAILY 07/09 1000 AC 07/09 PO 1109 Clopidogrel Bisulfate 75 MG DAILY 06/30 2132 AC 07/09 PO 0900 Droxidopa 200 MG 1600 07/09 1600 CAN PO Droxidopa 200 MG TID 07/09 1600 AC 07/09 PO 2142 Droxidopa 100 MG ONCE ONE 07/09 1100 DC 07/09 PO 07/09 1101 1109 Droxidopa 200 MG TID 07/09 1000 DC PO Droxidopa 100 MG TID 07/07 1127 DC 07/09 PO 0900 Heparin Sodium 5,000 UNIT Q8 06/30 2200 AC 07/10 (Porcine) SC 0541 Insulin Aspart 0 TIDAC/HS 07/01 1200 AC 07/10 SC 0810 Insulin Detemir 20 UNITS DAILY 07/10 1000 AC SC Insulin Detemir 18 UNITS DAILY 07/09 1000 DC 07/09 SC 0900 Metoprolol Succinate 50 MG DAILY 07/01 1000 AC 07/09 PO 0900 Omeprazole 40 MG DAILY AC 07/09 0845 AC 07/10 PO 0541 Polyethylene Glycol 17 GM DAILY PRN 07/04 1045 AC 07/09 PO 0944 Venlafaxine HCl 25 MG DAILY 07/02 1530 AC 07/09 PO 0901 Results Last 24 Hours of Lab Results: Hg A1c 13 LDL 81 Laboratory Tests 07/11 623 Chemistry Sodium (137 - 145 mmol/L) 138 Potassium (3.5 - 5.1 mmol/L) 4.9 Chloride (98 - 107 mmol/L) 106 Carbon Dioxide (22 - 30 mmol/L) 25 Anion Gap (5 - 16) 8 BUN (7 - 17 mg/dL) 39 H Creatinine (0.5 - 1.0 mg/dL) 2.0 H Estimated GFR (>60 ml/min) 24 L BUN/Creatinine Ratio (7 - 25 %) 19.5 Hematology CBC w Diff NO MAN DIFF REQ WBC (4.8 - 10.8 /CUMM) 7.2 RBC (4.20 - 5.40 /CUMM) 2.94 L Hgb (12.0 - 16.0 G/DL) 8.7 L Hct (37 - 47 %) 26.8 L MCV (81.0 - 99.0 FL) 91.1 MCH (27.0 - 31.0 PG) 29.6 RDW (11.5 - 14.5 %) 14.1 Plt Count (130 - 400 /CUMM) 231 MPV (7.4 - 10.4 FL) 8.6 Gran % (42.2 - 75.2 %) 44.5 Lymphocytes % (20.5 - 51.1 %) 29.9 Monocytes % (1.7 - 9.3 %) 13.3 H Eosinophils % (0 - 5 %) 11.6 H Basophils % (0.0 - 2.0 %) 0.7 Absolute Granulocytes (1.4 - 6.5 /CUMM) 3.2 Absolute Lymphocytes (1.2 - 3.4 /CUMM) 2.2 Absolute Monocytes (0.10 - 0.60 /CUMM) 1.0 H Absolute Eosinophils (0.0 - 0.7 /CUMM) 0.8 Absolute Basophils (0.0 - 0.2 /CUMM) 0.1 PUBS MCHC (33.0 - 37.0 G/DL) 32.4 L Recent Imaging Studies: Car US 07-09-16 FINDINGS: 1. On the right: There is a hemodynamically significant stenosis correlating to 50-79% diameter reduction of the proximal internal carotid artery. A moderate amount of calcified hyperechoic and heterogeneous plaque is noted at the bifurcation extending into the proximal internal carotid artery. The peak systolic and diastolic velocities as measured within the proximal internal carotid artery equals 325 and 101 cm/s respectively. The vertebral artery is patent demonstrating antegrade flow. Atherosclerotic plaque extends into the external carotid artery which is mildly stenotic measuring peak systolic velocity of 150 cm/s. 2. On the left: There is occlusion of the internal carotid artery from hypoechoic plaque. Trace of flow was able to be noted, however this may represent pulsation artifact rather than actual flow within the artery. The vertebral artery is patent demonstrating antegrade flow. There is atherosclerotic plaque extending into the external carotid artery which does not demonstrate significant stenosis. IMPRESSION: 1. Occlusion of the left internal carotid artery appears complete to near complete. A minimal amount of pulsatile flow was detected by spectral analysis, however there was no flow on color Doppler evaluation. 2. Moderate stenosis of the right internal carotid artery, bordering severe stenosis. 3. Mild stenosis of the right external carotid artery. This critical result was discussed with Cyndie Pereira MD at 416pm on 07/09/2016 and it was ascertained that the content and urgency of the report was understood at the time of direct communication. Dr. Pereira informed me that she has previous imaging that demonstrated complete occlusion of the left internal carotid artery with 80% stenosis of the right internal carotid artery. 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 Talamantes No urgent need for carotid endarterectomy at this time Continue antiplatelet and statin therapy, glucose control Will see PRN
--- NOTE | 2016-07-10 09:30 | PN- Diabetes ---
Assessment/Plan Assessment: 76-year-old female with past medical history significant for diabetes, CHF, hypertension, hyperlipidemia, CAD status post CABG, and chronic renal insufficiency, who presented to ER with the chief complaint of increasing weakness, fatigue and dizziness. She was having orthostatic hypotension and was put on florinel 100 mcg daily and midodrine 5 mg three times a day which were discontinued on 07/07/2016. cortisol level was 15 on admission. Repeat am cortisol was 14.5 which is normal. Currently she is on Northera. she was put on Novolog coverage before meals and Novolog coverage at bedtime. Levemir was increased to 18 units daily. Her FSGs were 274, 290, 296, 226 and 196. Plan: 1. increase Levemir to 20 units daily; 2. continue the current Novolog coverage before meals and Novolog coverage at bedtime; 3. monitor FSGs; will follow. Subjective Subjective: She still feels dizzy. Objective Last 24 Hrs of Vital Signs/I&O Vital Signs Date Time Temp Pulse Resp B/P B/P Pulse O2 O2 Flow FiO2 Mean Ox Delivery Rate 07/10 0712 97.8 59 18 152/66 95 Room Air 07/09 2246 98.5 63 20 138/58 95 Room Air 07/09 1357 98.1 65 18 130/64 95 Room Air 07/09 0955 Room Air Room Air Intake & Output 07/10 1600 07/10 0800 07/10 0000 Intake Total 50 800 Output Total 1300 850 Balance -1250 -50 Intake, Oral 50 800 Output, Urine 1300 850 Findings Pertinent Lab/Heraclio Results: Laboratory Tests 07/10 0624 Chemistry Sodium (137 - 145 mmol/L) 138 Potassium (3.5 - 5.1 mmol/L) 4.9 Chloride (98 - 107 mmol/L) 106 Carbon Dioxide (22 - 30 mmol/L) 25 Anion Gap (5 - 16) 8 BUN (7 - 17 mg/dL) 39 H Creatinine (0.5 - 1.0 mg/dL) 2.0 H Estimated GFR (>60 ml/min) 24 L BUN/Creatinine Ratio (7 - 25 %) 19.5 Hematology CBC w Diff NO MAN DIFF REQ WBC (4.8 - 10.8 /CUMM) 7.2 RBC (4.20 - 5.40 /CUMM) 2.94 L Hgb (12.0 - 16.0 G/DL) 8.7 L Hct (37 - 47 %) 26.8 L MCV (81.0 - 99.0 FL) 91.1 MCH (27.0 - 31.0 PG) 29.6 RDW (11.5 - 14.5 %) 14.1 Plt Count (130 - 400 /CUMM) 231 MPV (7.4 - 10.4 FL) 8.6 Gran % (42.2 - 75.2 %) 44.5 Lymphocytes % (20.5 - 51.1 %) 29.9 Monocytes % (1.7 - 9.3 %) 13.3 H Eosinophils % (0 - 5 %) 11.6 H Basophils % (0.0 - 2.0 %) 0.7 Absolute Granulocytes (1.4 - 6.5 /CUMM) 3.2 Absolute Lymphocytes (1.2 - 3.4 /CUMM) 2.2 Absolute Monocytes (0.10 - 0.60 /CUMM) 1.0 H Absolute Eosinophils (0.0 - 0.7 /CUMM) 0.8 Absolute Basophils (0.0 - 0.2 /CUMM) 0.1 PUBS MCHC (33.0 - 37.0 G/DL) 32.4 L
[2016-07-10] MEDS ORDERED: LEVEMIR100 UNIT/1 SC (11:10)
--- NOTE | 2016-07-10 11:41 | Cons- Vascular Surgery ---
General Information and HPI Consulting Request Date of Consult: 07/09/16 Requested By: HALEY MORALES MD History of Present Illness: Patient is a 76-year-old lady who was admitted several days ago with orthostatic hypotension which resulted in a fall. According to the chart, the patient has a history of TIA with transient left-sided facial droop which occurred in December 2015. The patient was evaluated at [facility]. Workup during that time showed an occluded left ICA with moderate stenosis of the right ICA. No surgical intervention was offered at that time and the patient was supposed to follow with her vascular surgeon. She has not been compliant with follow-up. On this admission, she was also found to have blood glucose 600 range and hyperkalemia. Carotid ultrasound showed an occluded left ICA and moderate stenosis of the right ICA. The patient is currently on aspirin and Plavix. She was seen by neurology, Dr. Davis. Allergies/Medications Allergies: Coded Allergies: adhesive tape (PLASTIC TAPE 01/17/16) oxybutynin (Severe, DELERIUM 01/24/16) codeine (NAUSEA 01/17/16) nitrofurantoin (LOOPY 01/17/16) Home Med List: Aspirin (Ecotrin*) 81 MG TABLET.DR 1 TAB PO DAILY HEART/BLOOD (Reported) Atorvastatin Calcium 40 MG TABLET 1 TAB PO DAILY CHOLESTEROL (Reported) Clopidogrel Bisulfate (Clopidogrel) 75 MG TABLET 1 TAB PO DAILY BLOOD THINNER (Reported) Droxidopa (Northera) 100 MG CAPSULE 2 TAB PO TID orthostatic hypotension Insulin Aspart (Novolog) 100 UNIT/ML VIAL 0 UNITS SC TIDAC/HS diabetes bloodsugar beforemeal bedtime 80-150 5units 151-200 6units 201-250 7units 251-300 8units 2units 301-350 9units 3units 351-400 10units 4units >400 11units 5units Insulin Detemir (Levemir) 100 UNIT/ML VIAL 20 UNITS SC DAILY diabetes Insulin Glargine,Hum.rec.anlog (Lantus Solostar) 100 UNIT/ML (3 ML) INSULN.PEN 8 UNIT SC QPM DM (Reported) Insulin Glargine,Hum.rec.anlog (Lantus Solostar) 100 UNIT/ML (3 ML) INSULN.PEN 20 U SC DAILY DIABETES (Reported) Metoprolol Succinate 50 MG TAB.ER.24H 1 TAB PO DAILY hypertension (Reported) Pantoprazole Sodium (Protonix) 40 MG TABLET. 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 Home Who Do You Live With? By herself - Neighbor/Friend helps her out Services at Home: None Primary Language: Croatian Smoking Status: Former Smoker ETOH Use: denies use Illicit Drug Use: denies illicit drug use Living Will? yes Functional Ability ADLs Independent: dressing, eating, toileting, bathing. Ambulation: walker IADLs Needs Assist: shopping, housework. Employment History Retired? yes Review of Systems Review of Systems: patient denies headache, dizziness, cough, palpitation, diarrhea or constipation Exam & Diagnostic Data Vital Signs and I&O Vital Signs Date Time Temp Pulse Resp B/P B/P Pulse O2 O2 Flow FiO2 Mean Ox Delivery Rate 07/10 1056 60 152/66 07/10 1009 Room Air Room Air 07/10 0712 97.8 59 18 152/66 95 Room Air / 2246 98.5 63 20 138/58 95 Room Air 07/09 1357 98.1 65 18 130/64 95 Room Air Intake & Output 07/10 1600 07/10 0800 07/10 0000 07/09 1600 07/09 0800 07/09 0000 Intake Total 50 800 800 120 450 Output Total 1300 325 941 6385 500 Balance -1250 -50 200 -980 -50 Intake, Oral 50 800 800 120 450 Number 0 Bowel Movements Output, Urine 1300 991 338 3021 500 Physical Exam: patient is alert and oriented 3. Cranial nerves II through XII are grossly intact Lungs: Clear to auscultation bilaterally Cardiovascular: Regular rate and rhythm Abdomen: Soft, nontender and nondistended Extremities: Motor and sensory grossly intact Assessment/Plan Assessment/Plan 76-year-old woman who was admitted with orthostatic hypotension which resulted in a fall. She was found to be hyperglycemic which triggers and the 600 and hyperkalemia on admission. She is generally noncompliant with her medical care. In terms of her carotid ultrasound findings, she told me that she did not follow with any vascular surgeon as there is saying refill hospitalization because she did not like to go in that area anymore. She has not had a stroke or has not had TIAs. Left ICA occlusion does not require any intervention. Right ICA moderate stenosis needs follow-up with the vascular surgeon which I am happy to do. I will also talk to one of patient's close friends or family member in order to increase future compliance. I do not believe carotid endarterectomy is necessary at this time for an asymptomatic moderate stenosis of the right ICA. I will follow her as an outpatient. I agree with cardiology to stop aspirin as patient is on clopidogrel. Thank you for asking me to be involved in the care of this patient. Consult Acknowledgment - Thank you for your consult request.
[2016-07-10 12:40] VITALS: BP 152/66
--- NOTE | 2016-07-10 16:19 | PN- Cardiology ---
Subjective Subjective: Still with some lightheadedness on ambulation but she does think it is slightly improved. She did not start doing the lower extremity exercises as we had previously discussed. Objective Vital Signs and I&Os Vital Signs Date Time Temp Pulse Resp B/P B/P Pulse O2 O2 Flow FiO2 Mean Ox Delivery Rate 07/10 1240 97.8 60 18 152/66 07/10 1056 60 152/66 07/10 1009 Room Air Room Air 07/10 0712 97.8 59 18 152/66 95 Room Air / 2246 98.5 63 20 138/58 95 Room Air Intake & Output 07/10 1600 07/10 0800 07/10 0000 07/09 1600 07/09 0800 07/09 0000 Intake Total 50 800 800 120 450 Output Total 475 1300 047 038 0529 500 Balance -475 -1250 -50 200 -980 -50 Intake, Oral 50 800 800 120 450 Number 0 Bowel Movements Output, Urine 475 1300 945 140 0613 500 Physical Exam: General: no apparent distress. Alert. Eyes: No obvious scleral icterus. HEENT: No jugular venous distention or abnormal jugular venous pulsations. Cardiovascular: Normal intensity S1/S2. 3/6 systolic murmur Respiratory: Lungs clear to auscultation bilaterally. Abdomen: Soft, nontender with no guarding or rebound tenderness. Musculoskeletal: No clubbing or cyanosis noted, no edema Skin: Warm Neurologic: No gross focal deficits noted. Current Medications: Current Medications Sig/Dasha Start time Last Medication Dose Route Stop Time Status Admin Acetaminophen 650 MG Q6P PRN 06/30 2044 DCD PO Acetaminophen 1,000 MG Q6P PRN 06/30 2044 DCD IV Aspirin Buffered 81 MG DAILY 07/09 1515 DCD 07/10 PO 1056 Atorvastatin Calcium 40 MG DAILY 07/01 1000 DCD 07/10 PO 1057 Bisacodyl 5 MG DAILY PRN 07/04 1045 DCD 07/09 PO 0944 Calcium Carbonate 500 MG DAILY 07/09 1000 DCD 07/10 PO 1057 Clopidogrel Bisulfate 75 MG DAILY 06/302 DCD 07/10 PO 1057 Droxidopa 200 MG TID 07/09 1600 DCD 07/10 PO 1056 Heparin Sodium 5,000 UNIT Q8 06/30 2200 DCD 07/10 (Porcine) SC 0541 Insulin Aspart 0 TIDAC/HS 07/01 1200 DCD 07/10 PA 1225 Insulin Detemir 20 UNITS DAILY 07/10 1000 DCD 07/10 SC 1100 Insulin Detemir 18 UNITS DAILY 07/09 1000 DC 07/09 SC 0900 Metoprolol Succinate 50 MG DAILY 07/01 1000 DCD 07/10 PO 1056 Omeprazole 40 MG DAILY AC 07/09 0845 DCD 07/10 PO 0541 Patient Medication 1 ED .STK-MED ONE 07/10 1434 AR Teaching ED 07/10 1435 Polyethylene Glycol 17 GM DAILY PRN 07/04 1045 DCD 07/09 PO 0944 Venlafaxine HCl 25 MG DAILY 07/02 1530 DCD 07/10 PO 1100 Results Last 48 Hrs of Labs/Mics: Laboratory Tests 07/10/16623: Anion Gap 8, Estimated GFR 24 L, BUN/Creatinine Ratio 19.5, CBC w Diff NO MAN DIFF REQ, RBC 2.94 L, MCV 91.1, MCH 29.6, RDW 14.1, MPV 8.6, Gran % 44.5, Lymphocytes % 29.9, Monocytes % 13.3 H, Eosinophils % 11.6 H, Basophils % 0.7, Absolute Granulocytes 3.2, Absolute Lymphocytes 2.2, Absolute Monocytes 1.0 H, Absolute Eosinophils 0.8, Absolute Basophils 0.1, PUBS MCHC 32.4 L Recent Imaging Studies: Carotid ultrasound IMPRESSION: 1. Occlusion of the left internal carotid artery appears complete to near complete. A minimal amount of pulsatile flow was detected by spectral analysis, however there was no flow on color Doppler evaluation. 2. Moderate stenosis of the right internal carotid artery, bordering severe stenosis. 3. Mild stenosis of the right external carotid artery. Assessment/Plan Assessment/Plan 1. Orthostatic hypotension, persistent despite midodrine/Florinef therapy, now on Northera 2. Moderate to severe Aortic stenosis 3. History of coronary artery disease status post bypass surgery 4. History of HFpEF? 5. Hyperlipidemia 6. Normocytic anemia 7. Chronic renal insufficiency 8. Carotid stenosis She tells me she thinks the Northera is starting to work. Vascular input reviewed, surgery was not recommended at this time. Continue to monitor orthostasis and we will titrate up the Northera in the future as needed. I again reviewed with her the lower extremity exercises prior to standing. She will need close cardiac follow-up in the future and should follow up in our office within 1 week of discharge. Josh Izaguirre MD [facility] Continue telemetry? Not applicable
== END 2016-07-10 15:39 | DRG 638 ==
LOC: ERH 16:28 → ERHI 21:52 → 2NB 21:52 → EDBEDREQ 22:13 → ENRESERV 22:41 → 2NB 23:57
PROVIDERS: Emergency Medicine; ADMIT Internal Medicine
DX: E11.00 Type 2 diabetes mellitus with hyperosmolarity without nonketotic hyperglycemic-hyperosmolar coma (NKHHC) (principal); E87.1 Hypo-osmolality and hyponatremia; E87.2 Acidosis; N17.9 Acute kidney failure, unspecified; N18.4 Chronic kidney disease, stage 4 (severe); I13.0 Hypertensive heart and chronic kidney disease with heart failure and stage 1 through stage 4 chronic kidney disease, or unspecified chronic kidney disease; I50.32 Chronic diastolic (congestive) heart failure; E78.5 Hyperlipidemia, unspecified; I25.10 Atherosclerotic heart disease of native coronary artery without angina pectoris; Z95.1 Presence of aortocoronary bypass graft; Z87.891 Personal history of nicotine dependence; E87.5 Hyperkalemia; D64.9 Anemia, unspecified; F32.9 Major depressive disorder, single episode, unspecified; I95.1 Orthostatic hypotension; Z79.4 Long term (current) use of insulin; I73.9 Peripheral vascular disease, unspecified; Z66 Do not resuscitate; Z86.73 Personal history of transient ischemic attack (TIA), and cerebral infarction without residual deficits; I65.23 Occlusion and stenosis of bilateral carotid arteries; E11.22 Type 2 diabetes mellitus with diabetic chronic kidney disease
CPT/HCPCS: 2NBP; 2NSBP; 36415; 80307; 81001; 82436; 93005; 93010; 96360; 96361; 96372; 96374; 97110-GO; 97112-GO; 97116-GO; 97161-GP; 97530-GO; G0480; J1644; J1815

== ENCOUNTER 2017-10-22 14:03 | Inpatient (IN) | payer OTHER, MEDICARE ==
[~2017-10-22] VITALS: Ht 160 cm; Wt 71.2 kg
[~2017-10-22 14:03] MED LIST changes: +ASPIRIN EC81 M1 PO; +ATORVASTATIN CA40 M1 PO; +FLUDROCORTISON0.1 M1 PO; +LEVEMIR100 UNIT/1 SC; +METOPROLOL SUCC50 M2 PO; +NORTHERA100 M1 PO; +NOVOLOG100 UNIT/2 SC; +VENLAFAXINE HCL25 M1 PO
[2017-10-22 15:32] LABS: ABSOLUTE BASOPHIL COUNT 0.1 /CUMM (0.0-0.2); ABSOLUTE EOSINOPHIL COUNT 0.3 /CUMM (0.0-0.7); ABSOLUTE LYMPH COUNT 1.6 /CUMM (1.2-3.4); ABSOLUTE MONOCYTE COUNT 0.9 /CUMM (0.10-0.60); BASOPHIL % 0.6 % (0.0-2.0); EOSINOPHIL % 2.8 % (0-5); HEMATOCRIT 27.7 % (37-47); MEAN CORPUSCULAR HGB 30.4 PG (27.0-31.0); MEAN CORPUSCULAR HGB CONC 32.5 G/DL (33.0-37.0); MEAN CORPUSCULAR VOLUME 93.4 FL (81.0-99.0); MEAN PLATELET VOLUME 9.1 FL (7.4-10.4); PLATELET COUNT 281 /CUMM (130-400); RBC DISTRIBUTION WIDTH 14.3 % (11.5-14.5); RED BLOOD CELL CT 2.97 /CUMM (4.20-5.40); WHITE BLOOD CELL COUNT 8.8 /CUMM (4.8-10.8)
--- NOTE | 2017-10-22 15:33 | ED GENERAL ADULT ---
History of Present Illness General Chief Complaint: General Adult Stated Complaint: WEAKNESS Source: patient Exam Limitations: no limitations Vital Signs & Intake/Output Vital Signs & Intake/Output Vital Signs Date Time Temp Pulse Resp B/P B/P Pulse O2 O2 Flow FiO2 Mean Ox Delivery Rate 10/22 1626 97.1 70 18 120/18 94 Room Air 10/22 1412 97.6 74 28 123/69 96 Room Air Allergies Coded Allergies: adhesive tape (PLASTIC TAPE 01/17/16) oxybutynin (Severe, DELERIUM 01/24/16) codeine (NAUSEA 01/17/16) nitrofurantoin (LOOPY 01/17/16) Reconcile Medications Atorvastatin Calcium 40 MG TABLET 1 TAB PO DAILY CHOLESTEROL (Reported) Clopidogrel Bisulfate (Clopidogrel) 75 MG TABLET 1 TAB PO DAILY BLOOD THINNER (Reported) Droxidopa (Northera) 100 MG CAPSULE 2 TAB PO TID orthostatic hypotension Insulin Aspart (Novolog) 100 UNIT/ML VIAL 0 UNITS SC TIDAC/HS diabetes bloodsugar beforemeal bedtime 80-150 5units 151-200 6units 201-250 7units 251-300 8units 2units 301-350 9units 3units 351-400 10units 4units >400 11units 5units Insulin Detemir (Levemir) 100 UNIT/ML VIAL 20 UNITS SC DAILY diabetes Metoprolol Succinate 50 MG TAB.ER.24H 1 TAB PO DAILY hypertension (Reported) Pantoprazole Sodium (Protonix) 40 MG TABLET.DR 1 TAB PO DAILY GI (Reported) Venlafaxine HCl 25 MG TABLET 1 TAB PO DAILY depression (Reported) Triage Note: BIBA FROM HOME, PER EMS, HOME PHYSICAL THERAPIST ATTEMPTED TO WALK PT; UNABLE DUE TO SOB AND WEAKNESS. ALERT, DENIES PAIN PRESENTLY. HAS PUGA CATHETR IN PLACE. Triage Nurses Notes Reviewed? yes HPI: Patient is a 77 y/o female who presents with weakness, shortness of breath, and cough. Patient states she has had these symptoms for 1 month and they have recently worsened. According to the patient this morning her visiting nurse came and she was unable to ambulate and her dyspnea had worsened and she was told she should come to the ED. Patient reported she was recently discharged from [facility] for similiar syptoms but is unsure of her diagnosis. She denies any fever, chills, orthopnea, or chest pain. She denies any history of DVT or PE. Past History Travel History Traveled to [place] past 21 day No Medical History Any Pertinent Medical History? 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 Yes Review of Systems Review of Systems Constitutional: Reports: weakness. EENTM: Reports: no symptoms. Respiratory: Reports: cough, short of breath. Cardiovascular: Reports: edema. GI: Reports: no symptoms. Genitourinary: Reports: no symptoms. Musculoskeletal: Reports: no symptoms. Skin: Reports: no symptoms. Neurological/Psychological: Reports: no symptoms. Hematologic/Endocrine: Reports: bruising. Immunologic/Allergic: Reports: no symptoms. Physical Exam Physical Exam General Appearance: no apparent distress, alert, awake Head: atraumatic, normal appearance Eyes: Bilateral: normal appearance, PERRL, EOMI. Ears, Nose, Throat: normal pharynx, normal ENT inspection, hearing grossly normal Neck: normal inspection, supple Respiratory: normal breath sounds, chest non-tender, no respiratory distress Cardiovascular: regular rate/rhythm, edema, systolic murmur Peripheral Pulses: 2+ radial (R), 2+ radial (L), 2+ dorsalis pedis (R), 2+ dorsalis pedis (L) Gastrointestinal: normal bowel sounds, soft, non-tender, no organomegaly Neurologic/Psych: awake, alert Skin: intact, warm/dry Comments: 2+ edema bilateral lower extremities Core Measures ACS in differential dx? No CVA/TIA Diagnosis: No Sepsis Present: No Sepsis Focused Exam Completed? No Progress Differential Diagnoses . Plan of Care: Orders Procedure Date/time Status Heart Healthy Diet 10/23 B Active Patient Data 10/22 1845 Active ED Holding Orders 10/22 173 Active Admit to inpatient 10/22 173 Active Vital Signs 10/22 173 Active Code Status 10/22 173 Active Add-on Test (ER Only) 10/22 1603 Active B-TYPE NATRIURETIC PEP (BNP) 10/22 1600 Complete TROPONIN LEVEL 10/22 145 Complete CBC WITHOUT DIFFERENTIAL 10/22 1458 Complete BASIC METABOLIC PANEL 10/22 1458 Complete EKG 10/22 1421 Active Laboratory Tests 10/22/17 1600: Anion Gap 10, Estimated GFR 22 L, BUN/Creatinine Ratio 20.5, Glucose 158 H, Calcium 9.0, Troponin I 0.78 *H, Icg-O-Jcdxrvbgheb Pept 47728 H 10/22/17 1515: CBC w Diff NO MAN DIFF REQ, RBC 2.97 L, MCV 93.4, MCH 30.4, MCHC 32.5 L, RDW 14.3, MPV 9.1, Gran % 68.1, Lymphocytes % 18.3 L, Monocytes % 10.2 H, Eosinophils % 2.8, Basophils % 0.6, Absolute Granulocytes 6.0, Absolute Lymphocytes 1.6, Absolute Monocytes 0.9 H, Absolute Eosinophils 0.3, Absolute Basophils 0.1 Initial ED EKG: see below Comments: EKG: Sinus, rate of 75, left axis deviation, prolonged QT: No acute ST-T changes. Compared to the EKG from July 09, 2016: No significant change. No apparent distress and resting of the patient gives symptoms concerning for congestive heart failure. We will get x-ray we will do further evaluation. Patient not hypoxic at this time but catches her breath to speak., Crackles, pitting edema concerning for CHF. Dr. Esteves-discussed the case with me. Recommends no Lovenox at this time because the patient's renal function and she wants to see where the troponin is going. The patient has been given aspirin. The patient has been given Lasix. Hospitalist team is accepting the patient. The patient is not hypoxic. No apparent distress. Departure Departure Time of Disposition: 1854 Disposition: STILL A PATIENT Condition: Stable Clinical Impression Primary Impression: NSTEMI (non-ST elevated myocardial infarction) Secondary Impressions: CHF (congestive heart failure) Referrals: Andreina GILMORE,Koby Ulloa (PCP/Family) Departure Forms: Customer Survey General Discharge Information Admission Note Spoke With: Ken Rodriguez MD Documentation of Exam: Documentation of any treatments & extenuating circumstances including Concerns Regarding Discharge (functional status, medication knowledge or non-compliance, living conditions, etc.) that warrant an admission rather than observation: The patient will need cardiology consult possible anticoagulation even cardiac catheterization might be indicated, [facility] Critical Care Note Critical Care Note Critical Care Time: non-applicable
[2017-10-22 15:39] LABS: GRANULOCYTE % 68.1 % (42.2-75.2)
--- NOTE | 2017-10-22 15:54 | RADIOLOGY REPORT ---
EXAMINATION: XR CHEST CLINICAL INFORMATION: Dyspnea. COMPARISON: Chest x-ray dated 03/16/2016 and older exams. TECHNIQUE: AP and lateral views of the chest. FINDINGS: EKG leads are seen overlying the chest. The patient is status post median sternotomy and CABG surgery. The cardiomediastinal silhouette is enlarged. Low lung volumes are seen with indistinctness of the central vessels and slight reticular prominence throughout the perihilar lungs, suggesting mild pulmonary edema. Bibasilar opacities are seen, left greater than right, consistent with mild subsegmental atelectasis. Small left-sided pleural effusion is also noted. No pneumothorax is seen. Diffuse osteopenia is noted. IMPRESSION: Findings are most consistent with mild congestive heart failure and small left pleural effusion. Associated bibasilar atelectatic changes are also noted.
--- NOTE | 2017-10-22 18:53 | History & Physical ---
Agueda GILMORE,[facility] 10/22/17 4103: General Information and [facility] MD Statement: I have seen and personally examined FELICIANO PATHAK I and documented this H&P. The patient is a 77 year old F who presented with a patient stated chief complaint of [shortness of breath]. Source of Information: patient Exam Limitations: no limitations History of Present Illness: 77-year-old female with past medical history of hypertension, congestive heart failure, aortic stenosis, hyperlipidemia, peripheral vascular disease, diabetes, CABG, chronic Gallo, urinary incontinence [follows Dr. Hirsch] came to [place] [facility] with complaints of weakness, shortness of breath and cough. Patient was in usual state of health until this morning. Patient was seen by her physical therapist who comes twice a week. She found her more short of breath at exertion. At baseline patient doesn't use any home oxygen. Patient herself confirms that she is not complaint with her medications. The reason for not being continue with her medications that she says she has some memory problems are not able to be complaint with her meds. Patient also complains of cough for the past 1 week with no sputum production. Patient denies chest pain, palpitation, diaphoresis, orthopnea, paroxysmal nocturnal dyspnea, abdominal pain, nausea, vomiting, diarrhea, blood in urine, bloody stool. Patient at baseline uses walker at home. She denies fall. Patient also says that she was recently admitted at [facility] week ago and got discharge for CHF exacerbation. She sees Dr. Mike Monte. She gives a history of CABG done in 2004 at [facility]. She has a chronic suprapubic catheter which was inserted [address] Hirsch and now she follows Dr. Dillon in [place]. Social history-past smoker quit in 1996. No alcohol use. Her friend follow-up helps with her supper. Most of her daily work is managed by her. Past surgical history-CABG, right hip replacement, suprapubic cystostomy. Family history-noncontributory. Allergies/Medications Allergies: Coded Allergies: adhesive tape (PLASTIC TAPE 01/17/16) oxybutynin (Severe, DELERIUM 01/24/16) codeine (NAUSEA 01/17/16) nitrofurantoin (LOOPY 01/17/16) Compliance With Home Meds: POOR Past History Travel History Traveled to [place] past 21 day No Medical History Neurological: RECENT C/ LIGHTHEADED orthostasis EENT: CATARACTS REMOVED R/L EYE Cardiovascular: aortic stenosis, CHF, hypertension, hyperlipidemia, PVD, CABG Respiratory: NONE Gastrointestinal: NONE Hepatic: NONE Renal: urinary incontinence, SUPRAPUBIC CATHETER UROLOGIST-DR HIRSCH previous SIMONE UTI Musculoskeletal: ARTHRITIS Psychiatric: NONE Endocrine: diabetes Blood Disorders: NONE Cancer(s): R ARM SKIN CANCER REMOVED NURSE EPIDEMIOLOGIST/Reproductive: NONE History of MRSA: No History of VRE: No History of CDIFF: No Surgical History Surgical History: CABG, hip replacement (right hip), L LEG ANGIOPLASTY status post suprapubic cystostomy Past Family/Social History Family History Relations & Conditions if any Relation not specified for: FH: chronic kidney disease Psychosocial History Who Do You Live With? By herself - Neighbor/Friend helps her out Services at Home: None Primary Language: Faroese Smoking Status: Former Smoker ETOH Use: denies use Living Will? yes Functional Ability ADLs Independent: dressing, eating, toileting, bathing. Ambulation: walker IADLs Needs Assist: shopping, housework. Review of Systems Review of Systems Constitutional: Reports: no symptoms. Cardiovascular: Reports: no symptoms. Respiratory: Reports: short of breath. GI: Reports: no symptoms. Genitourinary: Reports: no symptoms. Musculoskeletal: Reports: no symptoms. Exam & Diagnostic Data Last 24 Hrs of Vital Signs/I&O Vital Signs Date Time Temp Pulse Resp B/P B/P Pulse O2 O2 Flow FiO2 Mean Ox Delivery Rate 10/22 2229 97.7 73 18 104/68 94 Room Air 10/22 2144 Room Air 10/22 2054 98.6 74 20 118/60 10/22 2050 98.6 74 20 118/60 93 Room Air 10/22 1944 Room Air 10/22 1939 97.7 76 18 132/68 96 Room Air 10/22 1626 97.1 70 18 120/18 94 Room Air 10/22 1412 97.6 74 28 123/69 96 Room Air Intake & Output 10/23 0800 10/23 0000 10/22 1600 Intake Total 0 Output Total 480 Balance -480 Intake, Oral 0 Number 0 Bowel Movements Output, Urine 480 Patient 158 lb 145 lb Weight Weight Bed scale Reported by Patient Measurement Method Physical Exam General Appearance Alert, Oriented X3, Cooperative, No Acute Distress Cardiovascular Regular Rate, Normal S1, Normal S2, SYSTOLIC MURMUR Lungs Clear to Auscultation Abdomen Soft, No Tenderness Neurological Strength at 5/5 X4 Ext, Normal Tone, Sensation Intact Extremities 1+ PEDAL EDEMA Last 24 Hrs of Labs/Heraclio: Laboratory Tests 10/22/17 2315: Troponin I 0.74 *H 10/22/17 1600: Anion Gap 10, Estimated GFR 22 L, BUN/Creatinine Ratio 20.5, Glucose 158 H, Calcium 9.0, Magnesium Pending, Troponin I 0.78 *H, Ssp-N-Gkjffkbwsxp Pept 42580 H, TSH Pending, Free T4 Pending, Total T3 Pending 10/22/17 1515: CBC w Diff NO MAN DIFF REQ, RBC 2.97 L, MCV 93.4, MCH 30.4, MCHC 32.5 L, RDW 14.3, MPV 9.1, Gran % 68.1, Lymphocytes % 18.3 L, Monocytes % 10.2 H, Eosinophils % 2.8, Basophils % 0.6, Absolute Granulocytes 6.0, Absolute Lymphocytes 1.6, Absolute Monocytes 0.9 H, Absolute Eosinophils 0.3, Absolute Basophils 0.1 Diagnostic Data EKG Results NSR Assessment/Plan Assessment: 77-year-old female with past medical history of hypertension, congestive heart failure, aortic stenosis, hyperlipidemia, peripheral vascular disease, diabetes, CABG, chronic Gallo, urinary incontinence came to [place] [facility] with complaints of weakness, shortness of breath and cough. Vital signs Temperature 97.6, pulse rate 74, respiratory rate 28, blood pressure 123/69, saturating 96 at room air ED output 450 mL Admission labs W BC 8.8, hemoglobin 9, platelet count 281, sodium 136, potassium 5.2, carbon dioxide 18, anion gap 10, BUN 45, creatinine 2.2 [baseline creatinine around 1.7 -2] troponin 0.78, proBNP 83194 Low vitamin D level in 2015 HbA1c 13.2 in 2017 Chest x-ray Findings are most consistent with mild congestive heart failure and small left pleural effusion. Associated bibasilar atelectatic changes are also noted. Home medication Atorvastatin 40 daily Plavix 75 daily NorthERA 100 mg 2 tablets 3 times a day NovoLog sliding scale insulin Levemir 20 units daily Metoprolol 50 mg daily pantoprazole 40 mg daily Venlafaxine 25 mg daily Problem list 1. Acute on chronic congestive heart failure-admitted in telemetry. Vitals every shift. Strict I's and O's. Daily weights. Serial troponin and EKG. Echocardiogram to rule out any regional wall motion abnormality. Cardiology consult in a.m. Patient is not complaint with her medications. Patient also says she has memory problems. Probably she might need a visiting nurse to help with her medications. We will give her IV Lasix 20 mg starting tomorrow. Patient was given 40 mg IV given once in ED. Patient troponin is 0.78 with no EKG changes. We will follow up with troponin. Patient also had moderate aortic stenosis 1.1 cm in the last echo 2006 2. SIMONE on CKD stage 3-can be secondary due to dehydration or not sure if this is her new baseline. We will repeat blood panel in the a.m. 3. Hyperkalemia-none of her home medication causes hyperkalemia. Avoid any heparin products. Will follow-up with Dr. pro in the morning. 4. We will continue her atorvastatin, and Plavix. 5. Pqiyonbi-Ipui-Fuqpk and NovoLog sliding scale insulin. We will give her Levemir 15 units daily. Code-DNR/DNI Diet-diabetic diet As Ranked By This Provider Problem List: 1. CHF (congestive heart failure) Core Measures/Misc (10/25) Acute Coronary Syndrome ACS Diagnosis: No Congestive Heart Failure Congestive Heart Failure Diagnosis Yes Last Known EF % 55 No ELOY/ARB d/t Renal Failure/Azotemia Cerebrovascular Accident CVA/TIA Diagnosis: No VTE (View Protocol) VTE Risk Factors Age>40 No Mechanical VTE Prophylaxis d/t Other No VTE Pharm Prophylaxis d/t Other Sepsis (View protocol) Sepsis Present: No If YES complete Sepsis Event Note If YES complete Sepsis Event Note Jennifer GILMOREKen 10/23/17 0232: General Information and HPI Statement: I have seen and personally examined FELICIANO PATHAK I and documented this H&P. The patient is a 77 year old F who presented with a patient stated chief complaint of [shortness of breath]. Source of Information: patient Exam Limitations: no limitations Allergies/Medications Home Med list Atorvastatin Calcium 40 MG TABLET 1 TAB PO DAILY CHOLESTEROL (Reported) Clopidogrel Bisulfate (Clopidogrel) 75 MG TABLET 1 TAB PO DAILY BLOOD THINNER (Reported) Droxidopa (Northera) 100 MG CAPSULE 2 TAB PO TID orthostatic hypotension Insulin Aspart (Novolog) 100 UNIT/ML VIAL 0 UNITS SC TIDAC/HS diabetes bloodsugar beforemeal bedtime 80-150 5units 151-200 6units 201-250 7units 251-300 8units 2units 301-350 9units 3units 351-400 10units 4units >400 11units 5units Insulin Detemir (Levemir) 100 UNIT/ML VIAL 20 UNITS SC DAILY diabetes Metoprolol Succinate 50 MG TAB.ER.24H 1 TAB PO DAILY hypertension (Reported) Pantoprazole Sodium (Protonix) 40 MG TABLET.DR 1 TAB PO DAILY GI (Reported) Venlafaxine HCl 25 MG TABLET 1 TAB PO DAILY depression (Reported) Compliance With Home Meds: POOR Past History Medical History EENT: CATARACTS REMOVED R/L EYE Cardiovascular: aortic stenosis, CHF, hypertension, hyperlipidemia Renal: urinary incontinence, SUPRAPUBIC CATHETER UROLOGIST-DR HIRSCH previous SIMONE UTI Endocrine: diabetes Review of Systems Review of Systems Constitutional: Reports: see HPI. Exam & Diagnostic Data Last 24 Hrs of Vital Signs/I&O Vital Signs Date Time Temp Pulse Resp B/P B/P Pulse O2 O2 Flow FiO2 Mean Ox Delivery Rate 10/220 97.7 73 18 104/68 94 Room Air 10/22 2144 Room Air 10/22 2054 98.6 74 20 118/60 10/22 2050 98.6 74 20 118/60 93 Room Air 10/22 1944 Room Air 10/22 1939 97.7 76 18 132/68 96 Room Air 10/22 1626 97.1 70 18 120/18 94 Room Air 10/22 1412 97.6 74 28 123/69 96 Room Air Intake & Output 10/23 0800 10/23 0000 10/22 1600 Intake Total 0 Output Total 480 Balance -480 Intake, Oral 0 Number 0 Bowel Movements Output, Urine 480 Patient 158 lb 145 lb Weight Weight Bed scale Reported by Patient Measurement Method Physical Exam General Appearance Alert, Oriented X3, Cooperative, No Acute Distress Skin No Rashes, No Breakdown, No Significant Lesion Skin Temp/Moisture Exam: Warm/Dry Sepsis Skin Exam (color): Normal for Ethnicity HEENT Atraumatic, PERRLA, EOMI Neck Supple, No JVD, No thryomegaly Cardiovascular SYSTOLIC MURMUR Lungs coarse breath sounds Abdomen Normal Bowel Sounds, Soft, No Tenderness Neurological Normal Gait Last 24 Hrs of Labs/Heraclio: Laboratory Tests 10/22/17 2315: Troponin I 0.74 *H 10/22/17 1600: Anion Gap 10, Estimated GFR 22 L, BUN/Creatinine Ratio 20.5, Glucose 158 H, Calcium 9.0, Magnesium Pending, Troponin I 0.78 *H, Dxz-S-Vzfraerxkcu Pept [id number] H, TSH Pending, Free T4 Pending, Total T3 Pending 10/22/17 1515: CBC w Diff NO MAN DIFF REQ, RBC 2.97 L, MCV 93.4, MCH 30.4, MCHC 32.5 L, RDW 14.3, MPV 9.1, Gran % 68.1, Lymphocytes % 18.3 L, Monocytes % 10.2 H, Eosinophils % 2.8, Basophils % 0.6, Absolute Granulocytes 6.0, Absolute Lymphocytes 1.6, Absolute Monocytes 0.9 H, Absolute Eosinophils 0.3, Absolute Basophils 0.1 Core Measures/Misc (10/25) Sepsis (View protocol) If YES complete Sepsis Event Note If YES complete Sepsis Event Note Attending MD Review Statement Attending Statement Attending MD Statement: examined this patient, discuss w/resident/PA/PRODUCT SAFETY TEST ENGINEER, agreed w/resident/PA/PRODUCT SAFETY TEST ENGINEER, discussed with case mgmt Attending Assessment/Plan: This patient is a 77-year-old female with a significant past medical history for hypertension, congestive heart failure, aortic stenosis, hyperlipidemia, peripheral vascular disease, diabetes, CABG, chronic Gallo, urinary incontinence who came to [place] emergency department with complaints of weakness, shortness of breath and cough. She was in usual state of health until the day of admission. Her physical therapist who comes twice a week found her more short of breath at exertion. She is not complaint with her home medications secondary to memory problems. She is followed as an outpatient by Dr. Mike Luo. Upon evaluation in the emergency department the patient was found to be afebrile with stable vital signs, have a low hemoglobin of 9.0, a slightly decreased sodium, slightly increased potassium, elevation in her BUN and creatinine, initial troponin was 0.78 0.74, BNP is 71,000, chest x-ray Findings are most consistent with mild congestive heart failure and small left pleural effusion. Associated bibasilar atelectatic changes are also noted. The patient will be admitted to the telemetry floor for weakness, exertional shortness of breath, acute on chronic congestive heart failure, demand ischemia, hyponatremia, and hyperkalemia. She will need serial troponins and EKGs, Echocardiogram, Cardiology consult in a.m. and continued management of her stage 3 CKD and diabetes. DNR/DNI
[2017-10-22 22:30] VITALS: BP 104/68
[2017-10-23 06:19] LABS: ABSOLUTE BASOPHIL COUNT 0.1 /CUMM (0.0-0.2); ABSOLUTE EOSINOPHIL COUNT 0.3 /CUMM (0.0-0.7); ABSOLUTE GRANULOCYTE CT 4.9 /CUMM (1.4-6.5); ABSOLUTE LYMPH COUNT 1.5 /CUMM (1.2-3.4); ABSOLUTE MONOCYTE COUNT 0.9 /CUMM (0.10-0.60); BASOPHIL % 0.8 % (0.0-2.0); EOSINOPHIL % 3.9 % (0-5); GRANULOCYTE % 64.1 % (42.2-75.2); HEMATOCRIT 27.9 % (37-47); MEAN CORPUSCULAR HGB 30.7 PG (27.0-31.0); MEAN CORPUSCULAR VOLUME 93.2 FL (81.0-99.0); MEAN PLATELET VOLUME 9.4 FL (7.4-10.4); PLATELET COUNT 292 /CUMM (130-400); RBC DISTRIBUTION WIDTH 14.2 % (11.5-14.5); WHITE BLOOD CELL COUNT 7.7 /CUMM (4.8-10.8)
[2017-10-23 07:13] VITALS: BP 110/60
--- NOTE | 2017-10-23 08:35 | PN- Housestaff ---
[facility] Subjective Follow-up For: Acute on chronic diastolic heart failure Moderate to severe aortic stenosis Elevated troponin Acute on chronic kidney injury Tele-Events Since Last Visit: Patient remained in sinus rhythm and heart rate between 6172 with PVCs Subjective: No overnight events. Patient remained afebrile. Seen and examined this morning. Patient is using 1 L of oxygen maintaining saturation 93%. Patient denied palpitation, nausea, vomiting, chill, fever, abdominal pain dysuria. Patient reported chest heaviness but it is still the same as she presented. Patient also reported shortness of breath on exertion and feeling tightness. Review of Systems Constitutional: Reports: weakness. Denies: chills, fever. EENTM: Reports: no symptoms. Cardiovascular: Denies: palpitations, syncope. Respiratory: Reports: cough, short of breath. Denies: sputum production, wheezing. Gastrointestinal: Denies: abdominal pain, constipation, diarrhea, nausea, vomiting. Genitourinary: Reports: no symptoms. Neurological/Psychological: Reports: no symptoms. Objective Last 24 Hrs of Vital Signs/I&O Vital Signs Date Time Temp Pulse Resp B/P B/P Pulse O2 O2 Flow FiO2 Mean Ox Delivery Rate 10/23 0907 Nasal 1.0L Cannula 10/23 0829 62 118/60 10/23 0713 98.4 63 20 110/60 93 Room Air 10/23 0000 98 Nasal 2.0L Cannula 10/22 2230 97.7 73 18 104/68 94 Room Air 10/22 2145 Room Air 10/225 98.6 74 20 118/60 10/22 2051 98.6 74 20 118/60 93 Room Air 10/22 1944 Room Air 10/22 1939 97.7 76 18 132/68 96 Room Air 10/22 1626 97.1 70 18 120/18 94 Room Air 10/22 1412 97.6 74 28 123/69 96 Room Air Intake & Output 10/23 1600 10/23 0800 10/23 0000 Intake Total 0 Output Total 480 Balance -480 Intake, Oral 0 Number 0 Bowel Movements Output, Urine 480 Patient 156 lb 158 lb Weight Weight Bed scale Bed scale Measurement Method Physical Exam General Appearance: Alert, Oriented X3, Cooperative Skin Temp/Moisture Exam: Warm/Dry Sepsis Skin Exam (color): Normal for Ethnicity HEENT: Atraumatic, PERRLA, EOMI Neck: Supple Cardiovascular: Normal S1, Normal S2 Lungs: bibasilar crackles Abdomen: Soft, No Tenderness Neurological: Normal Speech, Strength at 5/5 X4 Ext, Normal Tone Extremities: No Edema Assessment/Plan Assessment: 77 YO F with PMH of hypertension, congestive heart failure, aortic stenosis, hyperlipidemia, peripheral vascular disease, diabetes, CABG, chronic Gallo, urinary incontinence [follows Dr. Hirsch] came to [facility] with complaints of weakness, shortness of breath and cough. Seeing patient on telemetry floor for following problems. Acute on chronic diastolic heart failure: -Patient had EF 5560% on her last echocardiogram that was done last year. She also had moderate to severe aortic stenosis. -Continue Lasix 20 mg IV daily considering her moderate to severe aortic stenosis -Strictly monitor input and output -Daily weight -Cardiology recommendations -Echocardiogram Acute on chronic kidney: -Possibly prerenal. Patient had baseline creatinine 1.5 and GFR in 20s. Stage IV kidney disease. -Today her creatinine is 2.2 and GFR is 22 -Avoid NSAIDs or nephrotoxic medications -Closely monitor input output Elevated troponin: -Patient has elevated troponin in the setting of acute on chronic kidney injury. She also has T-wave inversion in lateral leads. -Continue monitoring her EKGs and tops. -Cardiology recommendations Hyperkalemia: -Mild elevation in potassium 5.2 -Today 5.1. -Follow-up potassium level History of diabetes: -Accu-Cheks -Insulin Levemir 15 units daily -Insulin NovoLog according to sliding scale. History of hypertension hyperlipidemia; -Continue metoprolol and Lipitor History of CAD status post CABG: -Continue clopidogrel DVT prophylaxis: Mechanical and subcutaneous heparin CODE STATUS: DNR/internal Problem List: 1. CHF (congestive heart failure) 2. Dxsgr-[id number] kidney injury 3. Elevated troponin Pain Ratin Pain Location: none Pain Goal: Remain pain free Pain Plan: pain pathway Tomorrow's Labs & Rationales: bep/cbc Марина Pettit MD 10/23/17 0856: Attending MD Review Statement Attending Statement Attending Statement: examined this patient, discuss w/resident/PA/GAS EXAMINER, agreed w/resident/PA/GAS EXAMINER, reviewed EMR data (avail), discussed with nursing, reviewed images Attending Assessment/Plan: 77-year-old female past medical history of diabetes on insulin, hypertension, previous moderate to severe and elevated right-sided heart pressures. She is here with what appears to be an acute heart failure exacerbation. We have her on 20 mg of Lasix IV daily as she is Lasix alireza and does have moderate to severe . She has congestive heart failure on her chest x-ray, she is coughing and short of breath and a BNP 71,000. She does have CKD with a GFR in the 20s so we will need to watch her BUN and creatinine closely on the IV Lasix, PT eval and follow-up.
[2017-10-23 13:52] VITALS: BP 133/61
--- NOTE | 2017-10-23 21:27 | Cons- Cardiology ---
General Information and HPI Consulting Request Date of Consult: 10/23/17 Requested By: Ken Rodriguez MD Reason for Consult: CHF History of Present Illness: 77 year old Patient with history of CAD s/p CABG, xtzkoylz-ii-twioxi aortic stenosis, insulin-dependant diabetes and dyslipidemia, presented to the ED for shortness of breath for about one week, orthopnea, fatigue. She denies palpitations or chest pains, although she had reported "chest tightness" to the house staff. She was found to be in acute CHF on admission with pro-BNP levels exceeding 62033! Troponins were also slightly elevated on admission, along with SIMONE (creatinine 2.2), and have been relatively stable in the 0.7-0.8 range. Echocardiogram today reveals calcified aortic valve with area calculated at 0.8cm2, with mean gradient not exceeding 15mmHg however, and there is a new wall motion abnormality in the anterior segment, mid to apical, with EF 35-40%, which is new as compared with her previous echo in 2017, where no wall motion abnormality was present. Allergies/Medications Allergies: Coded Allergies: adhesive tape (PLASTIC TAPE 01/17/16) oxybutynin (Severe, DELERIUM 01/24/16) codeine (NAUSEA 01/17/16) nitrofurantoin (LOOPY 01/17/16) Home Med List: Atorvastatin Calcium 40 MG TABLET 1 TAB PO DAILY CHOLESTEROL (Reported) Clopidogrel Bisulfate (Clopidogrel) 75 MG TABLET 1 TAB PO DAILY BLOOD THINNER (Reported) Droxidopa (Northera) 100 MG CAPSULE 2 TAB PO TID orthostatic hypotension Insulin Aspart (Novolog) 100 UNIT/ML VIAL 0 UNITS SC TIDAC/HS diabetes bloodsugar beforemeal bedtime 80-150 5units 151-200 6units 201-250 7units 251-300 8units 2units 301-350 9units 3units 351-400 10units 4units >400 11units 5units Insulin Detemir (Levemir) 100 UNIT/ML VIAL 20 UNITS SC DAILY diabetes Metoprolol Succinate 50 MG TAB.ER.24H 1 TAB PO DAILY hypertension (Reported) Pantoprazole Sodium (Protonix) 40 MG TABLET.DR 1 TAB PO DAILY GI (Reported) Venlafaxine HCl 25 MG TABLET 1 TAB PO DAILY depression (Reported) Current Medications: Current Medications Sig/Dasha Start time Last Medication Dose Route Stop Time Status Admin Acetaminophen 650 MG Q6 PRN 10/22 2100 AC PO Acetaminophen 1,000 MG Q6P PRN 10/22 204 AC IV Atorvastatin Calcium 40 MG 1700 10/23 1700 AC 10/23 PO 1713 Clopidogrel Bisulfate 75 MG DAILY 10/23 0900 AC 10/23 PO 0828 Furosemide 20 MG DAILY 10/23 0900 AC 10/23 IV 0829 Heparin Sodium 5,000 UNIT Q8 10/23 1400 AC 10/23 (Porcine) SC 2021 Influenza Virus 0.5 ML ONCE ONE 10/23 09 DC 10/23 Vaccine IM 10/23 0901 0827 Insulin Aspart 0 TIDAC 10/23 08 AC 10/23 SC 123 Insulin Aspart 0 AT BEDTIME 10/22 2100 AC SC Insulin Detemir 15 UNITS DAILY 10/23 09 AC 10/23 SC 0828 Metoprolol Succinate 50 MG DAILY 10/22 2040 AC 10/23 PO 08 Omeprazole 40 MG DAILY AC 10/23 07 AC 10/23 PO 07 Venlafaxine HCl 25 MG BID 10/22 2100 AC 10/23 PO 2018 Past History Travel History Traveled to [place] past 21 day No Medical History Blood Transfusion Hx: Yes Neurological: RECENT C/ LIGHTHEADED orthostasis EENT: CATARACTS REMOVED R/L EYE Cardiovascular: aortic stenosis, CHF, hypertension, hyperlipidemia Respiratory: NONE Gastrointestinal: NONE Hepatic: NONE Renal: urinary incontinence, 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 Home Who Do You Live With? By herself - Neighbor/Friend helps her out Services at Home: Physical Therapy, NURSING Primary Language: Uzbek Smoking Status: Former Smoker ETOH Use: denies use Living Will? yes Functional Ability ADLs Independent: dressing, eating, toileting, bathing. Ambulation: walker IADLs Needs Assist: shopping, housework. Exam & Diagnostic Data Vital Signs and I&O Vital Signs Date Time Temp Pulse Resp B/P B/P Pulse O2 O2 Flow FiO2 Mean Ox Delivery Rate 10/23 1352 97.9 65 18 133/61 97 Nasal 2.0L Cannula 10/23 0907 Nasal 1.0L Cannula 10/23 0829 62 118/60 10/23 0800 96 Nasal 1.0L Cannula 10/23 0713 98.4 63 20 110/60 93 Room Air 10/23 0000 98 Nasal 2.0L Cannula 10/22 2230 97.7 73 18 104/68 94 Room Air 10/22 2145 Room Air Intake & Output 10/23 1600 10/23 0800 10/23 0000 10/22 1600 10/22 0810/22 0000 Intake Total 0 Output Total 480 Balance -480 Intake, Oral 0 Number 0 Bowel Movements Output, Urine 480 Patient 156 lb 158 lb 145 lb Weight Weight Bed scale Bed scale Reported by Patient Measurement Method Physical Exam: General Appearance: Alert, Oriented X3, Cooperative HEENT: Atraumatic, PERRLA, EOMI Neck: Supple, trachea midline, elevated Jugulars (10 cm at 45 degrees) Cardiovascular: Normal S1, diminished but still audible S2, harsh systolic murmur at LUSB and apex, with mid-peak. Lungs: bibasilar crackles Abdomen: Soft, Non Tenderness, no liver pulsatility Neurological: Normal Speech, Strength at 5/5 X4 Ext, Normal Tone Extremities: No Edema, good capillary refill Labs/Heraclio Results: Laboratory Tests 10/23 10/23 10/23 1120 0500 0500 Chemistry Sodium (137 - 145 mmol/L) 137 Potassium (3.5 - 5.1 mmol/L) 5.1 Chloride (98 - 107 mmol/L) 109 H Carbon Dioxide (22 - 30 mmol/L) 17 L Anion Gap (5 - 16) 10 BUN (7 - 17 mg/dL) 47 H Creatinine (0.5 - 1.0 mg/dL) 2.2 H Estimated GFR (>60 ml/min) 22 L BUN/Creatinine Ratio (7 - 25 %) 21.4 Hemoglobin A1c (4.2 - 5.8 %) Pending Magnesium (1.6 - 2.3 mg/dL) 2.2 Troponin I (< 0.11 ng/ml) 0.76 *H 0.90 *H 25-OH Vitamin D Total (30 - 100 ng/ml) 13.1 L Hematology CBC w Diff NO MAN DIFF REQ WBC (4.8 - 10.8 /CUMM) 7.7 RBC (4.20 - 5.40 /CUMM) 3.00 L Hgb (12.0 - 16.0 G/DL) 9.2 L Hct (37 - 47 %) 27.9 L MCV (81.0 - 99.0 FL) 93.2 MCH (27.0 - 31.0 PG) 30.7 MCHC (33.0 - 37.0 G/DL) 33.0 RDW (11.5 - 14.5 %) 14.2 Plt Count (130 - 400 /CUMM) 292 MPV (7.4 - 10.4 FL) 9.4 Gran % (42.2 - 75.2 %) 64.1 Lymphocytes % (20.5 - 51.1 %) 20.1 L Monocytes % (1.7 - 9.3 %) 11.1 H Eosinophils % (0 - 5 %) 3.9 Basophils % (0.0 - 2.0 %) 0.8 Absolute Granulocytes (1.4 - 6.5 /CUMM) 4.9 Absolute Lymphocytes (1.2 - 3.4 /CUMM) 1.5 Absolute Monocytes (0.10 - 0.60 /CUMM) 0.9 H Absolute Eosinophils (0.0 - 0.7 /CUMM) 0.3 Absolute Basophils (0.0 - 0.2 /CUMM) 0.1 10/22 10/22 10/22 2315 1600 1515 Chemistry Sodium (137 - 145 mmol/L) 136 L Potassium (3.5 - 5.1 mmol/L) 5.2 H Chloride (98 - 107 mmol/L) 107 Carbon Dioxide (22 - 30 mmol/L) 18 L Anion Gap (5 - 16) 10 BUN (7 - 17 mg/dL) 45 H Creatinine (0.5 - 1.0 mg/dL) 2.2 H Estimated GFR (>60 ml/min) 22 L BUN/Creatinine Ratio (7 - 25 %) 20.5 Glucose (65 - 99 mg/dL) 158 H Calcium (8.4 - 10.2 mg/dL) 9.0 Magnesium (1.6 - 2.3 mg/dL) 2.2 Troponin I (< 0.11 ng/ml) 0.74 *H 0.78 *H Qwv-B-Fhngdkybvdr Pept (<125 pg/mL) 28280 H TSH (0.270 - 4.200 uIU/mL) 1.440 Free T4 (0.78 - 2.44 ng/dL) 1.72 Total T3 (0.97 - 1.69 ng/mL) 0.87 L Hematology CBC w Diff NO MAN DIFF REQ WBC (4.8 - 10.8 /CUMM) 8.8 RBC (4.20 - 5.40 /CUMM) 2.97 L Hgb (12.0 - 16.0 G/DL) 9.0 L Hct (37 - 47 %) 27.7 L MCV (81.0 - 99.0 FL) 93.4 MCH (27.0 - 31.0 PG) 30.4 MCHC (33.0 - 37.0 G/DL) 32.5 L RDW (11.5 - 14.5 %) 14.3 Plt Count (130 - 400 /CUMM) 281 MPV (7.4 - 10.4 FL) 9.1 Gran % (42.2 - 75.2 %) 68.1 Lymphocytes % (20.5 - 51.1 %) 18.3 L Monocytes % (1.7 - 9.3 %) 10.2 H Eosinophils % (0 - 5 %) 2.8 Basophils % (0.0 - 2.0 %) 0.6 Absolute Granulocytes (1.4 - 6.5 /CUMM) 6.0 Absolute Lymphocytes (1.2 - 3.4 /CUMM) 1.6 Absolute Monocytes (0.10 - 0.60 /CUMM) 0.9 H Absolute Eosinophils (0.0 - 0.7 /CUMM) 0.3 Absolute Basophils (0.0 - 0.2 /CUMM) 0.1 Assessment/Plan Assessment/Plan Acute CHF likely due recent decrease in EF/akinesis of anterior wall, along with moderate-severe aortic stenosis, possibly onx-beox-ucx-gradient. Troponins are relatively stable, patient is already treated with plavix, i would not add heparin at this time, i believe the ischemic event is completed and no thrombus can be visualized in LV cavity on TTE. Acute treatment of CHF with lasix 20mg IV bid. I do not know why patient does not have ASA, but if there isnt any counterindication, i would add ASA to her daily medication (160 X 1 then 80 daily), continue metoprolol 50 as is. Coronary catheterization will being considered when her kidney function improves , with direct transvalvular aortic gradient which could be obtained at the same time. Consult Acknowledgment - Thank you for your consult request.
[2017-10-23 23:45] VITALS: BP 130/72
[2017-10-24 06:59] VITALS: BP 130/62
--- NOTE | 2017-10-24 08:53 | PN- Housestaff ---
Subjective Follow-up For: Acute on chronic diastolic heart failure Moderate to severe aortic stenosis Elevated troponin Acute on chronic kidney injury Subjective: Afebrile overnight. Patient is seen and examined this morning. Patient is awake and states she had no complaints overnight and has been ambulating regularly throughout the day. Patient reports mild shortness of breath that has improved since yesterday. Patient also reports a lingering cough with no sputum production. Patient otherwise denies any other concerns today. Review of Systems Constitutional: Reports: see HPI. Objective Last 24 Hrs of Vital Signs/I&O Vital Signs Date Time Temp Pulse Resp B/P B/P Pulse O2 O2 Flow FiO2 Mean Ox Delivery Rate 10/24 0937 68 130/62 10/24 0659 98.6 68 20 130/62 93 Nasal Cannula 10/23 2345 98.5 68 18 130/72 98 Nasal Cannula 10/23 2337 Nasal 1.0L Cannula 10/23 1352 97.9 65 18 133/61 97 Nasal 2.0L Cannula Intake & Output 10/24 1600 10/24 0800 10/24 0000 Intake Total 120 Output Total 1000 Balance -880 Intake, Oral 120 Output, Urine 1000 Patient 156 lb Weight Physical Exam General Appearance: Alert, Oriented X3, Cooperative Skin: No Rashes Skin Temp/Moisture Exam: Warm/Dry HEENT: Atraumatic Neck: Supple, No JVD Cardiovascular: Regular Rate, Normal S1, Normal S2 Lungs: decreased breath sounds Neurological: Normal Speech Extremities: No Edema Assessment/Plan Assessment: 77 YO F with PMH of hypertension, congestive heart failure, aortic stenosis, hyperlipidemia, peripheral vascular disease, diabetes, CABG, chronic Gallo, urinary incontinence [follows Dr. Hirsch] came to [place] [facility] with complaints of weakness, shortness of breath and cough. Seeing patient on telemetry floor for following problems. Acute on chronic diastolic heart failure: -Patient had EF 5560% on her last echocardiogram that was done last year. She also had moderate to severe aortic stenosis. -Continue Lasix 20 mg IV daily considering her moderate to severe aortic stenosis -Strictly monitor input and output -Daily weight -Cardiology recommendations -Echocardiogram Acute on chronic kidney: -Possibly prerenal. Patient had baseline creatinine 1.5 and GFR in 20s. Stage IV kidney disease. -Today her creatinine is 2.2 and GFR is 22 -Avoid NSAIDs or nephrotoxic medications -Closely monitor input output Elevated troponin: -Patient has elevated troponin in the setting of acute on chronic kidney injury. She also has T-wave inversion in lateral leads. -Continue monitoring her EKGs and tops. -Cardiology recommendations Hyperkalemia: -Mild elevation in potassium 5.2 -Today 5.1. -Follow-up potassium level History of diabetes: -Accu-Cheks -Insulin Levemir 15 units daily -Insulin NovoLog according to sliding scale. History of hypertension hyperlipidemia; -Continue metoprolol and Lipitor History of CAD status post CABG: -Continue clopidogrel DVT prophylaxis: Mechanical and subcutaneous heparin CODE STATUS: DNR/internal Problem List: 1. CHF (congestive heart failure) 2. Uykik-he-lzuigxy kidney injury 3. Elevated troponin Pain Ratin Pain Location: na Pain Goal: Remain pain free Pain Plan: na Tomorrow's Labs & Rationales: routine
--- NOTE | 2017-10-24 08:55 | PN- Att Addend ---
Attending Addendum Attending Brief Note Patient seen and examined. Overall she feels slightly better. On exam blood pressure is 130/60, pulse is 68, breathing at 16-18 and afebrile at 98 6. Lungs have decreased breath sounds at the bases, heart is S1-S2 regular with a loud systolic murmur, abdomen is soft and she has trace edema. Troponin is 0.76 and BUN and creatinine of 50 and 2.3. She is a 77-year-old with a past medical history of coronary artery disease, previous bypass and diabetes with moderate to severe ES. She is here with what appears to be acute heart failure given the new EF of 35% this is systolic heart failure and we are treating her with IV Lasix. She is on aspirin Plavix and beta-dre. Appreciate cardiology eval. She does have CKD and will need to watch her BUN and creatinine closely.
[2017-10-24 15:06] VITALS: BP 110/64
--- NOTE | 2017-10-24 19:43 | ECHOCARDIOGRAM REPORT ---
FELICIANO PATHAK Age: 77 : 1940 Gender: F Exam Date: 10/23/2017 11:49 Exam Location: [place] Ht (in): 63 Wt (lb): 149 BSA: 1.75 BP: 110 / 60 Ordering Physician: Mayra Romeo MD Referring Physician: Mike Pettit MD Technologist: Sreedhar Fierro [facility] Room Number: 179-1 Indications: Unspecified systolic (congestive) heart failure, Nonrheumatic aortic (valve) stenosis, Shortness of breath Rhythm: Other Technical Quality: fair FINDINGS Left Ventricle Normal size left ventricle. Left ventricular wall thickness mildly increased. Moderately abnormal left ventricular ejection fraction estimated at 30-35%. Hypokinetic anterior wall. Hypokinetic septum. Right Ventricle Normal right ventricular size and function. Right Atrium Normal right atrial size. Left Atrium Mild left atrial dilatation. Mitral Valve Mild mitral annular calcification. Mild mitral regurgitation. Aortic Valve Diffuse thickening of the aortic valve cusps with reduced excursion. Xkzdiaus-rw-jyykvi aortic stenosis. Dimensionless Index 0.26.mild aortic regurgitation. Tricuspid Valve Tricuspid valve is normal in structure and function. Moderate tricuspid regurgitation. Right ventricular systolic pressure estimated to be elevated at 40 mmHg. Pulmonic Valve Pulmonic valve not well visualized, grossly normal. Pericardium No pericardial effusion. Great Vessels Normal size aortic root. CONCLUSIONS Moderate reduction in left ventricular systolic function with suggestion of segmental abnormalities . Moderate to Severe Aortic stenosis. Mike Pettit M.D. (Electronically Signed) Final Date: 24 October 2017 19:38 MEASUREMENTS (Male / Female) Normal Values 2D ECHO LV Diastolic Diameter PLAX 4.9 cm 4.2 - 5.9 / 3.9 - 5.3 cm LV Systolic Diameter PLAX 4.0 cm 2.1 - 4.0 cm LV Fractional Shortening PLAX 18.4 % 25 - 46 % LV Ejection Fraction 2D Teich 38.0 % IVS Diastolic Thickness 1.1 cm LVPW Diastolic Thickness 1.1 cm LV Relative Wall Thickness 0.4 RV Internal Dim ED PLAX 3.6 cm 1.9 - 3.8 cm LVOT Diameter 2.0 cm Aortic Root Diameter 3.0 cm LA Systolic Diameter LX 4.2 cm 3.0 - 4.0 / 2.7 - 3.8 cm LV Ejection Fraction MOD BP 46.6 % >= 55 % LV Diastolic Length 4C 8.7 cm 6.9 - 10.3 cm LV Diastolic Area 4C 38.4 cm LV Diastolic Volume MOD 4C 138.0 cm LV Ejection Fraction MOD 4C 42.0 % LV Stroke Volume MOD 4C 58.0 cm LV Systolic Length 4C 8.3 cm LV Systolic Area 4C 28.6 cm LV Systolic Volume MOD 4C 80.0 cm LV Ejection Fraction MOD 2C 50.8 % LV Diastolic Volume 4C AL 144.2 cm 85 - 139 / 69 - 109 cm LV Systolic Volume 4C AL 84.3 cm LV Ejection Fraction 4C AL 41.6 % LV Stroke Volume 4C AL 60.0 cm LV Ejection Fraction 2C AL 49.3 % LA Volume 56.0 cm 18 - 58 / 22 - 52 cm Ascending Aorta Diameter 3.3 cm DOPPLER AV Peak Velocity 241.0 cm/s AV Peak Gradient 23.2 mmHg AV Mean Velocity 169.0 cm/s AV Mean Gradient 13.0 mmHg AV Velocity Time Integral 48.0 cm AI Deceleration [place] 280.5 cm/s AI Peak Velocity 374.5 cm/s AI Pressure Half Time 404.5 ms AI Peak Gradient 56.1 mmHg LVOT Peak Velocity 60.7 cm/s LVOT Peak Gradient 1.5 mmHg LVOT Mean Velocity 41.1 cm/s LVOT Mean Gradient 1.0 mmHg LVOT Velocity Time Integral 12.8 cm LVOT Stroke Volume 40.2 cm AV Area Cont Eq vti 0.8 cm AV Area Cont Eq pk 0.8 cm MV Peak Velocity 108.0 cm/s MV Peak Gradient 4.7 mmHg MV Mean Velocity 66.1 cm/s MV Mean Gradient 2.0 mmHg Mitral E Point Velocity 104.0 cm/s Mitral A Point Velocity 57.1 cm/s Mitral E to A Ratio 1.8 MV PHT Velocity 103.0 cm/s MV Deceleration [place] 698.0 cm/s MV Pressure Half Time 44.3 ms MV Area PHT 5.0 cm MV Deceleration Time 310.0 ms TV Peak Velocity 317.0 cm/s Right Atrial Pressure 5.0 mmHg PV Peak Velocity 115.5 cm/s PV Peak Gradient 5.3 mmHg PV Mean Velocity 82.6 cm/s PV Mean Gradient 3.0 mmHg PV Velocity Time Integral 17.7 cm LV E' Lateral Velocity 8.2 cm/s Mitral E to LV E' Lateral Ratio 12.7 LV E' Septal Velocity 4.7 cm/s Mitral E to LV E' Septal Ratio 22.2
[2017-10-24 22:17] VITALS: BP 108/68
[2017-10-25 06:49] VITALS: BP 108/64
--- NOTE | 2017-10-25 07:08 | PN- Housestaff ---
Milo Centeno 10/25/17 0708: Subjective Follow-up For: Acute on chronic diastolic heart failure Moderate to severe aortic stenosis Elevated troponin Acute on chronic kidney injury Complaints: no complaints Subjective: Patient seen and examined at the bedside. Patient states she has no complaints, and ambulated yesterday. Patient reports mild cough that has been going on for a couple weeks. Otherwise no concerns. Review of Systems Constitutional: Reports: no symptoms. EENTM: Reports: no symptoms. Cardiovascular: Denies: chest pain, palpitations, syncope. Respiratory: Reports: cough. Gastrointestinal: Denies: abdominal pain, nausea. Genitourinary: Reports: no symptoms. Musculoskeletal: Reports: no symptoms. Skin: Reports: no symptoms. Objective Last 24 Hrs of Vital Signs/I&O Vital Signs Date Time Temp Pulse Resp B/P B/P Pulse O2 O2 Flow FiO2 Mean Ox Delivery Rate 10/25 0909 69 112/68 10/25 0649 97.3 65 16 108/64 92 10/25 0000 Nasal 2.0L Cannula 10/24 2217 98.4 65 20 108/68 93 10/24 1506 98.2 65 18 110/64 96 Nasal Cannula Intake & Output 10/25 1600 10/25 0800 10/25 0000 Intake Total Output Total 750 800 Balance -750 -800 Output, Urine 750 800 Patient 154 lb Weight Physical Exam General Appearance: Alert, Oriented X3, Cooperative, No Acute Distress Skin: No Rashes, No Breakdown, No Significant Lesion Skin Temp/Moisture Exam: Warm/Dry HEENT: Atraumatic, PERRLA, EOMI, Mucous Membr. moist/pink Neck: Supple, No JVD, No thryomegaly Cardiovascular: Regular Rate, Normal S1, Normal S2, No Murmurs, Gallops, Rubs Lungs: Clear to Auscultation, Normal Air Movement Abdomen: Soft, No Tenderness, No Hepatospenomegaly, No Masses Neurological: Normal Speech, Strength at 5/5 X4 Ext, Normal Tone, Sensation Intact Extremities: No Clubbing, No Cyanosis, No Edema Current Medications: Current Medications Sig/Dasha Start time Last Medication Dose Route Stop Time Status Admin Acetaminophen 650 MG Q6 PRN 10/22 2099 AC PO Acetaminophen 1,000 MG Q6P PRN 10/22 2044 AC IV Aspirin 81 MG DAILY 10/24 899 AC 10/25 PO 0909 Atorvastatin Calcium 40 MG 1700 10/23 1700 AC 10/24 PO 1632 Clopidogrel Bisulfate 75 MG DAILY 10/23 0900 AC 10/25 PO 0909 Furosemide 20 MG 0900,1500 10/24 0900 DC 10/24 IV 1632 Guaifenesin 10 ML Q6P PRN 10/25 1115 UNVr PO Insulin Aspart 0 TIDAC 10/23 0800 AC 10/24 SC 1631 Insulin Aspart 0 AT BEDTIME 10/22 2100 AC SC Insulin Detemir 15 UNITS DAILY 10/23 0900 AC 10/25 SC 0910 Metoprolol Succinate 50 MG DAILY 10/22 2041 AC 10/25 PO 0909 Omeprazole 40 MG DAILY AC 10/23 0700 AC 10/25 PO 0554 Venlafaxine HCl 25 MG BID 10/22 2100 AC 10/25 PO 0909 Last 24 Hrs of Lab/Heraclio Results Last 24 Hrs of Labs/Mics: Laboratory Tests 10/25/17 0710: Anion Gap 9, Estimated GFR 19 L, BUN/Creatinine Ratio 21.6 Assessment/Plan Assessment: 77 YO F with PMH of hypertension, congestive heart failure, aortic stenosis, hyperlipidemia, peripheral vascular disease, diabetes, CABG, chronic Gallo, urinary incontinence [follows Dr. Hirsch] came to [place] ER with complaints of weakness, shortness of breath and cough. Problem list/plan: Acute on chronic diastolic heart failure: -Elevated troponins -Patient had EF 5560% on her last echocardiogram that was done last year. On exam done on this visit showed EF of 35-30% -Lasix DC'ed due to increasing creatinine -Strictly monitor input and output -Daily weight -Cardiology recommendations appreciated -Started patient on ASA, continued metroprolol Acute on chronic kidney injury: -possibly prerenal. Stage IV from stage III -Creatinine to 2.2 from baseline 1.5 -Stopped Lasix due to creatinine -Avoid NSAIDS and nephrotoxic medications -closely monitor input and output Elevated troponin: -Patient has elevated troponin in the setting of A on C kidney injury. Not thought to be related to NSTEMI or ischemia, prior concerns have been addressed. -continued telemetry monitoring -appreciate cardiology recommendation Hyperkalemia -Mild elevation at 5.2 now resolved to 4.2 -Continue to follow potassium level Diabetes -Accuchecks TIDAC -Insulin Levemir 15 units daily -Insulin novolog sliding scale Hypertension, hyperlipidemia -continue metoprolol and Lipitor CAD s/p CABG -continue clopidigrel DVT prophylaxis: Lovenox and ALPS Heart healthy diet Patient is DNR/DNI Problem List: 1. CHF (congestive heart failure) 2. Lmxyw-na-gozdgdy kidney injury 3. Elevated troponin Pain Ratin Pain Location: none Pain Goal: Remain pain free Pain Plan: Tylenol Tomorrow's Labs & Rationales: routine Wilver GILMORE,Марина 10/25/17 0956: Attending MD Review Statement Attending Statement Attending MD Statement: examined this patient, discuss w/resident/PA/DESK CLERK, agreed w/resident/PA/DESK CLERK, reviewed EMR data (avail), discussed with nursing, discussed with case mgmt, reviewed images Attending Assessment/Plan: Overall patient says she is feeling better and her bleeding is slightly better. She is a 77-year-old with known history of moderate to severe aortic stenosis was here with what appears to be diastolic heart failure acute in the setting of . She has CKD and on IV Lasix at creatinine is gotten slightly worse. We will stop the Lasix, talk to cardiology and follow-up. PT is recommending home PT when stable.
--- NOTE | 2017-10-25 11:36 | PN- Cardiology ---
Subjective Subjective: Patient reports that she is improving. She reports significantly less lower extremity edema. Has not ambulated much. Remains on nasal cannula. Objective Vital Signs and I&Os Vital Signs Date Time Temp Pulse Resp B/P B/P Pulse O2 O2 Flow FiO2 Mean Ox Delivery Rate 10/25 0909 69 112/68 10/25 0800 95 Room Air 10/25 0649 97.3 65 16 108/64 92 10/25 0000 Nasal 2.0L Cannula 10/24 2217 98.4 65 20 108/68 93 10/24 1506 98.2 65 18 110/64 96 Nasal Cannula Intake & Output 10/25 1600 10/25 0800 10/25 0000 10/24 1600 10/24 0800 10/24 0000 Intake Total 850 120 Output Total 750 724 664 5540 Balance -750 -800 200 -880 Intake, IV 50 Intake, Oral 800 120 Output, Urine 750 417 230 4912 Patient 154 lb 155 lb 156 lb Weight Physical Exam: General: no apparent distress. Alert. On nasal cannula Eyes: No obvious scleral icterus. HEENT: No jugular venous distention or abnormal jugular venous pulsations. Cardiovascular: Normal intensity S1/S2. 2 out of 6 systolic murmur Respiratory: No rales or rhonchi Abdomen: Soft, nontender with no guarding or rebound tenderness. Musculoskeletal: No clubbing or cyanosis noted; no edema Skin: warm Neurologic: No gross focal deficits noted. Current Medications: Current Medications Sig/Dasha Start time Last Medication Dose Route Stop Time Status Admin Acetaminophen 650 MG Q6 PRN 10/22 2100 AC PO Acetaminophen 1,000 MG Q6P PRN 10/22 2044 AC IV Aspirin 81 MG DAILY 10/24 899 AC 10/25 PO 908 Atorvastatin Calcium 40 MG 1700 10/23 1700 AC 10/24 PO 1632 Clopidogrel Bisulfate 75 MG DAILY 10/23 09 AC 10/25 PO 09 Furosemide 20 MG 0900,1500 10/24 0900 DC 10/24 IV 1632 Guaifenesin 10 ML Q6P PRN 10/25 1115 AC PO Insulin Aspart 0 TIDAC 10/23 08 AC 10/24 SC 1631 Insulin Aspart 0 AT BEDTIME 10/22 2100 AC SC Insulin Detemir 15 UNITS DAILY 10/23 09 AC 10/25 SC 0910 Metoprolol Succinate 50 MG DAILY 10/22 204 AC 10/25 PO 0909 Omeprazole 40 MG DAILY AC 10/23 0700 AC 10/25 PO 0554 Venlafaxine HCl 25 MG BID 10/22 2100 AC 10/25 PO 0909 Results Last 48 Hrs of Labs/Mics: Laboratory Tests 10/25/17 0710: Anion Gap 9, Estimated GFR 19 L, BUN/Creatinine Ratio 21.6 10/24/17 0717: Anion Gap 10, Estimated GFR 20 L, BUN/Creatinine Ratio 21.7, Magnesium 2.2 Recent Imaging Studies: Telemetry tracings were personally reviewed and shows sinus rhythm Echo Moderate reduction in left ventricular systolic function with suggestion of segmental abnormalities . Moderate to Severe Aortic stenosis. CXR: Findings are most consistent with mild congestive heart failure and small left pleural effusion. Associated bibasilar atelectatic changes are also noted. Assessment/Plan Assessment/Plan 1. New acute systolic congestive heart failure with new depression in ejection fraction 2. Known history of moderate to severe Aortic stenosis 3. History of coronary artery disease status post bypass surgery; PCI 2015 4. History of orthostatic hypotension 5. Hyperlipidemia 6. Normocytic anemia 7. Chronic renal insufficiency 8. Carotid stenosis felt not a surgical candidate by vascular in the past Patient does feel she is clinically improving and as the creatinine is mildly elevated today we are going to switch her to oral Lasix. Would hold off on adding ELOY inhibitor but would continue her beta-dre. She has not ambulated much yet and tells me she walks with a walker at home. Continue on dual antiplatelet and daily statin therapy. In the setting of her new symptoms with newly declining ejection fraction she is a potential candidate for TAVR in the future. I had an extensive discussion with the patient regarding this possibility today including a detailed review of the risks versus benefits. She demonstrates clear understanding and asked very appropriate questions regarding the procedure. It is something she is willing to consider but wishes to discuss with her family as well. Time spent in discussion with the patient was greater than 45 minutes today. Josh Izaguirre MD [facility] Continue telemetry? Yes
[2017-10-25 13:44] VITALS: BP 110/64
[2017-10-25 21:56] VITALS: BP 115/65
[2017-10-26 06:52] VITALS: BP 128/62
--- NOTE | 2017-10-26 07:19 | PN- Housestaff ---
Milo Centeno 10/26/1718: Subjective Follow-up For: Acute on chronic diastolic heart failure Moderate to severe aortic stenosis Elevated troponin due to heart failure Acute on chronic kidney injurey Complaints: no complaints Subjective: Patient seen and examined at the bedside. Patient has no new complaints, except her cough. Patient was unaware she would need to ask for her Robitussen. Discussed TAVR procedure yesterday with Dr. Izaguirre,andplans to undergo procedure. Otherwise noconcerns Review of Systems Constitutional: Reports: no symptoms. Cardiovascular: Reports: no symptoms. Respiratory: Reports: cough. Gastrointestinal: Reports: no symptoms. Genitourinary: Reports: no symptoms. Objective Last 24 Hrs of Vital Signs/I&O Vital Signs Date Time Temp Pulse Resp B/P B/P Pulse O2 O2 Flow FiO2 Mean Ox Delivery Rate 10/26 0936 68 110/78 10/26 0652 98.2 67 22 128/62 94 Room Air 10/26 0000 Nasal 1.5L Cannula 10/25 2156 98.6 64 16 115/65 98 Nasal 1.0L Cannula 10/25 1600 98 Nasal 1.5L Cannula 10/25 1344 97.8 63 18 110/64 98 Nasal 1.5L Cannula Intake & Output 10/26 1600 10/26 0800 10/26 0000 Intake Total 120 360 Output Total 750 400 Balance -630 -40 Intake, Oral 120 360 Output, Urine 750 400 Patient 156 lb Weight Physical Exam General Appearance: Alert, Oriented X3, Cooperative, No Acute Distress Skin: No Rashes, No Breakdown, No Significant Lesion Skin Temp/Moisture Exam: Warm/Dry Neck: Supple, No JVD, No thryomegaly Cardiovascular: Regular Rate, Normal S1, Normal S2, No Murmurs, Gallops, Rubs Lungs: Clear to Auscultation, somewhat decreased air movement, seems improved Abdomen: Soft, No Tenderness, No Hepatospenomegaly Neurological: Normal Speech, Strength at 5/5 X4 Ext, Normal Tone, Sensation Intact Current Medications: Current Medications Sig/Dasha Start time Last Medication Dose Route Stop Time Status Admin Acetaminophen 650 MG Q6 PRN 10/22 2099 AC PO Acetaminophen 1,000 MG Q6P PRN 10/22 2044 AC IV Aspirin 81 MG DAILY 10/24 09 AC 10/26 PO 0936 Atorvastatin Calcium 40 MG 1700 10/23 1700 AC 10/25 PO 1740 Clopidogrel Bisulfate 75 MG DAILY 10/23 0900 AC 10/26 PO 0936 Furosemide 20 MG DAILY 10/25 1146 AC 10/26 PO 0936 Guaifenesin 10 ML Q6P PRN 10/25 1115 AC 10/26 PO 0935 Insulin Aspart 0 TIDAC 10/23 0800 AC 10/26 SC 0936 Insulin Aspart 0 AT BEDTIME 10/22 2100 AC 10/25 SC 2101 Insulin Detemir 15 UNITS DAILY 10/23 09 AC 10/26 SC 0937 Metoprolol Succinate 50 MG DAILY 10/22 2041 AC 10/26 PO 0936 Omeprazole 40 MG DAILY AC 10/23 0700 AC 10/26 PO 0536 Venlafaxine HCl 25 MG BID 10/22 2099 AC 10/26 PO 1011 Last 24 Hrs of Lab/Heraclio Results Last 24 Hrs of Labs/Mics: Laboratory Tests 10/26/17 0710: Anion Gap 12, Estimated GFR 20 L, BUN/Creatinine Ratio 21.3 Assessment/Plan Assessment: 77 YO F with PMH of hypertension, congestive heart failure, aortic stenosis, hyperlipidemia, peripheral vascular disease, diabetes, CABG, chronic Gallo, urinary incontinence [follows Dr. Hirsch] came to [place] [facility] with complaints of weakness, shortness of breath and cough. Problem list/plan: Acute on chronic diastolic heart failure: -Elevated troponins -Patient had EF 5560% on her last echocardiogram that was done last year. On exam done on this visit showed EF of 35-30% -Lasix DC'ed due to increasing creatinine -Strictly monitor input and output -Daily weight -Cardiology recommendations appreciated -Started patient on ASA, continued metroprolol Acute on chronic kidney injury: -possibly prerenal. Stage IV from stage III -Creatinine to 2.3 from baseline 1.5 -Lasix tab restarted @ 20mg daily -Avoid NSAIDS and nephrotoxic medications -closely monitor input and output Elevated troponin: -Patient has elevated troponin in the setting of A on C kidney injury. Not thought to be related to NSTEMI or ischemia, prior concerns have been addressed. -continued telemetry monitoring -appreciate cardiology recommendation Hyperkalemia -Mild elevation at 5.2 now resolved to 4.2 -Continue to follow potassium level Diabetes -Accuchecks TIDAC -Insulin Levemir 15 units daily -Insulin novolog sliding scale Hypertension, hyperlipidemia -continue metoprolol and Lipitor CAD s/p CABG -continue clopidigrel DVT prophylaxis: Lovenox and ALPS Heart healthy diet Patient is DNR/DNI Problem List: 1. CHF (congestive heart failure) 2. Gywwl-hr-woootdw kidney injury 3. Elevated troponin Pain Ratin Pain Location: none Pain Goal: Remain pain free Pain Plan: Tylenol Tomorrow's Labs & Rationales: BEP Discharge Plan Discharge Disposition: home Stable for Discharge? Yes Anticipated Discharge (Day): tomorrow Марина Pettit MD 10/26/17 1007: Attending MD Review Statement Attending Statement Attending MD Statement: examined this patient, discuss w/resident/PA/[employer] P[employer] ASSEMBLER, agreed w/resident/PA/[employer]SEMBLER, reviewed EMR data (avail), discussed with nursing, discussed with case mgmt, reviewed images Attending Assessment/Plan: Patient is feeling tired. She is open to the idea of the procedure if it makes her feel better. Right now we have her on 20 of Lasix p.o. and we are treating congestive heart failure associated with valvular disease i.e. moderate to severe aortic stenosis. Because of the persistent dry cough going to repeat the chest x-ray with a PA and lateral film. We are going to keep a close watch on her renal function she does have advanced CKD. PT has cleared her for home PT and the plan will be anticipated discharge in a.m. with close outpatient follow- up.
--- NOTE | 2017-10-26 09:44 | PN- Cardiology ---
Subjective Subjective: Patient still complains of persistent dry cough which has been occurring for approximately 1 month. She denies chest pain but still has mild shortness of breath. Review of Systems: Eyes no blurred or double vision Ears no deafness or ringing Nose and throat no recurrent sinusitis Lungs per history of present illness Heart per history of present illness Abdomen no nausea vomiting Musculoskeletal occasional muscle and joint pains Psych no anxiety or depression Neuro without recurrent headache or seizures Endocrine no heat or cold intolerance Objective Vital Signs and I&Os Vital Signs Date Time Temp Pulse Resp B/P B/P Pulse O2 O2 Flow FiO2 Mean Ox Delivery Rate 10/26 0652 98.2 67 22 128/62 94 Room Air 10/26 0000 Nasal 1.5L Cannula 10/25 2156 98.6 64 16 115/65 98 Nasal 1.0L Cannula 10/25 1600 98 Nasal 1.5L Cannula 10/25 1344 97.8 63 18 110/64 98 Nasal 1.5L Cannula Intake & Output 10/26 1600 10/26 0800 10/26 0000 10/25 1600 10/25 0800 10/25 0000 Intake Total 120 360 Output Total 750 400 750 800 Balance -630 -40 -750 -800 Intake, Oral 120 360 Output, Urine 750 400 750 800 Patient 156 lb 154 lb Weight Physical Exam: Patient is a well-developed well-nourished female appearing in mild respiratory distress HEENT is unremarkable Neck is supple there is no JVD Lungs decreased air entry bilaterally Heart regular rhythm S1 and S2 are normal no gallops or rubs 2/6.ejection murmur at the right upper sternal border Abdomen bowel sounds positive Extremities without edema Neuro without focal deficits Psych cooperative Lymph no adenopathy Current Medications: Current Medications Sig/Dasha Start time Last Medication Dose Route Stop Time Status Admin Acetaminophen 650 MG Q6 PRN 10/22 2100 AC PO Acetaminophen 1,000 MG Q6P PRN 10/22 2045 AC IV Aspirin 81 MG DAILY 10/24 09 AC 10/25 PO 0909 Atorvastatin Calcium 40 MG 1700 10/23 1700 AC 10/25 PO 1740 Clopidogrel Bisulfate 75 MG DAILY 10/23 09 AC 10/25 PO 0909 Furosemide 20 MG DAILY 10/25 1146 AC 10/25 PO 1740 Guaifenesin 10 ML Q6P PRN 10/25 1115 AC PO Insulin Aspart 0 TIDAC 10/23 0800 AC 10/25 SC 1741 Insulin Aspart 0 AT BEDTIME 10/22 2099 AC 10/25 SC 2101 Insulin Detemir 15 UNITS DAILY 10/23 09 10/25 SC 0910 Metoprolol Succinate 50 MG DAILY 10/22 2040 AC 10/25 PO 0909 Omeprazole 40 MG DAILY AC 10/23 07 AC 10/26 PO 0536 Venlafaxine HCl 25 MG BID 10/22 2099 AC 10/25 PO 2102 Results Last 48 Hrs of Labs/Mics: Laboratory Tests 10/26/17 0710: Anion Gap 12, Estimated GFR 20 L, BUN/Creatinine Ratio 21.3 10/25/17 0710: Anion Gap 9, Estimated GFR 19 L, BUN/Creatinine Ratio 21.6 Telemetry personally reviewed sinus rhythm Assessment/Plan Assessment/Plan 1. New acute systolic congestive heart failure with new depression in ejection fraction 2. Known history of moderate to severe Aortic stenosis 3. History of coronary artery disease status post bypass surgery; PCI 2015 4. History of orthostatic hypotension 5. Hyperlipidemia 6. Normocytic anemia 7. Chronic renal insufficiency 8. Carotid stenosis felt not a surgical candidate by vascular in the past 9. Persistent cough questionable etiology. She is not on an ELOY inhibitor and her CHF appears to be improved. Recommendations 1. As discussed with Dr. Vincent will obtain a chest x-ray today given her persistent cough. 2. Continue Lasix monitoring renal function 3. No ELOY inhibitor due to renal insufficiency 4. Ambulate 5. Patient is amenable to considering a TAVR. She is questioning as to whether it would make her feel better. Based upon the degree of aortic stenosis and now with decreased ejection fraction I told her it with more than likely improve her symptoms. Catheterization would be arranged as an outpatient with Dr. Zamarripa in preparation for TAVR when her renal function stabilizes. Continue telemetry? Yes
--- NOTE | 2017-10-26 13:52 | Discharge Summary ---
Visit Information Visit Dates Admission Date: 10/22/17 Discharge Date: 10/28/17 Hospital Course Course Attending Physician: Wilver GILMORE,Марина Ulloa Primary Care Physician: Andreina GILMORE,Koby Ulloa Consulting Request: Consulting Specialty: Cardiology Consulting Physician: Dr Izaguirre Reason for Consult: CHF/Aortic stenosis Hospital Course: This is a 77-year-old female with past medical history of hypertension, congestive heart failure, aortic stenosis, hyperlipidemia, peripheral vascular disease, diabetes, CABG [facility], chronic Gallo, urinary incontinence with chronic indwelling suprapubic catheter inserted 8 years ago [ follows Dr. Hirsch] came to [place] ER with complaints of weakness, shortness of breath and cough. Patient was admitted to the telemetry floor and we managed her for the following conditions. CHF exacerbation/systolic heart failure Patient on presentation had signs and symptoms suggestive of congestive heart failure. Repeated echocardiogram during the course of stay showed reduced ejection fraction of 30-35%. She was also found to have hypokinetic septum and anterior wall. She received diuresis initially with Lasix and went converted to oral Lasix with good response. Initially required oxygen but managed to maintain saturation without oxygen. Patient is being discharged to [facility] facility to continue with heart failure medications. Aortic stenosis Patient has history of out stenosis during the course of this admission it was established that the out acoustic stenosis is contributing significantly to her symptoms. Echocardiogram showed dimensionless index of 0.26 which is 4 moderate to severe aortic stenosis. Is diffuse thickening of aortic valve cusps with reduced excursion. Patient will be a candidate for TAVR after she has had catheterization to rule out need of bypass surgery to be done with valve replacement. Patient is encouraged to go to court agreement to have the procedure and the plan is to discharge the patient to a [facility] facility to continue rehabilitating while waiting for the procedure from outpatient. SIMONE on CKD stage 4 Patient last best GFR of around 20's is equivalent to CKD stage 4 and has baseline creatinine of around 2.2 however on presentation the patient creatinine was 2.5. She had an improvement of creatinine to baseline value of 2.2 through the course of the stay. This patient needs to avoid nephrotoxic medications and will need to follow with senior erp consultant as an outpatient in the advanced nature of her chronic kidney disease. Hyperkalemia (resolved) Patient presented with potassium of 5.2 however it immediately resolved and remained to have potassium within normal levels till when discharged out. Elevated troponin Patient has elevated troponin in the setting of acute on chronic kidney injury. Not thought to be related to NSTEMI or ischemia the patient remained asymptomatic without EKG changes through the course of the stay. The troponin where trended with just a slight increase and immediately started decreasing of which we discontinued follow-up. Hypertension and hyperlipidemia Patient was kept on heart healthy diet and continued on home medication metoprolol with good control of pressure throughout the course of the stay. Diabetes mellitus Patient has history of diabetes mellitus and is on insulin at home. During the course of the stay we continued the patient on insulin sliding scale and did Accu-Cheks while patient on diabetic diet. Sugars remained controlled and good discharging the patient to continue with her home regimen of insulin. Patient is tired and weak from her disease. However she is not suicidal. She had passingly mentioned wanting to but I clearly evaluated her at length. She is keen on seeking medical care, seeing the sling operator as an outpatient and is not suicidal. Complications: None Allergies: Coded Allergies: adhesive tape (PLASTIC TAPE 01/17/16) oxybutynin (Severe, DELERIUM 01/24/16) codeine (NAUSEA 01/17/16) nitrofurantoin (LOOPY 01/17/16) Significant Procedures: Echocardiogram Normal size left ventricle. Left ventricular wall thickness mildly increased. Moderately abnormal left ventricular ejection fraction estimated at 30-35%. Hypokinetic anterior wall. Hypokinetic septum. Right Ventricle Normal right ventricular size and function. Right Atrium Normal right atrial size. Left Atrium Mild left atrial dilatation. Mitral Valve Mild mitral annular calcification. Mild mitral regurgitation. Aortic Valve Diffuse thickening of the aortic valve cusps with reduced excursion. Bphzbtfl-yl-gjgqyx aortic stenosis. Dimensionless Index 0.26.mild aortic regurgitation. Pertinent Lab Results: Laboratory Tests 10/28 10/27 0650 0700 Chemistry Sodium (137 - 145 mmol/L) Pending 136 L Potassium (3.5 - 5.1 mmol/L) Pending 4.4 Chloride (98 - 107 mmol/L) Pending 106 Carbon Dioxide (22 - 30 mmol/L) Pending 21 L Anion Gap (5 - 16) Pending 9 BUN (7 - 17 mg/dL) Pending 49 H Creatinine (0.5 - 1.0 mg/dL) Pending 2.2 H Estimated GFR (>60 ml/min) 22 L BUN/Creatinine Ratio (7 - 25 %) Pending 22.3 Disposition Summary Disposition Principal Diagnosis: Acute exacerbation of systolic heart failure with severe aortic stenosis Hyperkalemia Acute on chronic kidney disease Additional Diagnosis: Diabetes mellitus Hypertension Hyperlipidemia Coronary artery disease Chronic suprapubic catheter Discharge Disposition: SNF Discharge Instructions General Discharge Information Code Status: Do Not Resucitate/Intubat Patient's Diet: Diabetic diet Patient's Activity: As tolerated Follow-Up Instructions/Appts: Please call and make a follow-up with your primary care physician within 1 week after discharge Please call and make a follow-up with your sling operator within 1 week after discharge Patient will be evaluated for T AVR by the sling operator on discharge Medications at Discharge Discharge Medications: Continue taking these medications: Pantoprazole Sodium (Protonix) 40 MG TABLET.DR 1 Tablet ORAL DAILY Comments: NOT GIVEN IN HOSPITAL PRILOSEC GIVEN 10/27/17 AT 6:25A.M Clopidogrel Bisulfate (Clopidogrel) 75 MG TABLET 1 Tablet ORAL DAILY Qty = 90 Comments: Last Taken: 10/27/17 Time:8:53A.M Atorvastatin Calcium (Atorvastatin Calcium) 40 MG TABLET 1 Tablet ORAL DAILY Comments: Last Taken:10/26/17 Time:5:55PM Venlafaxine HCl (Venlafaxine HCl) 25 MG TABLET 1 Tablet ORAL DAILY Qty = 30 Comments: Last Taken:10/27/17 Time:8:53A.M Metoprolol Succinate (Metoprolol Succinate) 50 MG TAB.ER.24H 1 Tablet ORAL DAILY Comments: Last Taken:10/27/17 Time:8:53A.M Droxidopa (Northera) 100 MG CAPSULE 2 Tablet ORAL THREE TIMES DAILY Qty = 30 Comments: NOT GIVEN THIS ADMISSION Insulin Aspart (Novolog) 100 UNIT/ML VIAL 0 Units SC BEFORE MEALS AND AT BEDTIME Days = 30 Instructions: bloodsugar beforemeal bedtime 80-150 5units 151-200 6units 201-250 7units 251-300 8units 2units 301-350 9units 3units 351-400 10units 4units >400 11units 5units Comments: Last Taken:10/27/17 Time:12:36P.M Insulin Detemir (Levemir) 100 UNIT/ML VIAL 20 Units SC DAILY Days = 30 Comments: Last Taken:10/27/17 Time:8:53A.M Start taking the following new medications: Aspirin (Aspirin*) 81 MG TAB.CHEW 81 Milligram ORAL DAILY Qty = 30 No Refills Comments: Last Taken:10/27/17 Time:8:53A.M Furosemide (Furosemide) 20 MG TABLET 20 Milligram ORAL DAILY Qty = 30 No Refills Comments: Last Taken:10/27/17 Time:8:53A.M Copies To: Andreina GILMORE,Koby Ulloa; Dmitriy GILMORE,Mahamed; Dallin GILMORE,Olayinka
[2017-10-26] MEDS ORDERED: FUROSEMIDE20 M1 PO (14:46)
[2017-10-26] MEDS ORDERED: ASPIRIN81 M4 PO (14:46)
--- NOTE | 2017-10-26 14:49 | Patient Discharge Instructions ---
Discharge Instructions General Discharge Information Special Instructions: - Please follow up with your primary care physician within 1-2 weeks of discharge. Inform your primary care physician of this admission to [facility]. - [facility] will be in contact with you to set up home physical therapy. - Please follow up with your hvac sheet metal installer Dr. Mike Pettit within 1-2 weeks. - Please follow up with the outpatient operative hvac sheet metal installer, Dr. Zamarripa, within 1-2 weeks to discuss your planned surgery. - Continue your current medications per discharge instructions. - Please watch for these problems: Fever, Chills, Nausea, Vomiting, Shortness of Breath, Productive Cough, Chest Pain/Discomfort, Abdominal Pain, Active Bleeding or Bloody urine/stool. Acute Coronary Syndrome Inclusion Criteria At DC or during hospital stay patient has or had the following: ACS DIAGNOSIS No Discharge Core Measures Meds if any: Prescribed or Continued at Discharge Meds if any: NOT Prescribed or Continued at Discharge Congestive Heart Failure Inclusion Criteria At DC or during hospital stay patient has or had the following: CHF DIAGNOSIS Yes Discharge Core Measures Meds if any: Prescribed or Continued at Discharge ELOY/ARB for EF <40% Yes Meds if any: NOT Prescribed or Continued at Discharge Cerebrovascular accident Inclusion Criteria At DC or during hospital stay patient has or had the following: CVA/TIA Diagnosis No Discharge Core Measures Meds if any: Prescribed or Continued at Discharge Meds if any: NOT Prescribed or Continued at Discharge Venous thromboembolism Inclusion Criteria VTE Diagnosis No VTE Type NONE VTE Confirmed by (Test) NONE Discharge Core Measures - Per Current guidelines, there needs to be overlap - treatment for the first 5 days of Warfarin therapy. - If discharged on Warfarin prior to 5 days of - overlap therapy, the patient will need to be - assessed for post discharge needs including - *Post discharge parental anticoagulation - *Warfarin and/or parental anticoagulation education - *Follow up date to check INR post discharge At least 5 days overlap therapy as Inpatient No Meds if any: Prescribed or Continued at Discharge Note: Overlap Therapy is Warfarin and Anticoagulant Meds if any: NOT Prescribed or Continued at Discharge
[2017-10-26 14:52] VITALS: BP 116/60
--- NOTE | 2017-10-26 16:07 | RADIOLOGY REPORT ---
EXAMINATION: XR CHEST CLINICAL INFORMATION: Shortness of breath. COMPARISON: Chest radiograph 10/22/2017 and multiple prior exams TECHNIQUE: 2 views of the chest were obtained. FINDINGS: Low lung volumes. The patient is status post median sternotomy. The cardiomediastinal silhouette is mildly enlarged, stable. There are low lung volumes. Crowding of the bronchovascular structures. Blunting of the costophrenic sulci suggesting small effusions with patchy airspace opacities in the bases which most likely represent atelectasis although developing infiltrates are not excluded. No acute osseous abnormality appreciated. IMPRESSION: Small bilateral pleural effusions with associated bibasilar atelectasis. Mild interstitial edema is improving compared with prior.
[2017-10-26 22:10] VITALS: BP 122/58
[2017-10-27 07:11] VITALS: BP 128/60
--- NOTE | 2017-10-27 07:12 | PN- Housestaff ---
Milo Centeno 10/27/17 0711: Subjective Follow-up For: Acute on chronic diastolic heart failure Moderate to severe aortic stenosis Elevated troponin due to heart failure Acute on chronic kidney injury Complaints: no complaints Subjective: Patient seen and examined at the bedside. Patient seems more lethargic today, but no specific complaints except her continuing dry cough. States "I'm not a bundle of deuardo". Patient still planning to pursue TAVR as outpatient. Denies any pain. Denies fever/chills/night sweats/chest pain/abdominal pain/urinary symptoms. Review of Systems Constitutional: Reports: see HPI. Objective Last 24 Hrs of Vital Signs/I&O Vital Signs Date Time Temp Pulse Resp B/P B/P Pulse O2 O2 Flow FiO2 Mean Ox Delivery Rate 10/27 0853 67 120/58 10/27 0711 98.2 68 20 128/60 94 09 0000 94 Nasal 1.0L Cannula 10/26 2210 98.2 64 20 122/58 94 Nasal 1.0L Cannula 10/26 1452 98.0 61 20 116/60 94 Room Air Intake & Output 10/27 1600 10/27 0800 10/27 0000 Intake Total 200 240 Output Total 450 850 Balance -250 -610 Intake, Oral 200 240 Output, Urine 450 850 Patient 157 lb Weight Physical Exam General Appearance: Oriented X3, Cooperative, No Acute Distress, more lethargic than prior days Skin: No Rashes, No Breakdown, No Significant Lesion Skin Temp/Moisture Exam: Warm/Dry HEENT: Atraumatic, PERRLA, EOMI, Mucous Membr. moist/pink Cardiovascular: Regular Rate, Normal S1, Normal S2, No Murmurs, Gallops, Rubs Lungs: Clear to Auscultation, decreased air movement Abdomen: Soft, No Tenderness, No Hepatospenomegaly Neurological: Normal Speech, Strength at 5/5 X4 Ext, Normal Tone, Sensation Intact Extremities: No Clubbing, No Cyanosis, No Edema Current Medications: Current Medications Sig/Dasha Start time Last Medication Dose Route Stop Time Status Admin Acetaminophen 650 MG Q6 PRN 10/22 2100 AC PO Acetaminophen 1,000 MG Q6P PRN 10/22 2045 AC IV Aspirin 81 MG DAILY 10/24 0900 AC 10/27 PO 0853 Atorvastatin Calcium 40 MG 1700 10/23 1700 AC 09/18 PO 1755 Clopidogrel Bisulfate 75 MG DAILY 10/23 0900 AC 10/27 PO 0853 Docusate Sodium 100 MG DAILY NEEDED PRN 10/26 1630 AC 10/26 PO 1755 Furosemide 20 MG DAILY 10/25 1146 AC 10/27 PO 0853 Guaifenesin 10 ML Q6P PRN 10/25 1115 AC 10/26 PO 0935 Insulin Aspart 0 TIDAC 10/23 0800 AC 10/26 SC 1756 Insulin Aspart 0 AT BEDTIME 10/22 2100 AC 10/25 SC 2101 Insulin Detemir 15 UNITS DAILY 10/23 0900 AC 10/27 SC 0852 Metoprolol Succinate 50 MG DAILY 10/22 2041 AC 10/27 PO 0853 Omeprazole 40 MG DAILY AC 10/23 0700 AC 10/27 PO 0625 Patient Medication 1 ED ONE ONE 10/26 1815 DC Teaching ED 10/26 1816 Polyethylene Glycol 17 GM DAILY 10/26 1629 AC 10/27 PO 0854 Senna 187 MG AT BEDTIME 10/26 2100 DC 10/26 PO 2020 Senna/Docusate Sodium 1 TAB BID 10/27 2100 AC PO Senna/Docusate Sodium 1 TAB BIDPRN PRN 10/27 0945 DC PO Venlafaxine HCl 25 MG BID 10/22 2100 AC 10/27 PO 0854 Last 24 Hrs of Lab/Heraclio Results Last 24 Hrs of Labs/Mics: Laboratory Tests 10/27/17 0700: Anion Gap 9, Estimated GFR 22 L, BUN/Creatinine Ratio 22.3 Orders Radiology Findings: SERVICE DATE: 10/26/17-1031 EXAM TYPE: RAD - XRY-CHEST XRAY, TWO VIEWS EXAMINATION: XR CHEST CLINICAL INFORMATION: Shortness of breath. COMPARISON: Chest radiograph 10/22/2017 and multiple prior exams TECHNIQUE: 2 views of the chest were obtained. FINDINGS: Low lung volumes. The patient is status post median sternotomy. The cardiomediastinal silhouette is mildly enlarged, stable. There are low lung volumes. Crowding of the bronchovascular structures. Blunting of the costophrenic sulci suggesting small effusions with patchy airspace opacities in the bases which most likely represent atelectasis although developing infiltrates are not excluded. No acute osseous abnormality appreciated. IMPRESSION: Small bilateral pleural effusions with associated bibasilar atelectasis. Mild interstitial edema is improving compared with prior. Assessment/Plan Assessment: 77 YO F with PMH of hypertension, congestive heart failure, aortic stenosis, hyperlipidemia, peripheral vascular disease, diabetes, CABG, chronic Gallo, urinary incontinence [follows Dr. Hirsch] came to [place] [facility] with complaints of weakness, shortness of breath and cough. Problem list/plan: Acute on chronic diastolic heart failure: -Elevated troponins -Patient had EF 5560% on her last echocardiogram that was done last year. On exam done on this visit showed EF of 35-30% -Lasix DC'ed due to increasing creatinine -Strictly monitor input and output -Daily weight -Cardiology recommendations appreciated regarding suitability for discharge -Started patient on ASA, continued metroprolol -repeat CXR was largely unremarkable, except low lung volumes Acute on chronic kidney injury: -possibly prerenal. Stage IV from stage III -Creatinine to 2.2 (trending down) from baseline 1.5 -Lasix tab restarted @ 20mg daily -Avoid NSAIDS and nephrotoxic medications -closely monitor input and output Elevated troponin: -Patient has elevated troponin in the setting of A on C kidney injury. Not thought to be related to NSTEMI or ischemia, prior concerns have been addressed. -continued telemetry monitoring -appreciate cardiology recommendation Hyperkalemia -Mild elevation at 5.2 initially now resolved to 4.4 -Continue to follow potassium level Diabetes -Accuchecks TIDAC -Insulin Levemir 15 units daily -Insulin novolog sliding scale Hypertension, hyperlipidemia -continue metoprolol and Lipitor CAD s/p CABG -continue clopidigrel DVT prophylaxis: Lovenox and ALPS Heart healthy diet Patient is DNR/DNI Problem List: 1. CHF (congestive heart failure) 2. Vrvov-lu-vrjsorq kidney injury 3. Elevated troponin Pain Ratin Pain Location: none Pain Goal: Remain pain free Pain Plan: Tylenol Tomorrow's Labs & Rationales: BEP iff patient stays in hospital overnight Марина Pettit MD 10/27/17 1049: Attending MD Review Statement Attending Statement Attending MD Statement: examined this patient, discuss w/resident/PA/WEIGH MACHINE OPERATOR, agreed w/resident/PA/WEIGH MACHINE OPERATOR, reviewed EMR data (avail), discussed with nursing, discussed with case mgmt, reviewed images Attending Assessment/Plan: Patient is feeling very tired. She does not sleep well over here. She continues to have this dry hacking cough. Yesterday's chest x-ray shows small bilateral pleural effusions and mild CHF. She has acute heart failure secondary to valvular heart disease with moderate to severe aortic stenosis with CKD. Will discuss with cardiology regarding dose of p.o. diuretics.
--- NOTE | 2017-10-27 11:34 | PN- Cardiology ---
Subjective Subjective: Reports some fatigue but otherwise feels well. She tells me she was able to ambulate with physical therapy without significant shortness of breath. Objective Vital Signs and I&Os Vital Signs Date Time Temp Pulse Resp B/P B/P Pulse O2 O2 Flow FiO2 Mean Ox Delivery Rate 10/27 0853 67 120/58 10/27 0711 98.2 68 20 128/60 94 10/27 0000 94 Nasal 1.0L Cannula 10/26 2210 98.2 64 20 122/58 94 Nasal 1.0L Cannula 10/26 1452 98.0 61 20 116/60 94 Room Air Intake & Output 10/27 1600 10/27 0800 10/27 0000 10/26 1600 10/26 0800 10/26 0000 Intake Total 200 240 400 120 360 Output Total 172 684 7672 750 400 Balance -250 -610 -900 -630 -40 Intake, Oral 200 240 400 120 360 Output, Urine 054 338 5924 750 400 Patient 157 lb 156 lb Weight Physical Exam: General: no apparent distress. Alert. On nasal cannula Eyes: No obvious scleral icterus. HEENT: No jugular venous distention or abnormal jugular venous pulsations. Cardiovascular: Normal intensity S1/S2. 2 out of 6 systolic murmur Respiratory: No rales or rhonchi Abdomen: Soft, nontender with no guarding or rebound tenderness. Musculoskeletal: No clubbing or cyanosis noted; no edema Skin: warm Neurologic: No gross focal deficits noted. Current Medications: Current Medications Sig/Dasha Start time Last Medication Dose Route Stop Time Status Admin Acetaminophen 650 MG Q6 PRN 10/22 2100 AC PO Acetaminophen 1,000 MG Q6P PRN 10/22 2045 AC IV Aspirin 81 MG DAILY 10/24 09 AC 10/27 PO 0853 Atorvastatin Calcium 40 MG 1700 10/23 1700 AC 10/26 PO 1755 Clopidogrel Bisulfate 75 MG DAILY 10/23 09 AC 10/27 PO 0853 Docusate Sodium 100 MG DAILY NEEDED PRN 10/26 1630 AC 10/26 PO 1755 Furosemide 20 MG DAILY 10/25 1146 AC 10/27 PO 0853 Guaifenesin 10 ML Q6P PRN 10/25 1115 AC 10/26 PO 0935 Insulin Aspart 0 TIDAC 10/23 08 AC 10/26 SC 1756 Insulin Aspart 0 AT BEDTIME 10/22 2100 AC 10/25 SC 2101 Insulin Detemir 15 UNITS DAILY 10/23 0900 AC 10/27 SC 0852 Metoprolol Succinate 50 MG DAILY 10/22 2041 AC 10/27 PO 0853 Omeprazole 40 MG DAILY AC 10/23 0700 AC 10/27 PO 0625 Patient Medication 1 ED ONE ONE 10/26 1815 DC Teaching ED 10/26 181 Polyethylene Glycol 17 GM DAILY 10/26 1629 AC 10/27 PO 0854 Senna 187 MG AT BEDTIME 10/26 2100 DC 10/26 PO 2020 Senna/Docusate Sodium 1 TAB BID 10/27 2100 AC PO Senna/Docusate Sodium 1 TAB BIDPRN PRN 10/27 0945 DC PO Venlafaxine HCl 25 MG BID 10/22 2100 AC 10/27 PO 0854 Results Last 48 Hrs of Labs/Mics: Laboratory Tests 10/27/17 0700: Anion Gap 9, Estimated GFR 22 L, BUN/Creatinine Ratio 22.3 10/26/17 0710: Anion Gap 12, Estimated GFR 20 L, BUN/Creatinine Ratio 21.3 Recent Imaging Studies: Telemetry tracings were personally reviewed and shows sinus rhythm Chest x-ray Small bilateral pleural effusions with associated bibasilar atelectasis. Mild interstitial edema is improving compared with prior. Assessment/Plan Assessment/Plan 1. New acute systolic congestive heart failure with new depression in ejection fraction 2. Known history of moderate to severe Aortic stenosis 3. History of coronary artery disease status post bypass surgery; PCI 2016 4. History of orthostatic hypotension 5. Hyperlipidemia 6. Normocytic anemia 7. Chronic renal insufficiency; not on ELOY-I 8. Carotid stenosis felt not a surgical candidate by vascular in the past 9. Elevated troponin not due to acute coronary syndrome No evidence of sustained arrhythmia on telemetry. Patient is doing well on oral Lasix with stable creatinine and blood pressure. She was able to ambulate today with physical therapy without significant shortness of breath. Continue current cardiac regimen. She should follow-up in our office within 1 week of discharge and will likely be referred for TAVR evaluation in the near future. Josh Izaguirre MD [facility] Continue telemetry? No
[2017-10-27 14:55] VITALS: BP 120/60
[2017-10-27 23:11] VITALS: BP 116/62
[2017-10-28 06:38] VITALS: BP 122/58
--- NOTE | 2017-10-28 07:07 | PN- Housestaff ---
See Addendum Subjective Follow-up For: Acute on chronic diastolic heart failure Moderate to severe aortic stenosis Elevated troponin due to heart failure Acute on chronic kidney injury Complaints: no complaints Subjective: Patient seen and examined at the bedside. Patient awake today, no specific complaints. States she has not been requesting her Robitussin because she does not like the taste. Plan is for patient to be discharged to short-term rehab today, patient planning to pursue Aline as outpatient. Denies any pain. Denies fever/chills/night sweats/chest pain/abdominal pain/urinary symptoms. Review of Systems Constitutional: Reports: see HPI. Objective Last 24 Hrs of Vital Signs/I&O Vital Signs Date Time Temp Pulse Resp B/P B/P Pulse O2 O2 Flow FiO2 Mean Ox Delivery Rate 10/28 0817 72 122/68 10/28 0800 92 Room Air 10/28 0638 99.2 72 20 122/58 92 Room Air 10/27 2311 98.2 63 18 116/62 94 Room Air 10/27 2042 Room Air 10/27 1455 97.9 65 18 120/60 96 Room Air 10/27 1203 Nasal 1.0L Cannula Intake & Output 10/28 1600 10/28 0800 10/28 0000 Intake Total 300 Output Total 450 1000 Balance -150 -1000 Intake, Oral 300 Output, Urine 450 1000 Physical Exam General Appearance: Alert, Oriented X3, Cooperative, No Acute Distress Skin: No Rashes, No Breakdown, No Significant Lesion Skin Temp/Moisture Exam: Warm/Dry Neck: Supple, No JVD, No thryomegaly Cardiovascular: Regular Rate, Normal S1, Normal S2, No Murmurs, Gallops, Rubs Lungs: Clear to Auscultation, decreased air movement Abdomen: Soft, No Tenderness, No Hepatospenomegaly Neurological: Normal Speech, Strength at 5/5 X4 Ext, Normal Tone, Sensation Intact Current Medications: Current Medications Sig/Dasha Start time Last Medication Dose Route Stop Time Status Admin Acetaminophen 650 MG Q6 PRN 10/22 2099 AC PO Acetaminophen 1,000 MG Q6P PRN 10/22 2044 AC IV Aspirin 81 MG DAILY 10/24 0900 AC 10/28 PO 0816 Atorvastatin Calcium 40 MG 1700 10/23 1700 AC 10/27 PO 1650 Bisacodyl 10 MG DAILY PRN 10/27 1245 AC AK Clopidogrel Bisulfate 75 MG DAILY 10/23 0900 AC 10/28 PO 0817 Docusate Sodium 100 MG DAILY NEEDED PRN 10/26 1630 AC 10/26 PO 1755 Furosemide 20 MG DAILY 10/25 1146 AC 10/28 PO 0817 Guaifenesin 10 ML Q6P PRN 10/25 1115 AC 10/26 PO 0935 Insulin Aspart 0 TIDAC 10/23 08 AC 10/28 SC 0816 Insulin Aspart 0 AT BEDTIME 10/22 2100 AC 10/25 SC 2101 Insulin Detemir 15 UNITS DAILY 10/23 09 AC 10/28 SC 0817 Metoprolol Succinate 50 MG DAILY 10/22 2041 AC 10/28 PO 0817 Omeprazole 40 MG DAILY AC 10/23 07 AC 10/28 PO 0601 Polyethylene Glycol 17 GM DAILY 10/26 1629 AC 10/28 PO 0817 Senna/Docusate Sodium 1 TAB BID 10/27 2100 AC 10/28 PO 0817 Senna/Docusate Sodium 1 TAB BIDPRN PRN 10/27 0945 DC PO Venlafaxine HCl 25 MG BID 10/22 2100 AC 10/28 PO 0817 Last 24 Hrs of Lab/Heraclio Results Last 24 Hrs of Labs/Mics: Laboratory Tests 10/28/17 0650: Anion Gap 10, Estimated GFR 20 L, BUN/Creatinine Ratio 19.6 Assessment/Plan Assessment: 77 YO F with PMH of hypertension, congestive heart failure, aortic stenosis, hyperlipidemia, peripheral vascular disease, diabetes, CABG, chronic Gallo, urinary incontinence [follows Dr. Hirsch] came to [place] with complaints of weakness, shortness of breath and cough. Problem list/plan: Acute on chronic diastolic heart failure: -Elevated troponins -Patient had EF 5560% on her last echocardiogram that was done last year. On exam done on this visit showed EF of 35-30% -Lasix DC'ed due to increasing creatinine -Strictly monitor input and output -Daily weight -Cardiology recommendations appreciated regarding suitability for discharge -Started patient on ASA, continued metroprolol -repeat CXR was largely unremarkable, except low lung volumes -PT recommending STR rehab for deconditioning, pending discharge today Acute on chronic kidney injury: -possibly prerenal. Stage IV from stage III -Creatinine to 2.3 (now stable) from baseline 1.5 -Lasix tab restarted @ 20mg daily -Avoid NSAIDS and nephrotoxic medications -closely monitor input and output Elevated troponin: -Patient has elevated troponin in the setting of A on C kidney injury. Not thought to be related to NSTEMI or ischemia, prior concerns have been addressed. -continued telemetry monitoring -appreciate cardiology recommendation Hyperkalemia -Mild elevation at 5.2 initially now resolved to 4.8 -Continue to follow potassium level Diabetes -Accuchecks TIDAC -Insulin Levemir 15 units daily -Insulin novolog sliding scale Hypertension, hyperlipidemia -continue metoprolol and Lipitor CAD s/p CABG -continue clopidigrel DVT prophylaxis: Lovenox and ALPS Heart healthy diet Patient is DNR/DNI Problem List: 1. CHF (congestive heart failure) 2. Barcy-tj-hjuyyrd kidney injury 3. Elevated troponin Pain Ratin Pain Location: none Pain Goal: Remain pain free Pain Plan: Tylenol Tomorrow's Labs & Rationales: none; planned discharge today
--- NOTE | 2017-10-28 08:53 | PN- Cardiology ---
Subjective Subjective: Patient claims to feel well at rest. No chest pains and no unusual shortness of breath at rest. Telemetry sinus rhythm. Objective Vital Signs and I&Os Vital Signs Date Time Temp Pulse Resp B/P B/P Pulse O2 O2 Flow FiO2 Mean Ox Delivery Rate 10/28 0817 72 122/68 10/28 0638 99.2 72 20 122/58 92 Room Air 10/27 2311 98.2 63 18 116/62 94 Room Air 10/27 2042 Room Air 10/27 1455 97.9 65 18 120/60 96 Room Air 10/27 1203 Nasal 1.0L Cannula 10/27 0853 67 120/58 Intake & Output 10/28 1600 10/28 0800 10/28 0000 10/27 1600 10/27 0000 Intake Total 300 480 200 240 Output Total 450 1000 600 450 850 Balance -150 -1000 -120 -250 -610 Intake, Oral 300 480 200 240 Number 1 Bowel Movements Output, Urine 450 1000 600 450 850 Patient 157 lb Weight Physical Exam: On physical exam. Patient appeared comfortable Head normocephalic atraumatic Eyes sclera anicteric conjunctiva showed pallor extraocular muscles were normal Neck no jugular venous tension carotid endarterectomy scar. No masses no thyroid masses no palpable nodes Chest lungs clear bilaterally Heart regular rhythm with a grade 2/6 to 3/6 ejection systolic murmur Abdomen soft no organomegaly bowel sounds normal Extremities no clubbing cyanosis or edema. Neurological no gross motor or sensory deficits Current Medications: Current Medications Sig/Dasha Start time Last Medication Dose Route Stop Time Status Admin Acetaminophen 650 MG Q6 PRN 10/22 2100 AC PO Acetaminophen 1,000 MG Q6P PRN 10/22 204 AC IV Aspirin 81 MG DAILY 10/24 09 AC 10/28 PO 0816 Atorvastatin Calcium 40 MG 1700 10/23 1700 AC 10/27 PO 1650 Bisacodyl 10 MG DAILY PRN 10/27 1245 AC RI Clopidogrel Bisulfate 75 MG DAILY 10/23 09 AC 10/28 PO 0817 Docusate Sodium 100 MG DAILY NEEDED PRN 10/26 1630 AC 10/26 PO 1755 Furosemide 20 MG DAILY 10/25 1146 AC 10/28 PO 0817 Guaifenesin 10 ML Q6P PRN 10/25 1115 AC 10/26 PO 0935 Insulin Aspart 0 TIDAC 10/23 0800 AC 10/28 SC 0816 Insulin Aspart 0 AT BEDTIME 10/22 2100 AC 10/25 SC 210 Insulin Detemir 15 UNITS DAILY 10/23 09 AC 10/28 SC 0817 Metoprolol Succinate 50 MG DAILY 10/22 204 AC 10/28 PO 0817 Omeprazole 40 MG DAILY AC 10/23 0700 AC 10/28 PO 0601 Polyethylene Glycol 17 GM DAILY 10/26 1629 AC 10/28 PO 0817 Senna 187 MG AT BEDTIME 10/26 2100 DC 10/26 PO 2020 Senna/Docusate Sodium 1 TAB BID 10/27 2099 AC 10/28 PO 08 Senna/Docusate Sodium 1 TAB BIDPRN PRN 10/27 0945 DC PO Venlafaxine HCl 25 MG BID 10/22 2099 AC 10/28 PO 08 Results Last 48 Hrs of Labs/Mics: Laboratory Tests 10/28/17 0650: Anion Gap 10, Estimated GFR 20 L, BUN/Creatinine Ratio 19.6 10/27/17 0700: Anion Gap 9, Estimated GFR 22 L, BUN/Creatinine Ratio 22.3 Assessment/Plan Assessment/Plan a following problems 1. New acute systolic congestive heart failure with new depression in ejection fraction 2. Known history of moderate to severe Aortic stenosis 3. History of coronary artery disease status post bypass surgery; PCI 2015 4. History of orthostatic hypotension 5. Hyperlipidemia 6. Normocytic anemia 7. Chronic renal insufficiency; not on ELOY-I 8. Carotid stenosis felt not a surgical candidate by vascular in the past 9. Elevated troponin not due to acute coronary syndrome She has multiple issues including severe fear and significant autonomic neuropathy and orthostatic hypotension. Although TAVR has been suggested, I do not believe this is a 'magic bullet', in this individual with multiple issues and 90% of her current problems are not going to improve based on aortic valve replacement. I had a rubina discussion with her and left the option open to her anyway. She lives alone and she will be better served considering home placement, taking care of nursing issues and comfort issues, and accepting probably more hospitalizations. Hopefully she will decide on final strategy of treatment when this happens that would include comfort care. Continue telemetry? No
[2017-10-28 11:07] VITALS: BP 122/68
--- NOTE | 2017-10-28 12:28 | Cons- Psychiatry ---
Psychiatric Consult Date of Consult: 10/28/17 Reason for Consult: "Rule out depression/suicidal ideation" History of Present Illness: This 77-year-old female was admitted on October 22 with dyspnea. Apparently early in her admission when she was frustrated by her symptoms, she stated to a physical therapist I might as well go home and ". Today the patient states "I have no idea" why I am seeing her. She states "it must be because of the statement I made". She was unwilling to elaborate on the statement. I attempted to explore with her the fact that she had alluded to a desire to . She responded "have you never said anything you did not mean?". The patient declined to converse with me any further "I do not need to speak to you, there is nothing wrong with me". 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 She was sitting up in bed, well groomed. Initially she was bright and welcoming. Eye contact was good. Speech was normal in rate, rhythm, volume and tone. Mood was "fine". Affect was euthymic, somewhat dismissive. She was not suicidal or homicidal. Thought process was normal in tempo stream and form with no delusions or obsessions. There was no perceptual abnormality. Insight is good, judgment unimpaired. Impression: No acute psychiatric illness. Psychiatry will sign off.
== END 2017-10-28 12:10 | DRG 291 ==
LOC: ERH 14:03 → ERHI 17:33 → 1NO 17:33 → ENRESERV 19:00 → ENTRNSPT 21:02 → 1NO 21:14 → CMPTRNSPT 21:26 → 1NO 10-25 07:20 → ENPENDDIS 10-28 11:02 → 1NO 10-28 12:10
PROVIDERS: Emergency Medicine; Student in an Organized Health Care Education/Training Program
DX: I13.0 Hypertensive heart and chronic kidney disease with heart failure and stage 1 through stage 4 chronic kidney disease, or unspecified chronic kidney disease (principal); I50.33 Acute on chronic diastolic (congestive) heart failure; I50.21 Acute systolic (congestive) heart failure; N17.9 Acute kidney failure, unspecified; N18.4 Chronic kidney disease, stage 4 (severe); E78.5 Hyperlipidemia, unspecified; I95.1 Orthostatic hypotension; Z95.1 Presence of aortocoronary bypass graft; I25.10 Atherosclerotic heart disease of native coronary artery without angina pectoris; K21.9 Gastro-esophageal reflux disease without esophagitis; Z93.50 Unspecified cystostomy status; F32.9 Major depressive disorder, single episode, unspecified; I35.0 Nonrheumatic aortic (valve) stenosis; I49.3 Ventricular premature depolarization; E87.5 Hyperkalemia; Z79.4 Long term (current) use of insulin; E11.22 Type 2 diabetes mellitus with diabetic chronic kidney disease; Z79.01 Long term (current) use of anticoagulants; D64.9 Anemia, unspecified; E11.51 Type 2 diabetes mellitus with diabetic peripheral angiopathy without gangrene; R32 Unspecified urinary incontinence; Z88.5 Allergy status to narcotic agent; Z88.8 Allergy status to other drugs, medicaments and biological substances; Z96.641 Presence of right artificial hip joint; E86.0 Dehydration; Z66 Do not resuscitate
CPT/HCPCS: 1NP; 1NSP; 36415; 36592; 71046; 82436; 93005; 93010; 93306; 97110-GO; 97116-GO; 97161-GP; 97530-GO; J1644; J1940; J3490; Q2036